=== PATIENT | female | born 1990 | race African-American/Black ===

== ENCOUNTER 2021-08-16 09:30 | Emergency (ER) | payer OTHER, SELFPAY ==
--- NOTE | ~2021-08-16 | XR_ITS ---
EXAMINATION: XR elbow RT min 3V DATE: 08/16/2021 10:02 INDICATION: Posterior right elbow pain post fall TECHNIQUE: Anteroposterior, two oblique and lateral views of the right elbow were obtained. COMPARISON: None. FINDINGS: Alignment is normal. No fracture or joint effusion. Joint spaces are normal. Small ulnar marginal ost eophyte near the sublime tubercle. Small heterotopic ossicle with smooth corticated margins along the posterior margin of the lateral humeral condyle. Soft tissues are unremarkable. IMPRESSION: 1. No right elbow joint effusion or acute osseous abnormality. Reviewed, dictated and finalized at location A.
--- NOTE | ~2021-08-16 | XR_ITS ---
EXAMINATION: XR toe 1st LT min 2V DATE: 08/16/2021 10:02 INDICATION: Left great toe pain. Fall. TECHNIQUE: 4 views of left great toe were obtained. COMPARISON: None. FINDINGS: Bone alignment is normal. No fracture. There is mild osteoarthritis of first metatarsophala ngeal joint and first interphalangeal joint. IMPRESSION: 1. Mild polyarticular osteoarthritis. Reviewed, dictated and finalized at location A.
[2021-08-16 09:36] VITALS: BP 134/84; PULSE 83; RESP 20; TEMP 36.2; O2SAT 99
[2021-08-16 10:02] VITALS: BP 134/84; PULSE 83; RESP 18; TEMP 36.2; O2SAT 99
--- NOTE | 2021-08-16 10:36 | ED.FALL ---
HPI - Fall General Chief Complaint: Fall Stated Complaint: fall Time Seen by Provider: 08/16/21 09:39 Source: patient, family and RN notes reviewed Mode of arrival: ambulatory Limitations: no limitations History of Present Illness HPI Narrative: Patient a 31-year-old female who presents with left foot pain and right elbow pain after slipping on a wet floor this morning patient notes aching pain to the forefoot at the base of the great toe as well as the right elbow posteriorly over the olecranon process denies other injuries or complaints slipped on the wet floor is noted presents nondistressed does not take anything for her symptoms Related Data Home Medications Medication Instructions Recorded Confirmed fluticasone propionate INTRANASAL 08/16/21 Allergies Allergy/AdvReac Type Severity Reaction Status Date / Time morphine Allergy Severe ITCHING, Verified 08/16/21 10:05 hives, throat swelling Review of Systems Review of Systems: All systems reviewed & are unremarkable except as noted in HPI and below PMFSH Past Medical History Medical History No significant past medical history Surgical History Surgical History History of section History of cholecystectomy Social History Social History Smoking status: Never smoker Gender identity (if verbalized by the patient): Female Exam Narrative: GENERAL: Well-appearing, well-nourished, and in no acute distress. HEAD: Normocephalic, atraumatic. EYES: PERRLA and EOMI. ENT: Nares clear, no rhinorrhea or epistaxis. Mucous membranes moist. NECK: Supple. No adenopathy or masses. CHEST: Clear to auscultation. No respiratory distress. No wheezes rales or rhonchi HEART: Regular rate and rhythm. No murmur heard. Normal peripheral pulses. EXTREMITIES: Normal range of motion. No edema. Tenderness at the base of the left great toe no deformities noted tenderness of the posterior right elbow no deformities noted no midline cervical thoracic or lumbar tenderness SKIN: Warm, dry, no rash. NEURO: No focal deficits. Alert and oriented x3. Neurovascularly intact PSYCH: Normal mood and affect. Course Course Emergency Course: Patient evaluated after a ground-level fall nondistressed will be discharged home with outpatient follow-up is afebrile nontoxic-appearing ABCs and vital signs intact and stable Vital Signs Vital signs: Vital Signs Temperature 97.2 F L 08/16/21 09:36 Pulse Rate 83 08/16/21 09:36 Respiratory Rate 20 08/16/21 09:36 Blood Pressure 134/84 08/16/21 09:36 Pulse Oximetry 99 08/16/21 09:36 Temperature 97.2 F L 08/16/21 10:02 Pulse Rate 83 08/16/21 10:02 Respiratory Rate 18 08/16/21 10:02 Blood Pressure 134/84 08/16/21 10:02 Pulse Oximetry 99 08/16/21 10:02 MDM - Fall MDM Narrative Medical decision making narrative: Patients injury or pain is consistent with musculoskeletal etiology. No signs of neurological or vascular compromise on exam. Compartments and tisues are soft without signs of compartment syndrome. Pain is felt appropriate for further evaluation on an outpatient basis. Imaging Data Radiologist's impression: ITS Impressions Elbow X-Ray 08/16/21 10:04 IMPRESSION: 1. No right elbow joint effusion or acute osseous abnormality. Toe X-Ray 08/16/21 10:05 IMPRESSION: 1. Mild polyarticular osteoarthritis. Discharge Plan Discharge Clinical Impression: Contusion of foot, left, Contusion of elbow, right Patient Disposition: Home, Self-Care Condition: Stable Instructions: Antibiotic Form, Contusion in Adults (ED) Additional Instructions: Follow-up with primary care in the next 7 days for reevaluation Return if symptoms worsen or concerns Rest ice and elevation for symptom relief Follow
== END 2021-08-16 10:44 | disposition home or self-care (01) ==
PROVIDERS: Emergency Provider Emergency Medicine; PCP Internal Medicine Infectious Disease
DX: S50.01XA Contusion of right elbow, initial encounter (principal); S90.32XA Contusion of left foot, initial encounter; M19.072 Primary osteoarthritis, left ankle and foot; W01.0XXA Fall on same level from slipping, tripping and stumbling without subsequent striking against object, initial encounter
CPT/HCPCS: 73080; 73660; 99284

== ENCOUNTER 2021-11-27 16:37 | Inpatient (IN) | payer OTHER, SELFPAY ==
[2021-11-27] VITALS (8 sets, daily range): BP systolic 110–136; BP diastolic 71–99; PULSE 84–90; RESP 16–18; TEMP 36.8; O2SAT 98–100; BMI 58.9
--- NOTE | ~2021-11-27 | XR_ITS ---
XR ankle LT min 3V DATE: 11/27/2021 17:23 INDICATION: Patient fell rollerblading. Pain at posterior ankle and thigh TECHNIQUE: 4 views COMPARISON: None FINDINGS: There is a mildly comminuted oblique fracture of the distal fibular shaft with one cortical width lateral and posterior displacement. There is approximately 6 mm lateral tibiotalar joint subluxation. There is tibiotalar osteoarthritis. Mild posterior calcaneal enthesopathy. IMPRESSION: Distal fibular shaft fracture and lateral tibiotalar joint subluxation Reviewed, dictated and finalized at location A. [employer] IMPRESSION: Distal fibular shaft fracture and lateral tibiotalar joint subluxat ion
--- NOTE | ~2021-11-27 | XR_ITS ---
EXAMINATION: XR surgery orthopedic DATE: 11/28/2021 15:06 INDICATION: ORIF left ankle fracture TECHNIQUE: 7 fluoroscopic images of the left ankle were obtained during procedure performed by Dr. Woody osborne. Radiologist was not present for the imaging or procedure. The amount of fluoroscopy time used during this procedure was 0.8 minutes. COMPARISON: 11/27/2021 FINDINGS: Line images demonstrate open reduction internal fixation of the previously noted comminuted distal left fibular diaphyseal fracture with interfragmentary screw and lateral plate and screws. Segura bsequent images demonstrate placement of an associated syndesmotic fixation with metallic buttons on the medial side of a lucent tunnel extending across the distal left tibial and fibular metaphyses. Al ignment post fixation appears essentially anatomic with a congruent ankle mortise. Tiny chronic appea ring loose body at the anterior recess of the tibiotalar joint space with small marginal osteophyte a long the anterior tibial plafond. Joint space appears relatively preserved. IMPRESSION: 1. Near-anatomic alignment post internal fixation of a comminuted distal fibular diaphyseal fracture which includes a distal tibiofibular syndesmotic fixation. See procedure note for further detail. Reviewed, dictated and finalized at location A. RINE MIXER IMPRESSION: 1. Near-anatomic alignment post internal fixation of a comminuted distal fibula r diaphyseal fracture which includes a distal tibiofibular syndesmotic fixation . See procedure note for further detail.
--- NOTE | ~2021-11-27 | CT_ITS ---
CT ankle LT wo con DATE: 11/27/2021 19:54 INDICATION: Left ankle pain following fall TECHNIQUE: CT axial images through the ankle; sagittal and coronal reconstructions. Automated exposure control and iterative reconstruction were performed utilizing. Exam dose: 528.69 mGy-cm total exam DLP. COMPARISON: 11/27/2021 left tibia-fibula and left ankle FINDINGS: CT examination confirms a mildly comminuted fracture of the distal fibular shaft with mild posterior displacement. There is mild medial subluxation at the tibiotalar joint. There are small cortical fracture fragments at the distal posterior distal tibia. There is osteoarthritic spurring at the anterior distal tibia. The talar dome is intact. Mild plantar and posterior calcaneal enthesopathy. IMPRESSION: Comminuted fracture of the distal fibular shaft with one cortical width posterior displac ement Mild medial subluxation at the tibiotalar joint Multiple small cortical bony densities at the distal posterior tibia suggests small cortical cyst fra cture fragments Reviewed, dictated and finalized at Location A. Reviewed, dictated and finalized at location A. OR NETWORK SECURITY ARCHITECT IMPRESSION: Comminuted fracture of the distal fibular shaft with one cortical w idth posterior displacement Mild medial subluxation at the tibiotalar joint Multiple small cortical bony densities at the distal posterior tibia suggests s mall cortical cyst fracture fragments
--- NOTE | ~2021-11-27 | XR_ITS ---
XR tibia fibula LT 2V DATE: 11/27/2021 19:28 INDICATION: Fall. Lower leg pain TECHNIQUE: Portable AP and lateral views COMPARISON: None FINDINGS: There is a mildly comminuted fracture of the distal fibular shaft with one cortical width p osterior displacement, no medial or lateral displacement, no significant angulation. There is improved with mild residual lateral tibiotalar joint subluxation. IMPRESSION: Improved but mild residual tibiotalar lateral subluxation Resolution of one cortical width lateral displacement but residual one cortical width posterior displ acement of linear oblique manner, and fracture of distal fibular shaft Reviewed, dictated and finalized at location A. S REP IMPRESSION: Improved but mild residual tibiotalar lateral subluxation Resolution of one cortical width lateral displacement but residual one cortical width posterior displacement of linear oblique manner, and fracture of distal fibular shaft
--- NOTE | ~2021-11-27 | XR_ITS ---
EXAMINATION: XR chest 1V portable DATE: 11/27/2021 22:59 INDICATION: COVID-19 positive. TECHNIQUE: A single frontal view of the chest was obtained. COMPARISON: Chest 2 views 10/09/2019 FINDINGS: There is airspace opacities in all right lung zones and in left mid and lower lung zones. N o pleural effusion or pneumothorax. The heart size is normal. IMPRESSION: 1. Diffuse lung disease, consistent with COVID-19 pneumonia. Obesity decreases sensitivity and specif icity. Reviewed, dictated and finalized at location A. NARY WORKER IMPRESSION: 1. Diffuse lung disease, consistent with COVID-19 pneumonia. Obesity decreases sensitivity and specificity.
[2021-11-27] MEDS: fentaNYL CITRATE INJ (*CRX) 100 MCG/2 ML VIAL 50 MCG IV PUSH ×2 (17:15→22:49)
[2021-11-27] MEDS: ceFAZolin 2 GM/D5W 50 ML 2 GM/50 ML BAG IVPB (17:57)
[2021-11-27] MEDS: TETANUS,DIPHTHERIA,AC PERTUSSIS ADULT (0.5 ML) BOOSTRIX IM (18:09)
[2021-11-27] MEDS: fentaNYL CITRATE INJ (*CRX) 100 MCG/2 ML VIAL (18:43)
--- NOTE | 2021-11-27 19:02 | PM.IMHP ---
H&P: HPI History of Present Illness Date/Time: 11/27/21 19:02 this is a 31-year-old female patient who was skating at her son's birthday green party when she fell and hurt her left ankle. The patient stated that she heard a pop when she twisted her left ankle. Patient denies hitting her head. Patient was brought in per EMS. Ankle x-ray was read as distal fibular shaft fracture and lateral tibiotalar joint subluxation. Tibia-fibula x-ray was read as improved but mild residual tibial tolerated lateral subluxation. Resolution of 1 cortical with lateral displacement but residual 1 cortical with posterior displacement of linear oblique manner and fracture of distal fibular shaft. Ankle CT was read as the followingComminuted fracture of the distal fibular shaft with one cortical width posterior displacement Mild medial subluxation at the tibiotalar joint Multiple small cortical bony densities at the distal posterior tibia suggests small cortical cyst fracture fragments. The patient had a small area to her lower ankle where she had been bleeding. The patient was given a tetanus shot, fentanyl, and Ancef in the emergency room. H&H is 10.4 and 34.2. The patient was found to be positive for COVID. The patient is being admitted to inpatient status on the date of service of 11/27/2021. Chief Complaint: Left ankle pain after injury Review of Systems Review of Systems: All systems reviewed & are unremarkable except as noted in HPI and below Constitutional: Constitutional: Reports as per HPI and Reports no additional constitutional complaints Eyes: Eyes: Reports as per HPI and Reports no additional eye complaints ENT: Reports system reviewed and no additional complaints, except as documented and Reports Normal hearing present Cardiovascular: Cardiovascular: Reports no additional cardiovascular complaints Respiratory: Respiratory: Reports no additional respiratory complaints and Reports no additional respiratory complaints Gastrointestinal: Gastrointestinal: Reports as per HPI and Reports no additional gastrointestinal complaints Musculoskeletal: Musculoskeletal: Reports no additional musculoskeletal complaints Integumentary/Breasts: Skin/Breast: Reports system reviewed and no additional complaints, except as docu and Reports as per HPI Neurologic: Reports system reviewed and no additional complaints, except as documented, Reports as per HPI and Reports Normal hearing present Psychiatric: Psychiatric: Reports no additional psychiatric complaints and Reports as per HPI Endocrine: Endocrine: Reports no additional endocrine complaints Hematologic/Lymphatic: Hematologic/Lymphatic: Reports no additional hematologic/lymphatic complaints Allergic/Immunologic: Allergic/Immunologic: Reports no additional allergic/immunologic complaints PMFSH Past Medical History Medical History (Updated 11/27/21 @ 22:15 by Nicole Edwards NP) No significant past medical history Obesity Surgical History Surgical History History of section 4 History of cholecystectomy Family History Family History (Updated 11/27/21 @ 22:15 by Nicole Edwards NP) Unknown No significant family history Social History Social History (Updated 11/27/21 @ 22:16 by Nicole Edwards NP) Social History: 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 She lives with her tracy who is her durable power privacy attorney for healthcare. The patient is a lifelong nonsmoker. She does not use any alcohol marijuana or illicit drugs. Code status full code Smoking status: Never smoker Gender identity (if verbalized by the patient): Female Meds Home Medications and Allergies Home Medications Medication Instructions Recorded Confirmed Type famotidine 40 mg PO DAILY #30 tablet 10/09/19 Rx fluticasone propionate INTRANASAL 08/16/21 History ibuprofen [IBU] 600 mg PO QID PRN #7 tablet 08/16/21 Rx
[2021-11-27] MEDS: ceFAZolin SODIUM 1 GM VIAL IV PUSH (19:11)
--- NOTE | 2021-11-27 19:16 | ED.LOWEXIN ---
HPI - Extremity Injury (Lower) General Chief Complaint: Extremity Injury, Lower Stated Complaint: L ANKLE PAIN Time Seen by Provider: 11/27/21 16:53 Source: patient Mode of arrival: EMS Limitations: clinical condition History of Present Illness HPI Narrative: 31-year-old female Patient was rollerskating at her son's 14th birthday green party and fell and injured her left ankle She states I heard the bone snap, and was brought in by EMS No other injuries Overweight but not unhealthy otherwise Related Data Home Medications Medication Instructions Recorded Confirmed fluticasone propionate INTRANASAL 08/16/21 Allergies Allergy/AdvReac Type Severity Reaction Status Date / Time morphine Allergy Severe ITCHING, Verified 08/16/21 10:05 hives, throat swelling Review of Systems Constitutional: Constitutional: Denies chills and Denies fever(s) Cardiovascular: Cardiovascular: Denies chest pain Respiratory: Respiratory: Denies cough and Denies dyspnea Musculoskeletal: Musculoskeletal: Reports arthralgias and Reports joint swelling Neurologic: Denies vertigo, Denies dizziness and Denies syncope PMFSH Past Medical History Medical History No significant past medical history Surgical History Surgical History History of section 4 History of cholecystectomy Social History Social History Social History: 6 c nereidab tatiana Smoking status: Never smoker Gender identity (if verbalized by the patient): Female Exam Const: General: cooperative and no acute distress Nutritional Appearance: obese Orientation/consciousness: patient oriented x3 (alert) HENMT: Head: normal to inspection, normocephalic, atraumatic, no contusions and no hematomas Ears: external ears normal General nose exam: no epistaxis Eyes: Conjunctivae: conjunctivae normal EOM: EOMs intact bilaterally Neck: Neck: normal visual inspection, supple and no JVD Resp: Effort & Inspection: normal respiratory effort and not labored Auscultation: other (BS =) Skin: General skin exam: normal color and no rashes or lesions noted Neuro: General: patient oriented x3 (alert) and moves all extremities Speech: normal speech Extrem: Other: Left leg, no obvious angular deformity but there is swelling around the ankle, very tender over the distal fibula, less tender medially over the tibia, there is a very tiny approximately 3 mm wound medially that I cleaned up with a Q-tip and got quite a bit of blood and also some whitish material and consider this to represent a communicating open fracture, normal distal sensation and pulses Psych: Affect: normal affect Course Course Emergency Course: Discussed with Ortho and with hospitalist, antibiotics begun, splinted by techs, admission with expectation of surgery tomorrow Vital Signs Vital signs: Vital Signs Temperature 36.8 C 11/27/21 16:53 Pulse Rate 90 11/27/21 16:53 Respiratory Rate 18 11/27/21 16:53 Blood Pressure 110/74 11/27/21 16:53 Pulse Oximetry 100 11/27/21 16:53 Temperature 36.8 C 11/27/21 16:53 Pulse Rate 90 11/27/21 16:53 Respiratory Rate 18 11/27/21 16:53 Blood Pressure 124/71 11/27/21 18:46 Pulse Oximetry 100 11/27/21 18:46 MDM - Extremity Injury (Lower) Lab Data Labs: Lab Results 11/27/21 Range/Units 18:53 SARS-CoV-2 RNA (RT-PCR) Pending ABG Data Attestation: I personally reviewed and interpreted this ABG as follows: Interpretation: O2 sat is 100% on room air, normal Imaging Data Radiologist's impression: ITS Impressions Ankle X-Ray 11/27/21 17:37 IMPRESSION: Distal fibular shaft fracture and lateral tibiotalar joint subluxation Discharge Plan Discharge Clinical Impression: Open fracture of left ankle Patient Disposition: S
[2021-11-27 19:35] LABS: SARS-CoV-2 RNA PCR Positive
--- NOTE | 2021-11-27 23:30 | ADMGEN ---
This patient, Melly Tinoco, was admitted to 3 [facility] Surg Room 302-01. Patient/family oriented to hospital policies and general routines including ID bracelet, bed and alarms, visiting hours, pain management, procedures, bathroom and other care routines, personal items, smoking policy, room service/diet, and visiting hours. Information on how to activate the Rapid Response Team has been discussed. Patient/Family are encouraged to report perceived risks to care and to ask questions if they do not understand what they are told or what they should do.
[2021-11-28] VITALS (10 sets, daily range): BP systolic 112–145; BP diastolic 74–87; PULSE 78–99; RESP 12–18; TEMP 36.2–36.7; O2SAT 94–100
[2021-11-28] MEDS: HYDROcodone/acetaminophen (*CRX) 7.5-325 MG TABLET 1 TAB PO ×2 (00:21→06:48)
[2021-11-28 06:45] LABS: Basophils Percent Auto 0.2 % (0.2-1.2); Eosinophils Percent Auto 0.4 % (0-4.4); Hematocrit 33.5 % (37.0-47.0); Hemoglobin 10.1 g/dL (12.0-15.0); Immature Granulocyte Absolute 0.02 K/mm3 (0.00-0.031); Immature Granulocyte Percent A 0.2 % (0-0.5); Lymphocytes Percent Auto 29.3 % (18.3-44.2); Mean Corpuscular HGB Conc 30.1 g/dl (32-36); Mean Corpuscular Hemoglobin 23.9 pg (26-34); Mean Corpuscular Volume 79.4 fl (80-100); Mean Platelet Volume 9.1 fl (7.4-10.4); Monocytes Absolute Auto 0.8 K/mm3 (0.1-0.6); Monocytes Percent Auto 8.6 % (2.6-8.5); Neutrophils Absolute Auto 5.6 K/mm3 (1.3-6.7); Neutrophils Percent Auto 61.3 % (45.5-73.1); Platelet Count Result 321 k/mm3 (150-375); Red Blood Count 4.22 M/mm3 (4.2-5.4); Red Cell Distribution Width 17.7 % (11.5-14.5); White Blood Count 9.2 K/mm3 (4.5-10.0)
[2021-11-28 07:01] LABS: Alanine Aminotransferase 15 U/L (4-35); Albumin Level 3.9 g/dL (3.5-5.1); Alkaline Phosphatase 50 U/L (38-126); Anion Gap 4 mmol/L (8-16); Aspartate Amino Transferase 20 U/L (14-36); Bilirubin,Total 0.7 mg/dL (0.2-1.3); Blood Urea Nitrogen 8 mg/dL (7-17); Calcium 8.8 mg/dL (8.4-10.2); Carbon Dioxide 29 mmol/L (22-30); Chloride 103 mmol/L (98-107); Estimated CRCL calculation 227 ml/min; Estimated Glomerular Filt Rate > 60; Glucose 134 mg/dL (65-110); Lactate Dehydrogenase 330 U/L (313-618); Magnesium 1.8 mg/dL (1.6-2.3); Potassium 3.9 mmol/L (3.4-5.0); Sodium 136 mmol/L (137-145)
[2021-11-28 07:16] LABS: Lactic Acid Reflex 0.9 mmol/L (0.7-2.1)
[2021-11-28 07:38] LABS: Thyroid Stimulating Hormone Reflex 0.165 uIU/mL (0.465-4.68)
[2021-11-28 08:16] LABS: Free T4 Free Thyroxine Reflex 1.17 ng/dL (0.78-2.19)
[2021-11-28 09:29] LABS: Total Triiodothyronine (T3) 1.33 NG/ML (0.97-1.69)
[2021-11-28] MEDS: fentaNYL CITRATE INJ (*CRX) 100 MCG/2 ML VIAL 50 MCG IV PUSH (10:17)
--- NOTE | 2021-11-28 11:46 | WPDHPUPDATE1 ---
History and Physical Update Update Date/Time: 11/28/21 11:46 History and Physical has been reviewed, including an updated exam of the patient. Patient was just examined. I have discussed the risks of surgery with her in detail as well as the risks of surgery with her today. That was done over the telephone. There are NO changes in the patient's condition. Risks, benefits, and alternatives have been discussed and questions answered. Patient agrees to proceed with procedure.
--- NOTE | 2021-11-28 11:48 | PM.PNORT ---
Progress Note: A&P Additional Plan Patient is a 31-year-old female who presented late yesterday afternoon with a Rodriguez C fracture subluxation of the left ankle with comminuted distal fibular shaft fracture with segmental comminution gross widening of the syndesmosis and significant lateral subluxation. She presented with a 5 mm skin tear over the medial malleolus which evidently occurred at time of injury at point of maximum displacement and the ER doctor noted that on probing this a lot of blood and fatty material came out which would suggest this is in continuity with the ankle and therefore grade 1 open injury but fortunately not directly over the fracture fragments but rather over the medial malleolus which is not fracture. A CT scan was obtained. She has a prominent osteophyte off the anterior tibial plafond that was pre-existing I discussed with the patient that this might have been associated with some decreased dorsiflexion of the ankle and she was aware of that. There is also evidence of posterior malleolus chip fractures. There was a typographical error on the CT report by the radiologist mentioning chips of bone from a cortical cyst but it should of said chips of bone from the cortical surface of the posterior distal tibia. The medial malleolus looks intact so this is technically a bimalleolar fracture. She did test positive for Coronavirus and chest x-ray shows some pneumonitis consistent with Coronavirus pneumonia although the patient appears asymptomatic at this time. Her past medical history is otherwise unremarkable except for super obesity. Her BMI is 59. She has nasal allergies for which she takes fluticasone propionate nasal spray and also takes Pepcid for reflux. She has a history of sections in the past and history of cholecystectomy and she had no problems with thrombotic complications with these procedures and no family history of thrombotic complications. She does not smoke or drink alcohol. She lives with her tracy and their 4 children. Her injury happened while she was roller skating at her 12-year-old birthday democrat yesterday. Impression: Patient has a severely unstable Rodriguez C distal fibular shaft fracture that the which has segmental comminution. There is subluxation prominent of the talus relative to the distal tibia indicating deltoid ligament rupture but without fracture. Small posterior malleolar surface chip fractures are noted on CT scan. Gross syndesmotic widening noted. I have recommended open reduction internal fixation with a 1/3 tubular locking plate and stabilization of the syndesmosis with a tight rope device to stabilize her injury. I have discussed with her and then subsequently I discussed with her over the telephone the risks of surgery in detail which include blood clots pulmonary embolism. She is aware that pulmonary embolism could cause and this made her very nervous. I recommended that we use Eliquis for 8 weeks postoperatively for DVT prophylaxis because with her extreme obesity she is at higher risk for a blood clot in the lower extremity and therefore pulmonary embolism. I discussed the risk of infection with her. There is a slightly higher risk of infection because it is an open injury and I would plan to use 10 days of antibiotics postoperatively for additional prophylaxis. She was given tetanus and 3 g Ancef in the ER and 2 g Q 8 will continue with that perioperatively and she was also started on weight based vancomycin this morning. Other risks would include development of progressive posttraumatic arthritis. She does have some arthritis the ankle now evidence by the prominent anterior osteophyte on the tibial plafond and and weight loss would be recommended in order to hopefully slow progression of arthritis in her weight-bearing joints over time. Risk of nerve injury to the superficial branch of peroneal nerve which could cause permanent numbness on the top of the foot discus
--- NOTE | 2021-11-28 12:32 | WPDANESEPPF ---
Anes - Initial Pre Proc Eval Procedure: Operation Date: 11/28/21 12:00 Proposed Procedures p Open Reduction Internal Fixation Left Ankle Fracture - Kit Snowden MD Date/Time: 11/28/21 12:32 Surgeon: Pauly Clark PA-C Pre Op Diagnosis: Open Ankle Fracture Patient Data Age: 31 Gender: F Height: 1.57 m Weight: 146.2 kg Last Vital Signs Temp 36.2 C L 11/28/21 08:45 Pulse 99 11/28/21 08:45 Resp 18 11/28/21 08:45 BP 112/74 11/28/21 08:45 Pulse Ox 100 11/28/21 08:45 Allergies Allergy/AdvReac Type Severity Reaction Status Date / Time morphine Allergy Severe ITCHING, Verified 08/16/21 10:05 hives, throat swelling Home Medications Medication Instructions Recorded Confirmed Type famotidine 40 mg PO DAILY #30 tablet 10/09/19 Rx fluticasone propionate INTRANASAL 08/16/21 History ibuprofen [IBU] 600 mg PO QID PRN #7 tablet 08/16/21 Rx Laboratory Tests 11/27/21 11/28/21 11/28/21 18:53 06:30 06:30 WBC 9.2 K/mm3 K/mm3 (4.5-10.0) RBC 4.22 M/mm3 M/mm3 (4.2-5.4) Hgb 10.1 g/dL L g/dL (12.0-15.0) Hct 33.5 % L % (37.0-47.0) MCV 79.4 fl L fl (80-100) MCH 23.9 pg L pg (26-34) MCHC 30.1 g/dl L g/dl (32-36) RDW 17.7 % H % (11.5-14.5) Plt Count 321 k/mm3 k/mm3 (150-375) MPV 9.1 fl fl (7.4-10.4) Immature Gran % (Auto) 0.2 % % (0-0.5) Neut % (Auto) 61.3 % % (45.5-73.1) Lymph % (Auto) 29.3 % % (18.3-44.2) [place] % (Auto) 8.6 % H % (2.6-8.5) Eos % (Auto) 0.4 % % (0-4.4) Baso % (Auto) 0.2 % % (0.2-1.2) Lymph # (Auto) 2.70 K/mm3 K/mm3 (0.9-3.2) [place] # (Auto) 0.8 K/mm3 H K/mm3 (0.1-0.6) Eos # (Auto) 0.0 K/mm3 K/mm3 (0-0.3) Baso # (Auto) 0.0 K/mm3 K/mm3 (0.0-0.1) Abs Immat Gran (auto) 0.02 K/mm3 K/mm3 (0.00-0.031) Absolute Neuts (auto) 5.6 K/mm3 K/mm3 (1.3-6.7) Absolute Nucleated RBC 0.0 K/mm3 K/mm3 (0.0-0.012) Nucleated RBC % 0.0 % % (0.0-0.2) Sodium 136 mmol/L L mmol/L (137-145) Potassium 3.9 mmol/L mmol/L (3.4-5.0) Chloride 103 mmol/L mmol/L (98-107) Carbon Dioxide 29 mmol/L mmol/L (22-30) Anion Gap 4 mmol/L L mmol/L (8-16) BUN 8 mg/dL mg/dL (7-17) Creatinine 0.40 mg/dL L mg/dL (0.7-1.0) Estim Creat Clear Calc 227 ml/min ml/min Estimated GFR > 60 (59 - ) Glucose 134 mg/dL H mg/dL (65-110) Lactic Acid Calcium 8.8 mg/dL mg/dL (8.4-10.2) Magnesium 1.8 mg/dL mg/dL (1.6-2.3) Ferritin Total Bilirubin 0.7 mg/dL mg/dL (0.2-1.3) AST 20 U/L U/L (14-36) ALT 15 U/L U/L (4-35) Alkaline Phosphatase 50 U/L U/L (38-126) Lactate Dehydrogenase 330 U/L U/L (313-618) Total Protein 7.0 g/dL g/dL (6.3-8.2) Albumin 3.9 g/dL g/dL (3.5-5.1) TSH (Reflex) Free T4 Total T3 SARS-CoV-2 RNA (RT-PCR) Positive A Blood Type Antibody Screen 11/28/21 11/28/21 11/28/21 06:30 06:30 06:30 WBC RBC Hgb Hct MCV MCH MCHC RDW Plt Count MPV Immature Gran % (Auto) Neut % (Auto) Lymph % (Auto) [place] % (Auto) Eos % (Auto) Baso % (Auto) Lymph # (Auto) [place] # (Auto) Eos # (Auto) Baso # (Auto) Abs Immat Gran (auto) Absolute Neuts (auto) Absolute Nucleated RBC Nucleated RBC % Sodium Potassium Chloride
[2021-11-28] MEDS: ceFAZolin SODIUM 1 GM VIAL 3 GM IV PUSH (12:53)
--- NOTE | 2021-11-28 12:55 | PC.NURSE ---
To OR per bed @ 1225. SBAR on chart, Ancef sent with patient due to Vanco infusing.
--- NOTE | 2021-11-28 14:51 | PM.IMPN ---
Progress Note: A&P Assessment and Plan (1) Open fracture of left ankle: Code(s): S82.892B - Other fracture of left lower leg, initial encounter for open fracture type I or II Status: Acute Assessment and Plan: Secondary to fall while roller skating. Ankle x-ray showed distal fibular shaft fracture and lateral tibiotalar joint subluxation Appreciate orthopedic surgery consultation Planning for ORIF this afternoon She will need PT/OT postoperatively Per Orthopedic surgery, will proceed with Eliquis 8 weeks postoperatively for DVT prophylaxis Supportive care. Analgesics and antiemetics available as needed (2) Anxiety: Code(s): F41.9 - Anxiety disorder, unspecified Status: Acute Assessment and Plan: Patient acutely anxious preoperatively regarding surgical risks Reassurance provided Will hold on anxiolytics at this time. Hopefully her anxiety will improve postoperatively (3) Obesity: Code(s): E66.9 - Obesity, unspecified Status: Chronic Assessment and Plan: Patient to remain strictly nonweightbearing of the left leg (4) COVID-19: Code(s): U07.1 - COVID-19 Status: Acute Assessment and Plan: Patient was saw for COVID preoperatively with positive test on 11/27/2021 despite being asymptomatic Supportive care She has no oxygen requirements She has not been vaccinated for COVID-19 Subjective Date/time seen: 11/28/21 14:51 Interval history: Date of service: 11/28/2021 Melly Tinoco is a 31-year-old female with a history of hypothyroidism and obesity who is seen in follow-up for left ankle fracture. She will be having surgery this afternoon and is acutely anxious due to this. She was tearful and her teeth were chattering. She asked myself and her nurse several times if we would stay with her. She does not want to be left alone. She wants her to able to come visit. She was very nervous regarding the risks that were outlined with her by her surgeon, especially the risk of blood clot. She is scared that she will not wake up following her surgery. She states that her left ankle pain is about a 5/10. She denies shortness of breath or cough. No nausea, vomiting, or abdominal pain. No additional history is obtainable. Review of Systems Review of Systems: All systems reviewed & are unremarkable except as noted in HPI and below Exam Narrative: Ms. Tinoco is an obese, well-appearing 31-year-old female who is sitting up in bed. She appears very anxious but is in no acute respiratory distress. Neuro: awake, alert and oriented x4, speech clear, no focal neuro deficits noted HEENMT: normocephalic, atraumatic, EOMI, sclerae anicteric Neck: supple, no lymphadenopathy Respiratory: clear to auscultation bilaterally, nonlabored breathing Cardio: regular rate, regular rhythm with S1-S2 Abdomen: nondistended, normoactive bowel sounds, soft, nontender to palpation Extremities: no edema or erythema. Able to wiggle toes bilaterally. Neurovascularly intact. Brisk capillary refill bilaterally. Left leg elevated and wrapped. Skin: no rashes or lesions, warm and dry Psych: Acutely anxious, tearful, judgment and insight intact Objective Data Vital Signs Vital Signs: Vital Signs - 24 hr 11/27/21 16:53 11/27/21 17:03 11/27/21 17:34 Temperature 98.2 F Pulse Rate 90 Respiratory Rate 18 Blood Pressure 110/74 Pulse Oximetry 100 98 100 11/27/21 17:47 11/27/21 18:41 11/27/21 18:45 Temperature Pulse Rate Respiratory Rate Blood Pressure Pulse Oximetry 100 100 100 11/27/21 18:46 11/27/21 23:00 11/28/21 04:27 Temperature 98.3 F Pulse Rate 84 Respiratory Rate 16 Blood Pressure 124/71 136/99 H Pulse Oximetry 100 99 100 11/28/21 06:00 11/28/21 08:45 Temperature 98.1 F 97.2 F L Pulse Rate 78 99 Respiratory Rate 18 18 Blood Pressure 132/87 112/74 Pulse Oximetry 98 100 Intake/
--- NOTE | 2021-11-28 14:56 | W.PM.PROC2 ---
Procedure Note - Detailed Date of Procedure 11/28/21 Pre-op Diagnosis Open Ankle Fracture comminuted left distal fibular shaft fracture, Rodriguez C, with emerson syndesmotic disruption and lateral tibiotalar subluxation and posterior malleolus avulsion fracture. 3 mm skin tear over anterior medial malleolus Post-op Diagnosis same Procedure Performed Patient was brought to the operating room. We removed the splint solid the skin laterally was only mildly swollen without blistering. I was 3 mm punctate skin tear over the anterior aspect the medial malleolus that was still bleeding and this was communicated presumably with the medial ankle. The foot and ankle leg were scrubbed with chlorhexidine cloth. Leg was prepped with DuraPrep and covered with Ioban. She received 3 g Ancef and 2 g of vancomycin preoperatively. Limb was exsanguinated tourniquet elevated to 300 mmHg. A 7 in longitudinal incision was made centered over the fracture. We carefully sought for the superficial branch of peroneal nerve throughout the dissection and I did not visualize. I think it was likely just anterior to our incision plane. The fascia was longitudinally incised over the peroneal muscle belly exposing the proximal shaft and the periosteum elevated off the lateral surfaces of the distal fragments. There is segmental comminution with posterior and anterior butterfly fragments the anterior butterfly fragment was sized and involve the lateral surface of the fibular shaft and I was able to get an anatomic reduction between that and the proximal shaft and stabilized this with a 2.0 mm mini frag screw from medial to lateral. We were then able to anatomically reduce the distal fragment to the intercalary fragment and this was stabilized with a 2.0 mini frag screw. This gave us anatomic reduction of the fibular shaft as well as the mortise under fluoro. A 1/3 tubular locking plate from the Arthrex set was contoured. This would give us 3 cortical bicortical screws proximal the fracture and 3 screws and 1 hole for the syndesmotic tight rope distal to the fracture. The distal part of the plate was stabilized tip the lateral malleolus with the BB pin and then we placed a cortical screw in the 2nd from most proximal hole and then another cortical screw in the 4th from distal hole and this sucked the plate down nicely. We then placed 2 locking screws in the lateral malleolus in the distal 2 holes and locking screws in the most proximal and 3rd from most proximal hole. We fluoroscopic evaluation of the hardware showed screws of appropriate length and anatomic alignment of the mortise. We then drilled the guide pin across the 3rd from most distal hole which was about 2 cm proximal to the tibial talar joint and this was a drilled the in and anterior medial direction 30? off the transverse plane the foot and and we overdrilled this with a special cannulated drill from the tight rope system and the tight rope was passed and the button deployed without difficulty and we cinched this down snugly. This gave anatomic reduction of the mortise and on stress there is no widening of the syndesmosis or medial clear space whatsoever. We had put the tourniquet down after we had the initial screws in the plate and hemostasis was excellent. We had irrigated the wound several times with antibiotic solution Ancef solution during the procedure also. The skin was closed with 2-0 subcutaneous Vicryl and glue EBL about 25 cc. There were no complications. Surgeon Kit Snowden MD Needle Polisher susie Anesthesia general Description of Procedure Open reduction internal fixation of comminuted left fibular distal shaft fracture and syndesmotic fixation left ankle Implants Arthrex 10/31 tubular plate and screws and tightrope device Estimated Blood Loss 25 Drains No Packing No Pathology none sent Complications No immediate complications Condition stable Disposition PACU
[2021-11-28] MEDS: LACTATED RINGERS 1,000 ML 30 ML IV CONT ×2 (15:11)
[2021-11-28] MEDS: fentaNYL CITRATE INJ (*CRX) 100 MCG/2 ML VIAL 25 MCG IV PUSH ×6 (15:35→16:13)
--- NOTE | 2021-11-28 15:47 | SUR.PHASEI ---
3L NC applied at 1545.
[2021-11-28] MEDS: diphenhydrAMINE HCl INJ 50 MG/ML VIAL 25 MG IV PUSH (16:04)
--- NOTE | 2021-11-28 16:26 | PC.NURSE ---
Returned from OR per bed. Report received from ELMIRA Rolon.
[2021-11-28] MEDS: SENNA/DOCUSATE SODIUM TABLET 2 TAB PO (17:17)
[2021-11-28] MEDS: oxyCODONE HCL (*CRX) 5 MG TAB IR PO ×2 (17:17→20:38)
[2021-11-28] MEDS: SODIUM CHLORIDE 0.9% IV 1,000 ML 125 ML IV CONT (17:24)
[2021-11-28] MEDS: ACETAMINOPHEN 500 MG TABLET 1000 MG PO (18:06)
[2021-11-28] MEDS: FAMOTIDINE 20 MG TABLET PO (20:38)
[2021-11-28] MEDS: APIXABAN 2.5 MG TABLET PO (20:38)
[2021-11-29] MEDS: ACETAMINOPHEN 500 MG TABLET 1000 MG PO ×4 (00:04→17:45)
[2021-11-29] MEDS: oxyCODONE HCL (*CRX) 5 MG TAB IR PO ×6 (00:04→20:43)
[2021-11-29 02:02] VITALS: BP 122/70; PULSE 81; RESP 16; TEMP 36.2; O2SAT 98
[2021-11-29] MEDS: SODIUM CHLORIDE 0.9% IV 1,000 ML 125 ML IV CONT (04:10)
[2021-11-29 05:58] VITALS: BP 130/73; PULSE 80; RESP 18; TEMP 36.6; O2SAT 97
[2021-11-29 06:59] LABS: Anion Gap 4 mmol/L (8-16); Blood Urea Nitrogen 4 mg/dL (7-17); Calcium 8.3 mg/dL (8.4-10.2); Carbon Dioxide 28 mmol/L (22-30); Chloride 104 mmol/L (98-107); Estimated CRCL calculation 187 ml/min; Estimated Glomerular Filt Rate > 60; Glucose 197 mg/dL (65-110); Potassium 3.7 mmol/L (3.4-5.0); Sodium 136 mmol/L (137-145)
[2021-11-29 07:03] LABS: Basophils Percent Auto 0.2 % (0.2-1.2); Eosinophils Percent Auto 0.1 % (0-4.4); Hematocrit 32.8 % (37.0-47.0); Hemoglobin 9.7 g/dL (12.0-15.0); Immature Granulocyte Absolute 0.05 K/mm3 (0.00-0.031); Immature Granulocyte Percent A 0.4 % (0-0.5); Lymphocytes Absolute Auto 2.33 K/mm3 (0.9-3.2); Lymphocytes Percent Auto 20.6 % (18.3-44.2); Mean Corpuscular HGB Conc 29.6 g/dl (32-36); Mean Corpuscular Hemoglobin 24.4 pg (26-34); Mean Corpuscular Volume 82.6 fl (80-100); Mean Platelet Volume 9.4 fl (7.4-10.4); Monocytes Absolute Auto 0.9 K/mm3 (0.1-0.6); Monocytes Percent Auto 8.1 % (2.6-8.5); Neutrophils Percent Auto 70.6 % (45.5-73.1); Platelet Count Result 327 k/mm3 (150-375); Red Blood Count 3.97 M/mm3 (4.2-5.4); White Blood Count 11.3 K/mm3 (4.5-10.0)
[2021-11-29 07:18] LABS: Hemoglobin A1C 7.2 % (<5.7)
[2021-11-29] MEDS: FAMOTIDINE 20 MG TABLET PO ×2 (08:29→20:43)
[2021-11-29] MEDS: APIXABAN 2.5 MG TABLET PO ×2 (08:29→20:43)
[2021-11-29] MEDS: SENNA/DOCUSATE SODIUM TABLET 2 TAB PO ×2 (08:29→16:08)
[2021-11-29] MEDS: polyethylene glycoL 3350 17 GM POWD.PACK PO (08:29)
[2021-11-29 10:33] LABS: Vitamin D 25 Hydroxy < 12.8 ng/mL
--- NOTE | 2021-11-29 14:08 | P.PNIM_ITS ---
Progress Note: A&P Assessment and Plan (1) Open fracture of left ankle: Code(s): S82.892B - Other fracture of left lower leg, initial encounter for open fracture type I or II <MAYELIN Link-C - Last Filed: 11/29/21 14:24> Status: Acute <Pauly Caseyrudy PA-C - Last Filed: 11/29/21 14:24> Assessment and Plan: Secondary to fall while roller skating. * Ankle x-ray showed distal fibular shaft fracture and lateral tibiotalar joint subluxation * Appreciate orthopedic surgery consultation * Underwent ORIF on 11/28/21. Tolerate the procedure well * Continue PT/OT. Planning for discharge home with home health once safely able to transfer. * Continue Eliquis for 6-8 weeks postoperatively per Orthopedic surgery. Care coordination following for prior authorization. * Supportive care. Analgesics and antiemetics available as needed <Pauly Clark PA-C - Last Filed: 11/29/21 14:24> (2) Anxiety: Code(s): F41.9 - Anxiety disorder, unspecified <Pauly DeepaaMrjorie Clark, PA-C - Last Filed: 11/29/21 14:24> Status: Acute <Pauly DeepaMarjorie Clark PA-C - Last Filed: 11/29/21 14:24> Assessment and Plan: Resolved. * Patient was acutely anxious preoperatively regarding surgical risks * Reassurance provided <Pauly Clark PA-C - Last Filed: 11/29/21 14:24> (3) Obesity: Code(s): E66.9 - Obesity, unspecified <Pauly JMarjorie Clark, PA-C - Last Filed: 11/29/21 14:24> Status: Chronic <Pauly Clark, PA-C - Last Filed: 11/29/21 14:24> Assessment and Plan: Patient to remain strictly nonweightbearing of the left leg <Pauly Clark PA-C - Last Filed: 11/29/21 14:24> (4) COVID-19: Code(s): U07.1 - COVID-19 <Pauly Clark, PA-C - Last Filed: 11/29/21 14:24> Status: Acute <Pauly Caseyrudy MAYELINUmmC - Last Filed: 11/29/21 14:24> Assessment and Plan: Patient was swabbed for COVID preoperatively with positive test on 11/27/2021 despite being asymptomatic * Supportive care * She has no oxygen requirements * She has not been vaccinated for COVID-19 <Pauly ArenasMarjorie Clark MAYELINUmmC - Last Filed: 11/29/21 14:24> (5) Type 2 diabetes mellitus: Code(s): E11.9 - Type 2 diabetes mellitus without complications <Pauly ArenasMarjorie Clark MAYELIN-C - Last Filed: 11/29/21 14:24> Status: Acute <Pauly Savage Amber CHACHA - Last Filed: 11/29/21 14:24> Assessment and Plan: Fasting blood sugars noted to be elevated. A1c evaluated and was 7.2, consistent with diabetes. * Will initiate accuchecks, sliding scale insulin, and hypoglycemic protocol * Plan to initiate metformin prior to discharge * Will ask last putter away to evaluate patient. <Pauly GRICELDA OrellanaMicaela - Last Filed: 11/29/21 14:24> Subjective Date/time seen: 11/29/21 14:08 <GRICELDA LinkMicaela - Last Filed: 11/29/21 14:24> Interval history: Date of service: 11/29/2021 Melly Tinoco is a 31-year-old female with a history of hypothyroidism and obesity who is seen in follow-up for left ankle fracture. She is s/p ORIF and tolerated the procedure well. She has been doing better today. She said her pain increased this morning up to 15/10 and at this time is about of 10/10. She was able to transfer from her bed to the bedside commode. Her appetite is good. She denies shortness breath, cough, or chest pain. No nausea or vomiting. Denies dizziness, lightheadedness, weakness. She wants to go home following her hospitalization where she lives with her who can assist her. She is
--- NOTE | 2021-11-29 14:08 | PM.IMPN ---
Progress Note: A&P Assessment and Plan (1) Open fracture of left ankle: Code(s): S82.892B - Other fracture of left lower leg, initial encounter for open fracture type I or II <Pauly Clark PA-C - Last Filed: 11/29/21 14:24> Status: Acute <Paulylori Clark PA-C - Last Filed: 11/29/21 14:24> Assessment and Plan: Secondary to fall while roller skating. Ankle x-ray showed distal fibular shaft fracture and lateral tibiotalar joint subluxation Appreciate orthopedic surgery consultation Underwent ORIF on 11/28/21. Tolerate the procedure well Continue PT/OT. Planning for discharge home with home health once safely able to transfer. Continue Eliquis for 6-8 weeks postoperatively per Orthopedic surgery. Care coordination following for prior authorization. Supportive care. Analgesics and antiemetics available as needed <Pauly Clark PA-C - Last Filed: 11/29/21 14:24> (2) Anxiety: Code(s): F41.9 - Anxiety disorder, unspecified <Pauly JMarjorie Clark, PA-C - Last Filed: 11/29/21 14:24> Status: Acute <Pauly Clark, PA-C - Last Filed: 11/29/21 14:24> Assessment and Plan: Resolved. Patient was acutely anxious preoperatively regarding surgical risks Reassurance provided <Pauly Clark PA-C - Last Filed: 11/29/21 14:24> (3) Obesity: Code(s): E66.9 - Obesity, unspecified <Pauly JMarjorie Clark, PA-C - Last Filed: 11/29/21 14:24> Status: Chronic <Pauly JMarjorie Clark, PA-C - Last Filed: 11/29/21 14:24> Assessment and Plan: Patient to remain strictly nonweightbearing of the left leg <Pauly Clark PA-C - Last Filed: 11/29/21 14:24> (4) COVID-19: Code(s): U07.1 - COVID-19 <Pauly JMarjorie Clark, PA-C - Last Filed: 11/29/21 14:24> Status: Acute <Pauly JMarjorie Stimac, PA-C - Last Filed: 11/29/21 14:24> Assessment and Plan: Patient was swabbed for COVID preoperatively with positive test on 11/27/2021 despite being asymptomatic Supportive care She has no oxygen requirements She has not been vaccinated for COVID-19 <Pauly Clark PA-C - Last Filed: 11/29/21 14:24> (5) Type 2 diabetes mellitus: Code(s): E11.9 - Type 2 diabetes mellitus without complications <Pauly Clark PA-C - Last Filed: 11/29/21 14:24> Status: Acute <CHACHA Link Last Filed: 11/29/21 14:24> Assessment and Plan: Fasting blood sugars noted to be elevated. A1c evaluated and was 7.2, consistent with diabetes. Will initiate accuchecks, sliding scale insulin, and hypoglycemic protocol Plan to initiate metformin prior to discharge Will ask security messenger to evaluate patient. <Pauly Clark PA-C - Last Filed: 11/29/21 14:24> Subjective Date/time seen: 11/29/21 14:08 <Pauly Clark PA-C - Last Filed: 11/29/21 14:24> Interval history: Date of service: 11/29/2021 Melly Tinoco is a 31-year-old female with a history of hypothyroidism and obesity who is seen in follow-up for left ankle fracture. She is s/p ORIF and tolerated the procedure well. She has been doing better today. She said her pain increased this morning up to 15/10 and at this time is about of 10/10. She was able to transfer from her bed to the bedside commode. Her appetite is good. She denies shortness breath, cough, or chest pain. No nausea or vomiting. Denies dizziness, lightheadedness, weakness. She wants to go home following her hospitalization where she lives with her who can assist her. She is agreeable to home health. <Pauly Clark PA-C - Last Filed: 11/29/21 14:24> Review of Systems Review of Systems: All systems reviewed & are unremarkable except as noted in HPI and below <CHACHA Link Last Filed: 11/29/21 14:24> Exam Narrative: Ms. Tionco is an obese, well-appearing 31-year-old female who is sitting up in bed.
[2021-11-29 16:21] LABS: Glucose Point of Care 141 mg/dl (65-105)
--- NOTE | 2021-11-29 20:02 | PM.PNORT ---
Progress Note: A&P Additional Plan Patient is doing well. She plans to home tomorrow after morning physical therapy but states she was able to hop on her right leg. She states that she got stuck in bed and put some weight on her heel in bed and I have explained her that she must avoid that as well as at is putting a lot of stress on the repaired fracture. She will keep the leg position with pillows under leg so that does not rule out too far and put pressure on the lateral aspect of the calf or her incision is. Her 25 hydroxyvitamin D level was exceedingly low at less than 12.8 and I have ordered supplementation for her. Will also order calcium plus vitamin-D. It It is okay from my standpoint for her to be discharged after morning physical therapy. I will want to see her back in the office in 1 week for wound check. Subjective Subjective Date/Time Seen: 11/29/21 20:02 Objective Data Vital Signs Vital Signs: Vital Signs - 24 hr 11/28/21 21:56 11/29/21 02:02 11/29/21 05:58 Temperature 36.3 C L 36.2 C L 36.6 C Pulse Rate 85 81 80 Respiratory Rate 18 16 18 Blood Pressure 127/74 122/70 130/73 Pulse Oximetry 100 98 97 Intake/Output Intake/Output: Intake & Output 11/26/21 11/27/21 11/28/21 11/29/21 23:59 23:59 23:59 23:59 Intake Total 50 1450 3165 Balance 50 1450 3165 Meds/Results Medications: Active Medications Generic Name Dose Route Start Last Admin Trade Name Freq PRN Reason Stop Dose Admin Acetaminophen 1,000 mg 11/28/21 18:00 11/29/21 17:45 Acetaminophen 500 Mg Tablet PO 1,000 mg Q6HR HERLINDA Administration Al Hydrox/Mg Hydrox/Simethicone 30 ml 11/28/21 16:17 Mag Hydrox/Al Hydrox/Simeth 30 Ml Udc PO Q6H PRN Indigestion Apixaban 2.5 mg 11/28/21 21:00 11/29/21 08:29 Apixaban 2.5 Mg Tablet PO 2.5 mg Q12HR HERLINDA Administration Dextrose 12.5 gm 11/29/21 14:20 Dextrose 50% 25 Gm/50 Ml Syringe IV PUSH PRN PRN Hypoglycemia Protocol Doxycycline Hyclate 100 mg 11/29/21 21:00 Doxycycline Hyclate 100 Mg Tablet PO Q12HR HERLINDA Ergocalciferol 50,000 unit 11/30/21 09:00 Ergocalciferol 50,000 Unit Capsule PO [id number] [facility] Famotidine 20 mg 11/28/21 21:00 11/29/21 08:29 Famotidine 20 Mg Tablet PO 20 mg Q12HR HERLINDA Administration Glucagon 1 mg 11/29/21 14:20 Glucagon For Inj 1 Mg Vial IM PRN PRN Hypoglycemia Protocol Glucose 15 gm 11/29/21 14:20 Glucose Oral Gel 15 Gm Of Glucse In 37.5 Gm Tube PO PRN PRN Hypoglycemia Protocol Hydroxyzine HCl 50 mg 11/28/21 16:17 Hydroxyzine Hcl 25 Mg Tablet PO Q4H PRN Itching Dextrose 1,000 mls @ 100 mls/hr 11/29/21 14:20 Dextrose 5% 1,000 Ml IVPB PRN PRN Hypoglycemia Protocol Insulin Aspart 3 - 6 units 11/29/21 17:00 11/29/21 17:43 Insulin Aspart (*Bkc) 100 Units/Ml SUB-Q Not Given TIDWM [facility] Protocol Magnesium Hydroxide 30 ml 11/28/21 16:17 Magnesium Hydroxide Susp 30 Ml Udc PO BID PRN Constipation Morphine Sulfate 2 mg 11/28/21 16:17 Morphine Sulfate (*Crx) 2 Mg/Ml Inj IV PUSH Q3H PRN Pain Rated 7-10 Naloxone HCl 0.1 mg 11/28/21 16:17 Naloxone Hcl 0.4 Mg/Ml Vial IV PUSH Q2M PRN Opiate Reversal Ondansetron HCl 4 mg 11/28/21 16:17 Ondansetron Inj 4 Mg/2 Ml Vial IV PUSH Q4H PRN Nausea And Vomiting Oxycodone HCl 5 mg 11/28/21 16:17 Oxycodone Hcl (*Crx) 5 Mg Tab Ir PO Q4H PRN Pain Rated 4-6 Oxycodone HCl 5 mg 11/28/21 16:17 11/29/21 16:07 Oxycodone Hcl (*Crx) 5 Mg Tab Ir PO 5 mg Q4H HERLINDA Administration Polyethylene Glycol 17 gm 11/29/21 09:00 11/29/21 08:29 Polyethylene Glycol 3350 17 Gm Powd.Pack PO 17 gm QAM HERLINDA Administration Senna/Docusate Sodium 2 tab 11/28/21 17:00 11/29/21 16:08 Senna/Docusate Sodium Tablet PO 2 tab BID HERLINDA Administration Radiology Results: ITS Impre
[2021-11-29 20:39] VITALS: BP 131/75; PULSE 93; RESP 18; TEMP 36.8; O2SAT 96
[2021-11-29] MEDS: DOXYCYCLINE HYCLATE 100 MG TABLET PO (20:43)
[2021-11-29 21:27] LABS: Glucose Point of Care 129 mg/dl (65-105)
[2021-11-30] MEDS: ACETAMINOPHEN 500 MG TABLET 1000 MG PO ×2 (00:20→06:11)
[2021-11-30] MEDS: oxyCODONE HCL (*CRX) 5 MG TAB IR PO ×3 (00:20→08:22)
[2021-11-30 05:01] VITALS: BP 104/55; PULSE 99; RESP 18; TEMP 36.7; O2SAT 97
[2021-11-30 06:32] LABS: Hematocrit 30.9 % (37.0-47.0); Hemoglobin 9.4 g/dL (12.0-15.0); Mean Corpuscular HGB Conc 30.4 g/dl (32-36); Mean Corpuscular Hemoglobin 24.4 pg (26-34); Mean Corpuscular Volume 80.1 fl (80-100); Mean Platelet Volume 9.7 fl (7.4-10.4); Platelet Count Result 301 k/mm3 (150-375); Red Blood Count 3.86 M/mm3 (4.2-5.4); Red Cell Distribution Width 18.3 % (11.5-14.5)
[2021-11-30 06:42] LABS: Anion Gap 4 mmol/L (8-16); Blood Urea Nitrogen 4 mg/dL (7-17); Calcium 8.5 mg/dL (8.4-10.2); Carbon Dioxide 29 mmol/L (22-30); Chloride 102 mmol/L (98-107); Estimated CRCL calculation 187 ml/min; Estimated Glomerular Filt Rate > 60; Glucose 143 mg/dL (65-110); Potassium 3.7 mmol/L (3.4-5.0); Sodium 135 mmol/L (137-145)
[2021-11-30 08:00] VITALS: BP 136/85; PULSE 102; RESP 16; TEMP 37.5; O2SAT 98
--- NOTE | 2021-11-30 08:18 | PM.DS ---
DS: Admitting Diagnosis Discharge Date 11/30/2021 Admitting Diagnosis Left ankle fracture DS: Discharge Diagnosis Discharge Diagnosis (1) Open fracture of left ankle: Code(s): S82.892B - Other fracture of left lower leg, initial encounter for open fracture type I or II Status: Acute Assessment and Plan: Secondary to fall while roller skating. Ankle x-ray showed distal fibular shaft fracture and lateral tibiotalar joint subluxation. CT showed comminuted fracture of the distal fibular shaft with posterior displacement She was seen in consultation by Orthopedic surgery Underwent ORIF on 11/28/[address] Snowden. Tolerated the procedure well Participated in PT/OT during hospital stay. Home health was arranged to continue therapy on discharge Eliquis for 6-8 weeks postoperatively per Orthopedic surgery. Discussed bleeding precautions. Supportive care. Analgesics and antiemetics available as needed Patient to remain nonweightbearing of the left lower extremity and follow-up with Orthopedic surgery in 1 week. (2) Anxiety: Code(s): F41.9 - Anxiety disorder, unspecified Status: Acute Assessment and Plan: Resolved. Patient was acutely anxious preoperatively regarding surgical risks Reassurance provided (3) COVID-19: Code(s): U07.1 - COVID-19 Status: Acute Assessment and Plan: Patient was swabbed for COVID preoperatively with positive test on 11/27/2021 despite being asymptomatic Supportive care She had no oxygen requirements (aside from immediate postoperative period) She has not been vaccinated for COVID-19 (4) Type 2 diabetes mellitus: Code(s): E11.9 - Type 2 diabetes mellitus without complications Status: Acute Assessment and Plan: Fasting blood sugars noted to be elevated. A1c evaluated and was 7.2, consistent with diabetes. Managed with accuchecks, sliding scale insulin, and hypoglycemic protocol Patient was hesitant about accepting this diagnosis. Education was provided Educated on glucose monitoring. She should monitor and record glucose readings ACHS and follow-up with PCP. She has an appointment scheduled for 1 week. Started on metformin at discharge. Patient was reluctant as her had been on it and she did not want to take it, but she did agree to try and see how she tolerates. DS: Summary Hospital Course Hospital Course: Date of admission: 11/27/2021 Date of discharge: 11/30/2021 Melly Tinoco is a 31-year-old female with a history of hypothyroidism and obesity who presented to the emergency department on 11/27/2021 after suffering a fall while roller skating at her son's birthday alliance party. She reported she felt her ankle snap. She was admitted to the hospitalist service and was seen in consultation by Orthopedic surgery. She underwent surgery for left ankle fracture. Please see above for further details. She tolerated the procedure well and her pain was well controlled. She will continue therapy with home health. Incidentally found to be positive for COVID though remained asymptomatic and had no oxygen requirements. Started on medication for new onset diabetes mellitus and she will follow-up with her PCP in 1 week. She was feeling improved and no longer require inpatient care. Discussed with the patient worrisome signs and symptoms for which to return and she was educated on her medications. She was discharged in hemodynamically stable condition on 11/30/2021. Status at Discharge Overall status at discharge: patient is progressing back to baseline Time Spent with Patient Time attestation: Total time spent providing and/or coordinating discharge services: 38 minute Time spent: Greater than 30 minutes Exam Narrative: Ms. Tinoco is an obese, well-appearing 31-year-old female who is sitting up in bed. She appears comfortable and is in no acute respiratory distress. Neuro: awake, alert and oriented
[2021-11-30] MEDS: DOXYCYCLINE HYCLATE 100 MG TABLET PO (08:22)
[2021-11-30] MEDS: SENNA/DOCUSATE SODIUM TABLET 2 TAB PO (08:22)
[2021-11-30 08:23] LABS: Glucose Point of Care 152 mg/dl (65-105)
[2021-11-30] MEDS: ERGOCALCIFEROL 50,000 UNIT CAPSULE 50000 UNITS PO (08:23)
[2021-11-30] MEDS: FAMOTIDINE 20 MG TABLET PO (08:23)
[2021-11-30] MEDS: polyethylene glycoL 3350 17 GM POWD.PACK PO (08:23)
[2021-11-30] MEDS: APIXABAN 2.5 MG TABLET PO (08:23)
[2021-11-30 10:43] LABS: Glucose Point of Care 142 mg/dl (65-105)
[2021-11-30] MEDS: ONDANSETRON HCL ODT 4 MG TABLET PO (11:08)
--- NOTE | 2021-11-30 11:32 | PC.NURSE ---
Pt on phone with during discharge. Significant other and pt educated on new dx of DM. Resources and education materials provided. informatics educator business card stapled to education as additional resource. Consult made to nutrition educator r/t pt possible for needing further education. Pt appears to be in denial regarding new dx of DM. Pt educated r/t dx, tx of dx, s/sx of hypo and hyperglycemia. All of patient and husbands questions answered. No further questions upon discharge at this time. Pt reminded to call with any questions and concerns, medication compliance, monitoring of blood sugars, nutrition, handling sick days, education materials, resources. Patient and voiced understanding. informatics educator made aware of consult and voiced will follow up with pt the following day for any further questions or concerns.
--- NOTE | 2021-12-01 10:14 | PCCDE ---
Pauly DICK called yesterday as pt was being discharged and asked me to f/up with this pt due to new dx of T2D. Attempted to call pt this am but voice mail box was full and unable to leave a message. Will continue to try to reach her.
--- NOTE | 2021-12-01 11:58 | PCCDE ---
Pt called back; she reports she had GDM 12 years ago. Pt has not started Metformin yet. Pt asks don't they recommend diet and exercise? Explained ADA recommendations to start diet, exercise AND medication at diagnosis. Encouraged pt to take Metformin; reviewed dosage, when to take and possible side effects. Discussed A1c results. Pt confirms she did get Diabetes Management book while in hospital. Offered to request OP diabetes education referral from PCP and pt agreed. Pt asking if I can get her a bedside commode; referred her to her PCP. Encouraged to call with DM questions prn.
== END 2021-11-30 11:25 | disposition home health service (06) | DRG 313 ==
LOC: ANHED 19:21 → ANH3MEDSUR 11-28 06:36
PROVIDERS: Nurse Practitioner; Orthopaedic Surgery; Physician Assistant; Physician Assistant Surgical; Admitting Provider Hospitalist; Emergency Provider Emergency Medicine; PCP Internal Medicine Infectious Disease; Visit Provider Family Medicine
PROC: 0QSK04Z Reposition Left Fibula with Internal Fixation Device, Open Approach (ICD-10-PCS; principal; 2021-11-28 12:00)
DX: S82.452B Displaced comminuted fracture of shaft of left fibula, initial encounter for open fracture type I or II (principal); S82.892A Other fracture of left lower leg, initial encounter for closed fracture; S93.02XA Subluxation of left ankle joint, initial encounter; S93.492A Sprain of other ligament of left ankle, initial encounter; S91.012A Laceration without foreign body, left ankle, initial encounter; W01.0XXA Fall on same level from slipping, tripping and stumbling without subsequent striking against object, initial encounter; U07.1 COVID-19; Z68.43 Body mass index [BMI] 50.0-59.9, adult; E66.01 Morbid (severe) obesity due to excess calories; E03.9 Hypothyroidism, unspecified; F41.9 Anxiety disorder, unspecified; E11.9 Type 2 diabetes mellitus without complications; Z90.49 Acquired absence of other specified parts of digestive tract
CPT/HCPCS: 29515; 36415; 71045; 73590; 73610; 73700; 80048; 80053; 82306; 82728; 82948; 83036; 83605; 83615; 83735; 84439; 84443; 84480; 85025; 85027; 86850; 86900; 86901; 90471; 90715; 96365; 96375; 96376; 97110; 97116; 97161; 97165; 97530; 99285; A9270; C1713; C9803; J0330; J0690; J1100; J1200; J2250; J2405; J2704; J3010; J3370; J7030; J7120; U0003; U0005

== ENCOUNTER 2021-12-10 05:26 | Emergency (ER) | payer OTHER, SELFPAY ==
[2021-12-10 05:26] VITALS: BP 121/87; PULSE 78; RESP 18; TEMP 36.9; O2SAT 98
--- NOTE | 2021-12-10 05:44 | PC.NURSE ---
c/o pain left ankle hx fx left ankle with surg had posterior splint placed in office yesterday states it is to heavy and it is pulling states unable to lift her leg, toes warm to touch cap refill <2sec
--- NOTE | 2021-12-10 05:53 | ED.LOWEXIN ---
HPI - Extremity Injury (Lower) General Chief Complaint: Extremity Injury, Lower Stated Complaint: ANKLE PAIN, RECENT FX Time Seen by Provider: 12/10/21 05:27 History of Present Illness HPI Narrative: Patient is a 31-year-old female who presents ER with concerns regarding her left ankle splint. Patient recently underwent surgery for a left ankle fracture that also had some talar subluxation. She is discharged from the hospital on 11/30/2021. She has been at home in a splint. Apparently the splint she had on she reports was flimsy and shifting around. She went to Dr. Snowden's office on 12/09/2021 where they removed the splint and applied a plaster short leg posterior splint. She reports since having that applied she feels like it is just very heavy and pulls on her ankle. She denies walking or bearing weight. No new numbness or tingling. Patient called on-call orthopedic surgeon Dr. Lewis who recommended she come get the cast split. He was under the impression this was a circumferential cast. Related Data Allergies Allergy/AdvReac Type Severity Reaction Status Date / Time morphine Allergy Severe ITCHING, Verified 08/16/21 10:05 hives, throat swelling Review of Systems Constitutional: Constitutional: Denies chills and Denies fever(s) Musculoskeletal: Musculoskeletal: Reports arthralgias, Denies joint swelling and Denies muscle cramps Neurologic: Denies focal weakness, Denies numbness and Denies weakness PMFSH Past Medical History Medical History (Updated 12/10/21 @ 06:42 by John Rose MD) Hypothyroid No significant past medical history Obesity Surgical History Surgical History (Updated 12/10/21 @ 06:42 by John Rose MD) History of ankle surgery History of section 4 History of cholecystectomy Family History Family History Unknown No significant family history Social History Social History Social History: 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 She lives with her tracy who is her durable power associate attorney for healthcare. The patient is a lifelong nonsmoker. She does not use any alcohol marijuana or illicit drugs. Code status full code Smoking status: Never smoker Alcohol intake: never Substance use: never Substance use type: does not use Gender identity (if verbalized by the patient): Female Spiritual care concerns: No Exam Narrative: GENERAL: Well-appearing, well-nourished, and in no acute distress. HEAD: Normocephalic, atraumatic. EYES: PERRL and EOMI. ENT: Mucous membranes moist. CHEST: Clear to auscultation. No respiratory distress. HEART: Regular rate and rhythm. Normal peripheral pulses. EXTREMITIES: Focused exam left lower extremity reveals a short leg posterior plaster splint with cotton padding in place. Patient is able to wiggle her toes and has sensation. Dorsalis pedis pulses intact. The splint does not seem to be loose in relation to the ankle is supporting. SKIN: Warm, dry, no rash. NEURO: Alert and oriented x3. Lower extremity sensation intact. PSYCH: Anxious mood, normal thought content. Course Course Emergency Course: Discussed with patient that I am not going to remove her leg posterior splint that was applied by orthopedic surgery and has not been recommended to be removed by orthopedic surgery. There is no evidence of compartment syndrome. She has had no trauma. Patient is reporting that she is very heavy and hard to lift her leg and that she feels like it is causing a pulling sensation. Discussed that splints applied tend to be heavy and can cause similar sensation. Discussed that the weight that she is not supposed to be wearing her ankle has to do with her actually standing and not with the weight of the splint. Recommend continue rest at home with nonweightbearing at the recommendation.
[2021-12-10 07:40] VITALS: BP 121/87; PULSE 92; RESP 16; O2SAT 100
== END 2021-12-10 07:41 | disposition home or self-care (01) ==
PROVIDERS: Emergency Provider Emergency Medicine; PCP Internal Medicine Infectious Disease
DX: S82.892D Other fracture of left lower leg, subsequent encounter for closed fracture with routine healing (principal); E03.9 Hypothyroidism, unspecified; E66.9 Obesity, unspecified; Z68.43 Body mass index [BMI] 50.0-59.9, adult; Z46.89 Encounter for fitting and adjustment of other specified devices; X58.XXXD Exposure to other specified factors, subsequent encounter
CPT/HCPCS: 99281

== ENCOUNTER 2022-01-12 16:10 | Outpatient (CLI) | payer OTHER, SELFPAY ==
--- NOTE | ~2022-01-12 | US_ITS ---
US venous doppler [facility] DATE: 01/12/2022 16:59 INDICATION: Left ankle and foot swelling TECHNIQUE: Real-time and color flow imaging and Doppler analysis of the veins of the left lower extre mity COMPARISON: None FINDINGS: The left greater saphenous vein is patent. There is spontaneous and phasic flow and normal augmentation and color signal and normal compression of the deep veins of the left lower extremity. IMPRESSION: No evidence of deep venous thrombosis of left leg Reviewed, dictated and finalized at [facility]. Reviewed, dictated and finalized at location [facility].
== END 2022-01-12 16:11 | disposition home or self-care (01) ==
LOC: ANHIMG 16:27
PROVIDERS: PCP Internal Medicine Infectious Disease; Visit Provider Orthopaedic Surgery
DX: M79.89 Other specified soft tissue disorders (principal)
CPT/HCPCS: 93971

== ENCOUNTER 2022-06-07 12:30 | Outpatient (CLI) | payer OTHER, SELFPAY ==
--- NOTE | ~2022-06-07 | US_ITS ---
EXAMINATION: US breast LT limited HISTORY: Palpable lump of the lower-outer left breast TECHNIQUE: Limited left breast ultrasound is performed. FINDINGS: There is no evidence of focal abnormal cystic or solid mass in the vicinity of the reported palpable abnormality of concern. IMPRESSION: No specific sonographic correlate is identified for the reported palpable abnormality of concern. Fur ther evaluation at this time should be based on clinical assessment. Continued follow-up physical exa mination is recommended. BI-RADS Category 1: Negative Reviewed, dictated and finalized at location [facility]. IMPRESSION: No specific sonographic correlate is identified for the reported palpable abnor mality of concern. Further evaluation at this time should be based on clinical assessment. Continued follow-up physical examination is recommended. BI-RADS Category 1: Negative
== END 2022-06-07 12:31 | disposition home or self-care (01) ==
PROVIDERS: PCP Internal Medicine Infectious Disease; Visit Provider Nurse Practitioner
DX: N63.20 Unspecified lump in the left breast, unspecified quadrant (principal)
CPT/HCPCS: 76642

== ENCOUNTER 2023-04-28 16:21 | Emergency (ER) | payer OTHER, SELFPAY ==
--- NOTE | ~2023-04-28 | XR_ITS ---
EXAMINATION: XR chest 2V DATE: 04/28/2023 17:29 INDICATION: Syncopal episode TECHNIQUE: PA and lateral views of the chest were obtained. COMPARISON: Chest radiograph dated 11/27/2021 FINDINGS: The lungs remain clear with no focal airspace opacities, pulmonary edema, pleural effusion or pneumot horax. The cardiomediastinal silhouette is normal. Mild upper thoracic levocurvature. IMPRESSION: 1. No acute cardiopulmonary disease. Reviewed, dictated and finalized at location A.
[2023-04-28 16:24] VITALS: BP 121/84; PULSE 92; RESP 16; TEMP 36.8; O2SAT 100
--- NOTE | 2023-04-28 16:29 | ECG_ITS ---
Measurements Intervals [place]anna Rate: 77 P: 49 NE: 162 QRS: 1 QRSD: 83 T: 35 QT: 365 QTc: 415 Interpretive Statements SINUS RHYTHM LOW QRS VOLTAGE IN PRECORDIAL LEADS BASELINE ARTIFACT- I, II, III, AVR, AVL BORDERLINE ECG COMPARED TO ECG 10/09/2019 06:28:09 NO SIGNIFICANT CHANGES Electronically Signed On 04-28-2023 18:52:20 CDT by Ronni Wilcox D.O.
[2023-04-28 18:14] VITALS: BP 116/65; PULSE 79; RESP 18; O2SAT 100
[2023-04-28 18:23] LABS: Basophils Percent Auto 0.3 % (0.2-1.2); Eosinophils Absolute Auto 0.1 K/mm3 (0-0.3); Eosinophils Percent Auto 1.4 % (0-4.4); Hemoglobin 11.5 g/dL (12.0-15.0); Immature Granulocyte Absolute 0.02 K/mm3 (0.00-0.031); Immature Granulocyte Percent A 0.2 % (0-0.5); Lymphocytes Absolute Auto 3.84 K/mm3 (0.9-3.2); Lymphocytes Percent Auto 42.2 % (18.3-44.2); Mean Corpuscular HGB Conc 30.3 g/dl (32-36); Mean Corpuscular Hemoglobin 23.7 pg (26-34); Mean Corpuscular Volume 78.2 fl (80-100); Mean Platelet Volume 9.1 fl (7.4-10.4); Monocytes Absolute Auto 0.6 K/mm3 (0.1-0.6); Monocytes Percent Auto 6.4 % (2.6-8.5); Neutrophils Absolute Auto 4.5 K/mm3 (1.3-6.7); Neutrophils Percent Auto 49.5 % (45.5-73.1); Platelet Count Result 368 k/mm3 (150-375); Red Blood Count 4.86 M/mm3 (4.2-5.4); Red Cell Distribution Width 17.6 % (11.5-14.5); White Blood Count 9.1 K/mm3 (4.5-10.0)
--- NOTE | 2023-04-28 18:32 | ED.DIZZY ---
HPI - Dizziness General Chief Complaint: Syncope <Erma Erwin PA-C - Last Filed: 04/28/23 21:09> Stated Complaint: syncopal episode - no injury - dizziness <CHACHA Tirado Last Filed: 04/28/23 21:09> Time Seen by Provider: 04/28/23 18:23 <CHACHA Tirado Last Filed: 04/28/23 21:09> Source: patient and family <CHACHA Tirado Last Filed: 04/28/23 21:09> Mode of arrival: EMS <CHACHA Tirado Last Filed: 04/28/23 21:09> Limitations: no limitations <CHACHA Tirado Last Filed: 04/28/23 21:09> History of Present Illness HPI Narrative: This is a 32-year-old female that presents to the emergency department for a presyncopal episode. Reports she was at [employer]. She started to feel very lightheaded and hot. Reports her vision went black. Her was able to lower her to the floor. Since she has felt some lasting lightheadedness. Denies any other localizing symptoms. She did not hit her head. Does report she was outside for several hours today and does not feel like she hydrated adequately. Denies chest pain, shortness of breath, visual changes, vomiting, numbness, or weakness. <CHACHA Tirado Last Filed: 04/28/23 21:09> Related Data Home Medications: Home Medications Medication Instructions Recorded Confirmed albuterol sulfate 90 mcg/actuation g inhalation 05/23/22 05/23/22 aerosol inhaler <CHACHA Tirado Last Filed: 04/28/23 21:09> Allergies/Adverse Reactions: Allergies Allergy/AdvReac Type Severity Reaction Status Date / Time morphine Allergy Severe ITCHING, Verified 04/28/23 16:22 hives, throat swelling <CHACHA Tirado Last Filed: 04/28/23 21:09> Review of Systems Review of Systems: CONSTITUTIONAL: Denies fever EYES: Denies visual changes CARDIOVASCULAR: Denies chest pain, palpitations RESPIRATORY: Denies dyspnea. GASTROINTESTINAL: Denies nausea, vomiting NEUROLOGIC: Denies numbness, or weakness. <Erma Erwin PA-C - Last Filed: 04/28/23 21:09> All systems reviewed & are unremarkable except as noted in HPI and below <Erma Erwin PA-C - Last Filed: 04/28/23 21:09> PMFSH Past Medical History Medical History: Medical History (Updated 04/29/23 @ 00:00 by Jacky Datank) Hypothyroid Obesity <Erma Erwin PA-C - Last Filed: 04/28/23 21:09> Surgical History Surgical History: Surgical History History of ankle surgery History of section 4 History of cholecystectomy <Erma Erwin PA-C - Last Filed: 04/28/23 21:09> Family History Family History: Family History Unknown No significant family history <Erma Erwin PA-C - Last Filed: 04/28/23 21:09> Social History Social History: Social History Social History: 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 She lives with her tracy who is her durable power city attorney for healthcare. The patient is a lifelong nonsmoker. She does not use any alcohol marijuana or illicit drugs. Code status full code Smoking status: Never smoker Alcohol intake: never Substance use: never Substance use type: does not use Gender identity (if verbalized by the patient): Female Spiritual care concerns: No <Erma Erwin PA-C - Last Filed: 04/28/23 21:09> Exam Narrative: GENERAL: Well-appearing, well-nourished, and in no acute distress. HEAD: Normocephalic, atraumatic. EYES: PERRLA and EOMI. ENT: Nares clear, no rhinorrhea or epistaxis. Mucous membranes moist. Oropharynx without tonsillar hypertrophy exudate or other lesions. Bilateral TMs pearly piper non-bulging NECK: Supple. No adenopathy or masses. CHEST: Clear to auscultation. No respiratory distress. No wh
[2023-04-28 18:39] LABS: Alanine Aminotransferase 17 U/L (6-35); Albumin Level 4.2 g/dL (3.5-5.1); Alkaline Phosphatase 79 U/L (38-126); Anion Gap 6 mmol/L (8-16); Aspartate Amino Transferase 22 U/L (14-36); Bilirubin,Total 0.5 mg/dL (0.2-1.3); Blood Urea Nitrogen 12 mg/dL (7-17); Calcium 9.3 mg/dL (8.4-10.2); Carbon Dioxide 32 mmol/L (22-30); Chloride 102 mmol/L (98-107); Estimated CRCL calculation 173 ml/min; Estimated Glomerular Filt Rate > 60; Glucose 119 mg/dL (65-110); Lipase 67 U/L (23-300); Potassium 4.2 mmol/L (3.4-5.0); Sodium 140 mmol/L (137-145)
[2023-04-28 18:49] LABS: Troponin I < 0.012 ng/mL (0.000-0.034)
[2023-04-28] MEDS: SODIUM CHLORIDE 0.9% IV 1,000 ML 999 ML IV CONT (19:04)
[2023-04-28 19:07] LABS: Creatine Kinase 44 U/L (30-135)
[2023-04-28 20:07] LABS: Thyroid Stimulating Hormone Reflex 0.082 uIU/mL (0.465-4.68)
[2023-04-28 20:36] LABS: Free T4 Free Thyroxine Reflex 1.43 ng/dL (0.78-2.19)
[2023-04-28 21:08] VITALS: BP 129/79; PULSE 75; RESP 18; O2SAT 99
[2023-04-28 21:17] LABS: Total Triiodothyronine (T3) 1.52 NG/ML (0.97-1.69)
== END 2023-04-28 21:13 | disposition home or self-care (01) ==
PROVIDERS: Emergency Medicine; Emergency Provider Physician Assistant; PCP Internal Medicine Infectious Disease
DX: R55 Syncope and collapse (principal); E03.9 Hypothyroidism, unspecified; E66.9 Obesity, unspecified; Z68.44 Body mass index [BMI] 60.0-69.9, adult; Z90.49 Acquired absence of other specified parts of digestive tract; R94.31 Abnormal electrocardiogram [ECG] [EKG]
CPT/HCPCS: 36415; 71046; 80053; 82550; 83690; 84439; 84443; 84480; 84484; 85025; 85610; 85730; 93005; 96360; 99284; J7030

== ENCOUNTER 2024-08-14 20:10 | Emergency (ER) | payer OTHER, SELFPAY ==
[2024-08-14 20:24] VITALS: BP 136/85; PULSE 84; RESP 19; TEMP 36.7; O2SAT 100
[2024-08-14 21:28] VITALS: BP 118/72; PULSE 82; RESP 22; O2SAT 100
[2024-08-14 21:36] LABS: Basophils Percent Auto 0.4 % (0.2-1.2); Eosinophils Absolute Auto 0.1 K/mm3 (0-0.3); Eosinophils Percent Auto 1.2 % (0-4.4); Hematocrit 33.8 % (37.0-47.0); Hemoglobin 10.3 g/dL (12.0-15.0); Immature Granulocyte Absolute 0.02 K/mm3 (0.00-0.031); Immature Granulocyte Percent A 0.2 % (0-0.5); Lymphocytes Absolute Auto 3.87 K/mm3 (0.9-3.2); Lymphocytes Percent Auto 39.4 % (18.3-44.2); Mean Corpuscular HGB Conc 30.5 g/dl (32-36); Mean Corpuscular Hemoglobin 24.4 pg (26-34); Mean Corpuscular Volume 80.1 fl (80-100); Mean Platelet Volume 9.3 fl (7.4-10.4); Monocytes Absolute Auto 0.7 K/mm3 (0.1-0.6); Monocytes Percent Auto 6.8 % (2.6-8.5); Neutrophils Absolute Auto 5.1 K/mm3 (1.3-6.7); Platelet Count Result 341 k/mm3 (150-375); Red Blood Count 4.22 M/mm3 (4.2-5.4); Red Cell Distribution Width 16.8 % (11.5-14.5); White Blood Count 9.8 K/mm3 (4.5-10.0)
[2024-08-14 21:47] LABS: Alanine Aminotransferase 11 U/L (6-35); Albumin Level 3.8 g/dL (3.5-5.1); Alkaline Phosphatase 74 U/L (38-126); Anion Gap 5 mmol/L (4-12); Aspartate Amino Transferase 14 U/L (14-36); Bilirubin,Total 0.2 mg/dL (0.2-1.3); Blood Urea Nitrogen 13 mg/dL (7-17); Calcium 9.4 mg/dL (8.4-10.2); Carbon Dioxide 30 mmol/L (22-30); Chloride 100 mmol/L (98-107); Estimated CRCL calculation 149 ml/min; Estimated Glomerular Filt Rate > 60; Glucose 136 mg/dL (65-110); Potassium 3.9 mmol/L (3.4-5.0); Sodium 135 mmol/L (137-145)
[2024-08-14 21:50] LABS: Prothrombin Time 13.8 Seconds (11.1-14.7)
[2024-08-14 21:51] LABS: Partial Thromboplastin Time 24.6 Seconds (22.3-36.8)
--- NOTE | 2024-08-14 23:05 | ED.GENADULT ---
HPI - General Adult General Chief complaint: Unspecified Stated complaint: high blood sugar Time Seen by Provider: 08/14/24 21:22 History of Present Illness HPI narrative: Patient is a 34-year-old female who presents ER with Several complaints. First complaint is blood sugar of 186 at home. She began drinking water. She is prediabetic. she also reports that she has had some discomfort in her left arm for last 2 days since waking up. She had slept on her arm awkwardly and has some discomfort to the anterior left shoulder and to the 1st webspace of the hand. No weakness. Patient also reports intermittent tingling in the tongue. May last 30 minutes max over last 24 hours. No facial tingling weakness. Related Data Home Medications Medication Instructions Recorded Confirmed albuterol sulfate 90 mcg/actuation g inhalation 05/23/22 06/04/24 aerosol inhaler Allergies Allergy/AdvReac Type Severity Reaction Status Date / Time morphine Allergy Severe ITCHING, Verified 08/14/24 20:27 hives, throat swelling Review of Systems Review of Systems: All systems reviewed & are unremarkable except as noted in HPI and below Constitutional: Constitutional: Reports no additional constitutional complaints ENT: Reports system reviewed and no additional complaints, except as documented Cardiovascular: Cardiovascular: Reports no additional cardiovascular complaints Respiratory: Respiratory: Reports no additional respiratory complaints Musculoskeletal: Musculoskeletal: Reports no additional musculoskeletal complaints [facility] Past Medical History Medical History Hypothyroid Obesity Surgical History Surgical History History of ankle surgery History of section 4 History of cholecystectomy Family History Family History Unknown No significant family history Social History Social History Social History: 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 She lives with her tracy who is her durable power flagsetter for healthcare. The patient is a lifelong nonsmoker. She does not use any alcohol marijuana or illicit drugs. Code status full code Smoking status: Never smoker Alcohol intake: never Substance use: never Substance use type: does not use Gender identity (if verbalized by the patient): Female Spiritual care concerns: No Exam Narrative: GENERAL: Well-appearing, morbidly obese, and in no acute distress. HEAD: Normocephalic, atraumatic. EYES: PERRL and EOMI. ENT: Mucous membranes moist. NECK: Supple. CHEST: Clear to auscultation. No respiratory distress. HEART: Regular rate and rhythm. Normal peripheral pulses. ABDOMEN: Soft, nontender, nondistended. EXTREMITIES: Normal range of motion. No edema. normal strength in the upper extremities SKIN: Warm, dry, no rash. NEURO: No focal deficits. No facial droop. No upper extremity drift. Alert and oriented x3. PSYCH: Normal mood and affect. Course Course Emergency Course: patient resting comfortably. Informed of lab results including blood sugar of 136. Recommend follow-up with PCP and anti-inflammatories for shoulder pain and radiculopathy. Vital Signs Vital signs: Vital Signs Temperature 98.0 F 08/14/24 20:24 Pulse Rate 84 08/14/24 20:24 Respiratory Rate 19 08/14/24 20:24 Blood Pressure 136/85 08/14/24 20:24 Pulse Oximetry 100 08/14/24 20:24 Oxygen Delivery Room Air 08/14/24 20:24 Temperature 98.0 F 08/14/24 20:24 Pulse Rate 82 08/14/24 21:28 Respiratory Rate 22 H 08/14/24 21:28 Blood Pressure 118/72 08/14/24 21:28 Pulse Oximetry 100 08/14/24 21:28 Oxygen Delivery Room Air 08/14/24 20:24 Medical Decision Making Vit
[2024-08-14 23:47] VITALS: BP 106/66; PULSE 78; RESP 16; O2SAT 100
== END 2024-08-14 23:48 | disposition home or self-care (01) ==
PROVIDERS: Emergency Provider Emergency Medicine; PCP Internal Medicine Infectious Disease
DX: M25.512 Pain in left shoulder (principal); E03.9 Hypothyroidism, unspecified; E66.01 Morbid (severe) obesity due to excess calories; Z68.44 Body mass index [BMI] 60.0-69.9, adult; R73.03 Prediabetes; Z90.49 Acquired absence of other specified parts of digestive tract
CPT/HCPCS: 36415; 80053; 85025; 85610; 85730; 99283

== ENCOUNTER 2024-10-04 15:43 | Emergency (ER) | payer SELFPAY ==
[2024-10-04 16:09] VITALS: BP 116/80; PULSE 81; RESP 16; TEMP 36.6; O2SAT 100
[2024-10-04 16:15] LABS: EDSTREPNEGPOS1 Negative (Negative)
--- NOTE | 2024-10-04 16:22 | ED_ITS ---
HPI - URI/Sore Throat General Chief Complaint: Upper Respiratory Infection Stated Complaint: Sore Throat/Congestion/Cough Time Seen by Provider: 10/04/24 16:13 Source: patient and RN notes reviewed Mode of arrival: ambulatory Limitations: no limitations History of Present Illness HPI Narrative: Patient presents today with a 2 day history of rhinorrhea, sore throat, nasal congestion, and cough. No fever or shortness of breath. She currently rates her pain 9/10 and has tried no [id number] treatment prior to arrival. Denies any known sick contacts. No history of asthma or COPD. She is a nonsmoker. Related Data Home Medications Medication Instructions Recorded Confirmed dulaglutide 0.75 mg/0.5 mL mg subcut 10/04/24 subcutaneous pen injector (Trulicity) empagliflozin 10 mg tablet 10 mg PO DAILY 10/04/24 10/04/24 (Jardiance) rosuvastatin 5 mg tablet mg 10/04/24 tirzepatide 2.5 mg/0.5 mL 2.5 mg subcut WEEKLY 10/04/24 10/04/24 subcutaneous pen injector (Mounjaro) Allergies Allergy/AdvReac Type Severity Reaction Status Date / Time morphine Allergy Severe ITCHING, Verified 10/04/24 15:53 hives, throat swelling Review of Systems Review of Systems: CONSTITUTIONAL: Denies body aches, fever, chills, or sweats. EYES: Denies visual changes, redness, or discharge. ENT: Denies otalgia.+ congestion, rhinorrhea, sore throat CARDIOVASCULAR: Denies chest pain, palpitations, or edema. RESPIRATORY: Denies dyspnea.+ cough GASTROINTESTINAL: Denies abdominal pain, nausea, vomiting, or diarrhea. GENITOURINARY: Denies dysuria or hematuria. SKIN: Denies rash, itching, or wounds. MUSCULOSKELETAL: Denies back pain, joint pain, or myalgia. NEUROLOGIC: Denies headache, numbness, tingling, or weakness. PSYCH: Denies depression or anxiety. 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 She lives with her tracy who is her durable power environmental studies program director for healthcare. The patient is a lifelong nonsmoker. She does not use any alcohol marijuana or illicit drugs. Code status full code Smoking status: Never smoker Alcohol intake: never Substance use: never Substance use type: does not use Gender identity (if verbalized by the patient): Female Spiritual care concerns: No Comments At time of signature, I have reviewed and agree with nursing past medical, surgical, social and family history unless otherwise noted. Please see nursing chart for further information. There is no relevant family history pertinent to the presenting complaint Exam Narrative: GENERAL: Well-appearing, well-nourished, and in no acute distress. HEAD: Normocephalic, atraumatic. EYES: EOMI. No redness or drainage. Conjunctivae normal. ENT: Mucous membranes pink and moist. Nares congested with mild rhinorrhea. TMs normal bilaterally. 3+ tonsils bilaterally with no significant erythema or exudate. Uvula midline. NECK: Normal AROM. Supple. No lymphadenopathy. CHEST: No respiratory distress. Clear to auscultation. HEART: Regular rate and rhythm. No murmur appreciated. EXTREMITIES: Normal range of motion. No edema. SKIN: Warm, dry, no rash. Capillary refill normal. Normal skin turgor. NEURO: No focal deficits. Alert and oriented x3. Gait steady. PSYCH: Normal affect. No signs of depression or anxiety. Course Course Level of Care: Express Care Visit Vital Signs Vital signs: Vital Signs Temperature 98 F 10/04/24 16:09 Pulse Rate 81 10/04/24 16:09 Respiratory Rate 16 10/04/24 16:09 Blood Pressure 116/80 10/04/24 16:09 Pulse Oximetry 100 10/04/24 16:09 Temperature 98 F 10/04/24 16:09 Pulse Rate 81 10/04/24 16:09 Respiratory Rate 16 10/04/24 16:09 Blood Pressure 116/80 10/04/24 16:09 Pulse Oximetry 100 10/04/24 16:09 Reviewed MDM - URI/Sore Throat MDM Narrative Medical decision making narrative: Rapid strep negative. Culture pending. Symptoms likely viral in etiology. Discussed [id number] medication use and duration of illness. No prescription medications indicated at this time. Anticipatory guidance given. Differential Diagnosis Differential diagnosis: Likely upper respiratory infection, viral infection, pharyngitis and other (Strep throat) Lab Data Attestation: I reviewed the patient's lab results. Labs: Lab Results 10/04/24 Range/Units 16:13 POC Grp A Strep Screen Negative (Negative) Critical Care Time Critical Care Time Critical Care Time: No Discharge Plan Discharge Clinical Impression: Upper respiratory infection Qualifiers: URI type: unspecified URI Qualified Code(s): J06.9 - Acute upper respiratory infection, unspecified Patient Disposition: Home, Self-Care Condition: Stable Instructions: Upper Respiratory Infection (DC) Additional Instructions: Your rapid strep swab was negative today at [facility]. You will be notified in a few days if the culture comes back positive for strep, and appropriate antibiotics will be called in for you at that time. Your symptoms are likely due to a viral illness, which is not treated with antibiotics. Viral symptoms can be present for up to 7-10 days. Take Tylenol or ibuprofen for fever or pain. Rest and stay hydrated. Follow up with your PCP in 7 days if symptoms are not improving. Go to the ER immediately if you any difficulty breathing or swallowing. Prescriptions: No Action rosuvastatin 5 mg tablet Jardiance 10 mg tablet 10 mg PO DAILY Trulicity 0.75 mg/0.5 mL pen injector SUBCUT Mounjaro 2.5 mg/0.5 mL pen injector 2.5 mg SUBCUT WEEKLY polyethylene glycol 3350 [Miralax] 17 gram Powder In Packet 17 g PO QAM Qty: 30 0RF sennosides-docusate sodium [Senokot-S] 8.6-50 mg Tablet 2 tab PO BID Qty: 30 0RF ergocalciferol (vitamin D2) [Vitamin D2] 1,250 mcg (50,000 unit) Capsule 50,000 unit PO SuWe@0900 Qty: 8 0RF Eliquis 2.5 mg Tablet 2.5 mg PO Q12HR Qty: 84 0RF metformin 500 mg tablet 500 mg PO BID Qty: 60 0RF (DME) blood-glucose meter [OneTouch Verio Flex meter] [facility] Qty: 1 0RF Rx Instructions: May substitute to in-stock meter and/or covered by insurance. Use As Directed (DME) OneTouch Verio test strips Strip Qty: 1 0RF Rx Instructions: May substitute to in-stock and/or covered by insurance strips. Use As Directed (DME) lancets [OneTouch Delica Plus Lancet] 30 gauge [facility] Qty: 1 0RF Rx Instructions: May substitute to in-stock and/or covered by insurance lancets. Use As Directed Follow-up/Referrals: PHYSICIAN,[facility] [Primary Care Provider] - Stand Alone Forms: Work/School Release IP Time of Disposition: 16:25
== END 2024-10-04 16:26 | disposition home or self-care (01) ==
PROVIDERS: Emergency Provider Nurse Practitioner
DX: J06.9 Acute upper respiratory infection, unspecified (principal); E03.9 Hypothyroidism, unspecified; E66.9 Obesity, unspecified; Z68.44 Body mass index [BMI] 60.0-69.9, adult
CPT/HCPCS: 87081; 87880; 99213; G0463

== ENCOUNTER 2025-01-29 13:04 | Emergency (ER) | payer OTHER, SELFPAY ==
[2025-01-29 13:07] VITALS: BP 134/84; PULSE 78; RESP 18; TEMP 36.4; O2SAT 100
--- OUTSIDE RECORDS SUMMARY | 2025-01-29 13:20 | XMS_ITS | Data Portability ---
Author Organization [facility] [place] Address [address] [place] [address] [place] [address] Care Team Providers Care [employer] Teacher Name Role Phone CHRISTEL WOODS Primary Care Provider Assessment Encounter Date Assessment Date Assessment LastModified by Organization Details LastModified Time 02/11/2024 02/11/2024 Annual gynecological exam performed. Patient will come back in a year unless there are new symptoms. [email or web address] Not available 02/04/2024 09:34:15 Plan of Treatment Reminders Order Date Submit Date Provider Last Modified By Organization Details Last Modified Time Details Appointments None recorded. Lab urinalysis, dipstick 2024 025 [email or web address] [place], [address], [place], [address], 11:42:17 hbcab (hepatitis B core Ab) igm, serum 2024 025 [facility] (Lab), [address], [place], [address], 5 12:35:56 HBsAg (hepatitis B surface Ag), serum 2024 025 [facility] (Lab), [address], [place], [address], 5 12:35:55 hepatitis C virus Ab, serum 2024 025 [facility] (Lab), [address] [place], [address], 5 12:35:55 HIV 1+2 AB + HIV 1 p24 Ag, qualitative immunoassay , serum 2024 025 [facility] (Lab), [address], [place], [address], 5 12:35:55 RPR (rapid plasma reagin), serum 2024 025 [facility] (Lab), [address] [facility], [place], [address], 5 12:35:56 urinalysis, dipstick 2024 025 ness [place], [address], [place], [address], 5 13:07:46 HBsAg (hepatitis B surface Ag), serum 2023 024 [facility] (Lab), [address] [facility], [place], [address], 4 10:53:58 hbcab (hepatitis B core Ab) igm, serum 2023 024 [facility] (Lab), [address] [facility], [place], [address], 4 21:20:56 HBsAg (hepatitis B surface Ag), serum 2023 024 [facility] (Lab), [address] [facility], [place], [address], 4 21:20:54 hepatitis C virus Ab, serum 2023 024 [facility] (Lab), [address] [facility], [place], [address], 4 21:20:55 unlisted lab - HIV 1/2 antigen/ant ibody, reflex confirmatio n 2023 024 [facility] (Lab), [address], [place], [address], 4 21:20:54 RPR (rapid plasma reagin), serum 2023 024 [facility] (Lab), [address], [place], [address], 4 21:20:55 urinalysis, dipstick 2023 024 [facility], [address], [place], [address], 4 14:46:49 Referral pelvic floor therapy referral [address] (Outpatient Physical Therapy), [address], [place], [address], 5 11:20:52 Procedures None recorded. Surgeries None recorded. Imaging MAMMO, diagnostic, digital, bilateral 2023 024 [facility], [address], [place], [address], 5 04:03:29 US, breast, unilateral - left breast lump 2023 024 [facility], [address], [place], [address], 4 04:13:53 Medication Orders clotrimazol e-betametha sone 1 %-0.05 % topical cream 2024 025 [id number], [address], [place], [place], [id number], 5 11:26:52 Diflucan 150 mg tablet 2024 025 [facility][id number], [address], [place], [place], [id number], 5 11:26:53 Macrobid 100 mg capsule 2024 025 [facility] #29248, [address], [place], [place], [id number], 5 11:02:23 fluconazole 150 mg tablet [address] [facility][id number], [address], [place], [place], [id number], 5 11:01:18 doxycycline hyclate 100 mg capsule 2023 025 [facility] #75325, [address], [place], [place], [id number], 5 11:01:31 Patient TargetsNo targets recorded. Patient InstructionsNo instructions recorded. Reason for Referral Pelvic Floor Therapy Referra l for Female stress incontinence Referring Physician: Monie Segura, [employer] SALES REPRESENTATIVE, Encounter Date: 11/27/2024 Results Created Date Observation Date Name Description Value Unit Range Abnormal Flag Note LastModifiedBy Organization Detail LastModifiedTime 02/11/2002/11/2024 HIV 1/2 ANTIG EN/AN TIBOD Y, REFLE X CONFI RMATI ON HIV antigen/anti body Nonrea ctive nonrea ctive HIV-1 antig en and HIV-1 /HIV- 2 antib odies were not detec trung. No labor atory evide nce of HIV infec tion. Not Available [facility] (Lab) [address], [place], [address], 02/13/2024 21:20:54 02/11/20 24 02/11/2024 HEPAT ITIS B SURFA CE ANTIG EN hepatitis B surface antigen Non-re active non-re active This assay was perfo rmed using [employer] ratio n reage nts and test kits. Value s obtai kae with other assay metho ds or kits canno t be used inter bay eably . Not Available [facility] (Lab) [address] [facility], [place], [address], 02/13/2024 21:20:54 02/11/20 24 02/11/2024 HEPAT ITIS C ANTIB LEFTY SCREE N, REFLE X TO CONFI RMATI ON hepatitis C antibody Non-re active non-re active Antib odies to HCV Not Detec trung, does not exclu de the possi bilit y of expos ure to HCV. Not Available [facility] (Lab) [address] [facility], [place], [address], 02/13/2024 21:20:55 02/11/20 24 02/11/2024 RPR SCREE N, REFLE X TITER /CONF IRMAT ION RPR screen Nonrea ctive nonrea ctive Not Available [facility] (Lab) [address] [place], [address], 02/13/2024 21:20:55 02/11/20 24 02/11/2024 HEPAT ITIS B CORE, IGM hepatitis B core IgM antibody Negati ve negati ve Not Available [facility] (Lab) [address] [place], [address], 02/13/2024 21:20:56 02/11/20 24 02/11/2024 IMAGE GUIDE D PAP AND HPV REGAR DLESS image guided Pap, HPV regardless of Pap result SEE RESULT S BELOW CASE REPOR T: Cytol ogy Gynec ologi scott Repor t Case: [id number] Autho james g Provi norbert: Monie Segura, ESTRELLA Colle cted: 02/10 1204 Order ing Locat ion: [place] Patho logy Recei loretta: 02/11 1013 First Scree n: Hermilogne r, Alyx ica Speci men: Scree israel Pap - Image d, Cervi x STATE MENT OF ADEQU ACY: Satis facto ry for evalu ation Trans forma tion zone compo nent prese nt FINAL DIAGN OSIS: Negat neil for Intra epith elial Lesbarry iniguez or Brandy salinas (NIL) . Elect cadenprakash giron hebert d by Alyx Sargent ica on 2023 at 10:12 AM ----- ----- ----- ----- ----- ----- ----- ----- ----- ----- ----- ----- ----- ----- ----- ----- ----- ---- HPV RESUL TS: HPV mRNA E6/E7 : No HPV mRNA Detec trung NOTE: This high risk HPV mRNA assay detec ts fourt een high- risk HPV types (16, 18, 31, 33, 35, 39, 45, 51, 52, 56, 58, 59, 66, 68) witho ut diffe renti ation . COMME NT: This speci men was revie wed by a Cytot echno logis t and/o r Patho logis t (as indic ated in this repor t) after evalu ation using the Thinp rep Imagi ng Syste m. CLINI SCOTT INFOR MATIO N: Menst rual Statu s: LMP (if appli cable ): 2023 Clini scott Histo ry/Pr eviou s Pap: Type of Neopl olga (if appli cable ): Signi fican t Clini scott Findi ngs: Other Histo ry: Hormo winifred (if appli cable ): PAP EDUCA MARLON L NOTE: The Pap Test is a scree israel test with an inher ent false negat neil rate. Liqui d-bas ed sampl ing may decre ase, but will not elimi ioana, false negat neil resul ts. A negat neil resul t does not precl ude the prese nce and/o r devel opmen t of disea se, since the prese nce of abnor mal cells in the sampl e depen ds on the locat ion of the lesbarry n and sampl ing techn ique. Odilia nued regul ar scree israel is the best metho d of cance r preve ntion . If repor trung cytol ogic findi ng do not corre late with physi scott and/o r histo rical findi ngs, furth er inves tigat ion is recom hardik d, as clini michelle mooney nted. Not Available [facility] (Lab) [address] [facility], [place], [address], 02/14/2024 11:16:18 02/11/20 24 02/11/2024 TRICH OMONA S VAGIN ERIC (RRNA ) trichomonas vaginalis ribosomal RNA (rrna) Negati ve negati ve Not Available [facility] (Lab) [address] [facility], [place], [address], 02/14/2024 11:16:19 02/11/20 24 02/11/2024 CT/GC (KELLEY) , THINP REP VIAL chlamydia trachomatis, PCR Negati ve negati ve Not Available [facility] (Lab) [address] [facility], [place], [address], 02/14/2024 11:16:19 02/11/20 24 02/11/2024 CT/GC (KELLEY) , THINP REP VIAL neisseria gonorrhoeae, PCR Negati ve negati ve Not Available [facility] (Lab) [address] [place], [address], 02/14/2024 11:16:19 02/11/20 24 02/11/2024 CULTU RE: URINE result report SEE RESULT S BELOW abnormal Test: Cultu re: Urine Speci men Sourc e: Urine - Clean Catch Speci men Type: Urine Speci men Date: 2023 12:04 PM Resul t Date: 2023 1:49 PM Resul t Statu s: Final resul t Abnor mal: Yes Resul maricarmen Lab: [facility] [address] [facility] [address] Tel: CULTU RE ----- ----- ----- --- 10,00 0-25, 000 CFU/m l Strep tococ cus agala ctiae (Grou p B) (Abno rmal) Strep tococ cus agala ctiae (Beta strep Group B Strep ) remai ns unive rsall y susce ptibl e to penic illin , cefaz sue and vanco mycin . If clind lucrecia n is being consi dered for intra partu m proph ylaxi s, pleas e conta ct the lab withi n 5 days. Not Available [facility] (Lab) [address] [facility], [place], [address], 02/14/2024 11:16:20 06/24/20 24 06/24/2024 HBSAG /HCV/ HIV/R WI hepatitis C antibody Non-re active non-re active Antib odies to HCV Not Detec trung, does not exclu de the possi bilit y of expos ure to HCV. Not Available [facility] (Lab) [address] [facility], [place], [address], 06/25/2024 10:53:58 06/24/20 24 06/24/2024 HBSAG /HCV/ HIV/R WI HIV antigen/anti body Nonrea ctive nonrea ctive HIV-1 antig en and HIV-1 /HIV- 2 antib odies were not detec trung. No labor atory evide nce of HIV infec tion. Not Available [facility] (Lab) [address] [facility], [place], [address], 06/25/2024 10:53:58 06/24/20 24 06/24/2024 HBSAG /HCV/ HIV/R WI hepatitis B surface antigen Non-re active non-re active This assay was perfo rmed using [employer] ratio n reage nts and test kits. Value s obtai kae with other assay metho ds or kits canno t be used inter bay eably . Not Available [facility] (Lab) [address] [facility], [place], [address], 06/25/2024 10:53:58 06/24/20 24 06/24/2024 HBSAG /HCV/ HIV/R WI RPR screen Nonrea ctive nonrea ctive Not Available [facility] (Lab) [address] [facility], [place], [address], 06/25/2024 10:53:58 06/24/20 24 06/24/2024 VAGIN ITIS/ VAGIN OSIS, DNA PROBE eulalio sp. detection, direct probe Negati ve negati ve Not Available [facility] (Lab) [address] [facility], [place], [address], 06/25/2024 13:04:14 06/24/20 24 06/24/2024 VAGIN ITIS/ VAGIN OSIS, DNA PROBE gardnerella vag. detection, direct probe Negati ve negati ve Not Available [facility] (Lab) [address] [facility], [place], [address], 06/25/2024 13:04:14 06/24/20 24 06/24/2024 VAGIN ITIS/ VAGIN OSIS, DNA PROBE trichomonas vag. detection, direct probe Negati ve negati ve Not Available [facility] (Lab) [address] [facility], [place], [address], 06/25/2024 13:04:14 06/24/20 24 06/24/2024 CT/GC AND TRICH OMONA S VAGIN ERIC (RRNA ), SWAB chlamydia trachomatis, PCR Negati ve negati ve Not Available [facility] (Lab) [address] [facility], [place], [address], 06/25/2024 13:04:14 06/24/20 24 06/24/2024 CT/GC AND TRICH OMONA S VAGIN ERIC (RRNA ), SWAB neisseria gonorrhoeae, PCR Negati ve negati ve Not Available [facility] (Lab) [address] [facility], [place], [address], 06/25/2024 13:04:14 06/24/20 24 06/24/2024 CT/GC AND TRICH OMONA S VAGIN ERIC (RRNA ), SWAB trichomonas vaginalis ribosomal RNA (rrna) Negati ve negati ve Not Available [facility] (Lab) [address], [place], [address], 06/25/2024 13:04:14 11/27/19 25 11/27/2024 urina lysis , dipst ick Leukocytes TRACE Not Available [facility] a[facility] [address], [place], [address], 11/27/2024 13:02:21 11/27/19 25 11/27/2024 urina lysis , dipst ick Nitrite NEG Not Available [place] [address], [place], [address], 11/27/2024 13:02:21 11/27/19 25 11/27/2024 urina lysis , dipst ick Urobilinogen NEG Not Available [facility] [place] [address], [place], [address], 11/27/2024 13:02:21 11/27/19 25 11/27/2024 urina lysis , dipst ick Protein POS Not Available [place] [address], [place], [address], 11/27/2024 13:02:21 11/27/19 25 11/27/2024 urina lysis , dipst ick pH 5 Not Available [place] [address], [place], [address], 11/27/2024 13:02:21 11/27/19 25 11/27/2024 urina lysis , dipst ick Specific [place] 1.015 Not Available [facility] [address], [place], [address], 11/27/2024 13:02:21 11/27/19 25 11/27/2024 urina lysis , dipst ick Ketone NEG Not Available [place] [address], [place], [address], 11/27/2024 13:02:21 11/27/19 25 11/27/2024 urina lysis , dipst ick Bilirubin 1 Not Available [facility] [address], [place], [address], 11/27/2024 13:02:21 11/27/19 25 11/27/2024 urina lysis , dipst ick Glucose NEG Not Available [place] [address], [place], [address], 11/27/2024 13:02:21 11/27/19 25 11/27/2024 urina lysis , dipst ick Appearance DARK Not Available [facility] [address], [place], [address], 11/27/2024 13:02:21 11/27/19 25 11/27/2024 urina lysis , dipst ick Color YELLOW Not Available [place] [address], [place], [address], 11/27/2024 13:02:21 01/20/20 25 01/19/2025 WOMEN 'S HEALT H SWAB PLUS, AILEEN bacterial vaginosis (bv), tma Negati ve negati ve Not Available [facility] (Lab) [address] [place], [address], 01/20/2025 15:30:58 01/20/20 25 01/19/2025 WOMEN 'S HEALT H SWAB PLUS, AILEEN eulalio species, tma Negati ve negati ve Not Available [facility] (Lab) [address] [place], [address], 01/20/2025 15:30:58 01/20/20 25 01/19/2025 WOMEN 'S HEALT H SWAB PLUS, AILEEN eulalio glabrata, tma Negati ve negati ve Not Available [facility] (Lab) [address] [place], [address], 01/20/2025 15:30:58 01/20/20 25 01/19/2025 WOMEN 'S HEALT H SWAB PLUS, AILEEN trichomonas vaginalis, tma Negati ve negati ve Not Available [facility] (Lab) [address] [facility], [place], [address], 01/20/2025 15:30:58 01/20/20 25 01/19/2025 WOMEN 'S HEALT H SWAB PLUS, AILEEN chlamydia trachomatis, PCR Negati ve negati ve Not Available [facility] (Lab) [address] [facility], [place], [address], 01/20/2025 15:30:58 01/20/20 25 01/19/2025 WOMEN 'S HEALT H SWAB PLUS, AILEEN neisseria gonorrhoeae, PCR Negati ve negati ve Bacte rial vagin osis detec ts the follo wing bacte talib assoc iated with bacte rial vagin osis (BV): Lacto bacil catrina (L. gasse ri, L. crisp atus and L. jense javi), Gardn erell a vagin eric, and Atopo bium vagin ae. A singl e quali tativ e resul t is repor trung base on instr ument softw are to deter mine BV posit neil or negat neil statu s. The [facility]el[facility] speci es group tests for C. albic ans, C. tropi calis , C. parap raymon is, C. dubli niens is. Testi ng is perfo rmed using the Trans cript ion Media trung Ampli ficat ion metho d. Tests for Nelida da glabr jefry, Trich omona s vagin eric, Chlam ydia trach omati s, and Neiss eria gonor rhoea e are also inclu ded in this panel . Not Available [facility] (Lab) [address] [facility], [place], [address], 01/20/2025 15:30:58 01/20/20 25 01/19/2025 urina lysis , dipst ick Leukocytes TRACE Not Available [facility] [address], [place], [address], 01/19/2025 11:40:36 01/20/20 25 01/19/2025 urina lysis , dipst ick Nitrite POS Not Available [place] [address], [place], [address], 01/19/2025 11:40:36 01/20/20 25 01/19/2025 urina lysis , dipst ick Urobilinogen 4 Not Available [facility] ethan [address], [place], [address], 01/19/2025 11:40:36 01/20/20 25 01/19/2025 urina lysis , dipst ick Protein POS Not Available [place] [address], [place], [address], 01/19/2025 11:40:36 01/20/20 25 01/19/2025 urina lysis , dipst ick pH 6 Not Available [place] [address], [place], [address], 01/19/2025 11:40:36 01/20/20 25 01/19/2025 urina lysis , dipst ick Blood + Not Available [place] [address], [place], [address], 01/19/2025 11:40:36 01/20/20 25 01/19/2025 urina lysis , dipst ick Specific [place] 1.015 Not Available [facility] [address], [place], [address], 01/19/2025 11:40:36 01/20/20 25 01/19/2025 urina lysis , dipst ick Ketone LARGE Not Available [place] [address], [place], [address], 01/19/2025 11:40:36 01/20/20 25 01/19/2025 urina lysis , dipst ick Bilirubin 4 Not Available [facility] [address], [place], [address], 01/19/2025 11:40:36 01/20/20 25 01/19/2025 urina lysis , dipst ick Glucose 250 Not Available [place] [address], [place], [address], 01/19/2025 11:40:36 01/20/20 25 01/19/2025 urina lysis , dipst ick Appearance DARK Not Available [facility] [address], [place], [address], 01/19/2025 11:40:36 01/20/20 25 01/19/2025 urina lysis , dipst ick Color YELLOW Not Available [place] [address], [place], [address], 01/19/2025 11:40:36 Result Notes None recorded. Problems Name Problem SNOMED Code Status Onset Date Resolution Date Notes Provider Name and Address Organization Details Recorded Time Vaginiti s and vulvovag initis Completed 201401/03/2021 Vaginiti s;Record ed Elsewher e: No Locat ion: [facility] S ource: EHR Supervisor Respiratory xiang: N Practi ce ID: [id number] Antonio lable Time: 10:00:00 AM DANIEL Urrutia - [facility] 15:34:01 Morbid obesity [id number] Completed 201401/03/2021 Obesity, Morbid;R ecorded Elsewher e: No Locat ion: [facility] S ource: EHR Supervisor Respiratory xiang: N Practi ce ID: [id number] Antonio lable Time: 11:00:00 AM Vy ramos [facility] 15:33:28 Screenin g for malignan t neoplasm of cervix Completed 201101/03/2021 Screenin g for malignan t neoplasm s of the cervix;R ecorded Elsewher e: No Locat ion: [facility] S ource: EHR Supervisor Respiratory xiang: N Devikati ce ID: [id number] Antonio lable Time: 11:00:00 AM Vy ramos [facility] 15:33:42 Eruption [id number] Completed 201101/03/2021 Rash and other nonspeci fic skin eruption ;Recorde d Elsewher e: No Locat ion: [facility] N Devikati ce ID: [id number] Antonio lable Time: 11:15:00 AM Vy Coleman [facility] 15:33:08 Acute vaginiti s [id number] Completed 201401/03/2021 Acute vaginiti s;Record ed Elsewher e: No Locat ion: [facility] N Devikati ce ID: [id number] Antonio lable Time: 10:15:00 AM Vy Coleman [facility] 15:32:[address] Concept Completed 201601/03/2021 Encntr for general adult medical exam w/o abnormal findings ;Recorde d Elsewher e: No Locat ion: [facility] S ource: EHR Supervisor Respiratory xiang: N Devikati ce ID: [id number] Antonio lable Time: 02:30:00 PM Vy ramos [facility] 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 15:33:47 Urinary tract infectio us disease [id number] Completed 201201/03/2021 Urinary Tract Infectio n;Record ed Elsewher e: No Locat ion: [facility] S ource: EHR Supervisor Respiratory xiang: N Practi ce ID: [id number] Antonio lable Time: 09:45:00 AM Vy ramos, [facility] 15:33:58 Pregnanc y test negative [id number] Completed 201001/03/2021 Pregnanc y examinat ion or test, negative result;R ecorded Elsewher e: No Locat ion: [facility] S ource: EHR Supervisor Respiratory xiang: N Practi ce ID: [id number] Antonio lable Time: 02:30:00 PM Vy ramos, [facility] 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 1 15:33:54 Evaluati on finding Completed 201601/03/2021 Hematuri a, unspecif ied;Deejay rded Elsewher e: No Locat ion: [facility] S ource: EHR Supervisor Respiratory xiang: N Practi ce ID: [id number] Antonio lable Time: 02:30:00 PM Vy ramos, [facility] 1 15:33:10 Syphilis test finding [id number] Completed 201801/03/2021 Encntr screen for infectio ns w sexl mode of transmis s;Record ed Elsewher e: No Locat ion: [facility] S ource: EHR Supervisor Respiratory xiang: N Practi ce ID: [id number] Antonio lable Time: 03:45:00 PM Vy ramos, [facility] 15:33:53 Vaginola bial hernia Completed 201701/03/2021 Other specifie d noninfla mmatory disorder s of vagina;R ecorded Elsewher e: No Locat ion: [facility] S ource: EHR Supervisor Respiratory xiang: N Devikati ce ID: [id number] Antonio lable Time: 08:30:00 AM Vy Jared richard, [facility] 15:34:03 Speciali zed medical examinat ion Completed 201401/03/2021 Other specifie d chlamydi al diseases ;Recorde d Elsewher e: No Locat ion: [facility] S ource: EHR Supervisor Respiratory xiang: N Practi ce ID: [id number] Antonio lable Time: 01:00:00 PM Vy ramos, [facility] 15:33:49 Finding of sensatio n of breast Completed 201501/03/2021 Mastodyn ia;Recor ded Elsewher e: No Locat ion: [facility] S ource: EHR Supervisor Respiratory xiang: N Practi ce ID: [id number] Antonio lable Time: 11:45:00 AM Vy Jaredadonay ramos, [facility] 15:33:12 Pain of breast [id number] Completed 201101/03/2021 Mastodyn ia;Recor ded Elsewher e: No Locat ion: [facility] S ource: EHR Supervisor Respiratory xiang: Y Practi ce ID: [id number] Antonio lable Time: 11:15:00 AM Vy ramos [facility] 15:33:29 Lump of axillary tail of left breast [id number] Completed 201901/03/2021 Mass in axillary tail of the left breast;R ecorded Elsewher e: No Locat ion: Xuan lara [facility] S ource: EHR Supervisor Respiratory xiang: N Practi ce ID: [id number] Antonio lable Time: 02:45:00 PM Vy ramos [facility] 15:33:21 Deliveri es by [id number] Completed 201301/03/2021 delivery , without mention of indicati on, unspecif ied as to episode of care;Rec orded Elsewher e: No Locat ion: [facility] S ource: EHR Supervisor Respiratory xiang: N Practi ce ID: 0001 Antonio lable Time: 09:30:00 AM Vy Coleman [facility] 15:33:01 Postpart um care Completed 201301/03/2021 Post Followup ;Recorde d Elsewher e: No Locat ion: [facility] S ource: EHR Supervisor Respiratory xiang: N Practi ce ID: 0001 Antonio lable Time: 11:00:00 AM Vy ramos [facility] 15:33:32 Routine antenata l care Completed 201301/03/2021 Supervis ion of other normal pregnanc y;Record ed Elsewher e: No Locat ion: [facility] S ource: EHR Supervisor Respiratory xiang: N Practi ce ID: 0001 Antonio lable Time: 06:00:00 PM Vy ramos [facility] 15:33:41 Speciali zed medical examinat ion Completed 201101/03/2021 Gynecolo gical Examinat ion;Deejay rded Elsewher e: No Locat ion: [facility] S ource: EHR Supervisor Respiratory xiang: N Practi ce ID: 0001 Antonio lable Time: 11:00:00 AM Vy ramos [facility] 15:33:48 Dermatop hytosis [id number] Completed 201401/03/2021 Ringworm ;Recorde d Elsewher e: No Locat ion: [facility] S ource: EHR Supervisor Respiratory xiang: N Practi ce ID: 0001 Antonio lable Time: 01:00:00 PM Vy ramos [facility] 15:33:03 Leukocyt osis [id number] Completed 201401/03/2021 LEUKOCYT OSIS NOS;Deejay rded Elsewher e: No Locat ion: [facility] S ource: EHR Supervisor Respiratory xiang: N Practi ce ID: 0001 Antonio lable Time: 04:15:00 PM Vy ramos [facility] 15:33:18 Lump of axillary tail of right breast [id number] Completed 201901/03/2021 Mass in axillary tail of the right breast;R ecorded Elsewher e: No Locat ion: [facility] Practi ce ID: 0001 Antonio lable Time: 02:45:00 PM Vy ramos [facility] 15:33:22 Infectio n screenin g Completed 201601/03/2021 Encounte r for screenin g for oth infec/pa rastc diseases ;Recorde d Elsewher e: No Locat ion: [facility] N Practi ce ID: 0001 Antonio lable Time: 01:30:00 PM Vy ramos [facility] 15:33:17 Amenorrh ea [id number] Completed 201201/03/2021 Absence of menstrua tion;Rec orded Elsewher e: No [facility] N Devikati ce ID: 0001 Antonio lable Time: 10:30:00 AM Vy Jared ramos [facility] 15:32:51 Malaise and fatigue [id number] Completed 201101/03/2021 Fatigue / Malaise; Recorded Elsewher e: No Locat ion: [facility] N Devikati ce ID: 0001 Antonio lable Time: 09:45:00 AM Vy ramos [facility] 15:33:24 Epidermo id cyst of skin [id number] Completed 201801/03/2021 Sebaceou s cyst;Rec orded Elsewher e: No Locat ion: [facility] N Devikati ce ID: 0001 Antonio lable Time: 03:45:00 PM Vy Jared ramos [facility] 15:33:07 Swelling / lump finding Completed 201801/03/2021 Localize d swelling , mass and lump, unspecif ied;Deejay rded Elsewher e: No Locat ion: [facility] S ource: EHR Supervisor Respiratory xiang: N Devikati ce ID: 0001 Antonio lable Time: 11:00:00 AM Vy Jared ramos [facility] 15:33:52 Postoper ative follow-u p visit Completed 201301/03/2021 Follow-u p examinat ion, followin g unspecif ied surgery; Recorded Elsewher e: No Locat ion: [facility] S ource: EHR Supervisor Respiratory xiang: N Devikati ce ID: 0001 Antonio lable Time: 10:00:00 AM Vy ramos [facility] 15:33:31 Ultrason ography Completed 201301/03/2021 Antenata l screenin g for malforma tion using ultrason ics;Deejay rded Elsewher e: No Locat ion: [facility] S ource: EHR Supervisor Respiratory xiang: N Devikati ce ID: 0001 Antonio lable Time: 11:30:00 AM Vy ramos [facility] 15:33:57 Antenata l screenin g Completed 201301/03/2021 Antenata l screenin g for malforma tion using ultrason ics;Deejay rded Elsewher e: No Locat ion: [facility] N Devikati ce ID: 0001 Antonio lable Time: 11:30:00 AM Vy ramos, [facility] 15:32:52 Congenit al malforma tion [id number] Completed 201301/03/2021 Antenata l screenin g for malforma tion using ultrason ics;Deejay rded Elsewher e: No Locat ion: [facility] S ource: EHR Supervisor Respiratory xiang: N Devikati ce ID: 0001 Antonio lable Time: 11:30:00 AM Vy ramos [facility] 15:33:00 Atypical squamous cells of undeterm ined signific ance on cervical Papanico laou smear [id number] Completed 201101/03/2021 Papanico laou smear of cervix with atypical squamous cells of undeterm ined signific ance (ASC-US) ;Recorde d Elsewher e: No Locat ion: [facility] S ource: EHR Supervisor Respiratory xiang: N Devikati ce ID: 0001 Antonio lable Time: 09:45:00 AM Vy ramos [facility] 15:32:55 Pregnanc y test positive [id number] Completed 201201/03/2021 Pregnanc y examinat ion or test, positive result;R ecorded Elsewher e: No Locat ion: [facility] jane [facility] S ource: EHR Supervisor Respiratory xiang: N Concepción ce ID: 0001 Antonio lable Time: 01:00:00 PM Vy ramos [facility] 15:33:34 Blood leukocyt e number above referenc e range [id number] Completed 201501/03/2021 Elevated white blood cell count, unspecif ied;Deejay rded Elsewher e: No Locat ion: [facility] S ource: EHR Supervisor Respiratory xiang: N Devikati ce ID: 0001 Antonio lable Time: 02:15:00 [facility]:14 Leukorrh ea [id number] Completed 201401/03/2021 Leukorrh ea, not specifie d as infectiv e;Record ed Elsewher e: No Locat ion: [facility] S ource: EHR Supervisor Respiratory xiang: N Devikati ce ID: 0001 Antonio lable Time: 01:00:00 PM Vy ramos [facility] 15:33:19 Female genital organ symptoms [id number] Completed 201401/03/2021 Pelvic pain;Rec orded Elsewher e: No Locat ion: [facility] S ource: EHR Supervisor Respiratory xiang: N Devikati ce ID: 0001 Antonio lable Time: 11:00:00 AM yV ramos [facility] 15:33:11 Venereal disease screenin g Completed 201401/03/2021 Screenin g examinat ion for venereal disease; Recorded Elsewher e: No Locat ion: [facility] S ource: EHR Supervisor Respiratory xiang: N Devikati ce ID: 0001 Antonio lable Time: 01:00:00 PM Vy Jaredadonay ramos [facility] 15:34:05 Increase d frequenc y of urinatio n [id number] Completed 201801/03/2021 Frequenc y of micturit ion;Deejay rded Elsewher e: No Locat ion: [facility] S ource: EHR Supervisor Respiratory xiang: N Concepción ce ID: 0001 Antonio lable Time: 03:45:00 PM Vy ramos [facility] 15:33:15 Candidia sis of skin and nails Completed 201101/03/2021 Candidia sis of skin and nails;Re corded Elsewher e: No Locat ion: [facility] S ource: EHR Supervisor Respiratory xiang: N Concepción ce ID: 0001 Antonio lable Time: 09:15:00 AM Vy Coleman richard [facility] 15:32:57 Dysuria [id number] Completed 201001/03/2021 Dysuria; Practice ID: 0001 Vy Coleman richard [facility] 15:33:04 At increase d risk of sexually transmit trung infectio n [id number] Completed 201001/03/2021 Contact with or exposure to venereal diseases ;Practic e ID: 0001 Vy Coleman richard [facility] 15:32:53 Acute gonococc al cervicit is [id number] Completed 201001/03/2021 Gonococc al cervicit is (acute); Practice ID: 0001 Vy ramos [facility] 15:32:49 Mild hypereme sis-not delivere d [id number] Completed 201201/03/2021 Hypereme sis gravidar um, antepart um Mild;Pra ctice ID: 0001 Vy ramos [facility] 15:33:26 Complica tion related to pregnanc y Completed 201301/03/2021 Weight Insuffic ient Antepart um;Pract ice ID: 0001 Vy ramos, [facility] 15:32:59 Uterine scar from previous surgery in pregnanc y, childbir th and the puerperi um - delivere d [id number] Completed 201301/03/2021 Previous delivery , antepart um conditio n or complica tion;Pra ctice ID: 0001 Vy ramos, [facility] 15:34:00 Procedur e on genitour inary system Completed 201301/03/2021 Steriliz ation;Pr actice ID: 0001 Vy ramos, [facility] 15:33:37 Single live [id number] Completed 201301/03/2021 Mother with single liveborn ;Practic e ID: 0001 Vy ramos, [facility] 15:33:43 Educatio n Completed 201301/03/2021 Counseli ng contrace ptive manageme nt;Pract ice ID: 0001 Vy ramos, [facility] 15:33:05 Microsco pic hematuri a [id number] Completed 201401/03/2021 HEMATURI A [facility]CROS[facility] PIC;Prac adrienne ID: 0001 Vy ramos, [facility] 15:33:25 Transien t hyperten burt of pregnanc y - not delivere d [id number] Completed 201301/03/2021 Antepart um transien t hyperten burt;Pra ctice ID: 0001 Vy Jared [facility] 1 15:33:55 Diabetes mellitus [id number] Active 2023 Joelle Russo [facility] 4 14:55:50 Problem Notes None recorded. Procedures Surgical History Date Name Laterality Status Provider Name and Address Organization Details Recorded Time 02/11/20 24 Date of Last Pap Smear completed Joellemadeline Russo [facility] 10/06/2024 14:56:20 10/29/19 24 extraction of wisdom tooth [facility]/06/[facility]24 14:58:04 11/27/19 22 procedure on lower leg completed [facility] 10/06/2024 14:57:55 06/05/20 14 section [facility] 10/04/2020 11:13:52 10/29/19 14 Tubal Ligation completed Sana Suárez [facility] 07/03/2020 12:16:24 04/13/20 10 section [facility] 10/04/2020 11:13:47 11/27/19 08 section completed [facility] 10/04/2020 11:13:43 10/29/19 06 [facility]olecystectomy [facility] 10/04/2020 11:12:39 07/12/20 05 section completed [facility] 10/04/2020 11:13:37 10/29/19 05 cholelithotomy completed [facility] 10/04/2020 11:13:16 Imaging Results None recorded. Procedure Notes None recorded. Medical Equipment None Reported. Allergies Allergen ID Allergen Name Allergen Category Reaction Reaction Severity Criticality Documentation Date Start Date Code Code System Note Provider Name and Address Organization Details Recorded Time 1957 morphine medicatio n Not available Not available Not available 07/03/2020 7052 RxNorm Sana Suárez [place], [place] - [facility] 0 12:11:24 Medications Name Sig Start Date Stop Date Status Note LastModified by Organization Details LastModified Time Prescript ion - Prior Authoriza tion Request APPLY TOPICALL Y TO THE AFFECTED AREA TWICE DAILY FOR 5 TO 7 DAYS 05/28 completed Not Available Not Available Not Available amoxicill in 500 mg capsule TAKE 1 CAPSULE BY MOUTH EVERY 8 TO 12 HOURS FOR 10 DAYS 02/03 completed Not Available Not Available Not Available metformin 500 mg tablet TAKE 1 TABLET BY MOUTH TWICE DAILY 02/16 completed Not Available Not Available Not Available betametha sone valerate 0.1 % topical ointment apply by topical route every day a thin layer to the affected area(s) 05/22 completed Prescrib ed Elsewher e: No Locat ion: [facility] odify By: [email or web address] trick En counter DateTime : 11/17/19 16 11:32:14 AM Not Available Not Available Not Available doxycycli ne hyclate 100 mg capsule Take 1 capsule twice a day by oral route for 7 days. 01/19 completed Not Available Not Available Not Available Ceftin 500 mg tablet take 1 tablet by oral route every 12 hours 07/23 completed Prescrib ed Elsewher e: No Locat ion: [facility] odify By: gael dang DateTime : 03/03/20 14 10:45:00 AM Not Available Not Available Not Available polyethyl clari glycol 3350 17 gram oral powder packet USE 1 PACKET MIXED WITH LIQUID AND TAKE EVERY MORNING 02/16 completed Not Available Not Available Not Available cetirizin e 10 mg tablet TAKE 1 TABLET BY MOUTH EVERY DAY 10/06 completed Not Available Not Available Not Available azithromy teri 250 mg tablet take 2 tablet (500MG) by oral route every day for 1 day then 1 tablet (250 mg) by oral route once daily for 4 days 01/19 completed Not Available Not Available Not Available ibuprofen 800 mg tablet TAKE 1 TABLET BY MOUTH EVERY 8 HOURS 05/24 completed Not Available Not Available Not Available Lidocaine Viscous 2 % mucosal solution 10/06 completed Not Available Not Available Not Available nystatin 100,000 unit/gram topical ointment APPLY TOPICALL Y TO THE AFFECTED AREA TWICE DAILY FOR 5 TO 7 DAYS 05/28 completed Not Available Not Available Not Available benzonata te 200 mg capsule TAKE 1 CAPSULE BY MOUTH THREE TIMES DAILY 01/19 completed Not Available Not Available Not Available diclofena c ER 100 mg tablet,ex tended release 24 hr take 1 tablet by oral route every day 07/20 completed Prescrib ed Elsewher e: No Locat ion: [facility] odify By: gwen castro DateTime : 10/05/20 16 11:00:00 AM Not Available Not Available Not Available fluconazo le 200 mg tablet TAKE 1 TABLET BY MOUTH EVERY OTHER DAY FOR 3 DOSES 05/24 completed Not Available Not Available Not Available phenazopy ridine 200 mg tablet TAKE 1 TABLET BY MOUTH THREE TIMES DAILY 10/06 completed Not Available Not Available Not Available metronida zole 0.75 % (37.5 mg/5 gram) vaginal gel insert 1 applicat orful by vaginal route every day at bedtime 07/03 completed Not Available Not Available Not Available Pyridium 100 mg tablet take 2 tablet (200MG) by oral route 3 times every day after meals 08/06 completed Prescrib ed Elsewher e: No Locat ion: [facility] odify By: maria luisa dang DateTime : 08/06/20 13 09:45:00 AM Not Available Not Available Not Available terconazo le 0.8 % vaginal cream INSERT ONE APPLICAT ORFUL VAGINALL Y AT BEDTIME FOR 3 DAYS 01/31 completed Not Available Not Available Not Available Diflucan 150 mg tablet Take 1 tablet every 72 hours by oral route. 2024 active Not Available Not Available Not Avai lable Miconazol e-3 200 mg vaginal supposito ry insert 1 supposit ory (200MG) by vaginal route every day for 3 days at bedtime 12/07 completed Prescrib ed Elsewher e: No Locat ion: [facility] odify By: cmedical Encount er DateTime : 12/05/19 14 10:39:37 AM Not Available Not Available Not Available metronida zole 500 mg tablet TAKE 1 TABLET BY MOUTH EVERY 12 HOURS FOR 7 DAYS 08/02 completed Not Available Not Available Not Available fluocinon aldo 0.05 % topical ointment APPLY TO AREAS OF PSORIASI S ON BUTTOCKS AND LEGS TWICE DAILY ONLY DURING FLARE-UP S 02/26 completed Not Available Not Available Not Available acetamino phen 300 mg-codein e 30 mg tablet TAKE 1 TABLET BY MOUTH EVERY 4 HOURS NEEDED FOR PAIN 02/03 completed Not Available Not Available Not Available valacyclo vir 500 mg tablet TK 1 T PO Q 12 H FOR 3 DAYS 10/15 completed Not Available Not Available Not Available sulfameth oxazole 800 mg-trimet hoprim 160 mg tablet take 1 tablet by oral route every 12 hours 02/26 completed Not Available Not Available Not Available acetamino phen 500 mg tablet TAKE 2 CAPSULES BY MOUTH EVERY 6 HOURS 05/28 completed Not Available Not Available Not Available triamcino lone acetonide 0.1 % topical cream APPLY TO THE AFFECTED AREATWIC E DAILY FOR 5 TO 7 DAYS 01/03 completed Not Available Not Available Not Available amoxicill in 500 mg tablet take 1 tablet by oral route 3 times every day 01/07 completed Prescrib ed Elsewher e: Yes Loca tion: [facility] lar[facility] odify By: marybeth dang DateTime : 02/28/20 19 11:00:00 AM Not Available Not Available Not Available nystatin- triamcino lone 100,000 unit/gram -0.1 % topical ointment APPLY TO THE AFFECTED AREA(S) BY TOPICAL ROUTE 2 TIMES PER DAY x 5-7 days 05/28 completed Not Available Not Available Not Available Estrostep Fe-28 1-20 (5)/1-30( 7)/1mg-35 mcg(9) tablet take 1 tablet by oral route every day for 28 days 09/10 completed Prescrib ed Elsewher e: No [facility] By: marybeth Lara ncoterier DateTime : 08/14/20 11 02:30:00 PM Not Available Not Available Not Available Loprox 0.77 % topical gel apply by topical route 2 times every day to the affected and surround ing areas of skin in the morning and evening 07/23 completed Prescrib ed Elsewher e: No Locat ion: [facility] odify By: amcari dang DateTime : 01/28/20 13 11:30:00 AM Not Available Not Available Not Available meloxicam 7.5 mg tablet 07/03 completed Not Available Not Available Not Available ofloxacin 0.3 % ear drops INSTILL 2 DROPS TO LEFT EAR TWICE DAILY 10/06 completed Not Available Not Available Not Available amoxicill in 875 mg tablet TAKE 1 TABLET BY MOUTH TWICE DAILY UNTIL ALL TAKEN 05/24 completed Not Available Not Available Not Available famotidin e 20 mg tablet 07/03 completed Not Available Not Available Not Available ondansetr on HCl 4 mg/5 mL oral solution TAKE 5 ML BY MOUTH EVERY 6 HOURS NEEDED FOR NAUSEA 10/06 completed Not Available Not Available Not Available benzonata te 100 mg capsule TAKE 1 CAPSULE BY MOUTH EVERY 8 HOURS NEEDED FOR COUGH AND CONGESTI ON 01/31 completed Not Available Not Available Not Available hydrocodo ne 7.5 mg-acetam inophen 325 mg tablet TAKE 1 TABLET BY MOUTH EVERY 4 HOURS 02/16 completed Not Available Not Available Not Available Daypro 600 mg tablet take 2 Tablet (1200MG) by oral route every day 07/23 completed Prescrib ed Elsewher e: No Locat ion: [facility] odify By: amkchan Lara ncoterier DateTime : 06/27/20 12 09:15:00 AM Not Available Not Available Not Available Cipro 500 mg tablet take 1 tablet by oral route every 12 hours 2024 active Not Available Not Available Not Avai lable triamcino lone acetonide 0.1 % topical ointment APPLY TOPICALL Y TO THE AFFECTED AREA TWICE DAILY FOR 5 TO 7 DAYS 05/28 completed Not Available Not Available Not Available nystatin 100,000 unit/gram topical cream APPLY EXTERNAL LY TO THE AFFECTED AREA TWICE DAILY FOR 5 TO 7 DAYS 01/03 completed Not Available Not Available Not Available clotrimaz ole-betam ethasone 1 %-0.05 % topical cream Apply by topical route for 7 days. 2024 active Not Available Not Available Not Avai lable polymyxin B sulfate 10,000 unit-trim ethoprim 1 mg/mL eye drops 10/06 completed Not Available Not Available Not Available losartan 25 mg tablet TAKE 1 TABLET BY MOUTH EVERY DAY active Not Available Not Available No t Available betametha sone dipropion ate 0.05 % topical cream APPLY TO THE AFFECTED AREA(S) TWICE DAILY active Not Available Not Available No t Available monteluka st 10 mg tablet 07/03 completed Not Available Not Available Not Available mupirocin 2 % topical ointment APPLY SMALL AMOUNT TOPICALL Y TO THE AFFECTED AREA THREE TIMES DAILY FOR 7 DAYS 08/29 completed Not Available Not Available Not Available ergocalci ferol (vitamin D2) 1,250 mcg (50,000 unit) capsule TAKE 1 CAPSULE BY MOUTH EVERY SUNDAY AND Y AT 9 AM 01/31 completed Not Available Not Available Not Available nystatin 100,000 unit/gram topical powder apply by topical route 2 times every day to the affected area(s) 08/06 completed Prescrib aviva Wolfe e: No Locat ion: [facility] odify By: maria luisa Lara ncounter DateTime : 06/27/20 12 09:15:00 AM Not Available Not Available Not Available ibuprofen 600 mg tablet TAKE 1 TABLET BY MOUTH EVERY 6 HOURS WITH FOOD NEEDED 02/03 completed Not Available Not Available Not Available methylpre dnisolone 4 mg tablets in a dose pack 01/31 completed Not Available Not Available Not Available albuterol sulfate HFA 90 mcg/actua tion aerosol inhaler INHALE 2 PUFFS BY MOUTH EVERY 4 HOURS NEEDED active Not Available Not Available No t Available hydrocort isone 2.5 % topical ointment APPLY TO ITCHY AREA ON VULVA TWICE DAILY NEEDED FOR 3 DAYS 02/26 completed Not Available Not Available Not Available ketoconaz ole 2 % topical cream Apply topicall y twice daily for 2 weeks to the affected area and surround ing areas of skin in morning and evening. 11/13 completed Prescrib ed Elsewher e: No Locat ion: [facility] odify By: cmedical Encount er DateTime : 11/12/19 15 11:12:49 AM Not Available Not Available Not Available Terazol 7 0.4 % vaginal cream insert 1 applicat orful by vaginal route every day for 7 days at bedtime 11/24 completed Prescrib ed Elsewher e: No Locat ion: [facility] odify By: bcchristo Sutton ter DateTime : 11/18/19 16 08:22:02 AM Not Available Not Available Not Available fluticaso ne propionat e 50 mcg/actua tion nasal spray,reno pension SHAKE LIQUID AND USE 1 SPRAY IN EACH NOSTRIL TWICE DAILY 02/26 completed Not Available Not Available Not Available metformin ER 500 mg tablet,ex tended release 24 hr TAKE 1 TABLET BY MOUTH EVERY DAY DIRECTED FOR DIABETES 01/19 completed Not Available Not Available Not Available clotrimaz ole 1 % topical cream apply by topical route 2 times every day to the affected and surround ing areas of skin in the morning and evening 05/22 completed Prescrib ed Elsewher e: No Locat ion: [facility] odify By: [email or web address] trick En counter DateTime : 11/17/19 16 11:32:14 AM Not Available Not Available Not Available doxycycli ne hyclate 100 mg tablet TAKE 1 TABLET BY MOUTH TWICE DAILY 01/19 completed Not Available Not Available Not Available amoxicill in 875 mg-potass ium clavulana te 125 mg tablet TAKE 1 TABLET BY MOUTH TWICE DAILY FOR 7 DAYS 02/03 completed Not Available Not Available Not Available amoxicill in 500 mg-potass ium clavulana te 125 mg tablet TAKE 1 TABLET BY MOUTH EVERY 12 HOURS FOR 5 DAYS 06/24 completed Not Available Not Available Not Available oxycodone 5 mg tablet 02/16 completed Not Available Not Available Not Available azithromy teri 500 mg tablet take 2 tablets PO x 1gm dose. 07/03 completed Not Available Not Available Not Available Lotrimin Ultra 1 % topical cream apply topicall y twice daily for 2 weeks to the affected area and surround ing areas of skin in morning and evening. 01/08 completed Prescrib aviva lara: Rowan Locat ion: Kristinaelsa j[facility] Dario hensley By: jose alejandro dang DateTime : 11/13/19 15 02:40:11 PM Not Available Not Available Not Available rosuvasta tin 5 mg tablet TAKE 1 TABLET BY MOUTH EVERY DAY AT BEDTIME FOR CHOLESTE ROL 01/19 completed Not Available Not Available Not Available rosuvasta tin 40 mg tablet TAKE 1 TABLET BY MOUTH EVERY DAY active Not Available Not Available No t Available Urinary Pain Relief 95 mg tablet TAKE 1 TABLET BY MOUTH THREE TIMES DAILY 01/31 completed Not Available Not Available Not Available Alcohol Prep Pads APPLY 1 PAD TOPICALL Y EVERY DAY DIRECTED NEEDED 01/19 completed Not Available Not Available Not Available nitrofura ntoin monohydra te/macroc rystals 100 mg capsule TAKE 1 CAPSULE BY MOUTH TWICE DAILY 01/19 completed Not Available Not Available Not Available OneTouch Verio test strips USE TO TEST BLOOD SUGAR DAILY DIRECTED 01/19 completed Not Available Not Available Not Available Eliquis 2.5 mg tablet TAKE 1 TABLET BY MOUTH EVERY 12 HOURS 02/16 completed Not Available Not Available Not Available Stimulant Laxative Plus 8.6 mg-50 mg tablet TAKE 2 TABLETS BY MOUTH TWICE DAILY 01/31 completed Not Available Not Available Not Available Trulicity 0.75 mg/0.5 mL subcutane ous pen injector INJECT 0.75 MG INTO SKIN ONCE A WEEK active Not Available Not Available No t Available OneTouch Verio Flex Meter USE DIRECTED DAILY 01/19 completed Not Available Not Available Not Available Mucus-Char st Congestio n 100 mg/5 mL oral liquid 07/03 completed Not Available Not Available Not Available OneTouch Delica Plus Lancet 33 gauge USE TO TEST ONCE DAILY 01/19 completed Not Available Not Available Not Available OneTouch Delica Plus Lancet 30 gauge TEST DAILY 01/19 completed Not Available Not Available Not Available Rybelsus 3 mg tablet 01/19 completed Not Available Not Available Not Available Vitals Date Recorded Body height Body mass index (BMI) Body weight Systolic blood pressure Diastolic blood pressure Provider Name and Address Organization Details Last Updated DateTime 02/11/2024 154.94 cm 58.4 kg/m2 409859.0 4 g 125 mm[Hg] 83 mm[Hg] Ольга Dozier [facility] 4 11:26:45 Date Recorded Body height Body mass index (BMI) Body weight Systolic blood pressure Diastolic blood pressure Provider Name and Address Organization Details Last Updated DateTime 06/24/2024 154.94 cm 60 kg/m2 511257.9 4 g 123 mm[Hg] 86 mm[Hg] Diana Santiago [facility] 4 17:11:07 Date Recorded Body height Body mass index (BMI) Body weight Systolic blood pressure Diastolic blood pressure Provider Name and Address Organization Details Last Updated DateTime 10/06/2024 154.94 cm 60.3 kg/m2 279645.9 7 g 122 mm[Hg] 79 mm[Hg] Joelle Russo [facility] 4 14:54:45 Date Recorded Body height Body mass index (BMI) Body weight Systolic blood pressure Diastolic blood pressure Provider Name and Address Organization Details Last Updated DateTime 11/27/2024 154.94 cm 60.3 kg/m2 016701.9 7 g 131 mm[Hg] 84 mm[Hg] GILBERT Donahue [facility] 5 12:44:29 Date Recorded Body height Body mass index (BMI) Body weight Systolic blood pressure Diastolic blood pressure Provider Name and Address Organization Details Last Updated DateTime 01/19/2025 154.94 cm 59.5 kg/m2 559186.6 g 143 mm[Hg] 92 mm[Hg] Zuleyka Karimi [facility] 5 11:00:55 Social History Question Answer Notes LastModified by Organizat ion Details LastModified Time Tobacco Smoking Status Never Smoker Ekaterina ramos [facility] 08/02/2023 12:04:48 Do You Have An Advance Directive? No Information not available 06/20/2021 What Is Your Level Of Alcohol Consumption? None Information not available 01/31/2023 Are You Blind Or Do You Have Difficulty Seeing? No Information not available 06/20/2021 What Is Your Level Of Caffeine Consumption? Occasional Information not available 01/31/2023 In The 14 Days Before Symptom Onset, Have You Had Close Contact With A Laboratory-confir med COVID-19 While That Case Was Ill? No Information not available 06/20/2021 In The 14 Days Before Symptom Onset, Have You Had Close Contact With A Person Who Is Under Investigation For COVID-19 While That Person Was Ill? No Information not available 06/20/2021 Have You Been To An Area Known To Be High Risk For COVID-19? No Information not available 06/20/2021 Are You Deaf Or Do You Have Serious Difficulty Hearing? No Information not available 06/20/2021 What Type Of Diet Are You Following? REGULAR Information not available 02/16/2022 Do You Or Have You Ever Used E-cigarettes Or Vape? Never Used Electronic Cigarettes [email or web address] Information not available 08/02/2023 What Is The Highest Grade Or Level Of School You Have Completed Or The Highest Degree You Have Received? [id number] Information not available 01/31/2023 What Is Your Occupation? [employer] [email or web address] Information not available 08/02/2023 Are There Any Guns Present In Your Home? No Information not available 06/20/2021 What Was The Date Of Your Most Recent Tobacco Screening? 10/06/2024 [email or web address] Information not available 10/06/2024 Do You Use Protection During Sex? No Information not available 01/31/2023 Do You Use Your Seat Belt Or Car Seat Routinely? Yes Information not available 11/01/2021 Do You Have Smoke And Carbon Monoxide Detectors In Your Home? Yes Information not available 06/20/2021 Do You Or Have You Ever Used Smokeless Tobacco? Never Used Smokeless Tobacco [email or web address] Information not available 08/02/2023 How Much Tobacco Do You Smoke? No [email or web address] Information not available 10/04/2020 Do You Feel Stressed (tense, Restless, Nervous, Or Anxious, Or Unable To Sleep At Night)? [id number] Information not available 01/31/2023 Do You Use Any Illicit Or Recreational Drugs? No Information not available 03/29/2021 Do You Use Sunscreen Routinely? No Information not available 06/20/2021 Have You Used IV Drugs? No Information not available 06/20/2021 Sex: Unknown Functional Status Question Answer Note LastModified by Organizat ion Details LastModified Time Do you have difficulty walking or climbing stairs? No [email or web address] Information not available 08/02/2023 Are you able to walk? [email or web address] Information not available 02/16/2022 Are you able to care for yourself? Yes Information not available 08/02/2023 Do you have difficulty dressing or bathing? No [email or web address] Information not available 08/02/2023 What is your exercise level? Occasional [email or web address] Information not available 10/04/2020 Mental Status None recorded. Family History Relationship Description Onset Age of this Age Resolved Age Notes LastModified by Organization Details LastModified Time Mother Diabetes mellitus Not available 2019 12:14:36 Mother Hypertensive disorder Not available 2019 12:14:45 Medical History Condition Response Allergies (Food, seasonal, environmental ) Y Other Y Breast Cancer N Drug/Latex Allergies/Reactions Y Blood Transfusion N Dermatologic Disorders N Lung Disease N Defects or Inherited Disease N Breast Problem N Gestational Diabetes Y Hematologic disorders N Anesthesia Complications N History of STI N Deep Vein Thrombosis N Polycystic ovary syndrome N Anxiety Disorder N Autoimmune disease N Arthritis N Infertility N Polyps N Acid Reflux (GERD) N History of abnormal pap N Cancer N Stroke N Varicosities N Neurologic/Epilepsy N Endometriosis N High Cholesterol Y Headaches N Fibromyalgia N Kidney Disease N Heart Problems N Kidney or Bladder Problems Y Thyroid Problems N GI Problems N Eating Disorder N Anemia N Art (IVF or FET) N Psychiatric Illness N Ovarian Cancer N Diabetes Y Pulmonary (TB, Asthma) N Hepatitis/Liver Disease N No Past Medical History N Eczema N Urinary Tract Infection N Abuse/Domestic Violence N Asthma Y Trauma/Violence N Depression/ depression N Heart Disease N Pre-Eclampsia N Hypertension N Osteoporosis N Thrombophilias N Gynecological History Statement/Question Response Flow Moderate Date of LMP 12/27/2024 On BCP's at Conception? N N Was last menstrual period normal Y STIs/STDs N HPV Vaccine N Duration of Flow (days) 3 Current Control Method Tubal Ligat ion Age at First Child 14 Are cycles usually normal Y Date of Last Colonoscopy Sexually Active? Y Menses Monthly Y Age of first menstrual cycle 9 Date of Last Pap Smear 02/11/2024 Sexual Problems? N LMP Approximate N Obstetrics History GPAL:G 4 P 4 0 0 4 Type Value Full Term 4 Living 4 Total 4 Past Encounters Encounter ID Performer Location Encounter Start Date Encounter Closed Date Diagnosis/Indication Diagnosis SNOMED-CT Code Diagnosis ICD10 Code Diagnosis Note [id number] Scott Espinoza MD [facility] [address],[place] [address] 07/03/2020 11:55:21 07/03/2020 12:55:16 Vaginitis 10536337 N76.0 [id number] [address],[place] [address] 09/22/2020 12:34:41 09/22/2020 15:53:23 Venereal disease screening 533304759 Z11.3 Genital he rpes simplex 71469985 Z11.3 [id number] [facility] [address],[place] [address] 10/15/2020 11:43:16 10/15/2020 12:14:03 Vaginitis 72494372 N76.0 Vag exam suspect for yeast. Treated today. Vag ccx's sent. Will contact if any further treatment needed. RTO x prn Time spent in visit is a total of 15 mins with at least 50% of visit consisting of counseling and review of plan of care. [id number] Jeanna Navid [facility] [address],[place] [address] 01/03/2021 15:19:21 01/03/2021 17:39:51 Vaginitis 05505422 N76.0 Discussed use of mild soap like dove or ivory, cotton underwear w/out dye, hypoallerg enic detergent, wipe from front to back, avoid tub baths, keep perineum clean and dry, d/c use of baby wipes. Encouraged daily intake of yogurt or womens health probiotic. Internal and external affirm collected. Urine normal. Will be sent for culture and std screen. [id number] Scott Espinoza MD [place] [address],[place] [address] 02/26/2021 11:29:32 02/26/2021 12:37:58 Vaginitis 97249695 N76.0 To treat for vaginitis this patient is a 30-year-ol d female who has concerns about exposure to sexually transmitte d disease. Her has a complex social history and may have sexual addiction issues and prostituti on exposure. The vulva and distal vagina appear normal. Swab was taken for testing. She will have her blood drawn next week. We will follow-up on those results. Sexually t ransmitted infectious disease 8795330 A64 [id number] [facility] [address],[place] [address] 03/29/2021 14:44:48 03/30/2021 14:57:04 Vaginitis 85912424 N76.0 Right very small labial boil. Topical abx ointment sent Able to manually squeeze with gauze and extract bloody fluid and white drainage (VERY small amt). Hot sitz soaks to further resolve. Will call with vag cx's sent to ensure no other issues as spouse has went out on her several times with high risk sexual behaviors; given a list of counselors as she feels she needs someone to talk to so she can decide what she needs to do for herself and her kids in this situation. Neg Depression /anxiety/s uicidal ideations. NOTE: given a list of local counselors Time spent in visit is a total of 15 mins with at least 50% of visit consisting of counseling and review of plan of care. Additional precaution duong measures were taken to minimize potential exposure to the Covid-19 virus during this patient s visit, including available hand motor coach supervisor upon arrive, uche e check and being asked a series of screening questions. All staff wore face coverings during this encounter, as well as provided additional cleaning and sanitizing of all surfaces, including countertop s, pens, chairs, door handles, light switches, etc, prior to and following the patient s visit. Patient is to contact office or go to nearest ED/Urgent care if fever >/= 100.1, pain, excessive bleeding, unusual drainage or swelling in area of concern; or experienci ng worsening sx's or new onset of concerning sx's. Understand ing verbalized . All questions answered to patient satisfacti on. Sexually t ransmitted infectious disease 0506170 A64 [id number] Scott Espinoza MD [place] [address],[place] [address] 06/20/2021 12:28:23 06/20/2021 14:39:47 Burning sensation 46809829 R20.8 Bacterial vaginosis 4197 77505 N76.0 This patient is a 30-year-ol d female who presents for foul-smell ing vaginal discharge. She states that it is yellow in color. She also has some burning the area of the vulva with sex. She also has had some discomfort since that sexual episode. She is concerned about exposure to 6 transmitte d disease through . Sexually t ransmitted infectious disease 9589628 A64 [id number] Suzanna Lopez MD [place] [address],[place] [address] 08/29/2021 17:34:14 08/29/2021 18:18:43 Body mass index 40+ - severely obese 072958312 Z68.44 Gynecologi c examination 84531088 Z01.419 Z11.51 Family ronnie nning surveillance 988499764 Z30.09 Vaccination not done 744 4345422 9108 Z28.9 Cyst of vulva 33720789 N 90.7 Female sterilization 608 90731 Z30.2 Venereal d isease screening 566932867 Z11.3 [id number] [facility] [address],[place] [address] 11/01/2021 13:07:40 11/01/2021 14:01:35 Vaginitis 35308051 N76.0 Z11.3 Z11.8 Treated for BV/Yeast for findings of +odor/Disc harge on exam.Decli kae need std screen Time spent in visit is a total of 15 mins with at least 50% of visit consisting of counseling and review of plan of care. Additional precaution duong measures were taken to minimize potential exposure to the Covid-19 virus during this patient s visit, including available hand motor coach supervisor upon arrive, temperatur e check and being asked a series of screening questions. All staff wore face coverings during this encounter, as well as provided additional cleaning and sanitizing of all surfaces, including countertop s, pens, chairs, door handles, light switches, etc, prior to and following the patient s visit. Patient is to contact office or go to nearest ED/Urgent care if fever >/= 100.1, pain, excessive bleeding, unusual drainage or swelling in area of concern; or experienci ng worsening sx's or new onset of concerning sx's. Understand ing verbalized . All questions answered to patient satisfacti on. Hyperhidrosis 004453913 R61 Feels she is having excessive sweating even night sweats; will sometimes wake up drenched in sweat.Has regular monthly cyclesThis has been occurring over the last 6mos.If labs are wnl consider updated visit with PCP. [id number] Vy Coleman [facility] [address],[place] [address] 12/30/2021 14:55:29 01/03/2022 03:50:10 [id number] [facility] [address],[place] [address] 12/30/2021 15:11:43 12/30/2021 16:21:40 Vaginitis 48095322 N76.0 Z11.3 Z11.8 Treated for Yeast for suspect on exam (abx use recently for UTI treatment) Std screen sent Time spent in visit is a total of 15 mins with at least 50% of visit consisting of counseling and review of plan of care. Additional precaution duong measures were taken to minimize potential exposure to the Covid-19 virus during this patient s visit, including available hand motor coach supervisor upon arrive, temperatur e check and being asked a series of screening questions. All staff wore face coverings during this encounter, as well as provided additional cleaning and sanitizing of all surfaces, including countertop s, pens, chairs, door handles, light switches, etc, prior to and following the patient s visit. Patient is to contact office or go to nearest ED/Urgent care if fever >/= 100.1, pain, excessive bleeding, unusual drainage or swelling in area of concern; or experienci ng worsening sx's or new onset of concerning sx's. Understand ing verbalized . All questions [place]. [id number] CONCHIS Velazquez [place] [address],[place] [address] 02/16/2022 14:02:18 02/16/2022 15:05:01 Venereal disease screening 479487611 Z11.3 Sexually t ransmitted infectious disease 6628500 A64 Vaginitis 60351530 N76.0 Vaginal discharge present suspicious for BV. Vulvar irritation suspicious for yeast.We discussed vulvar care guidelines , discontinu e use of vaginal wash.Will treat for BV and yeastSTI testing and vaginitis panel sentBlood STI testing ordered.RT C if symptoms persist past treatment. Time spent with the patient was 20 minutes. [id number] CONCHIS Velazquez [facility] [address],[place] [address] 05/24/2022 16:40:13 05/24/2022 17:36:32 Mass of left breast 6284122910 2179596 N63.20 Lump in left breast palpated, at about 5 o'clock, lump is 1cm in size and movable. Lump is slightly tender to touch. No skin changes or redness. No warmth.We discussed avoiding caffeine, no bras with underwireB ilateral diagnostic imaging ordered with breast u/sNormal vaginal examSmall area of likely old ingrown hair that has healed on right labia majora, HSV swab obtained. No signs of infection, bleeding, or pain.STI endocervic al testing doneBlood STI testing doneVagini tis panel sent Will await imaging, may need breast specialist referral pending results. Venereal d isease screening 650579089 Z11.3 Sexually t ransmitted infectious disease 5170427 A64 Vaginal discharge 743437 006 N89.8 [id number] CONCHIS Velazquez [place] [address] [address] 08/21/2022 15:16:41 08/21/2022 16:14:03 Mass of left breast 7633930933 0743660 N63.20 Lump still present on exam todayLump in left breast palpated, at about 5 o'clock, lump is 1cm in size and movable. Lump is slightly tender to touch. No skin changes or redness. No warmth.We agreed to breast specialist referral for consult / second opinion - patient agrees to this planReferr al [facility] Time spent in visit is a total of 15 mins with at least 50% of visit consisting of counseling and review of plan of care. [id number] CONCHIS Velazquez [facility] [address] [address] 01/31/2023 16:27:17 01/31/2023 18:18:50 Venereal disease screening 211634742 Z11.3 Sexually t ransmitted infectious disease 9627899 A64 Gynecologi c examination 19794837 Z01.419 Take Calcium with Vitamin D 1200mg daily if not receiving in daily diet. It is strongly advised to have an annual flu shot and up can obtain at most pharmacies . If you have not had a TDap shot in the last 10 years you should obtain one as well. Discussed with patient & provided with informatio n regarding Gardisil vaccine to prevent the 4 strains for HPV that cause cervical cancer if under age 26. Encourage safe sexual practices, to use condoms and limit partners if not already in a monogamous relationsh ip. Do monthly self breast exams. Have mammogram yearly or every other year depending on family history. BRCA testing is now available for patients with strong genetic history of female cancer. If interested contact the office. Engage in daily exercise of low impact aerobic exercise 45-60 minutes 4-5 times weekly. Avoid tobacco and illicit drugs as well as using moderation with alcohol intake less than 1-2 8 oz beverages daily. This lifestyle behavior pattern will lead to less health conditions and longer life span. If BMI greater than 25 weight watchers or dietary consult advised. Patient received above instructio ns, and questions have been answered. If you have any questions please call or respond to this email. Patient was made aware of the patient portal and may obtain a paper copy of today's plan if desired. WWEBC - BTLpap doneSTI testing added to papBlood STI testing orderedenc ouraged condom usevulvar irritation /itching x 1 week. Started using a new vaginal wash. Vulvar care guidelines discussed. Rx sent Vulval irritation 158773 003 N90.89 [id number] Scott Espinoza MD [facility] [address],[place] [address] 05/28/2023 10:45:31 05/28/2023 18:22:36 Sexually transmitted infectious disease 3320501 A64 this patient is a 32-year-ol d female who presents for vaginal discharge. Patient has vaginal discharge. It does not have odor. It does not have a thick white quality to it. It does not cause pruritus of the vulva. Patient is concerned about her significan t other. She believes that her significan t other is with other people in sexual fashion. She would like gonorrhea chlamydia testing. Her vulva and distal vagina appear normal. Swabs were obtained. Gonorrhea chlamydia testing will be performed. Will also evaluate the discharge for abnormal bacteria and yeast. She had sex with her just the of the night. I recommende d she wait about 3 weeks to perform blood testing. Orders replaced and she will return for those tests. [id number] CONCHIS Velazquez [facility] [address] [address] 08/02/2023 12:04:37 08/02/2023 12:39:37 Urinary symptoms 256720414 R39.9 urine cx sentencour aged to complete entire macrobid course. Increase water intake, decrease caffeinegc /ct/trich testing sentblood STI panel orderedsaf e sexual practices discussed and encouraged RTC if symptoms persist past macrobid course, precaution s reviewed Time spent in visit is a total of 25 mins with at least 50% of visit consisting of counseling and review of plan of care. Venereal d isease screening 095167720 Z11.3 Sexually t ransmitted infectious disease 4113314 A64 [id number] CONCHIS Velazquez [place] [address] [place] [address] 02/11/2024 11:23:10 02/11/2024 13:14:57 Gynecologic examination 16218567 Z01.419 Z11.51 [facility] - BTLpap updatedgc/ ct/trich testing added to papHIV/Hep B&C/syphil is testing ordered per requestrou nawaf labs/PCP Take Calcium with Vitamin D daily if not receiving in daily diet.It is strongly advised to have an annual flu shot and up can obtain at most pharmacies . If you have not had a TDap shot in the last 10 years you should obtain one as well. Discussed with patient & provided with informatio n regarding Gardisil vaccine to prevent the 4 strains for HPV that cause cervical cancer if under age 26.Encoura ge safe sexual practices, to use condoms and limit partners if not already in a monogamous relationsh ip.Do monthly self breast exams. BRCA testing is now available for patients with strong genetic history of female cancer. If interested contact the office. Engage in regular exercise. Avoid tobacco and illicit drugs. This lifestyle behavior pattern will lead to less health conditions and longer life span. If BMI greater than 25 dietary consult advised. Patient received above instructio ns, and questions have been answered. If you have any questions please call or respond to this email. Patient was made aware of the patient portal and may obtain a paper copy of today's plan if desired. Venereal d isease screening 169839836 Z11.3 Sexually t ransmitted infectious disease 0493232 A64 Cloudy urine 3356276 R82 .90 UA normal, cx sentencour aged adequate hydrationp recautions reviewed [id number] NELL MUNGUIA MD [place] [address] [place] [address] 06/24/2024 16:54:51 06/24/2024 18:21:45 Venereal disease screening 348504143 Z11.3 - GC/CT/tric h sent- will also check blood work [id number] CONCHIS Velazquez [facility] [address] [address] 10/06/2024 14:34:41 10/06/2024 15:12:14 Breast lump 06180187 N63.0 rx sent for doxycyclin emammogram with left breast u/s ordered, encouraged to schedulepr ecautions discussed, questions answered Patient is to contact office or go to nearest ED/Urgent care if fever >/= 100.1, pain, excessive bleeding, unusual drainage or swelling in area of concern; or experienci ng worsening sx's or new onset of concerning sx's. Understand ing verbalized . All questions answered to patient satisfacti on. Time spent in visit is a total of 18 mins with at least 50% of visit consisting of counseling and review of plan of care. [id number] CONCHIS Velazquez [facility] [address],[place] [address] 11/27/2024 12:37:41 11/27/2024 14:41:27 Vaginitis 77162724 N76.0 Urinary symptoms 3048939 08 R39.9 vaginitis/ STI panel sentsafe sexual practices discussedv ulvar care guidelines discussedr x sent for UTI and yeast - r/b/a reviewed Female str ess incontinence 87301171 N39.3 recommende d pelvic floor physical therapyref erral placed Time spent in visit is a total of 25 mins with at least 50% of visit consisting of counseling and review of plan of care. Venereal d isease screening 260381879 Z11.3 Sexually t ransmitted infectious disease 1747324 A64 [id number] Scott Espinoza MD [facility] [address] [address] 01/19/2025 10:52:16 01/20/2025 11:58:18 Vulvovaginitis 15355209 N76.0 Patient is a 34-year-ol d female presents for vulvar irritation and discharge. she has vulvar pruritus and irritation that is been present for about 10 days. We examined her. There is erythema to the introitus. We agreed to treat. She will be treated with antifungal / steroid cream and oral antifungal . She was given a prescripti ons for the medication . She is given precaution s and instructio ns. We talked about risks, benefits, and alternativ es. Urinary symptoms [id number] R39.9 Health Concerns Section Related Observation LastModified by Organization Detai ls LastModified Time None Recorded Concern Status LastModified by Organization Details LastModified Time None Recorded Advance Directives Directive N: Payers Encounter Date Sequence Insurance Name Policy Number Policy Brand Covered Member ID Brand Member ID Guarantor Name 02/11/2024 1 [facility] ON OR AFTER 04/28/21 (MEDICAID REPLACEMENT - HMO) Heavenly M McCline [id number] Heavenly M McCline 06/24/2024 1 [facility] ON OR AFTER 04/28/21 (MEDICAID REPLACEMENT - HMO) Heavenly M McCline [id number] Heavenly M McCline 10/06/2024 1 [facility] ON OR AFTER 04/28/21 (MEDICAID REPLACEMENT - HMO) Heavenly M McCline [id number] Heavenly M McCline 11/27/2024 1 [facility] ON OR AFTER 04/28/21 (MEDICAID REPLACEMENT - HMO) Heavenly M McCline [id number] Heavenly M McCline 01/19/2025 1 [facility] ON OR AFTER 04/28/21 (MEDICAID REPLACEMENT - HMO) Heavenly M McCline [id number] Heavenly M McCline Notes Date Note Type Note Provider Name and Address Organization Details Recorded Time 02/11/2024 text/html Annual GYNReport ed bypatient.Menstrual cycle:Normal menses Urinary symptoms:No hematuria; No incontinence;Burnin g sensation during urination; cloudy urine Vulva:No genital lesion Vagina:Normal vaginal discharge Breast:No breast pain; No breast lump; No nipple discharge Current Contraception:Satis fied with current contraception; Tubal ligation Sexual complaints:No sexual complaints; No pain during intercourse; Normal libido Menopausal Symptoms:No menopausal symptoms; Normal vaginal lubrication Psychological symptoms:No depression; No anxiety; No PMDD Preventive measures:Encourage self breast examination; Encourage regular exercise; Encourage no tobacco use; Encourage regular mammograms starting age 38Notes:[facility] - BTLh/o abnormal pap at 17, normals since per ptlast pap 01/31/2023 : nilm, HPV (-)would like STI testing todayUTD with PCP cloudy urine x 1 day. Did not drink much water yesterday but had caffeine CONCHIS Velazquez [address], [place], [address], [facility] 02/11/2024 12:41:49 06/24/2024 text/html Patient desires STD testing due to finding out about partner's infidelity. Denies symptoms aside from slight odor. No known exposure. NELL MUNGUIA MD [address], [place], [address], [facility] 06/24/2024 17:55:41 10/06/2024 text/html 34yopresents for evaluation of left breast lumpnoticed about 2 weeks agohard lump under skin, mild redness, did drain purulent discharge a few days agono pain neg n/v/fneg flu-like symptoms CONCHIS Velazquez [address], [place], [address], [facility] 10/06/2024 15:07:50 11/27/2024 text/html 34yoHere for vaginal irritation/burningd ysuriasymptoms present 1-2 daysleaking urine with coughing/exercisewo uld like STI testing today neg pelvic painneg n/v/fneg flu-like symptoms CONCHIS Velazquez [address], [place], [address], [facility] 11/27/2024 14:40:35 01/19/2025 text/html Patient is a 34-year-old female presents for vulvar irritation and discharge. she has vulvar pruritus and irritation that is been present for about 10 days. We examined her. There is erythema to the introitus. We agreed to treat. She will be treated with antifungal / steroid cream and oral antifungal. She was given a prescriptions for the medication. She is given precautions and instructions. We talked about risks, benefits, and alternatives. Scott Espinoza MD [address], [place], [address], [place] [facility] 01/19/2025 18:27:27 OBGyn Episode Ob Episode Information Episode Created Date Number of Fetuses Patient Bloodtype Patient rh Status Prepregnancy Weight lbs Domestic Partner Domestic Partner Phone Father Name Scenic Designer Status 07/03/20 1 CLOSED Fetus Data First Name Last Name Admitted to NICU Weight (g) Sex Living Outcome Pediatric Complications Fetus ID Race Codes Race Delivery Type 4167.14 9704 M Full Term 4323 Repeat Daniel Calculation Initial Daniel Date Initial Exam Date Initial Exam Provider Initial Ultrasound Date Last Menstrual Period Date Ultra Sound Weeks Gestation 0 Eighteen To Twenty Week Daniel Update Ultra Sound Date Fundal Height At Umbil Quickening Date Ultra Sound Latest Weeks Gestation Final Daniel Confirmed By Final Daniel Confirmed Date Final Daniel Date Ultra Sound Latest Days Gestation 0 0 Menstrual History Last Menstrual Date Menses Monthly On Bcp Conception Prior Menses Frequency Hcg Plus Date Menarche Onset Age Delivery Information Delivery Date Delivery Type Labor Anesthesia Weeks Gestation Incision Type Labor Labor Length Hrs Delivered By Post Complications Tubal Sterilization Discharge Date Comments 0 Discharge Information Feeding Method Contraceptive Method Maternal HG B and HCT Levels Ob Episode Information Episode Created Date Number of Fetuses Patient Bloodtype Patient rh Status Prepregnancy Weight lbs Domestic Partner Domestic Partner Phone Father Name Scenic Designer Status 07/03/20 1 CLOSED Fetus Data First Name Last Name Admitted to NICU Weight (g) Sex Living Outcome Pediatric Complications Fetus ID Race Codes Race Delivery Type 3401.94 M Full Term 4324 Repeat Daniel Calculation Initial Daniel Date Initial Exam Date Initial Exam Provider Initial Ultrasound Date Last Menstrual Period Date Ultra Sound Weeks Gestation 0 Eighteen To Twenty Week Daniel Update Ultra Sound Date Fundal Height At Umbil Quickening Date Ultra Sound Latest Weeks Gestation Final Daniel Confirmed By Final Daniel Confirmed Date Final Daniel Date Ultra Sound Latest Days Gestation 0 0 Menstrual History Last Menstrual Date Menses Monthly On Bcp Conception Prior Menses Frequency Hcg Plus Date Menarche Onset Age Delivery Information Delivery Date Delivery Type Labor Anesthesia Weeks Gestation Incision Type Labor Labor Length Hrs Delivered By Post Complications Tubal Sterilization Discharge Date Comments 8 Discharge Information Feeding Method Contraceptive Method Maternal HG B and HCT Levels Ob Episode Information Episode Created Date Number of Fetuses Patient Bloodtype Patient rh Status Prepregnancy Weight lbs Domestic Partner Domestic Partner Phone Father Name Scenic Designer Status 07/03/20 1 CLOSED Fetus Data First Name Last Name Admitted to NICU Weight (g) Sex Living Outcome Pediatric Complications Fetus ID Race Codes Race Delivery Type 3486.76 1704 F Full Term 4325 Primary Daniel Calculation Initial Daniel Date Initial Exam Date Initial Exam Provider Initial Ultrasound Date Last Menstrual Period Date Ultra Sound Weeks Gestation 0 Eighteen To Twenty Week Daniel Update Ultra Sound Date Fundal Height At Umbil Quickening Date Ultra Sound Latest Weeks Gestation Final Daniel Confirmed By Final Daniel Confirmed Date Final Daniel Date Ultra Sound Latest Days Gestation 0 0 Menstrual History Last Menstrual Date Menses Monthly On Bcp Conception Prior Menses Frequency Hcg Plus Date Menarche Onset Age Delivery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
[2025-01-29 13:21] LABS: Glucose Point of Care 341 mg/dl (65-105)
--- OUTSIDE RECORDS SUMMARY | 2025-01-29 13:21 | XMS_ITS | Clinical Summary ---
Author Organization [facility] Address [address] [place] [address] Care Team Providers Care Sand Slinger Name Role Phone Vivienne Almanza MD Primary Care Provider Allergies Active Allergy Reactions Criticality Noted Date Comments Morphine Anaphylaxis,Hives,Itching High 01/18/2016 itching Medications albuterol HFA (PROVENTIL HFA,VENTOLIN HFA,PROAIR HFA) 90 mcg/actuation inhaler albuterol sulfate HFA 90 mcg/actuation aerosol inhaler INL 2 PFS PO Q 4 H PRN Active fluconazole (DIFLUCAN) 150 mg tablet fluconazole 150 mg tablet TK 1 T PO QD FOR 1 DAY UTD Active ibuprofen (ADVIL,MOTRIN) 800 mg tablet ibuprofen 800 mg tablet TK 1 T PO Q 6 TO 8 H WF PRN P OR INFLAMMATION FOR THE NEXT 1 TO 3 DAYS Active Active Problems No known active problems Surgical History Surgery Date Site/Laterality Comments CHOLECYSTECTOMY SECTION Social History Tobacco Use Types Packs/Day Years Used Date Smoking Tobacco: Never Smokeless Tobacco: Never AUDIT-C Answer Date Recorded Q1: How often do you have a drink containing alc ohol? Never 12/23/2020 Average Number of Drinks Not on file 021 Q3: How often do you have si x or more drinks on one occasion? Never 12/23/2020 Personal Safety Answer Date Recorded Getting School Help Needed Not on file 10/28 Comments Unknown Sex and Gender Information Value Date Recorded Sex Assigned at Not on file Legal Sex Female 8:34 PM MELT HELPER Gender Identity Not on file Sexual Orientation Not on file Obstetrics History Last Filed Vital Signs Vital Sign Reading Time Taken Comments Blood Pressure 115/81 12/23/2020 10:58 AM MELT HELPER Pulse 82 12/23/2020 10:58 AM MELT HELPER Temperature 36.3 C (97.3 F) 12/23/2020 10:58 AM MELT HELPER Respiratory Rate 18 12/23/2020 10:5 8 AM MELT HELPER Oxygen Saturation 100% 06/03/2017 11: 53 AM CDT Inhaled Oxygen Concentration - - Weight 148.5 kg (327 lb 6.4 oz) 021 10:58 AM MELT HELPER Height 152.4 cm (5') 10/31/2023 3:02 PM MELT HELPER Body Mass Index 59.88 12/23/2020 10:58 AM MELT HELPER Plan of Treatment Health Maintenance Due Date Last Done Comments Cervical Cancer Screening 1988 Depression Screening 1988 Hepatitis C Screening 1988 Varicella Vaccines (1 of 2 - 13+ 2-dose series) 2001 Regular Well Visit/Exam 18-64 2006 Influenza Vaccine (#1) 2024 DTaP/Tdap/Td Vaccine (2 - Td or Tdap) 11/27/2031 11/27/2021, 06/10/2003 Hepatitis B Screening Completed 12/17/1997 , 09/14/1997, 02/26/1997 HPV Vaccines Aged Out No longer eligi ble based on patient's age to complete this topic Pneumococcal vaccine <65 Aged Out No longer eligible based on patient's age to complete this topic Insurance [facility] Care Teams Sand Slinger Relationship Specialty Start Date End Date Vivienne Almanza MD [address] [place] [id number] PCP - General Internal Medicine 11/05/20
--- OUTSIDE RECORDS SUMMARY | 2025-01-29 13:21 | XMS_ITS | Referral Summary ---
Author Organization [facility] Address [address] [place] [address] Care Team Providers Care Solar Sales Representative Name Role Phone Vivienne Almanza MD Primary [...] Active Active Problems No known active problems Social History Tobacco Use Types Packs/Day Years [...] on file Legal Sex Female 8:34 PM MAINFRAME DEVELOPER Gender Identity Not on file Sexual Orientation Not on file Last Filed Vital Signs Vital Sign Reading Time Taken Comments Blood Pressure 115/81 12/23/2020 10:58 AM MAINFRAME DEVELOPER Pulse 82 12/23/2020 10:58 AM MAINFRAME DEVELOPER Temperature 36.3 C (97.3 F) 12/23/2020 10:58 AM MAINFRAME DEVELOPER Respiratory Rate 18 12/23/2020 10:5 8 AM MAINFRAME DEVELOPER Oxygen Saturation 100% 06/03/2017 11: 53 AM CDT Inhaled Oxygen Concentration - - Weight 148.5 kg (327 lb 6.4 oz) 021 10:58 AM MAINFRAME DEVELOPER Height 152.4 cm (5') 10/31/2023 3:02 PM MAINFRAME DEVELOPER Body Mass Index 59.88 12/23/2020 10:58 AM MAINFRAME DEVELOPER Plan of Treatment Not on file Insurance Care Teams Solar Sales Representative Relationship Specialty Start Date End Date Vivienne Almanza MD [address] [place] [address] PCP - General Internal Medicine 11/05/20
--- OUTSIDE RECORDS SUMMARY | 2025-01-29 13:21 | XMS_ITS | Data Portability ---
Author Organization [facility] [place] ALDRIDGE Kenna Address [address] [facility] [place] [address] Care Team Providers Care Digital Controls Technical Officer Name Role Phone JACLYN BOSCH Neurologist Assessment Encounter Date Assessment Date Assessment LastModified by Organization Details LastModified Time 07/01/2024 07/01/2024 It is unclear what prompted her transient neurological event, she has multiple risk factors and the work up is incomplete. oajao Not available 07/01/2024 14:09:24 01/28/2025 01/28/2025 She has a history of Arnold Chiari malformation, persistent neurological symptoms and with her multiple risk factors, she needs a MRI of the brain to rule out an ischemic event. oajao Not available 01/28/2025 19:34:20 Plan of Treatment Reminders Order Date Submit Date Provider Last Modified By Organization Details Last Modified Time Details Appointments ANY 15 2024 01:45P Dario Almanza MD Not available Not available Not available Lab HbA1c (hemoglo bin A1c), blood 2023 024 o[facility], [address] [facility], [address], [place], [address], 12/09/2024 09:06:53 lipid panel, serum 2023 024 oajao [facility], [address] [facility], [address], [place], [address], 12/09/2024 09:07:02 TSH, ultra-se nsitive, serum 2023 024 [facility], [address] [place] [address], [address], [place], [address], 05/14/2024 13:13:28 basic metaboli c 1998 panel, serum or plasma 2023 024 [facility], [address] [place] [address], [address], [place], [address], 05/14/2024 13:13:27 iron + total iron-bin ding capacity (TIBC), serum 2023 024 [facility], [address] [place] [address], [address], [place], [address], 05/14/2024 13:13:29 ferritin , serum or plasma 2023 024 [facility], [address] [place] [address], [address], [place], [address], 05/14/2024 13:13:31 vitamin B12, serum 2023 024 [facility], [address] [place] [address], [address], [place], [address], 05/14/2024 13:13:30 hemoglob in S (hbs), presence , blood 2023 024 [facility], [address] [place] [address], [address], [place], [address], 05/14/2024 13:13:32 hemoglob in + hematocr it, blood 2023 024 [facility], [address] [place] [address] Juan, [address], [place], [address], 05/14/2024 13:13:33 albumin/ creatini ne, mass ratio, urine 2023 024 [facility], [address] [facility], [address], [place], [address], 05/14/2024 13:13:26 HbA1c (hemoglo bin A1c), blood 2022 024 [facility], [address] [facility], [address], [place], [address], 02/19/2024 12:53:25 lipid panel, serum 2022 024 [facility], [address] [facility], [address], [place], [address], 07/01/2024 13:26:17 Referral neurolog ist referral 2023 024 [facility], [address], [address], [place], [address], 12/29/2024 04:20:14 cardiolo gist referral 2023 024 [facility], [address] [facility], [address], [place], [address], 11/13/2024 14:03:22 diabetic ophthalm ology referral - HBA1C 7.6% 2023 024 [facility], [address], [place], [address], 12/22/2024 04:23:21 endocrin ology, diabetes & metaboli sm speciali st referral 2023 024 an[facility] - Endocrinology , [address], [place], [address], 01/27/2025 12:01:15 Procedures None recorded . Surgeries None recorded . Imaging MRI, brain, w/o contrast - Facial numbness 2024 025 [facility] ([facility] Call Scheduling), [address] [place], [address], 01/28/2025 16:14:12 XR, ankle - Pain/swe lling left lateral malleolu s 2023 024 [facility] (One Call Scheduling), [address] [place], [address], 07/11/2024 17:15:50 US, duplex, venous, lower extremit y - LLE swelling 2023 024 [facility] (Imaging), [address] [facility] [address], [place], [address], 01/15/2025 14:19:58 Medication Orders glimepir aldo 1 mg tablet 2024 025 [id number], [address], [place], [place], [id number], 01/28/2025 16:05:33 rosuvast atin 40 mg tablet 2024 025 [facility]20201, [address], [place], [place], [id number], 01/28/2025 16:07:07 Trulicit y 0.75 mg/0.5 mL subcutan eous pen injector 2024 025 [facility] #49288, [address], [place], [place], [id number], 01/28/2025 16:08:09 rosuvast atin 5 mg tablet 2023 024 [facility] #45313, [address], [place], [place], [id number], 07/01/2024 13:14:33 metformi n ER 500 mg tablet,e xtended release 24 hr 2023 024 [facility] #55170, [address], [place], [place], [id number], 07/01/2024 13:13:54 Rybelsus 3 mg tablet 2023 024 [facility]75543, [address], [place], [place], [id number], 07/01/2024 13:14:16 fluconaz ole 150 mg tablet 2022 023 [facility] #70604, [address], [place], [place], [id number], 05/03/2023 11:18:58 Patient TargetsNo targets recorded. Patient Instructions Encounter Date Encounter Id Patient Instructions Last Modified By Organization Details Last Modified Time 05/03/2023 [id number] Telephone Service Adviser seen on (01/31/2023) Ophthalmology as referred Continue the current regimen Labs in July, Fluconazole PRN Follow up in 4 months and PRN hdoverma Not available 05/03/2023 11:25:50 01/17/2024 [id number] anemia: care instructions oajao Not available 01/17/2024 11:21:08 body mass index: care instructions oajao Not available 01/17/2024 10:58:42 learning about healthy weight oajao Not available 01/17/2024 10:58:42 snoring: care instructions oajao Not available 01/17/2024 11:27:40 Labs in 3 weeks Letter to her employer Continue Metformin Start Rybelsus Restart Rosuvastatin Sleep medicine Follow up in 4 weeks Sleep medicine Ophthalmology as previously referred oajao Not available 01/17/2024 11:31:53 Compliance was reinforced to prevent the complications of DM. Detailed visit oafrankie Not available 01/17/2024 13:30:55 05/13/2024 [id number] Xray US Take you r medications as prescribed Labs as previously ordered Follow up in 4 weeks oajao Not available 05/13/2024 12:44:15 07/01/2024 [id number] type 2 diabetes: care instructions oao Not available 07/01/2024 13:03:06 US as previously ordered Neurologist [employer] Drafting Technician Food Production Manager Labs Follow up in 6 weeks oajao Not available 07/01/2024 14:09:44 Complications of poorly managed DM were discussed oajao Not available 07/01/2024 14:10:38 01/28/2025 [id number] body mass index: care instructions oajao Not available 01/28/2025 15:39:00 learning about healthy weight oajao Not available 01/28/2025 15:39:00 MRI brain ER wit h worsening of the neurological symptoms Start Trulicity Start Glimepiride Start Rosuvastatin Most recent consultation note from Dr Askew to determine why he started her on Losartan (Microalbuminuria?) Follow up in 4 weeks oao Not available 01/28/2025 19:36:18 Detailed discuss ion on the need to achieve better Diabetic control, unfortunately with her young son in the room I could not go into detail. Her was supportive but disagreed about normal fasting blood sugars. I explained to him that ideally her FBS should be about 100 and showed him the normal range on the lab results. Very detailed visit [facility] Not available 01/28/2025 19:36:52 Reason for Referral Diabetic Ophthalmology Refer ral for Uncontrolled type 2 diabetes mellitus HBA1C 10.6% HBA1C 7.6% Referring Physician: Vivienne Almanza, Internal Medicine, Encounter Date: 07/01/2024 Neurologist Referral for Tra nsient neurological symptoms Transient slurred speech Referring Physician: Vivienne lAmanza, Internal Medicine, Encounter Date: 07/01/2024 Drafting Technician Referral for Tr ansient neurological symptoms Transient slurred speech, empty sella Referring Physician: Vivienne Almanza, Internal Medicine, Encounter Date: 07/01/2024 Endocrinology, Diabetes & Me tabolism Specialist Referral for Uncontrolled type 2 diabetes mellitus Uncontrolled DM with poor compliance Referring Physician: Vivienne Almanza Internal Medicine, Encounter Date: 07/01/2024 Results Created Date Observation Date Name Description Value Unit Range Abnormal Flag Note LastModifiedBy Organization Detail LastModifiedTime 08/02/20 23 08/02/2023 Hepat itis B virus core IgM Ab [Pres ence] in Serum hepatitis B core IgM antibody NEGATI VE hepat itis B core IgM antib orquidea Not Available Not Available 12/08/2024 16:47:29 08/02/20 23 08/02/2023 Reagi n Ab [Pres ence] in Serum by RPR RPR screen NONREA CTIVE RPR scree n Not Available Not Available 12/08/2024 16:47:29 08/02/20 23 08/02/2023 Hepat itis C virus Ab [Unit s/vol ume] in Serum hepatitis C antibody NON-RE ACTIVE hepat itis C antib orquidea Not Available Not Available 12/08/2024 16:47:29 08/02/20 23 08/02/2023 Hepat itis B virus surfa ce Ag [Pres ence] in Serum hepatitis B surface antigen NON-RE ACTIVE hepat itis B surfa ce antig en Not Available Not Available 12/08/2024 16:47:29 02/11/20 24 02/11/2024 Bacte talib ident ified in Urine by Cultu re result report SEE RESULT S BELOW abnormal resul t repor t Not Available Not Available 12/08/2024 16:47:30 02/11/20 24 02/11/2024 Chlam ydia trach omati s and Neiss eria gonor rhoea e rRNA panel - Speci men by AILEEN with probe detec tion chlamydia trachomatis, PCR NEGATI VE chlam ydia trach omati s, PCR Not Available Not Available 12/08/2024 16:47:30 02/11/20 24 02/11/2024 Chlam ydia trach omati s and Neiss eria gonor rhoea e rRNA panel - Speci men by IALEEN with probe detec tion neisseria gonorrhoeae, PCR NEGATI VE neiss eria gonor rhoea e, PCR Not Available Not Available 12/08/2024 16:47:30 02/11/20 24 02/11/2024 Trich omona s vagin eric rRNA [Pres ence] in Speci men by AILEEN with probe detec tion trichomonas vaginalis ribosomal RNA (rrna) Negati ve trich omona s vagin eric ribos omal RNA (rrna ) Not Available Not Available 12/08/2024 16:47:30 02/11/20 24 02/11/2024 Hepat itis B virus core IgM Ab [Pres ence] in Serum hepatitis B core IgM antibody NEGATI VE hepat itis B core IgM antib orquidea Not Available Not Available 12/08/2024 16:47:30 02/11/20 24 02/11/2024 Reagi n Ab [Pres ence] in Serum by RPR RPR screen NONREA CTIVE RPR scree n Not Available Not Available 12/08/2024 16:47:29 02/11/20 24 02/11/2024 Hepat itis C virus Ab [Unit s/vol ume] in Serum hepatitis C antibody NON-RE ACTIVE hepat itis C antib orquidea Not Available Not Available 12/08/2024 16:47:29 02/11/20 24 02/11/2024 Hepat itis B virus surfa ce Ag [Pres ence] in Serum hepatitis B surface antigen NON-RE ACTIVE hepat itis B surfa ce antig en Not Available Not Available 12/08/2024 16:47:29 05/13/20 24 05/14/2024 ALBUM IN/CR EATIN INE RATIO ,URIN E creatinine, urine 127.5 mg/dL notest ab. Not Available [facility] ([facility]) [address] [place], [address], 05/14/2024 13:13:26 05/13/20 24 05/14/2024 ALBUM IN/CR EATIN INE RATIO ,URIN E albumin, urine 40.0 ug/mL notest ab. Not Available [facility] ([facility]) [address] [place], [address], 05/14/2024 13:13:26 05/13/20 24 05/14/2024 ALBUM IN/CR EATIN INE RATIO ,URIN E alb/creat ratio 31 mg/g_ creat 0-29 above high normal Jeanette l: 0 - 29 Moder ately incre ased: 30 - 300 Sever young incre ased: >300 Not Available [facility] ([facility]) [address] [facility] [place], [address], 05/14/2024 13:13:26 05/13/20 24 05/14/2024 BASIC METAB OLIC PANEL (7) glucose 144 mg/dL 70-99 above high normal Not Available [facility] ([facility]) [address] [facility] [place], [address], 05/14/2024 13:13:27 05/13/20 24 05/14/2024 BASIC METAB OLIC PANEL (7) BUN 9 mg/dL 6-20 Not Available [facility] ([facility]) [address] [facility] [place], [address], 05/14/2024 13:13:27 05/13/20 24 05/14/2024 BASIC METAB OLIC PANEL (7) creatinine 0.50 mg/dL 0.57-1 .00 below low normal Not Available [facility] ([facility]) [address] [facility] [place], [address], 05/14/2024 13:13:27 05/13/20 24 05/14/2024 BASIC METAB OLIC PANEL (7) eGFR 125 mL/mi n/1.7 3 >59 Not Available [facility] ([facility]) [address] [facility] [place], [address], 05/14/2024 13:13:27 05/13/20 24 05/14/2024 BASIC METAB OLIC PANEL (7) BUN/creatini ne ratio 18 9-23 Not Available [facility] ([facility]) [address] [facility] [place], [address], 05/14/2024 13:13:27 05/13/20 24 05/14/2024 BASIC METAB OLIC PANEL (7) sodium 139 mmol/ L 134-14 4 Not Available [facility] ([facility]) [address] [facility] [place], [address], 05/14/2024 13:13:27 05/13/20 24 05/14/2024 BASIC METAB OLIC PANEL (7) potassium 4.9 mmol/ L 3.5-5. 2 Not Available [facility] ([facility]) [address] [place], [address], 05/14/2024 13:13:27 05/13/20 24 05/14/2024 BASIC METAB OLIC PANEL (7) chloride 100 mmol/ L 96-106 Not Available [facility] ([facility]) [address] [place], [address], 05/14/2024 13:13:27 05/13/20 24 05/14/2024 BASIC METAB OLIC PANEL (7) carbon dioxide, total 27 mmol/ L 20-29 Not Available [facility] ([facility]) [address] [place], [address], 05/14/2024 13:13:27 05/13/20 24 05/14/2024 TSH RFX ON ABNOR MAL TO FREE T4 TSH 0.260 uIU/m L 0.450- 4.500 below low normal Not Available [facility] ([facility]) [address] [place], [address], 05/14/2024 13:13:28 05/13/20 24 05/14/2024 IRON AND TIBC iron bind.cap.(TI BC) 347 ug/dL 250-45 0 Not Available [facility] ([facility]) [address] [place], [address], 05/14/2024 13:13:29 05/13/20 24 05/14/2024 IRON AND TIBC UIBC 292 ug/dL 131-42 5 Not Available [facility] ([facility]) [address] [place], [address], 05/14/2024 13:13:29 05/13/20 24 05/14/2024 IRON AND TIBC iron 55 ug/dL 27-159 Not Available [facility] ([facility]) [address] [place], [address], 05/14/2024 13:13:29 05/13/20 24 05/14/2024 IRON AND TIBC iron saturation 16 % 15-55 Not Available [facility] ([facility]) [address] [place], [address], 05/14/2024 13:13:29 05/13/20 24 05/14/2024 VITAM IN B12 vitamin B12 570 pg/mL 232-12 45 Not Available [facility] ([facility]) [address] [place], [address], 05/14/2024 13:13:30 05/13/20 24 05/14/2024 T4F T4,free (direct) 1.65 NG/dL 0.82-1 .77 Not Available [facility] ([facility]) [address] [place], [address], 05/14/2024 13:13:31 05/13/20 24 05/14/2024 YOCASTA TIN ferritin 18 NG/mL 15-150 Not Available [facility] ([facility]) [address] [place], [address], 05/14/2024 13:13:31 05/13/20 24 05/14/2024 HB SOLU + RFLX FRAC hemoglobin (HGB) solubility NEGATI VE negati ve Not Available [facility] ([facility]) [address] [place], [address], 05/14/2024 13:13:32 05/13/20 24 05/14/2024 HGB+H CT hemoglobin 10.6 g/dL 11.1-1 5.9 below low normal Not Available [facility] ([facility]) [address] [place], [address], 05/14/2024 13:13:33 05/13/20 24 05/14/2024 HGB+H CT hematocrit 34.0 % 34.0-4 6.6 Not Available [facility] ([facility]) [address] [facility], [place], [address], 05/14/2024 13:13:33 06/24/20 24 06/24/2024 Bacte rial vagin osis and vagin itis DNA panel - Vagin al fluid by Probe with signa l ampli ficat ion eulalio sp. detection, direct probe NEGATI VE mary beth da sp. detec tion, direc t probe Not Available Not Available 12/08/2024 16:47:30 06/24/20 24 06/24/2024 Bacte rial vagin osis and vagin itis DNA panel - Vagin al fluid by Probe with signa l ampli ficat ion gardnerella vag. detection, direct probe NEGATI VE gardn erell a vag. detec tion, direc t probe Not Available Not Available 12/08/2024 16:47:30 06/24/20 24 06/24/2024 Bacte rial vagin osis and vagin itis DNA panel - Vagin al fluid by Probe with signa l ampli ficat ion trichomonas vag. detection, direct probe NEGATI VE trich omona s vag. detec tion, direc t probe Not Available Not Available 12/08/2024 16:47:30 06/24/20 24 06/24/2024 Hepat itis B virus surfa ce Ag [Pres ence] in Serum hepatitis C antibody NON-RE ACTIVE hepat itis C antib orquidea Not Available Not Available 12/08/2024 16:47:30 06/24/20 24 06/24/2024 Hepat itis B virus surfa ce Ag [Pres ence] in Serum HIV antigen/anti body NONREA CTIVE HIV antig en/an tibod y Not Available Not Available 12/08/2024 16:47:30 06/24/20 24 06/24/2024 Hepat itis B virus surfa ce Ag [Pres ence] in Serum hepatitis B surface antigen NON-RE ACTIVE hepat itis B surfa ce antig en Not Available Not Available 12/08/2024 16:47:30 06/24/20 24 06/24/2024 Hepat itis B virus surfa ce Ag [Pres ence] in Serum RPR screen NONREA CTIVE RPR scree n Not Available Not Available 12/08/2024 16:47:30 04/28/20 23 04/28/2023 XR, chest No observ ation record ed. [facility] [address], [place], [address], 05/03/2023 11:10:45 05/26/20 24 05/23/2024 CT, head, w/o contr ast No observ ation record ed. [facility] [address] [place], [address], 07/01/2024 13:05:33 05/26/20 24 05/23/2024 XR, chest No observ ation record ed. [facility] (Radiology) [address] [place], [address], 07/01/2024 13:03:50 05/26/20 24 05/23/2024 XR, shoul norbert No observ ation record ed. [facility] [address] [place], [address], 07/01/2024 13:05:28 11/13/19 25 11/13/2024 trans -thor acic echoc ardio gram (TTE) (PROC ) No observ ation record ed. [facility] [address] [address], [place], [address], 01/28/2025 19:40:15 Result Notes None recorded. Problems Name Problem SNOMED Code Status Onset Date Resolution Date Notes Provider Name and Address Organization Details Recorded Time History of asthma 213984254 Active 2019 Not Available [facility] 3 13:59:51 Chiari malformati on type I 562252280 Active 2019 Not Available [facility] 3 13:59:51 Malaise and fatigue 514873814 Active 2019 Not Available [facility] 3 13:59:51 Body mass index 40+ - severely obese 788058002 Active 2020 Not Available [facility] 3 13:59:51 SARS-CoV-2 mRNA vaccine declined 3018511571 Active 2021 Not Available [facility] 3 13:59:51 History of SARS-CoV-2 6554740380936 49325 Active 2021 Not Available [facility] 3 13:59:51 Influenza vaccinatio n declined 294187821 Active 2021 Not Available [facility] 3 13:59:51 Uncontroll ed type 2 diabetes mellitus 391564894 Active 2021 Not Available [facility] 3 13:59:51 Acute upper respirator y infection 57054187 Active Not Available [facility] 3 13:59:51 Upper respirator y tract infection caused by Influenza virus 8280710564333 9102 Active Vivienne Almanza MD Attn: Accounting ,[address] [place], [address] , [place] [facility] 4 10:54:51 Streptococ lit sore throat 56906742 Active Vivienne Almanza MD Attn: Accounting ,[address] [place], [address] , [place] [facility] 4 10:54:51 History of influenza 856919828 Active 2023 Vivienne Almanza MD Attn: Accounting ,[address] [place], [address] , [place] [facility] 4 11:32:59 History of fracture 077424502 Active 2023 Vivienne Almanza MD Attn: Accounting ,[address] [place], [address] , [place] [facility] 4 13:25:44 Pain of left ankle joint 8245330364948 9103 Active 2023 Vivienne Almanza MD Attn: Accounting ,[address] [facility], [place], [address] , [place] [facility] 4 13:25:46 Subclinica l hyperthyro idism 428133224 Active 2023 Vivienne Almanza MD Attn: Accounting ,[address] [facility], [place], [address] , [place] [facility] 4 13:11:45 Empty sella syndrome 349590453 Active 2023 Vivienne Almanza MD Attn: Accounting ,[address] [facility], [place], [address] , [place] [facility] 14:07:12 Chronic anemia 943783312 Active 2023 Vivienne Almanza MD Attn: Accounting ,[address] [facility], [place], [address] , [place] [facility] 16:05:46 Disorder of lipid metabolism 666952695 Active 2024 Vivienne Almanza MD Attn: Accounting ,[address] [facility], [place], [address] , [place] [facility] 19:28:52 Problem Notes None recorded. Procedures Surgical History Date Name Laterality Status Provider Name and Address Organization Details Recorded Time 01/29/20 25 Diabetic Foot Exam completed Vivienne Almanza MD Attn: Accounting, [address] [facility], [place], [address], [place] [facility] 01/28/2025 19:23:35 05/13/20 24 Diabetic Foot Exam completed Vivienne Almanza MD Attn: Accounting, [address] [facility], [place], [address], [place] [facility] 05/13/2024 12:40:04 01/17/20 24 Diabetic Foot Exam completed Vivienne Almanza MD Attn: Accounting, [address] [place], [address], [place] [facility] 01/17/2024 13:23:13 06/05/20 14 Caesarean Section completed Laura Harris [place] [facility] 09/13/2016 14:44:27 04/13/20 10 Caesarean Section completed Laura Harris MA [facility] 09/13/2016 14:44:15 11/27/19 08 Caesarean Section completed Laura Harris MA [facility] 09/13/2016 14:44:06 07/12/20 05 Caesarean Section completed Laura Harris [facility] 09/13/2016 14:43:00 Cholecystectomy completed Shira Vides MA [facility] 02/22/2021 14:46:04 procedure on ankle completed Kareem Vides [facility] 12/23/2021 16:28:46 Imaging Results Imaging Date Name Status LastModified by Organization Details LastModified Time 04/28/2023 XR, chest completed [facility] [address], [place], [address], 05/03/2023 11:10:45 05/23/2024 CT, head, w/o contrast completed [facility] [address] [place], [address], 07/01/2024 13:05:33 05/23/2024 XR, chest completed [facility] (Radiology) [address] [place], [address], 07/01/2024 13:03:50 05/23/2024 XR, shoulder completed [facility] [address] [place], [address], 07/01/2024 13:05:28 11/13/2024 trans-thoracic echocardiogram (TTE) (PROC) completed [facility] [address] [address], [place], [address], 01/28/2025 19:40:15 Procedure Notes None recorded. Medical Equipment None Reported. Allergies Allergen ID Allergen Name Allergen Category Reaction Reaction Severity Criticality Documentation Date Start Date Code Code System Note Provider Name and Address Organization Details Recorded Time 84878 morphine medicatio n Not available Not available Not available 09/13/2016 7052 RxNorm Other react ions and sever ities : 'Adve rse react ion to subst ance' . Not Available Not Available Not Available Medications Name Sig Start Date Stop Date Status Note LastModified by Organization Details LastModified Time amoxicillin 500 mg capsule TAKE 1 CAPSULE BY MOUTH EVERY 8 TO 12 HOURS FOR 10 DAYS 01/16 completed Not Available Not Available Not Available metformin 500 mg tablet TAKE 1 TABLET BY MOUTH TWICE DAILY 12/23 completed Not Available Not Available Not Available terconazole 0.4 % vaginal cream 09/13 completed Not Available Not Available Not Available doxycycline hyclate 100 mg capsule TAKE 1 CAPSULE BY MOUTH TWICE DAILY FOR 7 DAYS 01/28 completed Not Available Not Available Not Available polyethylen e glycol 3350 17 gram oral powder packet USE 1 PACKET MIXED WITH LIQUID AND TAKE EVERY MORNING 12/23 completed Not Available Not Available Not Available cetirizine 10 mg tablet TAKE 1 TABLET BY MOUTH EVERY DAY active Not Available Not Available No t Available azithromyci n 250 mg tablet TAKE 2 TABLETS (500 MG) BY ORAL ROUTE ONCE DAILY FOR 1 DAY THEN 1 TABLET (250 MG) BY ORAL ROUTE ONCE DAILY FOR 4 DAYS 01/28 completed Not Available Not Available Not Available ibuprofen 800 mg tablet TAKE 1 TABLET BY MOUTH EVERY 8 HOURS 01/16 completed Not Available Not Available Not Available Lidocaine Viscous 2 % mucosal solution TAKE 2ML BY MOUTH THREE TIMES DAILY FOR 5 DAYS 01/16 completed Not Available Not Available Not Available nystatin 100,000 unit/gram topical ointment APPLY TOPICALLY TO THE AFFECTED AREA TWICE DAILY FOR 5 TO 7 DAYS 01/16 completed Not Available Not Available Not Available fluconazole 150 mg tablet TAKE 1 TABLET BY MOUTH EVERY 72 HOURS active Not Available Not Available No t Available benzonatate 200 mg capsule TAKE 1 CAPSULE BY MOUTH THREE TIMES DAILY 01/28 completed Not Available Not Available Not Available fluconazole 200 mg tablet TAKE 1 TABLET BY MOUTH EVERY OTHER DAY FOR 3 DOSES 01/16 completed Not Available Not Available Not Available meloxicam 15 mg tablet 09/13 completed Not Available Not Available Not Available phenazopyri dine 200 mg tablet TAKE 1 TABLET BY MOUTH THREE TIMES DAILY 01/16 completed Not Available Not Available Not Available metronidazo le 0.75 % (37.5 mg/5 gram) vaginal gel 04/06 completed Not Available Not Available Not Available prednisone 20 mg tablet 04/06 completed Not Available Not Available Not Available terconazole 0.8 % vaginal cream INSERT ONE APPLICATO RFUL VAGINALLY AT BEDTIME FOR 3 DAYS 03/01 completed Not Available Not Available Not Available metronidazo le 500 mg tablet TAKE 1 TABLET BY MOUTH EVERY 12 HOURS FOR 7 DAYS 01/16 completed Not Available Not Available Not Available fluocinonid e 0.05 % topical ointment APPLY TO AREAS OF PSORIASIS ON BUTTOCKS AND LEGS TWICE DAILY ONLY DURING FLARE-UPS 07/28 completed Not Available Not Available Not Available acetaminoph en 300 mg-codeine 30 mg tablet TAKE 1 TABLET BY MOUTH EVERY 4 HOURS NEEDED FOR PAIN 01/16 completed Not Available Not Available Not Available valacyclovi r 500 mg tablet TK 1 T PO Q 12 H FOR 3 DAYS 10/13 completed Not Available Not Available Not Available ciprofloxac in 500 mg tablet TAKE 1 TABLET BY MOUTH EVERY 12 HOURS 01/28 completed Not Available Not Available Not Available sulfamethox azole 800 mg-trimetho prim 160 mg tablet TAKE 1 TABLET BY MOUTH EVERY 12 HOURS FOR 3 DAYS DIRECTED 07/28 completed Not Available Not Available Not Available acetaminoph en 500 mg tablet TAKE 2 CAPSULES BY MOUTH EVERY 6 HOURS 03/01 completed Not Available Not Available Not Available triamcinolo ne acetonide 0.1 % topical cream APPLY TO THE AFFECTED AREATWICE DAILY FOR 5 TO 7 DAYS 07/28 completed Not Available Not Available Not Available glimepiride 1 mg tablet Take 1 tablet every day by oral route with meal(s) for 90 days, for Diabetes. 2024 active Not Available Not Available Not Avai lable meloxicam 7.5 mg tablet 04/06 completed Not Available Not Available Not Available ofloxacin 0.3 % ear drops INSTILL 2 DROPS TO LEFT EAR TWICE DAILY 07/01 completed Not Available Not Available Not Available amoxicillin 875 mg tablet TAKE 1 TABLET BY MOUTH TWICE DAILY UNTIL ALL TAKEN 03/01 completed Not Available Not Available Not Available famotidine 20 mg tablet 04/06 completed Not Available Not Available Not Available ondansetron HCl 4 mg/5 mL oral solution TAKE 5 ML BY MOUTH EVERY 6 HOURS NEEDED FOR NAUSEA 05/13 completed Not Available Not Available Not Available meclizine 25 mg tablet 04/06 completed Not Available Not Available Not Available benzonatate 100 mg capsule TAKE 1 CAPSULE BY MOUTH EVERY 8 HOURS NEEDED FOR COUGH AND CONGESTIO N 03/01 completed Not Available Not Available Not Available hydrocodone 7.5 mg-acetamin ophen 325 mg tablet 12/23 completed Not Available Not Available Not Available triamcinolo ne acetonide 0.1 % topical ointment APPLY TOPICALLY TO THE AFFECTED AREA TWICE DAILY FOR 5 TO 7 DAYS 01/16 completed Not Available Not Available Not Available nystatin 100,000 unit/gram topical cream APPLY EXTERNALL Y TO THE AFFECTED AREA TWICE DAILY FOR 5 TO 7 DAYS 07/28 completed Not Available Not Available Not Available ranitidine 150 mg tablet 04/06 completed Not Available Not Available Not Available clotrimazol e-betametha sone 1 %-0.05 % topical cream APPLY TOPICALLY TO THE AFFECTED AND SURROUNDI NG AREAS TWICE DAILY IN THE MORNING AND IN THE EVENING FOR 2 WEEKS active Not Available Not Available No t Available polymyxin B sulfate 10,000 unit-trimet hoprim 1 mg/mL eye drops INSTILL 1 DROP IN BOTH EYES EVERY 3 HOURS FOR 7 DAYS 01/16 completed Not Available Not Available Not Available losartan 25 mg tablet TAKE 1 TABLET BY MOUTH EVERY DAY 01/28 completed Not Available Not Available Not Available montelukast 10 mg tablet 04/06 completed Not Available Not Available Not Available hydroxyzine HCl 25 mg tablet 09/13 completed Not Available Not Available Not Available ergocalcife rol (vitamin D2) 1,250 mcg (50,000 unit) capsule TAKE 1 CAPSULE BY MOUTH EVERY SUNDAY AND SUNDAY AT 9 AM 03/01 completed Not Available Not Available Not Available clobetasol 0.05 % topical ointment 09/13 completed Not Available Not Available Not Available ibuprofen 600 mg tablet TAKE 1 TABLET BY MOUTH EVERY 6 HOURS WITH FOOD NEEDED active Not Available Not Available No t Available methylpredn isolone 4 mg tablets in a dose pack FPD 03/01 completed Not Available Not Available Not Available albuterol sulfate HFA 90 mcg/actuati on aerosol inhaler INHALE 2 PUFFS BY MOUTH EVERY 4 HOURS NEEDED active Not Available Not Available No t Available hydrocortis one 2.5 % topical ointment APPLY TO ITCHY AREA ON VULVA TWICE DAILY NEEDED FOR 3 DAYS 03/01 completed Not Available Not Available Not Available betamethaso ne dipropionat e 0.05 % topical ointment 01/03 completed Not Available Not Available Not Available fluticasone propionate 50 mcg/actuati on nasal spray,suspe nsion SHAKE LIQUID AND USE 1 SPRAY IN EACH NOSTRIL TWICE DAILY 12/23 completed Not Available Not Available Not Available metformin ER 500 mg tablet,exte nded release 24 hr TAKE 1 TABLET BY MOUTH EVERY DAY DIRECTED FOR DIABETES 07/01 completed Not Available Not Available Not Available doxycycline hyclate 100 mg tablet TAKE 1 TABLET BY MOUTH TWICE DAILY 01/28 completed Not Available Not Available Not Available loratadine 10 mg tablet 10/13 completed Not Available Not Available Not Available amoxicillin 875 mg-potassiu m clavulanate 125 mg tablet TAKE 1 TABLET BY MOUTH TWICE DAILY FOR 7 DAYS 01/16 completed Not Available Not Available Not Available amoxicillin 500 mg-potassiu m clavulanate 125 mg tablet TAKE 1 TABLET BY MOUTH EVERY 12 HOURS FOR 5 DAYS 05/13 completed Not Available Not Available Not Available oxycodone 5 mg tablet 12/23 completed Not Available Not Available Not Available fluocinolon e 0.025 % topical cream APPLY TO THE AFFECTED AREA(S) BY TOPICAL ROUTE 2 TIMES PER DAY 04/19 completed Not Available Not Available Not Available azithromyci n 500 mg tablet 04/06 completed Not Available Not Available Not Available rosuvastati n 5 mg tablet TAKE 1 TABLET BY MOUTH EVERY DAY AT BEDTIME FOR CHOLESTER OL 07/01 completed Not Available Not Available Not Available rosuvastati n 40 mg tablet Take 1 tablet every day by oral route at bedtime for 90 days, for Cholester ol. 2024 active Not Available Not Available Not Avai lable Urinary Pain Relief 95 mg tablet TAKE 1 TABLET BY MOUTH THREE TIMES DAILY 03/01 completed Not Available Not Available Not Available Alcohol Prep Pads APPLY 1 PAD TOPICALLY ONCE DAILY active Not Available Not Available No t Available nitrofurant oin monohydrate /macrocryst als 100 mg capsule TAKE 1 CAPSULE BY MOUTH TWICE DAILY 01/28 completed Not Available Not Available Not Available OneTouch Verio test strips Take 1 strip every day by miscell. route as needed for 90 days, for DM. 2024 active Not Available Not Available Not Avai lable Eliquis 2.5 mg tablet TAKE 1 TABLET BY MOUTH EVERY 12 HOURS 03/01 completed Not Available Not Available Not Available Stimulant Laxative Plus 8.6 mg-50 mg tablet TAKE 2 TABLETS BY MOUTH TWICE DAILY 12/23 completed Not Available Not Available Not Available Trulicity 0.75 mg/0.5 mL subcutaneou s pen injector Inject 0.75 mg every week by subcutane ous route as directed for 28 days, for DM. 2024 active Not Available Not Available Not Avai lable OneTouch Verio Flex Meter USE DIRECTED DAILY active Not Available Not Available No t Available Mucus-Chest Congestion 100 mg/5 mL oral liquid 10/13 completed Not Available Not Available Not Available OneTouch Delica Plus Lancet 33 gauge USE TO TEST ONCE DAILY active Not Available Not Available No t Available OneTouch Delica Plus Lancet 30 gauge TEST DAILY 12/09 completed Not Available Not Available Not Available Rybelsus 3 mg tablet active Not Available Not Available No t Available Vitals Date Recorded Body height Body mass index (BMI) Body weight Heart rate Oxygen saturation Oxygen saturation in Arterial blood by Pulse oximetry Respiratory rate Systolic blood pressure Diastolic blood pressure Provider Name and Address Organization Details Last Updated DateTime 3 152.4 cm 60.9 kg/m2 008778. 82 g 74 /min 99 % 99 % 18 /min 110 mm[Hg] 76 mm[Hg] Shira Vides [place] [facility] 3 10:40:15 Date Recorded Body height Body mass index (BMI) Body weight Oxygen saturation Oxygen saturation in Arterial blood by Pulse oximetry Heart rate Respiratory rate Body temperature Systolic blood pressure Diastolic blood pressure Provider Name and Address Organization Details Last Updated DateTime 4 152.4 cm 60.7 kg/m2 599710. 23 g 97 % 97 % 88 /min 20 /min 97.8 [degF] 110 mm[Hg] 70 mm[Hg] Shira Vides MA [facility] 4 10:49:33 Date Recorded Body height Body mass index (BMI) Body weight Heart rate Oxygen saturation Oxygen saturation in Arterial blood by Pulse oximetry Respiratory rate Systolic blood pressure Diastolic blood pressure Provider Name and Address Organization Details Last Updated DateTime 4 152.4 cm 60.9 kg/m2 733201. 46 g 66 /min 97 % 97 % 18 /min 114 mm[Hg] 80 mm[Hg] Shira Vides MA [facility] 4 12:29:10 Date Recorded Body height Body mass index (BMI) Body weight Heart rate Respiratory rate Systolic blood pressure Diastolic blood pressure Provider Name and Address Organization Details Last Updated DateTime 4 152.4 cm 61.5 kg/m2 231674. 6 g 72 /min 16 /min 116 mm[Hg] 76 mm[Hg] Shira Vides MA [facility] 4 12:20:22 Date Recorded Body height Body mass index (BMI) Body weight Body temperature Heart rate Oxygen saturation Oxygen saturation in Arterial blood by Pulse oximetry Systolic blood pressure Diastolic blood pressure Provider Name and Address Organization Details Last Updated DateTime 5 152.4 cm 62.9 kg/m2 704701. 74 g 97.2 [degF] 67 /min 96 % 96 % 126 mm[Hg] 82 mm[Hg] Mary Pate [facility] 5 15:31:49 Social History Question Answer Notes LastModified by Organizat ion Details LastModified Time Tobacco Smoking Status Never Smoker MARU Al [facility] 09/13/2016 14:42:40 What Is Your Level Of Alcohol Consumption? None Information not available 02/17/2020 What Is Your Level Of Caffeine Consumption? Occasional Information not available 02/22/2021 How Much Tobacco Do You Chew? None Information not available 02/17/2020 In The 14 Days Before Symptom Onset, Have You Had Close Contact With A Laboratory-confir med COVID-19 While That Case Was Ill? No Information not available 02/17/2020 In The 14 Days Before Symptom Onset, Have You Had Close Contact With A Person Who Is Under Investigation For COVID-19 While That Person Was Ill? No Information not available 02/17/2020 Have You Been To An Area Known To Be High Risk For COVID-19? No Information not available 02/17/2020 What Type Of Diet Are You Following? REGULAR Information not available 02/17/2020 Do You Or Have You Ever Used E-cigarettes Or Vape? Never Used Electronic Cigarettes Information not available 02/17/2020 What Is Your Occupation? Unemployed Information not available 02/17/2020 Are There Any Guns Present In Your Home? No Information not available 02/17/2020 Hard Of Hearing Or Deaf In One Or Both Ears? No Information not available 02/17/2020 Legally Blind In One Or Both Eyes? No Information no t available 02/17/2020 What Was The Date Of Your Most Recent Tobacco Screening? 01/28/2025 [email or web address] Information not available 01/28/2025 Performs Monthly Self-breast Exam? Yes Information no t available 02/17/2020 Seat Belts Used Routinely Yes Information not available 02/17/2020 Smoke Alarm In Home Yes Information not available 02/17/2020 Do You Have Smoke And Carbon Monoxide Detectors In Your Home? Yes Information not available 02/22/2021 Do You Or Have You Ever Used Smokeless Tobacco? Never Used Smokeless Tobacco Information not available 02/17/2020 How Much Tobacco Do You Smoke? No Information not available 04/19/2017 Do You Use Any Illicit Or Recreational Drugs? No Information not available 02/22/2021 Has Tobacco Cessation Counseling Been Provided? No Information not available 02/22/2021 On What Date Was Tobacco Cessation Counseling Provided? 01/28/2025 [email or web address] Information not available 01/28/2025 How Many Years Have You Smoked Tobacco? 0 Information not available 04/19/2017 Sex: Female Functional Status None recorded. Mental Status None recorded. Family History Relationship Description Onset Age of this Age Resolved Age Notes LastModified by Organization Details LastModified Time Father Malignant neoplasm of liver [email or web address] Not available 2015 14:42:19 Mother Diabetes mellitus [email or web address] Not available 2015 14:42:32 Medical History Condition Response Coronary Artery Disease N Other N High Blood Pressure N Atrial Fibrillation N Thyroid Problems N Kidney or Bladder Problems N GI Problems N Depression N COPD N Blood Clots N Skin Problems N Anemia N Heart Attack (OK) N Diabetes Y Anxiety Disorder N Muscle, Joint, or Bone Problems N Seizures/Epilepsy N Acid Reflux (GERD) N Cancer N Stroke N Asthma Y Allergies N High Cholesterol N Hepatitis N Liver Disease N Headaches N Osteoporosis N Heart Failure N Gynecological History Statement/Question Response Duration of Flow (days) 3 Flow Light Date of LMP 02/16/2021 LMP Definite Obstetrics History GPAL:G 4 P 4 0 0 4 Type Value Full Term 4 Living 4 Total 4 Immunizations Vaccine Type Date Status Note Provider Nam e and Address Organization Details Recorded Time Tdap 2 completed Not Available Replaced by [facility] 10/23/2023 01:00:52 Td (adult), 2 Lf tetanus toxoid, preservative free, adsorbed 3 completed Not Available Replaced by [facility] 10/23/2023 01:00:52 Hep B, adolescent or pediatric 8 completed Not Available Replaced by [facility] 10/23/2023 01:00:52 Hep B, adolescent or pediatric 7 completed Not Available Replaced by [facility] 10/23/2023 01:00:52 Hep B, adolescent or pediatric 7 completed Not Available Replaced by [facility] 10/23/2023 01:00:52 Past Encounters Encounter ID Performer Location Encounter Start Date Encounter Closed Date Diagnosis/Indication Diagnosis SNOMED-CT Code Diagnosis ICD10 Code Diagnosis Note [id number] Vivienne Almanza MD [facility] (Adult Med) [address] [place] [address] 09/13/2016 14:27:56 09/13/2016 15:21:16 General examination of patient 328335179 Z00.01 Fatigue 03550833 R53.83 High risk for GARRISON as she snores and she is overweight although there are no reported apneic episodes. Dizziness 436427101 R42 Pain in toe 743352409 M7 9.675 Immunization refused 275 947728 Z28.20 Obesity 044917250 E66.9 [id number] MD [facility] (Adult Med) [address] [place] [phone] 0 10/18/2016 16:18:17 10/18/2016 17:21:02 Impaired fasting glycemia 509957842 R73.01 Obesity 180157319 E66.9 Acute bact erial paronychia 511608525 L03.90 Middle finger R. hand Thyroid fu nction tests abnormal 656459958 R94.6 Immunization refused 275 620154 Z28.20 Disorder o f lipid metabolism 781869016 E78.9 [id number] MD [facility] (Adult Med) [address] [place] [phone] 0 01/03/2017 09:29:59 01/03/2017 10:15:20 Overweight 362323651 E66.3 Eruption 204551361 R21 [id number] MD [facility] (Adult Med) [address] [place] [address] [phone] 0 04/19/2017 15:02:36 04/20/2017 09:43:41 Intermittent palpitations 423730455 R00.2 Neuropathy 140151014 G62 .9 Meralgia parestheti ca? Thyroid fu nction tests abnormal 402725131 R94.6 Malaise and fatigue 2717 72041 R53.81 R53.83 She reports that she is fatigued, she snores and she is overweight and has palpitatio ns Intentiona l weight loss 170205743 R63.8 She continues to have success with Weight watchers [id number] MD [facility] (Adult Med) [address] [place] [phone] 0 02/17/2020 11:13:07 02/19/2020 10:58:18 Cough 47542437 R05 Adult heal th examination 620176731 Z00.00 Candidiasis of vagina 72 700530 B37.3 History of asthma 047433 007 Z87.09 Imaging re sult abnormal 532509582 R93.89 Discussed, the MRI of her ankle was apparently ordered by her orthopedic surgeon Chiari mal formation type I 767402356 G93.5 Incidental finding on the CT scan [id number] MD [facility] (Adult Med) [address] [place] [address] [phone] 0 04/06/2020 09:41:38 04/08/2020 15:42:34 Disorder of lipid metabolism 233121909 E78.9 Discussed [id number] MD [facility] (Adult Med) [address] [place] [address] [phone] 0 10/13/2020 08:08:47 10/14/2020 11:14:23 Sleep disorder 20020533 G47.9 Previously referred on 04/19/2017 Influenza vaccination declined 989253152 Z28.21 Malaise and fatigue 2717 31430 R53.81 R53.83 She reports that she is fatigued, she snores, has apneic episodes, and she is overweight . Apnea 0627691 R06.81 Stress 12494995 Z73.3 [id number] MD [facility] (Adult Med) [address] [place] [address] [phone] 0 02/22/2021 14:36:56 02/23/2021 10:32:11 Anemia 950264258 D64.9 Unintentio nal weight gain 8659669011 25072 R63.5 She is getting back on Weight Watchers Not keen on bariatric surgery but she will meet with the team Thyroid fu nction tests abnormal 151899949 R94.6 Vaccine de clined by patient 5332277520 02 Z28.21 Body mass index 40+ - severely obese 671062778 Z68.44 Joint swelling 080428751 M25.40 Disorder o f lipid metabolism 111551285 E78.9 Discussed Dysuria 87107031 R30.9 [id number] MD [facility] (Adult Med) [address] [place] [address] [phone] 0 07/28/2021 08:06:08 07/29/2021 05:14:25 Cloudy urine 2125908 R82.90 Cough 30454628 R05 Night sweats 82110908 R6 1 Snoring 00267348 R06.83 Influenza vaccination declined 183353536 Z28.21 [id number] MD [facility] (Adult Med) [address] [place] [address] [phone] 0 12/23/2021 16:14:33 12/26/2021 09:27:51 Uncontrolled type 2 diabetes mellitus 257080276 E11.65 Discussed the benefits of Metformin and her diagnosis of DM with a HBA1C of 7.2DietWei ght lossMonito r blood sugars History of SARS-CoV-2 29 03321332 60930571 Z86.16 SARS-CoV-2 mRNA vaccine declined 8910380442 Z28.21 History of asthma 822121 007 Z87.09 Influenza vaccination declined 579796531 Z28.21 History of pneumonia 161 595952 Z87.01 COVID 19 PNA 11/27/2021 AddendumFo garnet healthw up CXR [id number] Vivienne Almanza MD [facility] (Adult Med) [address] [place] [address] [phone] 0 03/01/2023 11:18:22 03/05/2023 09:14:22 Uncontrolled type 2 diabetes mellitus 388022001 E11.65 HBA1C 7.4%Start Metformin ER, side effects were discussed. She had previously refused on her last visit.Pt education on DMNutritio nistLabsOp hthalmolog ist OV 12/23/2021 iscussed the benefits of Metformin and her diagnosis of DM with a HBA1C of 7.2DietWei ght lossMonito r blood sugars Disorder o f lipid metabolism 102929977 E78.9 Discussed, start Rosuvastat in, side effects were discussed [id number] Vivienne Almanza MD [facility] (Adult Med) [address] [place] [address] [phone] 0 05/03/2023 10:20:35 05/07/2023 15:20:02 Uncontrolled type 2 diabetes mellitus 928700169 E11.65 HBA1C 7.4%Start Metformin ER, side effects were discussed. She had previously refused this on her last visit.Pt education on DMNutritio nistLabsOp hthalmolog ist OV 12/23/2021 iscussed the benefits of Metformin and her diagnosis of DM with a HBA1C of 7.2DietWei ght lossMonito r blood sugars Follow-up visit 67131082 9 Z09 Recurrent candidiasis of vagina 629317901 B37.32 History of syncope 70835 86931 04116 Z86.79 [id number] MD [facility] (Adult Med) [address] [place] [address] [id number] 0 01/17/2024 10:34:59 01/17/2024 11:43:30 Uncontrolled type 2 diabetes mellitus 269106242 E11.65 Labs 10/22/2023 , HBA1C 7.6%She has no history of Thyroid cancerUnco ntrolled DMContinue MetforminA GLP-1 agonist will be added, her options were discussed and she prefers an oral agent.Kojo Ramsey, side effects, including but not limited to nausea, constipati on and diarrhea were discussed. OV 05/03/2023HB A1C 7.4%Start Metformin ER, side effects were discussed. She had previously refused this on her last visit.Pt education on DMNutritio nistLabsOp hthalmolog ist OV 12/23/2021 iscussed the benefits of Metformin and her diagnosis of DM with a HBA1C of 7.2DietWei ght lossMonito r blood sugars Body mass index 40+ - severely obese 530455072 Z68.44 Anemia 324932189 D64.9 History of fracture 3910 78766 Z87.81 Pain of le ft ankle joint 7776471195 5147322 M25.572 Pain in left foot 744592 6508 18330 M79.672 Disorder o f lipid metabolism 561164672 E78.9 Discussed, restart Rosuvastat in. Snoring 43185135 R06.83 Serum thyr oid stimulating hormone level outside reference range 136471011 R89.1 Medication monitoring 39 8385445 Z51.81 History of influenza 789 487660 Z87.09 [id number] MD [facility] (Adult Med) [address] [place] [address] [phone] 0 05/13/2024 12:19:54 05/16/2024 15:14:19 Pain of left ankle joint 9495630977 5110850 M25.572 Swelling of lower leg 44 3418774 R22.40 [id number] MD [facility] (Adult Med) [address] [place] [address] [phone] 0 07/01/2024 10:53:32 07/02/2024 11:44:07 Uncontrolled type 2 diabetes mellitus 565351795 E11.65 HBA1C 7.6% on 10/22/2023 Not compliant with any of her medication sEndocrino logistLabs OV 01/17/2024L abs 10/22/2023 , HBA1C 7.6%She has no history of Thyroid cancerUnco ntrolled DMContinue MetforminA GLP-1 agonist will be added, her options were discussed and she prefers an oral agent.Kojo Ramsey, side effects, including but not limited to nausea, constipati on and diarrhea were discussed. OV 05/03/2023HB A1C 7.4%Start Metformin ER, side effects were discussed. She had previously refused this on her last visit.Pt education on DMNutritio nistLabsOp hthalmolog ist OV 12/23/2021 iscussed the benefits of Metformin and her diagnosis of DM with a HBA1C of 7.2DietWei ght lossMonito r blood sugars Transient neurological symptoms 370754779 R29.90 Empty sella syndrome 237 777751 E23.6 Chronic anemia 593878755 D64.9 Subclinica l hyperthyroidism 264823326 E05.90 Non-compli ant behavior 781797651 R46.89 [id number] Vivienne Almanza MD [facility] (Adult Med) [address] [place] [address] [phone] 0 01/28/2025 15:09:44 01/29/2025 11:30:49 Body mass index 40+ - severely obese 791399119 Z68.44 Uncontroll ed type 2 diabetes mellitus 025876927 E11.65 Uncontroll ed DM with a HBA1c 9.0% on 11/13/2024S tart Trulicelizabeth, GI side effects were discussedS tart Glimepirid e with mealsEndoc rinologist to see OV 07/01/2024HB A1C 7.6% on 10/22/2023 Not compliant with any of her medication sEndocrino logistLabs OV 01/17/2024L abs 10/22/2023 , HBA1C 7.6%She has no history of Thyroid cancerUnco ntrolled DMContinue MetforminA GLP-1 agonist will be added, her options were discussed and she prefers an oral agent.Kojo Ramsey, side effects, including but not limited to nausea, constipati on and diarrhea were discussed. OV 05/03/2023HB A1C 7.4%Start Metformin ER, side effects were discussed. She had previously refused this on her last visit.Pt education on DMNutritio nistLabsOp hthalmolog ist OV 12/23/2021 iscussed the benefits of Metformin and her diagnosis of DM with a HBA1C of 7.2DietWei ght lossMonito r blood sugars Transient neurological symptoms 108889661 R29.90 Neurologis t as referred Numbness of face [id number] 09 R20.0 Disorder o f lipid metabolism [id number] E78.9 Discussed, restart Rosuvastat in. Health Concerns Section Related Observation LastModified by Organization Detai ls LastModified Time None Recorded Concern Status LastModified by Organization Details LastModified Time None Recorded Advance Directives Directive None Recorded Payers Encounter Date Sequence Insurance Name Policy Number Policy Brand Covered Member ID Brand Member ID Guarantor Name 05/03/2023 1 [facility] ON OR AFTER 04/28/21 (MEDICAID REPLACEMENT - HMO) Melly Tinoco [id number] Luizy Raul 01/17/2024 1 [facility] ON OR AFTER 04/28/21 (MEDICAID REPLACEMENT - HMO) Melly Philipline [id number] Heavenly Raul 05/13/2024 1 [facility] ON OR AFTER 04/28/21 (MEDICAID REPLACEMENT - HMO) Melly Tinoco [id number] Heaveamauriy Raul 07/01/2024 1 [facility] ON OR AFTER 04/28/21 (MEDICAID REPLACEMENT - HMO) Melly McCfrancois [id number] Heavenly Raul 01/28/2025 1 [facility] ON OR AFTER 04/28/21 (MEDICAID REPLACEMENT - HMO) Melly Tinoco [id number] Luizy Raul Notes Date Note Type Note Provider Name and Address Organization Details Recorded Time 05/03/2023 text/html Diabetes F/URepo rted bypatient.Review finger sticks:post lunch: 83 Labs:last A1C result: 7.4 Context:taking aspirin daily; not missing doses of medications; no side effects from medications Associated Symptoms:no weight gain; no weight loss; no dizziness; no sweats; no headaches; no confusion; no increased thirst; no increased appetite; no increased urination; no blurred vision; no numbness of feet; no calluses on feet I fainted Sunday In the interim, she was seen in the ER on 04/28/2023 with a syncopal/pre-syncopal event in the setting of possible heat exposure. She apparently fainted after attending an event, she recalls feeling light headed and then everything going dark shortly after she returned from the bathroom at the store. She feels okay now and denies any chest pain or previous events. She has not had any symptoms of a URI or gastroenteritis. She has been compliant with all her medications but felt shaky yesterday with a blood sugar of ~83. She also continues to have recurrent episodes of vaginal candidiasis that responds to a single dose of Fluconazole. Vivienne Almanza MD Attn: [address] [place], [address], [facility] 05/03/2023 12:06:40 01/17/2024 text/html Diabetes F/URepo rted bypatient.Labs:last A1C result: 7.6 Context:normal range of home blood sugars (in the low 100s); seeing eye doctor regularly; checking feet regularly Associated Symptoms:no weight gain; no dizziness; no sweats; no headaches; no confusion; no increased thirst; no increased appetite; no increased urination; no blurred vision; no numbness of feet; no calluses on feet;weight loss (1 lbs) Is that why I am chewing ice? I need a doctor's note to wear Tennis shoes, you know I got metal plates Ms Tinoco returns, she has a history of a fracture of the left ankle and she is s/p ORIF. She has pain in the lateral part of the left ankle and foot and cannot wear dress shoes for extended period and needs a letter for her employers.She wonders if the anemia on her labs would explain her Pica.She admits to less than full compliance with her medications and her referrals as she has been very busy. In the interim, she was in the ER with Strep and Influenza. She snores and had previously seen the neurologist for possible GARRISON, she however has not followed up. Vivienne Almanza MD Attn: Accounting[address] [facility], [place], [address], [facility] 01/17/2024 13:30:59 05/13/2024 text/html AnkleReported bypatient.Location:[facility] Quality:aching; throbbing; worsening Severity:severe Duration:months Timing:chronic Context:sports injury Alleviating Factors:sitting Aggravating Factors:standing Associated Symptoms:swelling Previous Surgery:surgical procedure: Prior Imaging:x ray; MRI Previous Injections:none Previous PT:none Work Related:yes Working:regular dutyDiabetes F/UReported bypatient.Review finger sticks:fastin; pre lunch: 181; post lunch: Labs:last A1C result: 7.6% Context:taking aspirin daily; not missing doses of medications; no side effects from medications Associated Symptoms:no weight gain; no weight loss; no dizziness; no sweats; no headaches; no confusion; no increased thirst; no increased appetite; no increased urination; no blurred vision; no numbness of feet; no calluses on feet I have been having swelling in my ankle when I stand at work, from that metal that is inside of me If I stand for more than 15 minutes, it starts to swell Ms Gonzalez presents on a follow up visit, she has not been fully compliant with her medications because she is busy at work. She complains of pain and swelling of her LLE and ankle. Vivienne Almanza MD Attn: Accounting[address] [facility], [place], [address], [facility] 05/13/2024 13:52:15 07/01/2024 text/html Diabetes F/URepo rted bypatient.Labs:last A1C result: 7.6% Context:taking aspirin daily; not missing doses of medications; no side effects from medications Associated Symptoms:no weight loss; no dizziness; no sweats; no headaches; no confusion; no increased thirst; no increased appetite; no increased urination; no blurred vision; no numbness of feet; no calluses on feet;weight gain (4 lbs) Here with her They did some blood work I felt confused, I had pain going down my arm [facility] 05/23/2024 with, Transient slurred speech?, confusion?. The CT revealed an empty Sella but the patient left AMA. She cannot recall the details of the event but she denies leaving AMA. She has not been compliant with her Rybelsus, Metformin or Rosuvastatin and cannot give me an explanation. She plans to go back to [facility] . 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 Vivienne Almanza MD Attn: Accounting[address] [place], [address], [facility] 07/01/2024 14:10:44 01/28/2025 text/html Diabetes F/URepo rted bypatient.Labs:last A1C result: 9% Context:taking aspirin daily; not missing doses of medications; no side effects from medications;home blood sugar range high Associated Symptoms:no weight loss; no dizziness; no sweats; no headaches; no confusion; no increased thirst; no increased appetite; no increased urination; no blurred vision; no numbness of feet; no calluses on feet;weight gain (7 lbs) Here with her and young son A follow up, on my lab work I was feeling numb on the side of my face and under my feet Ms Gonzalez has been having right sided facial numbness as well as tingling and numbness in her feet. She did not complain of a headache, dizziness or limb weakness. She was in the ER on 08/14/2024 with elevated blood sugars, she was also seen by the acid splicer Dr Askew. On her last visit on 07/01/2024, she was referred to the cdl team truck driver and neurologist, she has scheduled appointments. Even though her diagnosis of Diabetes mellitus has been confirmed and discussed since her 12/23/2021 visit, she states that she was always told that she was a pre diabetic. Her medication list confirms that Dr Askew prescribed both Rosuvastatin and Losartan, she is not taking either of them. With regards to the Trulicity, she is concerned about kidney problems as aside effect and the fact that it may suppress her appetite. Vivienne Almanza MD Attn: Accounting[address] [facility], [place], [address], [facility] 01/28/2025 19:37:50 OBGyn Episode No OBEpisode recorded.
--- OUTSIDE RECORDS SUMMARY | 2025-01-29 13:21 | XMS_ITS | Clinical Summary ---
Author Organization [facility] Address [address] [place] [address] Care Team Providers Care Dinkey Dispatcher Name Role Phone Vivienne Almanza MD Primary Care Provider Monei Segura APRN-ENERGY PROJECTS LEAD Unavailable Source Comments [facility],non-owned Affiliates and Associated Physician Practices is amultiple site organization consisting of ambulatory clinics and hospital sitesin [place], [place], [place]. This disclosure is being madepursuant to the Care Everywhere program and may not contain all information available regarding this patient. Last updated 18.[facility] Allergies Active Allergy Reactions Criticality Noted Date Comments Morphine Anaphylaxis,Itching High 01/18/2016 Medications * Be aware that medications may not be up to date on this document. Alwaysverify current medications with the patient. Medication Sig Dispensed Refills Start Date End Date Status clobetasol - coal tar (CLOBETAPLUS OINTMENT) 0.05 & 2.3 % ointment 1 applicator by Apply externally route DAILY. 10/26/2017 Active betamethasone dipropionate (DIPROSONE) 0.05 % ointment Apply to areas of psoriasis on buttocks and legs twice daily as needed 50 g 2 04/24/2018 Active Additional Information Patient not taking.Reported on 01/04/2021 cetirizine (ZYRTEC) 10 MG tablet Take 1 tablet by mouth once daily 11 04/24/2018 Active Additional Information Patient not taking.Reported on 01/04/2021 fluocinonide (LIDEX) 0.05 % ointmentIndications:O ther psoriasis Apply to areas of psoriasis on buttocks and legs twice daily only when flared 30 days supply. 60 g 01/04/2021 Active hydrocortisone (HYTONE) 2.5 % ointmentIndications:V ulvar itching Apply to itchy area on vulva twice daily as needed for 3 days . 30 days supply. 30 g 01/04/2021 Active albuterol HFA (PROVENTIL;VENTOLIN;P ROAIR) 108 (90 Base) MCG/ACT inhaler Inhale 2 puffs by mouth every 4 hours as needed 12/28/2020 Active fluconazole (DIFLUCAN) 150 MG tablet TAKE 1 TABLET BY MOUTH EVERY 2 WEEKS 12/28/2020 Active fluticasone propionate (FLONASE) 50 MCG/ACT nasal spray SHAKE LQ AND U 1 SPR IEN BID 07/25/2020 Active ibuprofen (MOTRIN) 800 MG tablet TAKE 1 TABLET BY MOUTH EVERY 6 HOURS WITH FOOD NEEDED FOR PAIN 12/28/2020 Active Active Problems Problem Noted Date Diagnosed Date Malaise and fatigue 10/13/2020 Chiari malformation type I 02/17/2020 History of asthma 02/17/2020 Palpitations 05/08/2017 Family History Medical History Relation Name Comments None Known Brother None Known Father None Known Maternal Aunt None Known Maternal Grandfather None Known Maternal Grandmother None Known Maternal Uncle None Known Mother None Known Other Lupus Paternal Aunt None Known Paternal Grandfather None Known Paternal Grandmother None Known Paternal Uncle None Known Sister Asthma Neg Hx CVA Neg Hx Cancer - Breast Neg Hx Cancer - Other Neg Hx Cancer - Skin, Melanoma Neg Hx Cancer - Skin, Non Melanoma Neg Hx Eczema Neg Hx Hemophilia Neg Hx Psoriasis Neg Hx Relation Name Status Comments Brother Father Maternal Aunt Maternal Grandfather Maternal Grandmother Maternal Uncle Mother Other Paternal Aunt Paternal Grandfather Paternal Grandmother Paternal Uncle Sister Social History Tobacco Use Types Packs/Day Years Used Date Smoking Tobacco: Never Smokeless Tobacco: Never Tobacco Cessation:Counseling Given: Not Answered Alcohol Use Standard Drinks/Week Comments No 0 (1 standard drink = 0.6 oz pur e alcohol) Sex and Gender Information Value Date Recorded Sex Assigned at Not on file Gender Identity Not on file Sexual Orientation Not on file Last Filed Vital Signs Vital Sign Reading Time Taken Comments Blood Pressure 124/80 09/19/2022 8:30 AM RAILROAD COOK Pulse 88 09/19/2022 8:30 AM RAILROAD COOK Temperature 36.6 C (97.8 F) 09/19/2022 8:30 AM RAILROAD COOK Respiratory Rate - - Oxygen Saturation 100% 09/19/2022 8:30 AM RAILROAD COOK Inhaled Oxygen Concentration - - Weight 144.3 kg (318 lb 3.2 oz) 09/19/2022 8:30 AM RAILROAD COOK Height 152.4 cm (5') 09/19/2022 8:30 AM RAILROAD COOK Body Mass Index 62.14 09/19/2022 8:30 AM RAILROAD COOK Plan of Treatment Health Maintenance Due Date Last Done Comments PAP SMEAR 1988 HIV SCREENING 2003 HEPATITIS C SCREENING 06/26/2006 DTAP/TDAP/TD VACCINES (1 - Tdap) 2007 HEPATITIS B VACCINE (1 of 3 - 19+ 3-dose series) 2007 COVID-19 VACCINE (1 - 2023-2 5 season) 2024 INFLUENZA VACCINE (#1) 2024 DEPRESSION SCREENING 10/29/2024 ZOSTER VACCINE (1 of 2) 2038 HIB VACCINE Aged Out No longer eligi ble based on patient's age to complete this topic HPV VACCINE Aged Out No longer eligi ble based on patient's age to complete this topic MENINGOCOCCAL (Group B) VACC INE SHARED DECISION-MAKING Aged Out No longer eligibl e based on patient's age to complete this topic MENINGOCOCCAL GROUPS A/C/Y/W VACCINE Aged Out No longer eligible b ased on patient's age to complete this topic PNEUMOCOCCAL VACCINE Aged Out No long er eligible based on patient's age to complete this topic Care Teams Dinkey Dispatcher Relationship Specialty Start Date End Date Vivienne Almanza MD [address] [place], [place] [id number] PCP - General 03/20/18 Monie Segura, HAND CLOTH EXAMINER-ENERGY PROJECTS LEAD [address] [place] [id number] Nurse Practitioner [facility] 09/19/22
--- OUTSIDE RECORDS SUMMARY | 2025-01-29 13:21 | XMS_ITS | CONTINUITY OF CARE DOCUMENT ---
Author Name monet healy Address Unknown Organization [facility] Address [address] [place] [address] Phone [phone] Care Team Providers Care Log Chain Feeder Name Role Phone Narciso Askew MD Unavailable [phone] CHRISTEL WOODS MD Unavailable CHRISTEL WOODS MD Unavailable [phone] PROBLEMS Condition Status Date Provider Notes Hyperlipidemia;with high crp and lpa active Narciso Askew MD Chest pain active Nanette Ventimiglia DIETIST Obesity active Nanette Ventimiglia DIETIST Fatigue active Nanette Ventimiglia DIETIST IRON DEFICIENCY active Narciso Askew MD neg b12 Palpitations active Nanette Ventimiglia DIETIST Diabetes mellitus, type 2 active Narciso stinson MD neg egfr Cardiology examination completed - Narciso Askew MD ENCOUNTERS Date Type Provider Location Encounter Diag nosis - In-person encounter Office Visit Narciso Askew MD [facility] Cardiology examination - In-person encounter Office Visit Narciso Askew MD [facility] Chest pain - In-person encounter Office Visit Narciso Askew MD [facility] Diabetes mellitus, type 2PalpitationsIRON DEFICIENCYFatigueObesity VITAL SIGNS Date Observation Value Provider Body Mass Index (Ratio) 63.27 kg/m2 Rishi Askew MD oxygen saturation, oximetry 89 % [facility] 87 /min [facility] blood pressure, diastolic 85 mm[Hg] Rita villanue[facility] blood pressure, systolic 120 mm[Hg] Edith luqueGrant-[facility] respiratory rate E&M 12 /[facility] 324 [lb_av] [facility] height [facility]&M 60 [in_i] [facility] blood pressure, cuff size large Rita [facility] Body Mass Index (Ratio) 61.55 kg/m2 Rishi Askew MD blood pressure, diastolic 81 mm[Hg] Lan angelina Cole blood pressure, systolic 138 mm[Hg] Diandra caden Cole pulse rate 82 /min [facility]&M 315.2 [lb_av] [facility] blood pressure, cuff size regular Lan angelina Cole height E&M 60 [in_i] [facility] Body Mass Index (Ratio) 62.68 kg/m2 Petrona ntha Cranmer blood pressure, diastolic 82 mm[Hg] Li nkLogic blood pressure, systolic 132 mm[Hg] Angi kLogic pulse rate 69 /min Kasandra Lopez blood pressure, cuff size large Ta mark Lopez blood pressure, diastolic 82 mm[Hg] Ta bitha Lopez blood pressure, systolic 132 mm[Hg] Tab itha Lopez oxygen saturation, oximetry 93 % Kasandra Lopez weight E&M 321 [lb_av] Kasandra Lopez height E&M 60 [in_i] Kasandra Lopez respiratory rate E&M 12 /min Kasandra Lopez ALLERGIES Allergy Name Onset Date Reaction Criticality Status METFORMIN HCL Low Criticality active MORPHINE anaphylaxis anaphylaxis High Critica lity active HISTORY OF MEDICATION USE Medication Status Instructions Dates Provider Indications Com ments Jardiance 25 mg tablet active Take 1 tablet by mouth once daily Narciso Askew MD Feosol 325 mg (65 mg iron) tablet active TAKE 1 TABLET BY MOUTH EVERY DAY Narciso Askew MD rosuvastatin 40 mg tablet active TAKE 1 TABLET BY MOUTH EVERY DAY Narciso Askew MD losartan 25 mg tablet active TAKE 1 TABLET BY MOUTH EVERY DAY Narciso Askew MD Trulicity 0.75 mg/0.5 mL pen injector active 1 pen injector subcutaneously once a week Narciso Askew MD Jardiance 10 mg tablet completed Take 1 tablet by mouth once daily - Narciso Askew MD Mounjaro 2.5 mg/0.5 mL pen injector completed 1 pen injector subcutaneously once a week - Narciso Askew MD rosuvastatin 5 mg tablet completed Take 1 tablet by mouth every night - Narciso Askew MD rosuvastatin 5 mg tablet completed - Nanette Ventimiglia DIETIST metformin (Glucophage XR) 500 mg tablet extended release 24 hr completed - Nanettekeesha Felipemiglia DIETIST ibuprofen 600 mg tablet active Kasandra Lopez albuterol sulfate 90 mcg/actuation HFA aerosol inhaler active Kasandra Lopez SOCIAL HISTORY Date Observation Value Provider personal history of marijuana use no Nanette Ventimiglia DIETIST drug use no Nanette Ventimig neno DIETIST alcohol use no Nanette Ventimig neno DIETIST smoking status Never smoker Nanette Felipem iglia DIETIST personal history of marijuana use no Nanette Ventimiglia DIETIST drug use no Nanette Ventimig neno DIETIST alcohol use no Nanette lazcano [facility] smoking status Never smoker Nanette moreira [facility] personal history of marijuana use no Nanette Perla [facility] drug use no Nanette lazcano [facility] alcohol use no Nanette lazcano [facility] smoking status Never smoker Nanettekeesha moreira [facility] INSURANCE PROVIDERS Payer name Policy type / Coverage type Alfredo red democrat ID [employer] MEDICAID (2) Medicaid [id number] ADVANCE DIRECTIVES Name Date DISCUSSED - NO DECISION MADE TREATMENT PLAN Date Name Performer :9 Narciso Askew MD Cardiology:weight loss encourage d Nanettekeesha Perla [facility] Cardiology:she compl eted tele with no significant arrhythmia Nanettekeesha Perla [facility] Cardiology:she is no t taking meds r einforced compliance H er updated medication list for this problem includes: Trulicity 0.75 Mg/0.5 Ml Pen Injector (Dulaglutide) ..... 1 pen injector subcutaneously once a week Jardiance 10 Mg Tablet (Empagliflozin) ..... Take 1 tablet by mouth once daily Weare Minda [facility] Cardiology:atypical in nature, but persistent s he had echo that showed normal EF w ill do CXR and routine stress test g et labs Weare Minda [facility] Cardiology:will check iron studi es Nanettekeesha Perla [facility] Cardiology:last hgb A1C was 7.6 %. she is morbidly obese. Has tried metformin but did not tolerate d/t cramping diarrhea W ill add GLP in setting of DM and obesity for glycemic and weight management W ill add Jardiance as well T he following medications were removed from the medication list: Metformin (glucophage Xr) 500 Mg Tablet Extended Release 24 Hr (Metformin (glucophage xr)) Her updated medication list for this problem includes: Jardiance 10 Mg Tablet (Empagliflozin) ..... Take 1 tablet by mouth once daily [place] 2.5 Mg/0.5 Ml Pen Injector (Tirzepatide) ..... 1 pen injector subcutaneously once a week Nanette Perla [facility] Cardiology:will comp lete tele monitor W ill do labs to r/o underlying source Nanette Perla [facility] Cardiology:Patient h as reports of fatigue and memory fog. Seen in ER where testing completed including head CT S he had IHS that per her report was negative can obtain records W ill update labs to r/o underlying cause W ill do echo to look for any LV dysfunction W ill also do tele to r/o arrhythmia given palpitations and memory fog Nanette Perla [facility] Date Name CXR- PA/Lat X-Ray, Chest 2 View VITAMIN B12 IRON AND TOTAL IRON BINDING CAPACITY FERRITIN CBC (INCLUDES DIFF/P LT) HEMOGLOBIN A1c CRP, high sensitivit y Lipoprotein (a) LIPID PANEL BASIC METABOLIC PANE L W/EGFR FOLATE, SERUM VITAMIN B12 Vitamin D, 25-Hydrox y CRP, high sensitivit y Lipoprotein (a) LIPID PANEL IRON AND TOTAL IRON BINDING CAPACITY FERRITIN CBC (INCLUDES DIFF/P LT) Microalb/Creatinine Urine, Random Complete Echo FOLATE, SERUM VITAMIN B12 Vitamin D, 25-Hydrox y CRP, high sensitivit y Lipoprotein (a) LIPID PANEL IRON AND TOTAL IRON BINDING CAPACITY FERRITIN CBC (INCLUDES DIFF/P LT) Microalb/Creatinine Urine, Random Monitor - Telemetry (Mobile Cardiac) Complete Echo HISTORY OF PROCEDURES Procedure Date Procedure Name Provider Procedure Notes S tatus EKG Narciso Askew MD complete d
--- OUTSIDE RECORDS SUMMARY | 2025-01-29 13:41 | XMS_ITS | Clinical Summary ---
Author Organization [facility] Address [address] [place] [address] Care Team Providers Care Table Attendant Name Role Phone Vivienne Almanza MD Primary Care Provider Monie Segura APRN-MUSIC ORCHESTRATOR Unavailable Source Comments [facility],non-owned Affiliates and Associated Physician Practices is amultiple site organization consisting of ambulatory clinics and hospital sitesin [place], [place], [place] and [place]. This disclosure is being madepursuant to the Care Everywhere program and may not contain all information available regarding this patient. Last updated 18.[facility] Allergies Active Allergy Reactions Criticality [...] Comments Blood Pressure 124/80 09/19/2022 8:30 AM DIRECTOR OF GROUP SALES Pulse 88 09/19/2022 8:30 AM DIRECTOR OF GROUP SALES Temperature 36.6 C (97.8 F) 09/19/2022 8:30 AM DIRECTOR OF GROUP SALES Respiratory Rate - - Oxygen Saturation 100% 09/19/2022 8:30 AM DIRECTOR OF GROUP SALES Inhaled Oxygen Concentration - - Weight 144.3 kg (318 lb 3.2 oz) 09/19/2022 8:30 AM DIRECTOR OF GROUP SALES Height 152.4 cm (5') 09/19/2022 8:30 AM DIRECTOR OF GROUP SALES Body Mass Index 62.14 09/19/2022 8:30 AM DIRECTOR OF GROUP SALES Plan of Treatment Health Maintenance Due Date [...] age to complete this topic Care Teams Table Attendant Relationship Specialty Start Date End Date Vivienne Almanza MD [address] [place], [place] [id number] PCP - General 03/20/18 Monie Segura, HANDICAPPED TEACHER-MUSIC ORCHESTRATOR [address] [place] [id number] Nurse Practitioner [facility] 09/19/22
--- OUTSIDE RECORDS SUMMARY | 2025-01-29 13:41 | XMS_ITS | Referral Summary ---
Author Organization [facility] B Address [address] [place] [address] Care Team Providers Care Rotor Balancer Name Role Phone Vivienne Almanza MD Primary [...] on file Legal Sex Female 8:34 PM CRATE LINER Gender Identity Not on file Sexual Orientation Not on file Last Filed Vital Signs Vital Sign Reading Time Taken Comments Blood Pressure 115/81 12/23/2020 10:58 AM CRATE LINER Pulse 82 12/23/2020 10:58 AM CRATE LINER Temperature 36.3 C (97.3 F) 12/23/2020 10:58 AM CRATE LINER Respiratory Rate 18 12/23/2020 10:5 8 AM CRATE LINER Oxygen Saturation 100% 06/03/2017 11: 53 AM CDT Inhaled Oxygen Concentration - - Weight 148.5 kg (327 lb 6.4 oz) 021 10:58 AM CRATE LINER Height 152.4 cm (5') 10/31/2023 3:02 PM CRATE LINER Body Mass Index 59.88 12/23/2020 10:58 AM CRATE LINER Plan of Treatment Not on file Insurance Care Teams Rotor Balancer Relationship Specialty Start Date End Date Vivienne Almanza MD [address] [place] [address] PCP - General Internal Medicine 11/05/20
--- OUTSIDE RECORDS SUMMARY | 2025-01-29 13:41 | XMS_ITS | Continuity of Care Document ---
Author Organization [facility] (Adult Med) Address [address] [place] [address] Care Team Providers Care Cloth Finishing Range Operator Chief Name Role Phone JACLYN BOSCH Neurologist Assessment Encounter Date Assessment Date Assessment LastModified by Organization Details LastModified Time 01/28/2025 01/28/2025 She has a history of [...] Not available Not available Not available Lab None recorded. Referral None recorded. Procedures None recorded. Surgeries None recorded. Imaging MRI, brain, w/o contrast - Facial numbness 2024 025 [facility] ([facility]), [address] [place], [address], 01/28/2025 16:14:12 Medication Orders glimepiri de 1 mg tablet 2024 025 [facility] #[id number], [address], [place], [id number], 01/28/2025 16:05:33 rosuvasta tin 40 mg tablet 2024 025 [facility] #[id number], [address], [place], [place], [id number], 01/28/2025 16:07:07 Trulicity 0.75 mg/0.5 mL subcutane ous pen injector 2024 025 [facility] #[id number], [address], [place], [place], [id number], 01/28/2025 16:08:09 Patient TargetsNo targets recorded. Patient Instructions Encounter Date Encounter Id Patient Instructions Last Modified By Organization Details Last Modified Time 01/28/2025 [id number] body mass index: care instructions [facility] Not available 01/28/2025 15:39:00 learning about healthy weight [facility] Not available 01/28/2025 15:39:00 MRI brain ER wit h worsening of the neurological symptoms Start Trulicity Start Glimepiride Start Rosuvastatin Most recent consultation note from Dr Askew to determine why he started her on Losartan (Microalbuminuria? ) Follow up in 4 weeks [facility] Not available 01/28/2025 19:36:18 Detailed discussion on the need to achieve better Diabetic control, unfortunately with her young son in the room I could not go into detail. Her was supportive but disagreed about normal fasting blood sugars. I explained to him that ideally her FBS should be about 100 and showed him the normal range on the lab results. Very detailed visit [facility] Not available 01/28/2025 19:36:52 Reason for Referral None Reported. Problems Name Problem SNOMED Code Status Onset Date Resolution Date Notes Provider Name and Address Organization Details Recorded Time History of asthma 800291517 Active 2019 Not Available [facility] 3 13:59:51 Chiari malformati on type I 170112912 Active 2019 Not Available [facility] 3 13:59:51 Malaise and fatigue 688495159 Active 2019 Not Available [facility] 3 13:59:51 Body mass index 40+ - severely obese 894264804 Active 2020 Not Available [facility] 3 13:59:51 SARS-CoV-2 mRNA vaccine declined 5250808397 Active 2021 Not Available [facility] 3 13:59:51 History of SARS-CoV-2 1365594276762 35328 Active 2021 Not Available [facility] 3 13:59:51 Influenza vaccinatio n declined 700029503 Active 2021 Not Available [facility] 3 13:59:51 Uncontroll ed type 2 diabetes mellitus 860982827 Active 2021 Not Available [facility] 3 13:59:51 Acute upper respirator y infection 73515061 Active Not Available [facility] 3 13:59:51 Upper respirator y tract infection caused by Influenza virus 2824899775303 9102 Active Vivienne Almanza MD Attn: Accounting ,[address], [place], [address] [place] [address] , [place] - [facility] 4 10:54:51 Streptococ lit sore throat 19420709 Active Vivienne Almanza MD Attn: Accounting ,[address] [place], [address] , [place] - [facility] 4 10:54:51 History of influenza 340696038 Active 2023 Vivienne Almanza MD Attn: Accounting ,[address] [place], [address] , [place] [facility] 4 11:32:59 History of fracture 666900796 Active 2023 Vivienne Almanza MD Attn: Accounting ,[address] [place], [address] , [place] [facility] 4 13:25:44 Pain of left ankle joint 4866115345596 9103 Active 2023 Vivienne Almanza MD Attn: Accounting ,[address] [place], [address] , [place] [facility] 4 13:25:46 Subclinica l hyperthyro idism 222726042 Active 2023 Vivienne Almanza MD Attn: Accounting ,[address] [facility], [place], [address] , [place] - [facility] 13:11:45 Empty sella syndrome 747630355 Active 2023 Vivienne Almanza MD Attn: Accounting ,[address] [facility], [place], [address] , [place] [facility] 14:07:12 Chronic anemia 676567482 Active 2023 Vivienne Almanza MD Attn: Accounting ,[address] [facility], [place], [address] , [place] - [facility] 16:05:46 Disorder of lipid metabolism 474497674 Active 2024 Vivienne Almanza MD Attn: Accounting ,[address] [facility], [place], [address] , [facility] - [facility] 19:28:52 Problem Notes None recorded. Procedures Surgical History Date Name Laterality Status Provider Name and Address Organization Details Recorded Time 01/29/20 25 Diabetic Foot Exam completed Vivienne Almanza MD Attn: Accounting, [address] [facility], [place], [address], [facility] - [facility] 01/28/2025 19:23:35 05/13/20 24 Diabetic Foot Exam completed Vivienne Almanza MD Attn: Accounting, [address] [facility], [place], [address], [facility] - [facility] 05/13/2024 12:40:04 01/17/20 24 Diabetic Foot Exam completed Vivienne Almanza MD Attn: Accounting, [address] [facility], [place], [address], [place] - [facility] 01/17/2024 13:23:13 06/05/20 14 Caesarean Section completed Laura Harris MA [place] - [facility] 09/13/2016 14:44:27 04/13/20 10 Caesarean Section completed MARU Al - [facility] 09/13/2016 14:44:15 11/27/19 08 Caesarean Section completed Laura Harris MA [place] - [facility] 09/13/2016 14:44:06 07/12/20 05 Caesarean Section completed Laura HarrisMARU [facility] 09/13/2016 14:43:00 Cholecystectomy completed Shira EscobarMARU edwards [facility] 02/22/2021 14:46:04 procedure on ankle completed Janhayley castro DoverMARU [facility] 12/23/2021 16:28:46 Imaging Results None recorded. Procedure Notes None recorded. Medical Equipment None Reported. Allergies Allergen ID Allergen Name Allergen Category Reaction Reaction Severity Criticality Documentation Date Start Date Code Code System Note Provider Name and Address Organization Details Recorded Time 36602 morphine medicatio n Not available Not available Not available 09/13/2016 7069 RxNorm Other react ions and sever ities [...] Updated DateTime 5 152.4 cm 62.9 kg/m2 630223. 74 g 97.2 [degF] 67 /min 96 % 96 % 126 mm[Hg] 82 mm[Hg] Mary Philiplure [facility] 5 15:31:49 Social History Question Answer Notes LastModified by Organizat ion Details LastModified Time Tobacco Smoking Status Never Smoker MARU Al, [facility] 09/13/2016 14:42:40 What Is Your Level Of [...] Of Your Most Recent Tobacco Screening? 01/28/2025 [email or web address] Information not available 01/28/2025 Performs Monthly Self-breast [...] Date Was Tobacco Cessation Counseling Provided? 01/28/2025 [email or web address] Information not available 01/28/2025 How Many Years [...] Response Coronary Artery Disease N Other N Atrial Fibrillation N High Blood Pressure N Kidney or Bladder Problems N Thyroid Problems N GI Problems N Depression N COPD N Blood Clots N Skin Problems N Anemia N Heart Attack (AR) N Anxiety Disorder N Diabetes Y Muscle, Joint, or Bone Problems N Seizures/Epilepsy N Acid Reflux (GERD) N Cancer N Stroke N Asthma Y Allergies N High Cholesterol N Hepatitis N Liver Disease N Headaches N Heart Failure N Osteoporosis N Gynecological History Statement/Question Response Duration of Flow (days) 3 Flow Light Date of LMP 02/16/2021 LMP Definite Obstetrics History GPAL:G 4 P 4 0 0 4 Type Value Full Term 4 Living 4 Total 4 Immunizations Vaccine Type Date Status Note Provider Nam e and Address Organization Details Recorded Time Tdap 2 completed Not Available [facility] 10/23/2023 01:00:52 Td (adult), 2 Lf tetanus toxoid, preservative free, adsorbed 3 completed Not Available [facility] 10/23/2023 01:00:52 Hep B, adolescent or pediatric 8 completed Not Available [facility] 10/23/2023 01:00:52 Hep B, adolescent or pediatric 7 completed Not Available [facility] 10/23/2023 01:00:52 Hep B, adolescent or pediatric 7 completed Not Available [facility] 10/23/2023 01:00:52 Past Encounters Encounter ID Performer Location Encounter Start Date Encounter Closed Date Diagnosis/Indication Diagnosis SNOMED-CT Code Diagnosis ICD10 Code Diagnosis Note [id number] Vivienne Almanza MD [facility] [place] [address] 01/28/2025 15:09:44 01/29/2025 11:30:49 Body mass index 40+ - severely obese 798559551 Z68.44 Uncontroll ed type 2 diabetes mellitus 236513499 E11.65 Uncontroll ed DM with a HBA1c [...] were discussed and she prefers an oral agent.Star ritchie Ramsey, side effects, including but not limited [...] lossMonito r blood sugars Transient neurological symptoms 697044915 R29.90 Neurologis t as referred Numbness of face 1009223 09 R20.0 Disorder o f lipid metabolism 839765232 E78.9 Discussed, restart Rosuvastat in. Health Concerns Section Related Observation LastModified by Organization Detai ls LastModified Time None Recorded Concern Status LastModified by Organization Details LastModified Time None Recorded Payers Encounter Date Sequence Insurance Name Policy Number Policy Brand Covered Member ID Brand Member ID Guarantor Name 01/28/2025 1 [facility] ON OR AFTER 04/28/21 (MEDICAID REPLACEMENT - HMO) Melly Tinoco [id number] Melly Carter Notes Date Note Type Note Provider Name and Address Organization Details Recorded Time 01/28/2025 text/html Diabetes F/URepo rted bypatient.Labs:last A1C [...] sugars, she was also seen by the metallurgist helper Dr Askew. On her last visit on 07/01/2024, she was referred to the pin machine tender and neurologist, she has scheduled appointments. Even [...] appetite. Vivienne Almanza MD Attn: Accounting,[address] [facility], [place], [address], [facility] 01/28/2025 19:37:50 OBGyn Episode No OBEpisode recorded.
--- OUTSIDE RECORDS SUMMARY | 2025-01-29 13:41 | XMS_ITS | CONTINUITY OF CARE DOCUMENT ---
Author Name monet healy Address Unknown Organization [facility] Address [address] [place] [address] Phone [phone] Care Team Providers Care Preschool Associate Teacher Name Role Phone Narciso Askew MD Unavailable CHRISTEL WOODS MD Unavailable CHRISTEL WOODS MD Unavailable [phone] PROBLEMS Condition Status Date Provider Notes Hyperlipidemia;with high crp and lpa active Narciso Askew MD Cardiology examination completed 9 - Narciso Askew MD Diabetes mellitus, type 2 active Narciso stinson MD neg egfr Palpitations active Nanette Ventimiglia JACKER FEEDER IRON DEFICIENCY active Narciso Askew MD neg b12 Fatigue active Nanette Ventimiglia JACKER FEEDER Obesity active Nanette Ventimiglia JACKER FEEDER Chest pain active Nanette Ventimiglia JACKER FEEDER ENCOUNTERS Date Type Provider Location Encounter Diag nosis - In-person encounter Office Visit Narciso Askew MD [facility] Cardiology examination - In-person encounter Office Visit Narciso Askew MD [facility] Chest pain - In-person encounter Office Visit Narciso Askew MD [facility] Diabetes mellitus, type 2PalpitationsIRON DEFICIENCYFatigueObesity VITAL SIGNS Date Observation Value Provider Body Mass Index (Ratio) 63.27 kg/m2 Rishi Askew MD oxygen saturation, oximetry 89 % [facility] 87 /min [facility] blood pressure, diastolic 85 mm[Hg] [facility] blood pressure, systolic 120 mm[Hg] [facility] respiratory rate E&M 12 /min [facility] E&M 324 [lb_av] [facility] height E&M 60 [in_i] [facility] blood pressure, cuff size large [facility] Body Mass Index (Ratio) 61.55 kg/m2 Rishi Askew MD blood pressure, diastolic 81 mm[Hg] Lan angelina Cole blood pressure, systolic 138 mm[Hg] Diandra caden [facility] pulse rate 82 /min [facility] weight E&M 315.2 [lb_av] [facility] blood pressure, cuff size regular Lan angelina Cole height E&M 60 [in_i] [facility] Body Mass Index (Ratio) 62.68 [...] 5 mg tablet completed - Nanette Ventimiglia JACKER FEEDER metformin (Glucophage XR) 500 mg tablet extended release 24 hr completed - Nanettekeesha Felipemiglia JACKER FEEDER ibuprofen 600 mg tablet active Kasandra Lopez albuterol sulfate 90 mcg/actuation HFA aerosol inhaler active Kasandra Lopez SOCIAL HISTORY Date Observation Value Provider personal history of marijuana use no Nanette Ventimiglia JACKER FEEDER drug use no Nanette Ventimig neno JACKER FEEDER alcohol use no Nanette Ventimig neno JACKER FEEDER smoking status Never smoker Nanette Felipem iglia JACKER FEEDER personal history of marijuana use no Nanette Ventimiglia JACKER FEEDER drug use no Nanette Ventimig neno JACKER FEEDER alcohol use no Nanette lazcano [facility] smoking status Never smoker Nanette moreira [facility] personal history of marijuana use no Nanette Perla [facility] drug use no Nanette lazcano [facility] alcohol use no Nanette lazcano [facility] smoking status Never smoker Nanettekeesha moreira [facility] INSURANCE PROVIDERS Payer name Policy type / Coverage type Alfredo red republican ID [employer] MEDICAID (2) Medicaid [id number] ADVANCE DIRECTIVES Name Date DISCUSSED - NO DECISION MADE TREATMENT PLAN Date Name Performer :9 Narciso Askew MD Cardiology:weight loss encourage d Nanettekeesha Perla [facility] Cardiology:she compl eted tele with no significant arrhythmia Nanettekeesha Perla [facility] Cardiology:she is no t taking meds r einforced compliance H er updated medication list for this problem includes: Trulicity 0.75 Mg/0.5 Ml Pen Injector (Dulaglutide) ..... 1 pen injector subcutaneously once a week Jardiance 10 Mg Tablet (Empagliflozin) ..... Take 1 tablet by mouth once daily Cheyenne Minda [facility] Cardiology:atypical in nature, but persistent s he had echo that showed normal EF w ill do CXR and routine stress test g et labs Cheyenne Minda [facility] Cardiology:will check iron studi es Nanettekeesha Perla [facility] Cardiology:last hgb A1C was 7.6 %. she [...] injector subcutaneously once a week Nanette Perla [facility] Cardiology:will comp lete tele monitor W ill do labs to r/o underlying source Nanette Perla [facility] Cardiology:Patient h as reports of fatigue and [...] given palpitations and memory fog Nanette Perla [facility] Date Name CXR- PA/Lat X-Ray, Chest 2 [...]
--- OUTSIDE RECORDS SUMMARY | 2025-01-29 13:41 | XMS_ITS | Clinical Summary ---
Author Organization [facility] Medical Office Building [address] Address [address] [place] [address] Care Team Providers Care Food And Beverage Attendant Name Role Phone Vivienne Almanza MD [...] on file Legal Sex Female 8:34 PM FLARE WORKER Gender Identity Not on file Sexual Orientation Not on file Obstetrics History Last Filed Vital Signs Vital Sign Reading Time Taken Comments Blood Pressure 115/81 12/23/2020 10:58 AM FLARE WORKER Pulse 82 12/23/2020 10:58 AM FLARE WORKER Temperature 36.3 C (97.3 F) 12/23/2020 10:58 AM FLARE WORKER Respiratory Rate 18 12/23/2020 10:5 8 AM FLARE WORKER Oxygen Saturation 100% 06/03/2017 11: 53 AM CDT Inhaled Oxygen Concentration - - Weight 148.5 kg (327 lb 6.4 oz) 021 10:58 AM FLARE WORKER Height 152.4 cm (5') 10/31/2023 3:02 PM FLARE WORKER Body Mass Index 59.88 12/23/2020 10:58 AM FLARE WORKER Plan of Treatment Health Maintenance Due Date [...] patient's age to complete this topic Insurance [facility] Care Teams Food And Beverage Attendant Relationship Specialty Start Date End Date Vivienne Almanza MD [address] [place] [id number] PCP - General Internal Medicine 11/05/20
[2025-01-29 14:38] LABS: Add Urine Microscopic? YES; Appearance Urine Clear (Clear); Bacteria Urine None Seen /hpf; Bilirubin Urine Negative (Negative); Blood Urine Negative (Negative); Color Urine Yellow (Yellow); Glucose Urine UA 3+ mg/dL (Negative); Ketones Urine Trace mg/dL (Negative); Leukocyte Esterase Ur Negative LEU/UL (Negative); Nitrate Urine Negative (Negative); Protein Urine 1+ mg/dL (Negative); RBC Urine 0-2 /hpf (0-2); Specific Grav Ur 1.029 (1.001-1.035); Squamous Epithelial Cell Urine Occasional /hpf (Few); WBC Urine 0-5 /hpf (0-3); pH Urine 5.5 (5.0-9.0)
[2025-01-29 15:03] LABS: BEDSIDEPREGUCG Negative (Negative)
[2025-01-29] MEDS: SODIUM CHLORIDE 0.9% IV 1,000 ML 999 ML IV CONT (15:24)
[2025-01-29 15:30] LABS: Basophils Percent Auto 0.4 % (0.2-1.2); Eosinophils Absolute Auto 0.1 K/mm3 (0-0.3); Hematocrit 39.5 % (37.0-47.0); Hemoglobin 11.9 g/dL (12.0-15.0); Immature Granulocyte Absolute 0.01 K/mm3 (0.00-0.031); Immature Granulocyte Percent A 0.1 % (0-0.5); Lymphocytes Absolute Auto 3.55 K/mm3 (0.9-3.2); Lymphocytes Percent Auto 44.5 % (18.3-44.2); Mean Corpuscular HGB Conc 30.1 g/dl (32-36); Mean Corpuscular Hemoglobin 25.3 pg (26-34); Mean Platelet Volume 9.4 fl (7.4-10.4); Monocytes Absolute Auto 0.4 K/mm3 (0.1-0.6); Monocytes Percent Auto 5.3 % (2.6-8.5); Neutrophils Absolute Auto 3.9 K/mm3 (1.3-6.7); Neutrophils Percent Auto 48.7 % (45.5-73.1); Platelet Count Result 270 k/mm3 (150-375); Red Cell Distribution Width 17.2 % (11.5-14.5)
[2025-01-29 15:41] LABS: Alanine Aminotransferase 16 U/L (6-35); Alkaline Phosphatase 91 U/L (38-126); Anion Gap 7 mmol/L (4-12); Aspartate Amino Transferase 19 U/L (14-36); Bilirubin,Total 0.8 mg/dL (0.2-1.3); Blood Urea Nitrogen 7 mg/dL (7-17); Calcium 8.8 mg/dL (8.4-10.2); Carbon Dioxide 27 mmol/L (22-30); Chloride 100 mmol/L (98-107); Estimated CRCL calculation 220 ml/min; Estimated Glomerular Filt Rate > 60; Glucose 287 mg/dL (65-110); Magnesium 1.8 mg/dL (1.6-2.3); Sodium 134 mmol/L (137-145)
--- NOTE | 2025-01-29 16:11 | ED.GENADULT ---
HPI - General Adult General Chief complaint: Recheck/Abnormal Lab/Rx Stated complaint: High blood sugars for several days Time Seen by Provider: 01/29/25 13:12 History of Present Illness HPI narrative: Patient is a 34-year-old female who presents ER with elevated blood sugars. She was seen by her PCP yesterday. Her blood glucose has been in 340s and 350s last 2 days. She reports she is borderline diabetic. Hemoglobin A1c in 2021 was above 7. No polydipsia or polyuria. No dysuria. No fevers or chills or sweats. Was recommend come the ER yesterday but could not make it until today. Her PCP did write prescriptions for diabetic medication yet but she has not picked them up. Related Data Home Medications ?Medication ?Instructions ?Recorded ?Confirmed ?Last Taken ?Type dulaglutide 0.75 mg/0.5 mL mg subcut 10/04/24 Unknown History subcutaneous pen injector (Trulicity) empagliflozin 10 mg tablet 10 mg PO DAILY 10/04/24 10/04/24 Unknown History (Jardiance) rosuvastatin 5 mg tablet mg 10/04/24 Unknown History tirzepatide 2.5 mg/0.5 mL 2.5 mg subcut WEEKLY 10/04/24 10/04/24 Unknown History subcutaneous pen injector (Mounjaro) Allergies Allergy/AdvReac Type Severity Reaction Status Date / Time morphine Allergy Severe ITCHING, Verified 01/29/25 13:05 hives, throat swelling Review of Systems Review of Systems: All systems reviewed & are unremarkable except as noted in HPI and below Constitutional: Constitutional: Reports no additional constitutional complaints Cardiovascular: Cardiovascular: Reports no additional cardiovascular complaints Respiratory: Respiratory: Reports no additional respiratory complaints Gastrointestinal: Gastrointestinal: Reports no additional gastrointestinal complaints Musculoskeletal: Musculoskeletal: Reports no additional musculoskeletal complaints Endocrine: Endocrine: Reports no additional endocrine complaints [facility] Past Medical History Medical History Hypothyroid Obesity Surgical History Surgical History History of ankle surgery History of section 4 History of cholecystectomy Family History Family History Unknown No significant family history Social History Social History Social History: 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 She lives with her tracy who is her durable power customer care voice consultant for healthcare. The patient is a lifelong nonsmoker. She does not use any alcohol marijuana or illicit drugs. Code status full code Smoking status: Never smoker Alcohol intake: never Substance use: never Substance use type: does not use Gender identity (if verbalized by the patient): Female Spiritual care concerns: No Exam Narrative: GENERAL: Well-appearing, well-nourished, and in no acute distress. HEAD: Normocephalic, atraumatic. ENT: Mucous membranes moist. CHEST: Clear to auscultation. No respiratory distress. HEART: Regular rate and rhythm. Normal peripheral pulses. ABDOMEN: Soft, nontender, nondistended. EXTREMITIES: Normal range of motion. No edema. SKIN: Warm, dry, no rash. NEURO: Alert and oriented x3. PSYCH: Normal mood and affect. Course Course Emergency Course: Patient resting comfortably. Lab work only remarkable for elevated blood sugar. No gap. Urine with trace ketones. Patient given IV fluid. Discharge home. 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 Vital Signs Vital signs: Vital Signs Temperature 97.6 F 01/29/25 13:07 Pulse Rate 78 01/29/25 13:07 Respiratory Rate 18 01/29/25 13:07 Blood Pressure 134/84 01/29/25 13:07 Pulse Oximetry 100 01/29/25 13:07 Oxygen Delivery Room Air 01/29/25 13:07 Temperature 97.6 F 01/29/25 13:07 Pulse Rate 78 01/29/25 13:07 Respiratory Rate 18 01/29/25 13:07 Blood Pressure 134/84 01/29/25 13:07 Pulse Oximetry 100 01/29/25 13:07 Oxygen Delivery Room Air 01/29/25 13:07 Medical Decision Making Vital Signs Vital Signs: Vital Signs Temperature 97.6 F 01/29/25 13:07 Pulse Rate 78 01/29/25 13:07 Respiratory Rate 18 01/29/25 13:07 Blood Pressure 134/84 01/29/25 13:07 Pulse Oximetry 100 01/29/25 13:07 Oxygen Delivery Room Air 01/29/25 13:07 Temperature 97.6 F 01/29/25 13:07 Pulse Rate 78 01/29/25 13:07 Respiratory Rate 18 01/29/25 13:07 Blood Pressure 134/84 01/29/25 13:07 Pulse Oximetry 100 01/29/25 13:07 Oxygen Delivery Room Air 01/29/25 13:07 Lab Data 01/29/25 15:22 01/29/25 15:22 Labs: Lab Results 01/29/25 01/29/25 01/29/25 Range/Units 13:17 14:17 15:00 WBC (4.5-10.0) K/mm3 RBC (4.2-5.4) M/mm3 Hgb (12.0-15.0) g/dL Hct (37.0-47.0) % MCV (80-100) fl MCH (26-34) pg MCHC (32-36) g/dl RDW (11.5-14.5) % Plt Count (150-375) k/mm3 MPV (7.4-10.4) fl Immature Gran % (Auto) (0-0.5) % Neut % (Auto) (45.5-73.1) % Lymph % (Auto) (18.3-44.2) % Curry % (Auto) (2.6-8.5) % Eos % (Auto) (0-4.4) % Baso % (Auto) (0.2-1.2) % Lymph # (Auto) (0.9-3.2) K/mm3 Curry # (Auto) (0.1-0.6) K/mm3 Eos # (Auto) (0-0.3) K/mm3 Baso # (Auto) (0.0-0.1) K/mm3 Abs Immat Gran (auto) (0.00-0.031) K/mm3 Absolute Neuts (auto) (1.3-6.7) K/mm3 Absolute Nucleated RBC (0.0-0.012) K/mm3 Nucleated RBC % (0.0-0.2) % Sodium (137-145) mmol/L Potassium (3.4-5.0) mmol/L Chloride (98-107) mmol/L Carbon Dioxide (22-30) mmol/L Anion Gap (4-12) mmol/L BUN (7-17) mg/dL Creatinine (0.7-1.0) mg/dL Estim Creat Clear Calc ml/min Estimated GFR (59 - ) Glucose (65-110) mg/dL POC Capillary Glucose 341 H (65-105) mg/dl Hemoglobin A1c Calcium (8.4-10.2) mg/dL Phosphorus (2.5-4.5) mg/dL Magnesium (1.6-2.3) mg/dL Total Bilirubin (0.2-1.3) mg/dL AST (14-36) U/L ALT (6-35) U/L Alkaline Phosphatase (38-126) U/L Total Protein (6.3-8.2) g/dL Albumin (3.5-5.1) g/dL Urine Color Yellow (Yellow) Urine Appearance Clear (Clear) Urine pH 5.5 (5.0-9.0) Ur Specific [place] 1.029 (1.001-1.035) Urine Protein 1+ H (Negative) mg/dL Urine Glucose (UA) 3+ H (Negative) mg/dL Urine Ketones Trace H (Negative) mg/dL Ur Blood (Man) Negative (Negative) Urine Nitrate Negative (Negative) Urine Bilirubin Negative (Negative) Urine Urobilinogen 1.0 (<2.0) mg/dL Leukocyte Esterase Rfl Negative (Negative) SHANNAN/UL Urine RBC 0-2 (0-2) /hpf Urine WBC 0-5 (0-3) /hpf Ur Squamous Epith Cells Occasional (Few) /hpf Urine Bacteria None seen /hpf Urine Casts 3-5 POC Urine HCG, Qual Negative (Negative) 01/29/25 Range/Units 15:22 WBC 8.0 (4.5-10.0) K/mm3 RBC 4.70 (4.2-5.4) M/mm3 Hgb 11.9 L (12.0-15.0) g/dL Hct 39.5 (37.0-47.0) % MCV 84.0 (80-100) fl MCH 25.3 L (26-34) pg MCHC 30.1 L (32-36) g/dl RDW 17.2 H (11.5-14.5) % Plt Count 270 (150-375) k/mm3 MPV 9.4 (7.4-10.4) fl Immature Gran % (Auto) 0.1 (0-0.5) % Neut % (Auto) 48.7 (45.5-73.1) % Lymph % (Auto) 44.5 H (18.3-44.2) % Curry % (Auto) 5.3 (2.6-8.5) % Eos % (Auto) 1.0 (0-4.4) % Baso % (Auto) 0.4 (0.2-1.2) % Lymph # (Auto) 3.55 H (0.9-3.2) K/mm3 Curry # (Auto) 0.4 (0.1-0.6) K/mm3 Eos # (Auto) 0.1 (0-0.3) K/mm3 Baso # (Auto) 0.0 (0.0-0.1) K/mm3 Abs Immat Gran (auto) 0.01 (0.00-0.031) K/mm3 Absolute Neuts (auto) 3.9 (1.3-6.7) K/mm3 Absolute Nucleated RBC 0.000 (0.0-0.012) K/mm3 Nucleated RBC % 0.0 (0.0-0.2) % Sodium 134 L (137-145) mmol/L Potassium 4.0 (3.4-5.0) mmol/L Chloride 100 (98-107) mmol/L Carbon Dioxide 27 (22-30) mmol/L Anion Gap 7 (4-12) mmol/L BUN 7 D (7-17) mg/dL Creatinine 0.38 L (0.7-1.0) mg/dL Estim Creat Clear Calc 220 ml/min Estimated GFR > 60 (59 - ) Glucose 287 H (65-110) mg/dL POC Capillary Glucose (65-105) mg/dl Hemoglobin A1c Pending Calcium 8.8 (8.4-10.2) mg/dL Phosphorus 3.0 (2.5-4.5) mg/dL Magnesium 1.8 (1.6-2.3) mg/dL Total Bilirubin 0.8 (0.2-1.3) mg/dL AST 19 (14-36) U/L ALT 16 (6-35) U/L Alkaline Phosphatase 91 (38-126) U/L Total Protein 8.0 (6.3-8.2) g/dL Albumin 4.0 (3.5-5.1) g/dL Urine Color (Yellow) Urine Appearance (Clear) Urine pH (5.0-9.0) Ur Specific [place] (1.001-1.035) Urine Protein (Negative) mg/dL Urine Glucose (UA) (Negative) mg/dL Urine Ketones (Negative) mg/dL Ur Blood (Man) (Negative) Urine Nitrate (Negative) Urine Bilirubin (Negative) Urine Urobilinogen (<2.0) mg/dL Leukocyte Esterase Rfl (Negative) SHANNAN/UL Urine RBC (0-2) /hpf Urine WBC (0-3) /hpf Ur Squamous Epith Cells (Few) /hpf Urine Bacteria /hpf Urine Casts POC Urine HCG, Qual (Negative) Discharge Plan Discharge Clinical Impression: Diabetes mellitus with hyperglycemia Patient Disposition: Home, Self-Care Condition: Stable Instructions: Diabetic Hyperglycemia (ED) Additional Instructions: Return ER if she cannot keep down food/water/medication, you lose consciousness, your blood sugars are below 60, or you have additional concerns. Patient Language: Japanese Prescriptions: No Action rosuvastatin 5 mg tablet Jardiance 10 mg tablet 10 mg PO DAILY Trulicity 0.75 mg/0.5 mL pen injector SUBCUT Mounjaro 2.5 mg/0.5 mL pen injector 2.5 mg SUBCUT WEEKLY polyethylene glycol 3350 [Miralax] 17 gram Powder In Packet 17 g PO QAM Qty: 30 0RF sennosides-docusate sodium [Senokot-S] 8.6-50 mg Tablet 2 tab PO BID Qty: 30 0RF ergocalciferol (vitamin D2) [Vitamin D2] 1,250 mcg (50,000 unit) Capsule 50,000 unit PO SuWe@0900 Qty: 8 0RF Eliquis 2.5 mg Tablet 2.5 mg PO Q12HR Qty: 84 0RF metformin 500 mg tablet 500 mg PO BID Qty: 60 0RF (DME) blood-glucose meter [OneTouch Verio Flex meter] Misc Qty: 1 0RF Rx Instructions: May substitute to in-stock meter and/or covered by insurance. Use As Directed (DME) OneTouch Verio test strips Strip Qty: 1 0RF Rx Instructions: May substitute to in-stock and/or covered by insurance strips. Use As Directed (DME) lancets [OneTouch Delica Plus Lancet] 30 gauge Misc Qty: 1 0RF Rx Instructions: May substitute to in-stock and/or covered by insurance lancets. Use As Directed Follow-up/Referrals: UNKNOWN,DOCTOR [Primary Care Provider] - 1 Week
[2025-01-29 16:14] LABS: Hemoglobin A1C 12.8 % (<5.7)
[2025-01-29 16:41] LABS: Glucose Point of Care 235 mg/dl (65-105)
== END 2025-01-29 16:42 | disposition home or self-care (01) ==
PROVIDERS: Emergency Provider Emergency Medicine
DX: E11.65 Type 2 diabetes mellitus with hyperglycemia (principal)
CPT/HCPCS: 36415; 80053; 81001; 81025; 82948; 83036; 83735; 84100; 85025; 96360; 99283; J7030

== ENCOUNTER 2025-02-02 22:41 | Emergency (ER) | payer OTHER, SELFPAY ==
--- OUTSIDE RECORDS SUMMARY | 2025-02-02 22:44 | XMS_ITS | Clinical Summary ---
Author Organization [facility] Address [address] [place] [address] Care Team Providers Care Detonator Assembler Name Role Phone Vivienne Almanza MD Primary Care Provider Monie Segura APRN-OFFICE SERVICES SPECIALIST Unavailable Source Comments [facility],non-owned Affiliates and Associated Physician Practices is amultiple site organization consisting of ambulatory clinics and hospital sitesin [place], [place], [place] and [place]. This disclosure is being madepursuant to the Care Everywhere program and may not contain all information available regarding this patient. Last updated 18.[facility] Allergies Active Allergy Reactions Criticality Noted [...] Comments Blood Pressure 124/80 09/19/2022 8:30 AM GENERAL LABOR FORKLIFT OPERATOR Pulse 88 09/19/2022 8:30 AM GENERAL LABOR FORKLIFT OPERATOR Temperature 36.6 C (97.8 F) 09/19/2022 8:30 AM GENERAL LABOR FORKLIFT OPERATOR Respiratory Rate - - Oxygen Saturation 100% 09/19/2022 8:30 AM GENERAL LABOR FORKLIFT OPERATOR Inhaled Oxygen Concentration - - Weight 144.3 kg (318 lb 3.2 oz) 09/19/2022 8:30 AM GENERAL LABOR FORKLIFT OPERATOR Height 152.4 cm (5') 09/19/2022 8:30 AM GENERAL LABOR FORKLIFT OPERATOR Body Mass Index 62.14 09/19/2022 8:30 AM GENERAL LABOR FORKLIFT OPERATOR Plan of Treatment Health Maintenance Due Date Last Done Comments PAP SMEAR 1988 HIV SCREENING 2003 HEPATITIS C SCREENING 06/26/2006 DTAP/TDAP/TD VACCINES (1 - Tdap) 2007 HEPATITIS B VACCINE (1 of 3 - 19+ 3-dose series) 2007 COVID-19 VACCINE (1 - 2023-2 5 season) 2024 DEPRESSION SCREENING 10/29/2024 INFLUENZA VACCINE (Season Ended) 2025 ZOSTER VACCINE (1 of 2) 2038 HIB [...] age to complete this topic Care Teams Detonator Assembler Relationship Specialty Start Date End Date Vivienne Almanza MD [address] [place], [place] [id number] PCP - General 03/20/18 Monie Segura, NUMERICAL CONTROL MACHINE MACHINIST-OFFICE SERVICES SPECIALIST [address] [place] [id number] Nurse Practitioner [facility] 09/19/22
--- OUTSIDE RECORDS SUMMARY | 2025-02-02 22:44 | XMS_ITS | CONTINUITY OF CARE DOCUMENT ---
Author Name monet healy Address Unknown Organization [facility] Address [address] [place] [address] Phone [phone] Care Team Providers Care Lan/Wan Engineer Name Role Phone Narciso Askew MD Unavailable CHRISTEL WOODS MD Unavailable CHRISTEL WOODS MD Unavailable PROBLEMS Condition Status Date Provider Notes Hyperlipidemia;with high crp and lpa active Narciso Askew MD Cardiology examination completed 9 - Narciso Askew MD Diabetes mellitus, type 2 active Narciso stinson MD neg egfr Palpitations active Nanette Ventimiglia WATER AEROBICS INSTRUCTOR IRON DEFICIENCY active Narciso Askew MD neg b12 Fatigue active Nanette Ventimiglia WATER AEROBICS INSTRUCTOR Obesity active Nanette Ventimiglia WATER AEROBICS INSTRUCTOR Chest pain active Nanette Ventimiglia WATER AEROBICS INSTRUCTOR ENCOUNTERS Date Type Provider Location Encounter Diag nosis - In-person encounter Office Visit Narciso Askew MD [facility] Cardiology examination - In-person encounter Office Visit Narciso Askew MD [facility] Chest pain - In-person encounter Office Visit Narciso Askew MD [facility] Diabetes mellitus, type 2PalpitationsIRON DEFICIENCYFatigueObesity VITAL SIGNS Date Observation Value Provider Body Mass Index (Ratio) 63.27 kg/m2 Rishi Askew MD oxygen saturation, oximetry 89 % [facility] 87 /min [facility] blood pressure, diastolic 85 mm[Hg] [facility] pressure, systolic 120 mm[Hg] [facility] respiratory rate E&M 12 /min [facility] 324 [lb_av] [facility] height E&M 60 [in_i] [facility] blood pressure, cuff size large [facility] Body Mass Index (Ratio) 61.55 kg/m2 Rishi Askew MD blood pressure, diastolic 81 mm[Hg] Lan angelina Cole blood pressure, systolic 138 mm[Hg] Diandra caden [facility] pulse rate 82 /min [facility] weight E&M 315.2 [lb_av] [facility] blood pressure, cuff size regular Lan angelina Cole height E&M 60 [in_i] [facility] Body Mass Index (Ratio) 62.68 [...] 5 mg tablet completed - Nanette Ventimiglia WATER AEROBICS INSTRUCTOR metformin (Glucophage XR) 500 mg tablet extended release 24 hr completed - Nanettekeesha Felipemiglia WATER AEROBICS INSTRUCTOR ibuprofen 600 mg tablet active Kasandra Lopez albuterol sulfate 90 mcg/actuation HFA aerosol inhaler active Kasandra Lopez SOCIAL HISTORY Date Observation Value Provider personal history of marijuana use no Nanette Ventimiglia WATER AEROBICS INSTRUCTOR drug use no Nanette Ventimig neno WATER AEROBICS INSTRUCTOR alcohol use no Nanette Ventimig neno WATER AEROBICS INSTRUCTOR smoking status Never smoker Nanette Felipem iglia WATER AEROBICS INSTRUCTOR personal history of marijuana use no Nanette Ventimiglia WATER AEROBICS INSTRUCTOR drug use no Nanette Ventimig neno WATER AEROBICS INSTRUCTOR alcohol use no Nanette lazcano [facility] smoking status Never smoker Nanette moreira [facility] personal history of marijuana use no Nanette Perla [facility] drug use no Nanette lazcano [facility] alcohol use no Nanette lazcano [facility] smoking status Never smoker Nanettekeesha moreira [facility] INSURANCE PROVIDERS Payer name Policy type / Coverage type Alfredo red libertarian ID [employer] MEDICAID (2) Medicaid [id number] ADVANCE DIRECTIVES Name Date DISCUSSED - NO DECISION MADE TREATMENT PLAN Date Name Performer :9 Narciso Askew MD Cardiology:weight loss encourage d Nanettekeesha Perla [facility] Cardiology:she compl eted tele with no significant arrhythmia Nanettekeesha Perla [facility] Cardiology:she is no t taking meds r einforced compliance H er updated medication list for this problem includes: Trulicity 0.75 Mg/0.5 Ml Pen Injector (Dulaglutide) ..... 1 pen injector subcutaneously once a week Jardiance 10 Mg Tablet (Empagliflozin) ..... Take 1 tablet by mouth once daily Amelia Minda [facility] Cardiology:atypical in nature, but persistent s he had echo that showed normal EF w ill do CXR and routine stress test g et labs Amelia Minda [facility] Cardiology:will check iron studi es Nanettekeesha Perla [facility] Cardiology:last hgb A1C was 7.6 [...] injector subcutaneously once a week Nanette Perla [facility] Cardiology:will comp lete tele monitor W ill do labs to r/o underlying source Nanette Perla [facility] Cardiology:Patient h as reports of [...] given palpitations and memory fog Nanette Perla [facility] Date Name CXR- PA/Lat X-Ray, [...]
--- OUTSIDE RECORDS SUMMARY | 2025-02-02 22:44 | XMS_ITS | Referral Summary ---
Author Organization [facility] Address [address] [place] [address] Care Team Providers Care Nurse Plastics Name Role Phone Vivienne Almanza MD Primary [...] on file Legal Sex Female 8:34 PM CHANGE ROOM ATTENDANT Gender Identity Not on file Sexual Orientation Not on file Last Filed Vital Signs Vital Sign Reading Time Taken Comments Blood Pressure 115/81 12/23/2020 10:58 AM CHANGE ROOM ATTENDANT Pulse 82 12/23/2020 10:58 AM CHANGE ROOM ATTENDANT Temperature 36.3 C (97.3 F) 12/23/2020 10:58 AM CHANGE ROOM ATTENDANT Respiratory Rate 18 12/23/2020 10:5 8 AM CHANGE ROOM ATTENDANT Oxygen Saturation 100% 06/03/2017 11: 53 AM CDT Inhaled Oxygen Concentration - - Weight 148.5 kg (327 lb 6.4 oz) 021 10:58 AM CHANGE ROOM ATTENDANT Height 152.4 cm (5') 10/31/2023 3:02 PM CHANGE ROOM ATTENDANT Body Mass Index 59.88 12/23/2020 10:58 AM CHANGE ROOM ATTENDANT Plan of Treatment Not on file Insurance Care Teams Nurse Plastics Relationship Specialty Start Date End Date Vivienne Almanza MD [address] [place] [address] PCP - General Internal Medicine 11/05/20
--- OUTSIDE RECORDS SUMMARY | 2025-02-02 22:44 | XMS_ITS | Clinical Summary ---
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 ANALYST Gender Identity Not on file Sexual Orientation Not on file Obstetrics History Last Filed Vital Signs Vital Sign Reading Time Taken Comments Blood Pressure 115/81 12/23/2020 10:58 AM SENIOR MAINFRAME PROGRAMMER ANALYST Pulse 82 12/23/2020 10:58 AM SENIOR MAINFRAME PROGRAMMER ANALYST Temperature 36.3 C (97.3 F) 12/23/2020 10:58 AM SENIOR MAINFRAME PROGRAMMER ANALYST Respiratory Rate 18 12/23/2020 10:5 8 AM SENIOR MAINFRAME PROGRAMMER ANALYST Oxygen Saturation 100% 06/03/2017 11: 53 AM CDT Inhaled Oxygen Concentration - - Weight 148.5 kg (327 lb 6.4 oz) 021 10:58 AM SENIOR MAINFRAME PROGRAMMER ANALYST Height 152.4 cm (5') 10/31/2023 3:02 PM SENIOR MAINFRAME PROGRAMMER ANALYST Body Mass Index 59.88 12/23/2020 10:58 AM SENIOR MAINFRAME PROGRAMMER ANALYST Plan of Treatment Health Maintenance Due Date [...] patient's age to complete this topic Insurance [facility] Care Teams Powder Monkey Relationship Specialty Start Date End Date Vivienne Almanza MD [address] [place] [id number] PCP - General Internal Medicine 11/05/20
--- OUTSIDE RECORDS SUMMARY | 2025-02-02 22:44 | XMS_ITS | Data Portability ---
Author Organization DANIEL Michela ALDRIDGE Kenna Address [address] [place] [address] Care Team Providers Care Ammonia Technician Name Role Phone JACLYN BOSCH Neurologist Assessment [...] A1c), blood 2023 024 oajao [facility], [address] [facility], [address], [place], [address], 12/09/2024 09:06:53 lipid panel, serum 2023 024 oajao [facility], [address] [facility], [address], [place], [address], 12/09/2024 09:07:02 TSH, ultra-se nsitive, serum 2023 024 [facility], [address] [place] [address], [address], [place], [address], 05/14/2024 13:13:28 basic metaboli c 1998 panel, serum or plasma 2023 024 [facility], [address] [place] [address], [address], [place], [address], 05/14/2024 13:13:27 iron + total iron-bin ding capacity (TIBC), serum 2023 024 [facility], [address] [place] [address], [address], [place], [address], 05/14/2024 13:13:29 ferritin , serum or plasma 2023 024 [facility], [address] [place] [address], [address], [place], [address], 05/14/2024 13:13:31 vitamin B12, serum 2023 024 [facility], [address] [place] [address], [address], [place], [address], 05/14/2024 13:13:30 hemoglob in S (hbs), presence , blood 2023 024 [facility], [address] [place] [address], [address], [place], [address], 05/14/2024 13:13:32 hemoglob in + hematocr it, blood 2023 024 [facility], [address] [place] [address] Juan, [address], [place], [address], 05/14/2024 13:13:33 albumin/ creatini ne, mass ratio, urine 2023 024 CALLERY [facility], [address] [facility], [address], [place], [address], 05/14/2024 13:13:26 HbA1c (hemoglo bin A1c), blood 2022 024 [facility], [address] [facility], [address], [place], [address], 02/19/2024 12:53:25 lipid panel, serum 2022 024 [facility], [address] [facility], [address], [place], [address], 07/01/2024 13:26:17 Referral neurolog ist referral 2023 024 CALLERY [facility], [address], [address], [place], [address], 12/29/2024 04:20:14 cardiolo gist referral 2023 024 [facility], [address], [address], [place], [address], 11/13/2024 14:03:22 diabetic ophthalm ology referral - HBA1C 7.6% 2023 024 CALLERY [facility], [address], [place], [address], 12/22/2024 04:23:21 endocrin ology, diabetes & metaboli sm speciali st referral 2023 024 antonio [facility] - End[facility]ology , [address], [address], [place], [address], 01/27/2025 12:01:15 Procedures None recorded . Surgeries None recorded . Imaging MRI, brain, w/o contrast - Facial numbness 2024 025 [facility] ([facility]), [address] [place], [address], 01/28/2025 16:14:12 XR, ankle - Pain/swe lling left lateral malleolu s 2023 024 [facility] ([facility]), [address] [place], [address], 07/11/2024 17:15:50 US, duplex, venous, lower extremit y - LLE swelling 2023 024 [facility] (Imaging), [address] [facility] [address], [place], [address], 01/15/2025 14:19:58 Medication Orders glimepir aldo 1 mg tablet 2024 025 [facility][id number], [address], [place], [place], [id number], 01/28/2025 16:05:33 rosuvast atin 40 mg tablet 2024 025 [facility] #05246, [address], [place], [place], [id number], 01/28/2025 16:07:07 Trulicit y 0.75 mg/0.5 mL subcutan eous pen injector 2024 025 [facility] #28907, [address], [place], [place], [id number], 01/28/2025 16:08:09 rosuvast atin 5 mg tablet 2023 024 [facility] #44898, [address], [place], [place], [id number], 07/01/2024 13:14:33 metformi n ER 500 mg tablet,e xtended release 24 hr 2023 024 [facility] #04826, [address], [place], [place], [id number], 07/01/2024 13:13:54 Rybelsus 3 mg tablet 2023 024 [facility] #17169, [address], [place], [place], [id number], 07/01/2024 13:14:16 fluconaz ole 150 mg tablet 2022 023 [facility] #10305, [address], [place], [place], [id number], 05/03/2023 11:18:58 Patient TargetsNo targets recorded. Patient Instructions Encounter Date Encounter Id Patient Instructions Last Modified By Organization Details Last Modified Time 05/03/2023 [id number] Cheese Cooker seen on (01/31/2023) Ophthalmology as referred Continue the current regimen Labs in July, Fluconazole PRN Follow up in 4 months and PRN hdoverma Not available 05/03/2023 11:25:50 01/17/2024 [id number] anemia: care instructions oajao Not available 01/17/2024 [...] visit oafrankie Not available 01/17/2024 13:30:55 05/13/2024 [id number] Xray US Take you r medications as prescribed Labs as previously ordered Follow up in 4 weeks oajao Not available 05/13/2024 12:44:15 07/01/2024 [id number] type 2 diabetes: care instructions oao Not available 07/01/2024 13:03:06 US as previously ordered Neurologist Value Analysis Coordinator Apparel Pattern Maker Title I Paraprofessional Labs Follow up in 6 weeks oajao Not available 07/01/2024 14:09:44 Complications of poorly managed DM were discussed oajao Not available 07/01/2024 14:10:38 01/28/2025 [id number] body mass index: care instructions oajao Not [...] on the lab results. Very detailed visit [facility] Not available 01/28/2025 19:36:52 Reason for Referral Diabetic Ophthalmology Refer ral for Uncontrolled type 2 diabetes mellitus HBA1C 10.6% HBA1C 7.6% Referring Physician: Vivienne Almanza, Internal Medicine, Encounter Date: 07/01/2024 Neurologist Referral for Tra nsient neurological symptoms Transient slurred speech Referring Physician: Vivienne Almanza, Internal Medicine, Encounter Date: 07/01/2024 Apparel Pattern Maker Referral for Tr ansient neurological symptoms Transient [...] men by AILEEN with probe detec tion neisseria gonorrhoeae, PCR [...] notest ab. Not Available [facility] ([facility]) [address] [place], [address], 05/14/2024 13:13:26 05/13/20 24 05/14/2024 ALBUM IN/CR EATIN INE RATIO ,URIN E albumin, urine 40.0 ug/mL notest ab. Not Available [facility] ([facility]) [address] [place], [address], 05/14/2024 13:13:26 05/13/20 24 05/14/2024 ALBUM IN/CR EATIN INE RATIO ,URIN E alb/creat ratio 31 mg/g_ creat 0-29 above high normal Jeanette l: 0 - 29 Moder ately incre ased: 30 - 300 Sever young incre ased: >300 Not Available [facility] ([facility]) [address] [place], [address], 05/14/2024 13:13:26 05/13/20 24 05/14/2024 BASIC METAB OLIC PANEL (7) glucose 144 mg/dL 70-99 above high normal Not Available [facility] ([facility]) [address] [place], [address], 05/14/2024 13:13:27 05/13/20 24 05/14/2024 BASIC METAB OLIC PANEL (7) BUN 9 mg/dL 6-20 Not Available [facility] ([facility]) [address] [place], [address], 05/14/2024 13:13:27 05/13/20 24 05/14/2024 BASIC METAB OLIC PANEL (7) creatinine 0.50 mg/dL 0.57-1 .00 below low normal Not Available [facility] ([facility]) [address] [place], [address], 05/14/2024 13:13:27 05/13/20 24 05/14/2024 BASIC METAB OLIC PANEL (7) eGFR 125 mL/mi n/1.7 3 >59 Not Available [facility] ([facility]) [address] [place], [address], 05/14/2024 13:13:27 05/13/20 24 05/14/2024 BASIC METAB OLIC PANEL (7) BUN/creatini ne ratio 18 9-23 Not Available [facility] ([facility]) [address] [place], [address], 05/14/2024 13:13:27 05/13/20 24 05/14/2024 BASIC METAB OLIC PANEL (7) sodium 139 mmol/ L 134-14 4 Not Available [facility] ([facility]) [address] [place], [address], 05/14/2024 13:13:27 05/13/20 24 05/14/2024 BASIC METAB OLIC PANEL (7) potassium 4.9 mmol/ L 3.5-5. 2 Not Available [facility] ([facility]) [address] [place], [address], 05/14/2024 13:13:27 05/13/20 24 05/14/2024 BASIC METAB OLIC PANEL (7) chloride 100 mmol/ L 96-106 Not Available [facility] ([facility]) [address] [place], [address], 05/14/2024 13:13:27 05/13/20 24 05/14/2024 BASIC METAB OLIC PANEL (7) carbon dioxide, total 27 mmol/ L 20-29 Not Available [facility] ([facility]) [address] [place], [address], 05/14/2024 13:13:27 05/13/20 24 05/14/2024 TSH RFX ON ABNOR MAL TO FREE T4 TSH 0.260 uIU/m L 0.450- 4.500 below low normal Not Available [facility] ([facility]) [address] [place], [address], 05/14/2024 13:13:28 05/13/20 24 05/14/2024 IRON AND TIBC iron bind.cap.(TI BC) 347 ug/dL 250-45 0 Not Available [facility] ([facility]) [address] [place], [address], 05/14/2024 13:13:29 05/13/20 24 05/14/2024 IRON AND TIBC UIBC 292 ug/dL 131-42 5 Not Available [facility] ([facility]) [address] [place], [address], 05/14/2024 13:13:29 05/13/20 24 05/14/2024 IRON AND TIBC iron 55 ug/dL 27-159 Not Available [facility] ([facility]) [address] [place], [address], 05/14/2024 13:13:29 05/13/20 24 05/14/2024 IRON AND TIBC iron saturation 16 % 15-55 Not Available [facility] ([facility]) [address] [place], [address], 05/14/2024 13:13:29 05/13/20 24 05/14/2024 VITAM IN B12 vitamin B12 570 pg/mL 232-12 45 Not Available [facility] ([facility]) [address] [place], [address], 05/14/2024 13:13:30 05/13/20 24 05/14/2024 T4F T4,free (direct) 1.65 NG/dL 0.82-1 .77 Not Available [facility] ([facility]) [address] [place], [address], 05/14/2024 13:13:31 05/13/20 24 05/14/2024 YOCASTA TIN ferritin 18 NG/mL 15-150 Not Available [facility] ([facility]) [address] [place], [address], 05/14/2024 13:13:31 05/13/20 24 05/14/2024 HB SOLU + RFLX FRAC hemoglobin (HGB) solubility NEGATI VE negati ve Not Available [facility] ([facility]) [address] [place], [address], 05/14/2024 13:13:32 05/13/20 24 05/14/2024 HGB+H CT hemoglobin 10.6 g/dL 11.1-1 5.9 below low normal Not Available [facility] ([facility]) [address] [place], [address], 05/14/2024 13:13:33 05/13/20 24 05/14/2024 HGB+H CT hematocrit 34.0 % 34.0-4 6.6 Not Available [facility] ([facility]) [address] [facility], [place], [address], 05/14/2024 13:13:33 06/24/20 24 06/24/2024 Bacte rial [...] XR, chest No observ ation record ed. [facility] [address], [place], [address], 05/03/2023 11:10:45 05/26/20 24 05/23/2024 CT, head, w/o contr ast No observ ation record ed. [facility] [address] [place], [address], 07/01/2024 13:05:33 05/26/20 24 05/23/2024 XR, chest No observ ation record ed. [facility] (Radiology) [address] [place], [address], 07/01/2024 13:03:50 05/26/20 24 05/23/2024 XR, shoul norbert No observ ation record ed. [facility] [address] [place], [address], 07/01/2024 13:05:28 11/13/19 25 11/13/2024 trans -thor acic echoc ardio gram (TTE) (PROC ) No observ ation record ed. [facility] [address] [address], [place], [address], 01/28/2025 19:40:15 Result Notes None recorded. Problems Name Problem SNOMED Code Status Onset Date Resolution Date Notes Provider Name and Address Organization Details Recorded Time History of asthma 623731498 Active 2019 Not Available [facility] 3 13:59:51 Chiari malformati on type I 953904478 Active 2019 Not Available [facility] 3 13:59:51 Malaise and fatigue 773758629 Active 2019 Not Available [facility] 3 13:59:51 Body mass index 40+ - severely obese 284399095 Active 2020 Not Available [facility] 3 13:59:51 SARS-CoV-2 mRNA vaccine declined 1696048147 Active 2021 Not Available [facility] 3 13:59:51 History of SARS-CoV-2 7068478676986 71205 Active 2021 Not Available [facility] 3 13:59:51 Influenza vaccinatio n declined 246521395 Active 2021 Not Available [facility] 3 13:59:51 Uncontroll ed type 2 diabetes mellitus 778798116 Active 2021 Not Available [facility] 3 13:59:51 Acute upper respirator y infection 47920428 Active Not Available [facility] 3 13:59:51 Upper respirator y tract infection caused by Influenza virus 3619968755951 9102 Active Vivienne Almanza MD Attn: Accounting ,[address] [place], [address] , [place] [facility] 4 10:54:51 Streptococ lit sore throat 01315925 Active Vivienne Almanza MD Attn: Accounting ,[address] [place], [address] , [place] [facility] 4 10:54:51 History of influenza 218572023 Active 2023 Vivienne Almanza MD Attn: Accounting ,[address] [place], [address] , [place] [facility] 4 11:32:59 History of fracture 610678313 Active 2023 Vivienne Almanza MD Attn: Accounting ,[address] [place], [address] , [place] [facility] 4 13:25:44 Pain of left ankle joint 9642842728689 9103 Active 2023 Vivienne Almanza MD Attn: Accounting ,[address] [facility], [place], [address] , [place] [facility] 4 13:25:46 Subclinica l hyperthyro idism 936318193 Active 2023 Vivienne Almanza MD Attn: Accounting ,[address] [facility], [place], [address] , [place] [facility] 4 13:11:45 Empty sella syndrome 929735200 Active 2023 Vivienne Almanza MD Attn: Accounting ,[address] [facility], [place], [address] , [place] [facility] 14:07:12 Chronic anemia 634089007 Active 2023 Vivienne Almanza MD Attn: Accounting ,[address] [facility], [place], [address] , [place] [facility] 16:05:46 Disorder of lipid metabolism 342668559 Active 2024 Vivienne Almanza MD Attn: Accounting ,[address] [facility], [place], [address] , [place] [facility] 19:28:52 Problem Notes None recorded. Procedures Surgical History Date Name Laterality Status Provider Name and Address Organization Details Recorded Time 01/29/20 25 Diabetic Foot Exam completed Vivienne Almanza MD Attn: Accounting, [address] [facility], [place], [address], [place] [facility] 01/28/2025 19:23:35 05/13/20 24 Diabetic Foot Exam completed Vivienne Almanza MD Attn: Accounting, [address] [facility], [place], [address], [place] [facility] 05/13/2024 12:40:04 01/17/20 24 Diabetic Foot Exam completed Vivienne Almanza MD Attn: Accounting, [address] [place], [address], [place] [facility] 01/17/2024 13:23:13 06/05/20 14 Caesarean Section completed Laura Harris [place] [facility] 09/13/2016 14:44:27 04/13/20 10 Caesarean Section completed Laura Harris [facility] 09/13/2016 14:44:15 11/27/19 08 Caesarean Section completed Laura Harris [facility] 09/13/2016 14:44:06 07/12/20 05 Caesarean Section completed Laura Harris [facility] 09/13/2016 14:43:00 Cholecystectomy completed Shira Vides [facility] 02/22/2021 14:46:04 procedure on ankle completed Kareem Vides [facility] 12/23/2021 16:28:46 Imaging Results Imaging Date Name Status LastModified by Organization Details LastModified Time 04/28/2023 XR, chest completed [facility] [address], [place], [address], 05/03/2023 11:10:45 05/23/2024 CT, head, w/o contrast completed [facility] [address] [place], [address], 07/01/2024 13:05:33 05/23/2024 XR, chest completed [facility] (Radiology) [address] [place], [address], 07/01/2024 13:03:50 05/23/2024 XR, shoulder completed [facility] [address] [place], [address], 07/01/2024 13:05:28 11/13/2024 trans-thoracic echocardiogram (TTE) (PROC) completed [facility] [address] [address], [place], [address], 01/28/2025 19:40:15 Procedure Notes None recorded. Medical Equipment None Reported. Allergies Allergen ID Allergen Name Allergen Category Reaction Reaction Severity Criticality Documentation Date Start Date Code Code System Note Provider Name and Address Organization Details Recorded Time 70812 morphine medicatio n Not available Not available [...] Updated DateTime 3 152.4 cm 60.9 kg/m2 518917. 82 g 74 /min 99 % 99 [...] Updated DateTime 4 152.4 cm 60.7 kg/m2 176271. 23 g 97 % 97 % 88 /min 20 /min 97.8 [degF] 110 mm[Hg] 70 mm[Hg] Shira Vides MA [facility] 4 10:49:33 Date Recorded Body height Body mass index (BMI) Body weight Heart rate Oxygen saturation Oxygen saturation in Arterial blood by Pulse oximetry Respiratory rate Systolic blood pressure Diastolic blood pressure Provider Name and Address Organization Details Last Updated DateTime 4 152.4 cm 60.9 kg/m2 984950. 46 g 66 /min 97 % 97 % 18 /min 114 mm[Hg] 80 mm[Hg] Shira Vides MA [facility] 4 12:29:10 Date Recorded Body height Body mass index (BMI) Body weight Heart rate Respiratory rate Systolic blood pressure Diastolic blood pressure Provider Name and Address Organization Details Last Updated DateTime 4 152.4 cm 61.5 kg/m2 801386. 6 g 72 /min 16 /min 116 mm[Hg] 76 mm[Hg] Shira Vides MA [facility] 4 12:20:22 Date Recorded Body height Body mass index (BMI) Body weight Body temperature Heart rate Oxygen saturation Oxygen saturation in Arterial blood by Pulse oximetry Systolic blood pressure Diastolic blood pressure Provider Name and Address Organization Details Last Updated DateTime 5 152.4 cm 62.9 kg/m2 438883. 74 g 97.2 [degF] 67 /min 96 % 96 % 126 mm[Hg] 82 mm[Hg] Mary Pate [facility] 5 15:31:49 Social History Question Answer Notes LastModified by Organizat ion Details LastModified Time Tobacco Smoking Status Never Smoker MARU Al [facility] 09/13/2016 14:42:40 What Is Your Level [...] Of Your Most Recent Tobacco Screening? 01/28/2025 [email or web address] Information not available 01/28/2025 Performs Monthly Self-breast [...] Date Was Tobacco Cessation Counseling Provided? 01/28/2025 [email or web address] Information not available 01/28/2025 How Many Years [...] Atrial Fibrillation N High Blood Pressure N Thyroid Problems N Kidney or Bladder Problems N Depression N COPD N Blood Clots N GI Problems N Skin Problems N Anemia N Heart Attack (MA) N Diabetes Y Anxiety Disorder N Muscle, Joint, or Bone Problems N Seizures/Epilepsy N Acid Reflux (GERD) N Cancer N Stroke N Allergies N Asthma Y High Cholesterol N Hepatitis N Liver Disease [...] Recorded Time Tdap 2 completed Not Available [facility] 10/23/2023 01:00:52 Td (adult), 2 Lf tetanus toxoid, preservative free, adsorbed 3 completed Not Available [facility] 10/23/2023 01:00:52 Hep B, adolescent or pediatric 8 completed Not Available [facility] 10/23/2023 01:00:52 Hep B, adolescent or pediatric 7 completed Not Available [facility] 10/23/2023 01:00:52 Hep B, adolescent or pediatric 7 completed Not Available [facility] 10/23/2023 01:00:52 Past Encounters Encounter ID Performer Location Encounter Start Date Encounter Closed Date Diagnosis/Indication Diagnosis SNOMED-CT Code Diagnosis ICD10 Code Diagnosis Note [id number] Vivienne Almanza MD [facility] (Adult Med) [address] [place] [address] 09/13/2016 14:27:56 09/13/2016 15:21:16 General examination of patient 549472022 Z00.01 Fatigue 58204966 R53.83 High risk for GARRISON as she snores and she is overweight although there are no reported apneic episodes. Dizziness 633423117 R42 Pain in toe 919151106 M7 9.675 Immunization refused 275 397672 Z28.20 Obesity 285360651 E66.9 [id number] MD [facility] (Adult Med) [address] [place] [id number] 10/18/2016 16:18:17 10/18/2016 17:21:02 Impaired fasting glycemia 989008924 R73.01 Obesity 180361659 E66.9 Acute bact erial paronychia 072526697 L03.90 Middle finger R. hand Thyroid fu nction tests abnormal 994205159 R94.6 Immunization refused 275 245112 Z28.20 Disorder o f lipid metabolism 924986694 E78.9 [id number] MD [facility] (Adult Med) [address] [place] [address] 01/03/2017 09:29:59 01/03/2017 10:15:20 Overweight 238199799 E66.3 Eruption 319002763 R21 [id number] MD [facility] (Adult Med) [address] [place] [phone] 04/19/2017 15:02:36 04/20/2017 09:43:41 Intermittent palpitations 438816120 R00.2 Neuropathy 989630380 G62 .9 Meralgia parestheti ca? Thyroid fu nction tests abnormal 783829419 R94.6 Malaise and fatigue 2717 30228 R53.81 R53.83 She reports that she is fatigued, she snores and she is overweight and has palpitatio ns Intentiona l weight loss 279744689 R63.8 She continues to have success with Weight watchers [id number] MD [facility] (Adult Med) [address] [place] [id number] 02/17/2020 11:13:07 02/19/2020 10:58:18 Cough 28807735 R05 Adult heal th examination 048734704 Z00.00 Candidiasis of vagina 72 451002 B37.3 History of asthma 537976 007 Z87.09 Imaging re sult abnormal 908395566 R93.89 Discussed, the MRI of her ankle was apparently ordered by her orthopedic surgeon Chiari mal formation type I 646952537 G93.5 Incidental finding on the CT scan [id number] MD [facility] (Adult Med) [address] [place] [phone] 04/06/2020 09:41:38 04/08/2020 15:42:34 Disorder of lipid metabolism 848455234 E78.9 Discussed [id number] MD [facility] (Adult Med) [address] [place] [phone] 10/13/2020 08:08:47 10/14/2020 11:14:23 Sleep disorder 36363746 G47.9 Previously referred on 04/19/2017 Influenza vaccination declined 893128953 Z28.21 Malaise and fatigue 2717 00385 R53.81 R53.83 She reports that she is fatigued, she snores, has apneic episodes, and she is overweight . Apnea 8785138 R06.81 Stress 60422459 Z73.3 [id number] MD [facility] (Adult Med) [address] [place] [phone] 02/22/2021 14:36:56 02/23/2021 10:32:11 Anemia 819327725 D64.9 Unintentio nal weight gain 7311211988 04421 R63.5 She is getting back on Weight Watchers Not keen on bariatric surgery but she will meet with the team Thyroid fu nction tests abnormal 131437087 R94.6 Vaccine de clined by patient 3159902055 02 Z28.21 Body mass index 40+ - severely obese 970422398 Z68.44 Joint swelling 757683208 M25.40 Disorder o f lipid metabolism 925482360 E78.9 Discussed Dysuria 29013453 R30.9 [id number] MD [facility] (Adult Med) [address] [place] [address] 07/28/2021 08:06:08 07/29/2021 05:14:25 Cloudy urine 5184987 R82.90 Cough 66240558 R05 Night sweats 54656593 R6 1 Snoring 07469786 R06.83 Influenza vaccination declined 147503197 Z28.21 [id number] MD [facility] (Adult Med) [address] [place] [address] 12/23/2021 16:14:33 12/26/2021 09:27:51 Uncontrolled type 2 diabetes mellitus 638164065 E11.65 Discussed the benefits of Metformin and her diagnosis of DM with a HBA1C of 7.2DietWei ght lossMonito r blood sugars History of SARS-CoV-2 29 51872546 12470117 Z86.16 SARS-CoV-2 mRNA vaccine declined 2711087741 Z28.21 History of asthma 101742 007 Z87.09 Influenza vaccination declined 155809234 Z28.21 History of pneumonia 161 781056 Z87.01 COVID 19 PNA 11/27/2021 [id number] Vivienne Almanza MD [facility] (Adult Med) [address] [place] [id number] 03/01/2023 11:18:22 03/05/2023 09:14:22 Uncontrolled type 2 diabetes mellitus 489432426 E11.65 HBA1C 7.4%Start Metformin ER, side effects were discussed. She had previously refused on her last visit.Pt education on DMNutritio nistLabsOp hthalmolog ist OV 12/23/2021 iscussed the benefits of Metformin and her diagnosis of DM with a HBA1C of 7.2DietWei ght lossMonito r blood sugars Disorder o f lipid metabolism 772987470 E78.9 Discussed, start Rosuvastat in, side effects were discussed [id number] Vivienne Almanza MD [facility] (Adult Med) [address] [place] [phone] 05/03/2023 10:20:35 05/07/2023 15:20:02 Uncontrolled type 2 diabetes mellitus [id number] E11.65 HBA1C 7.4%Start Metformin ER, side effects were discussed. She had previously refused this on her last visit.Pt education on DMNutritio nistLabsOp hthalmolog ist OV 12/23/2021 iscussed the benefits of Metformin and her diagnosis of DM with a HBA1C of 7.2DietWei ght lossMonito r blood sugars Follow-up visit [id number] Z09 Recurrent candidiasis of vagina 820836292 B37.32 History of syncope 88367 31673 08992 Z86.79 [id number] MD Travis Prescott (Adult Med) [address] [place] [address] [phone] 01/17/2024 10:34:59 01/17/2024 11:43:30 Uncontrolled type 2 diabetes mellitus [id number] E11.65 Labs 10/22/2023 , HBA1C 7.6%She has [...] Body mass index 40+ - severely obese 930021406 Z68.44 Anemia 822605691 D64.9 History of fracture 3910 21965 Z87.81 Pain of le ft ankle joint 0686022599 6192539 M25.572 Pain in left foot 895075 1090 04581 M79.672 Disorder o f lipid metabolism 788560311 E78.9 Discussed, restart Rosuvastat in. Snoring 68320460 R06.83 Serum thyr oid stimulating hormone level outside reference range 385194545 R89.1 Medication monitoring 39 3107980 Z51.81 History of influenza 789 801354 Z87.09 [id number] MD Travis Prescott (Adult Med) [address] [place] [address] [phone] 05/13/2024 12:19:54 05/16/2024 15:14:19 Pain of left ankle joint 1185995996 8685320 M25.572 Swelling of lower leg 44 3549123 R22.40 [id number] MD Travis Prescott (Adult Med) [address] [place] [address] [phone] 07/01/2024 10:53:32 07/02/2024 11:44:07 Uncontrolled type 2 diabetes mellitus 570345721 E11.65 HBA1C 7.6% on 10/22/2023 Not compliant [...] lossMonito r blood sugars Transient neurological symptoms 431583583 R29.90 Empty sella syndrome 237 847610 E23.6 Chronic anemia 119717205 D64.9 Subclinica l hyperthyroidism 675320393 E05.90 Non-compli ant behavior 923070485 R46.89 [id number] Vivienne Almanza MD [facility] (Adult Med) [address] [place] [address] [phone] 01/28/2025 15:09:44 01/29/2025 11:30:49 Body mass index 40+ - severely obese 312867966 Z68.44 Uncontroll ed type 2 diabetes mellitus 098601767 E11.65 Uncontroll ed DM with a HBA1c [...] lossMonito r blood sugars Transient neurological symptoms 768599026 R29.90 Neurologis t as referred Numbness of face 3943426 09 R20.0 Disorder o f lipid metabolism 586940177 E78.9 Discussed, restart Rosuvastat in. Health Concerns Section Related Observation LastModified by Organization Detai ls LastModified Time None Recorded Concern Status LastModified by Organization Details LastModified Time None Recorded Advance Directives Directive None Recorded Payers Encounter Date Sequence Insurance Name Policy Number Policy Brand Covered Member ID Brand Member ID Guarantor Name 05/03/[address] [facility] ON OR AFTER 04/28/21 (MEDICAID REPLACEMENT - HMO) Melly Tinoco [id number] Luizy Raul 01/17/[address] [facility] ON OR AFTER 04/28/21 (MEDICAID REPLACEMENT - HMO) Melly Philipline [id number] Heavenly Raul 05/13/[address] [facility] ON OR AFTER 04/28/21 (MEDICAID REPLACEMENT - HMO) Melly Tinoco [id number] Heaveamauriy Raul 07/01/2024 1 [facility] ON OR AFTER 04/28/21 (MEDICAID REPLACEMENT - HMO) Melly McCfrancois [id number] Heavenly Raul 01/28/[address] [facility] ON OR AFTER 04/28/21 (MEDICAID REPLACEMENT - HMO) Melly Tinoco [id number] Luizy Raul Notes Date Note Type Note [...] Fluconazole. Vivienne Almanza MD Attn: [address] [place], [address], [facility] 05/03/2023 12:06:40 01/17/2024 text/html [...] up. Vivienne Almanza MD Attn: [address]ing[address] [facility], [place], [address], [facility] 01/17/2024 13:30:59 05/13/2024 text/html AnkleReported bypatient.Location:[facility] Quality:aching; throbbing; worsening Severity:severe Duration:months Timing:chronic Context:sports [...] ankle. Vivienne Almanza MD Attn: Accounting[address] [facility], [place], [address], [facility] 05/13/2024 13:52:15 07/01/2024 text/html [...] . Vivienne Almanza MD Attn: Accounting[address] [place], [address], [facility] 07/01/2024 14:10:44 01/28/2025 text/html [...] sugars, she was also seen by the authorization nurse Dr Askew. On her last visit on 07/01/2024, she was referred to the cut off worker and neurologist, she has scheduled appointments. Even [...] appetite. Vivienne Almanza MD Attn: Accounting[address] [facility], [place], [address], [facility] 01/28/2025 19:37:50 OBGyn Episode No OBEpisode recorded.
--- OUTSIDE RECORDS SUMMARY | 2025-02-02 22:44 | XMS_ITS | Data Portability ---
Author Organization [facility] [place] Address [address] [place] [address] [place] [address] Care Team Providers Care Structural Analyst Name Role Phone CHRISTEL WOODS Primary Care Provider [phone] Assessment Encounter Date Assessment Date Assessment LastModified by Organization Details LastModified Time 02/11/2024 02/11/2024 Annual gynecological exam performed. Patient will come back in a year unless there are new symptoms. [email or web address] Not available 02/04/2024 09:34:15 Plan of Treatment Reminders Order Date Submit Date Provider Last Modified By Organization Details Last Modified Time Details Appointments None recorded. Lab urinalysis, dipstick 2024 025 [email or web address] [address], [address], [place], [address], 11:42:17 hbcab (hepatitis B core Ab) igm, serum 2024 025 [facility] (Lab), [address], [place], [address], 5 12:35:56 HBsAg (hepatitis B surface Ag), serum 2024 025 [facility] (Lab), [address], [place], [address], 5 12:35:55 hepatitis C virus Ab, serum 2024 025 [facility] (Lab), [address] [place], [address], 5 12:35:55 HIV 1+2 AB + HIV 1 p24 Ag, qualitative immunoassay , serum 2024 025 [facility] (Lab), [address], [place], [address], 5 12:35:55 RPR (rapid plasma reagin), serum 2024 025 [facility] (Lab), [address], [place], [address], 5 12:35:56 urinalysis, dipstick 2024 025 ness [place], [address], [place], [address], 5 13:07:46 HBsAg (hepatitis B surface Ag), serum 2023 024 [facility] (Lab), [address], [place], [address], 4 10:53:58 hbcab (hepatitis B core Ab) igm, serum 2023 024 [facility] (Lab), [address], [place], [address], 4 21:20:56 HBsAg (hepatitis B surface Ag), serum 2023 024 [facility] (Lab), [address], [place], [address], 4 21:20:54 hepatitis C virus Ab, serum 2023 024 [facility] (Lab), [address], [place], [address], 4 21:20:55 unlisted lab - HIV 1/2 antigen/ant ibody, reflex confirmatio n 2023 024 [facility] (Lab), [address], [place], [address], 4 21:20:54 RPR (rapid plasma reagin), serum 2023 024 [facility] (Lab), [address], [place], [address], 4 21:20:55 urinalysis, dipstick 2023 024 [facility], [address], [address], [place], [address], 4 14:46:49 Referral pelvic floor therapy referral [address] (Outpatient Physical Therapy), [address], [place], [address], 5 11:20:52 Procedures None recorded. Surgeries None recorded. Imaging MAMMO, diagnostic, digital, bilateral 2023 024 [facility], [address], [place], [address], 5 04:03:29 US, breast, unilateral - left breast lump 2023 024 [facility], [address], [place], [address], 4 04:13:53 Medication Orders clotrimazol e-betametha sone 1 %-0.05 % topical cream 2024 025 [id number], [address], [place], [place], [id number], 5 11:26:52 Diflucan 150 mg tablet 2024 025 [facility][id number], [address], [place], [place], [id number], 5 11:26:53 Macrobid 100 mg capsule 2024 025 [facility] #[id number], [address], [place], [place], [id number], 5 11:02:23 fluconazole 150 mg tablet [address] [facility][id number], [address], [place], [place], [id number], 5 11:01:18 doxycycline hyclate 100 mg capsule 2023 025 [facility] #[id number], [address], [place], [place], [id number], 5 11:01:31 Patient TargetsNo targets recorded. Patient InstructionsNo instructions recorded. Reason for Referral Pelvic Floor Therapy Referra l for Female stress incontinence Referring Physician: Monie Segura, ASSOCIATE PROPERTY MANAGER, Encounter Date: 11/27/2024 Results Created Date Observation Date Name Description Value Unit Range Abnormal Flag Note LastModifiedBy Organization Detail LastModifiedTime 02/11/2002/11/2024 HIV 1/2 ANTIG EN/AN TIBOD Y, REFLE X CONFI RMATI ON HIV antigen/anti body Nonrea ctive nonrea ctive HIV-1 antig en and HIV-1 /HIV- 2 antib odies were not detec trung. No labor atory evide nce of HIV infec tion. Not Available [facility] (Lab) [address], [place], [address], 02/13/2024 21:20:54 02/11/20 24 02/11/2024 HEPAT ITIS B SURFA CE ANTIG EN hepatitis B surface antigen Non-re active non-re active This assay was perfo rmed using [employer] n reage nts and test kits. Value s obtai kae with other assay metho ds or kits canno t be used inter bay eably . Not Available [facility] (Lab) [address], [place], [address], 02/13/2024 21:20:54 02/11/20 24 02/11/2024 HEPAT ITIS C ANTIB LEFTY SCREE N, REFLE X TO CONFI RMATI ON hepatitis C antibody Non-re active non-re active Antib odies to HCV Not Detec trung, does not exclu de the possi bilit y of expos ure to HCV. Not Available [facility] (Lab) [address], [place], [address], 02/13/2024 21:20:55 02/11/20 24 02/11/2024 RPR SCREE N, REFLE X TITER /CONF IRMAT ION RPR screen Nonrea ctive nonrea ctive Not Available [facility] (Lab) [address] [place], [address], 02/13/2024 21:20:55 02/11/20 24 02/11/2024 HEPAT ITIS B CORE, IGM hepatitis B core IgM antibody Negati ve negati ve Not Available [facility] (Lab) [address] [place], [address], 02/13/2024 21:20:56 02/11/20 24 02/11/2024 IMAGE GUIDE [...] for Intra epith elial Lesbarry iniguez or Barndy salinas (NIL) . Elect cadenprakash giron hebert [...] as clini michelle mooney nted. Not Available [facility] (Lab) [address], [place], [address], 02/14/2024 11:16:18 02/11/20 24 02/11/2024 TRICH OMONA S VAGIN ERIC (RRNA ) trichomonas vaginalis ribosomal RNA (rrna) Negati ve negati ve Not Available [facility] (Lab) [address], [place], [address], 02/14/2024 11:16:19 02/11/20 24 02/11/2024 CT/GC (KELLEY) , THINP REP VIAL chlamydia trachomatis, PCR Negati ve negati ve Not Available [facility] (Lab) [address], [place], [address], 02/14/2024 11:16:19 02/11/20 24 02/11/2024 CT/GC (KELLEY) , THINP REP VIAL neisseria gonorrhoeae, PCR Negati ve negati ve Not Available [facility] (Lab) [address] [place], [address], 02/14/2024 11:16:19 02/11/20 24 02/11/2024 CULTU RE: URINE result report SEE RESULT S BELOW abnormal Test: Cultu re: Urine Speci men Sourc e: Urine - Clean Catch Speci men Type: Urine Speci men Date: 2023 12:04 PM Resul t Date: 2023 1:49 PM Resul t Statu s: Final resul t Abnor mal: Yes Resul maricarmen Lab: [facility] [address] [facility] [address] Tel: CULTU RE ----- ----- ----- --- [...] lab withi n 5 days. Not Available [facility] (Lab) [address], [place], [address], 02/14/2024 11:16:20 06/24/20 24 06/24/2024 HBSAG /HCV/ HIV/R MO hepatitis C antibody Non-re active non-re active Antib odies to HCV Not Detec trung, does not exclu de the possi bilit y of expos ure to HCV. Not Available [facility] (Lab) [address], [place], [address], 06/25/2024 10:53:58 06/24/20 24 06/24/2024 HBSAG /HCV/ HIV/R MO HIV antigen/anti body Nonrea ctive nonrea ctive HIV-1 antig en and HIV-1 /HIV- 2 antib odies were not detec trung. No labor atory evide nce of HIV infec tion. Not Available [facility] (Lab) [address], [place], [address], 06/25/2024 10:53:58 06/24/20 24 06/24/2024 HBSAG /HCV/ HIV/R MO hepatitis B surface antigen Non-re active non-re active This assay was perfo rmed using [employer] reage nts and test kits. Value s obtai kae with other assay metho ds or kits canno t be used inter bay eably . Not Available [facility] (Lab) [address], [place], [address], 06/25/2024 10:53:58 06/24/20 24 06/24/2024 HBSAG /HCV/ HIV/R MO RPR screen Nonrea ctive nonrea ctive Not Available [facility] (Lab) [address], [place], [address], 06/25/2024 10:53:58 06/24/20 24 06/24/2024 VAGIN ITIS/ VAGIN OSIS, DNA PROBE eulalio sp. detection, direct probe Negati ve negati ve Not Available [facility] (Lab) [address], [place], [address], 06/25/2024 13:04:14 06/24/20 24 06/24/2024 VAGIN ITIS/ VAGIN OSIS, DNA PROBE gardnerella vag. detection, direct probe Negati ve negati ve Not Available [facility] (Lab) [address], [place], [address], 06/25/2024 13:04:14 06/24/20 24 06/24/2024 VAGIN ITIS/ VAGIN OSIS, DNA PROBE trichomonas vag. detection, direct probe Negati ve negati ve Not Available [facility] (Lab) [address], [place], [address], 06/25/2024 13:04:14 06/24/20 24 06/24/2024 CT/GC AND TRICH OMONA S VAGIN ERIC (RRNA ), SWAB chlamydia trachomatis, PCR Negati ve negati ve Not Available [facility] (Lab) [address], [place], [address], 06/25/2024 13:04:14 06/24/20 24 06/24/2024 CT/GC AND TRICH OMONA S VAGIN ERIC (RRNA ), SWAB neisseria gonorrhoeae, PCR Negati ve negati ve Not Available [facility] (Lab) [address], [place], [address], 06/25/2024 13:04:14 06/24/20 24 06/24/2024 CT/GC AND TRICH OMONA S VAGIN ERIC (RRNA ), SWAB trichomonas vaginalis ribosomal RNA (rrna) Negati ve negati ve Not Available [facility] (Lab) [address], [place], [address], 06/25/2024 13:04:14 11/27/19 25 11/27/2024 urina lysis , dipst ick Leukocytes TRACE Not Available [facility] alexander [address], [place], [address], 11/27/2024 13:02:21 11/27/19 25 11/27/2024 urina lysis , dipst ick Nitrite NEG Not Available [facility] [address], [place], [address], 11/27/2024 13:02:21 11/27/19 25 11/27/2024 urina lysis , dipst ick Urobilinogen NEG Not Available [facility] [address], [place], [address], 11/27/2024 13:02:21 11/27/19 25 11/27/2024 urina lysis , dipst ick Protein POS Not Available [facility] [address], [place], [address], 11/27/2024 13:02:21 11/27/19 25 11/27/2024 urina lysis , dipst ick pH 5 Not Available [facility] [address], [place], [address], 11/27/2024 13:02:21 11/27/19 25 11/27/2024 urina lysis , dipst ick Specific Gridley 1.015 Not Available [facility] [address], [place], [address], 11/27/2024 13:02:21 11/27/19 25 11/27/2024 urina lysis , dipst ick Ketone NEG Not Available [place] [address], [place], [address], 11/27/2024 13:02:21 11/27/19 25 11/27/2024 urina lysis , dipst ick Bilirubin 1 Not Available Xuan lara [address], [place], [address], 11/27/2024 13:02:21 11/27/19 25 11/27/2024 urina lysis , dipst ick Glucose NEG Not Available [facility] [address], [place], [address], 11/27/2024 13:02:21 11/27/19 25 11/27/2024 urina lysis , dipst ick Appearance DARK Not Available [facility] [address], [place], [address], 11/27/2024 13:02:21 11/27/19 25 11/27/2024 urina lysis , dipst ick Color YELLOW Not Available [facility], [place], [address], 11/27/2024 13:02:21 01/20/20 25 01/19/2025 WOMEN 'S HEALT H SWAB PLUS, AILEEN bacterial vaginosis (bv), tma Negati ve negati ve Not Available [facility] (Lab) [address] [place], [address], 01/20/2025 15:30:58 01/20/20 25 01/19/2025 WOMEN 'S HEALT H SWAB PLUS, AILEEN eulalio species, tma Negati ve negati ve Not Available [facility] (Lab) [address] [place], [address], 01/20/2025 15:30:58 01/20/20 25 01/19/2025 WOMEN 'S HEALT H SWAB PLUS, AILEEN eulalio glabrata, tma Negati ve negati ve Not Available [facility] (Lab) [address] [place], [address], 01/20/2025 15:30:58 01/20/20 25 01/19/2025 WOMEN 'S HEALT H SWAB PLUS, AILEEN trichomonas vaginalis, tma Negati ve negati ve Not Available [facility] (Lab) [address], [place], [address], 01/20/2025 15:30:58 01/20/20 25 01/19/2025 WOMEN 'S HEALT H SWAB PLUS, AILEEN chlamydia trachomatis, PCR Negati ve negati ve Not Available [facility] (Lab) [address], [place], [address], 01/20/2025 15:30:58 01/20/20 25 01/19/2025 WOMEN 'S [...] ded in this panel . Not Available [facility] (Lab) [address], [place], [address], 01/20/2025 15:30:58 01/20/20 25 01/19/2025 urina lysis , dipst ick Leukocytes TRACE Not Available [facility] [address], [place], [address], 01/19/2025 11:40:36 01/20/20 25 01/19/2025 urina lysis , dipst ick Nitrite POS Not Available [address], [place], [address], 01/19/2025 11:40:36 01/20/20 25 01/19/2025 urina lysis , dipst ick Urobilinogen 4 Not Available [facility] [address], [place], [address], 01/19/2025 11:40:36 01/20/20 25 01/19/2025 urina lysis , dipst ick Protein POS Not Available [facility] [address], [place], [address], 01/19/2025 11:40:36 01/20/20 25 01/19/2025 urina lysis , dipst ick pH 6 Not Available [facility] [address], [place], [address], 01/19/2025 11:40:36 01/20/20 25 01/19/2025 urina lysis , dipst ick Blood + Not Available [facility] [address], [place], [address], 01/19/2025 11:40:36 01/20/20 25 01/19/2025 urina lysis , dipst ick Specific Gridley 1.015 Not Available [facility] bienvenido [address], [place], [address], 01/19/2025 11:40:36 01/20/20 25 01/19/2025 urina lysis , dipst ick Ketone LARGE Not Available [facility] [address], [place], [address], 01/19/2025 11:40:36 01/20/20 25 01/19/2025 urina lysis , dipst ick Bilirubin 4 Not Available [facility]uan lar[facility] [address], [place], [address], 01/19/2025 11:40:36 01/20/20 25 01/19/2025 urina lysis , dipst ick Glucose 250 Not Available [facility] [address], [place], [address], 01/19/2025 11:40:36 01/20/20 25 01/19/2025 urina lysis , dipst ick Appearance DARK Not Available [facility] [address], [place], [address], 01/19/2025 11:40:36 01/20/20 25 01/19/2025 urina lysis , dipst ick Color YELLOW Not Available [facility] [address], [place], [address], 01/19/2025 11:40:36 Result Notes None recorded. Problems Name Problem SNOMED Code Status Onset Date Resolution Date Notes Provider Name and Address Organization Details Recorded Time Vaginiti s and vulvovag initis Completed 201401/03/2021 Vaginiti s;Record ed Elsewher e: No Locat ion: [facility] S ource: EHR Bar Turner xiang: N Practi ce ID: 0001 Antonio lable Time: 10:00:00 AM DANIEL Urrutia - [facility] 15:34:01 Morbid obesity [id number] Completed 201401/03/2021 Obesity, Morbid;R ecorded Elsewher e: No Locat ion: [facility] ource: EHR [address] [place] xiang: N Practi ce ID: 0001 Antonio lable Time: 11:00:00 AM Vy ramos [facility] 15:33:28 Screenin g for malignan t neoplasm of cervix Completed 201101/03/2021 Screenin g for malignan t neoplasm s of the cervix;R ecorded Elsewher e: No [facility] S ource: EHR [address] [place] xiang: N Devikati ce ID: 0001 Antonio lable Time: 11:00:00 AM Vy ramos [facility] 15:33:42 Eruption [id number] Completed 201101/03/2021 Rash and other nonspeci fic skin eruption ;Recorde d Elsewher e: No Locat ion: [facility] Devikati ce ID: 0001 Antonio lable Time: 11:15:00 AM Vy Coleman [facility] 15:33:08 Acute vaginiti s [id number] Completed 201401/03/2021 Acute vaginiti s;Record ed Elsewher e: No Locat ion: [facility] N Devikati ce ID: 0001 Antonio lable Time: 10:15:00 AM Vy [facility] 15:32:[address] Concept Completed 201601/03/2021 Encntr for general adult medical exam w/o abnormal findings ;Recorde d Elsewher e: No Locat ion: [facility] ource: EHR [address] [place] xiang: N Devikati ce ID: 0001 Antonio lable Time: 02:30:00 PM Vy ramos [facility] 15:33:[address] Concept Completed 201601/03/2021 Encntr for paperhanger exam (general ) (routine ) w/o abn findings ;Recorde d Elsewher e: No Locat ion: [facility] ource: EHR [place] Turner xiang: N Practi ce ID: 0001 Antonio lable Time: 02:30:00 PM Vy ramos, [facility] 15:33:47 Urinary tract infectio us disease [id number] Completed 201201/03/2021 Urinary Tract Infectio n;Record ed Elsewher e: No Locat ion: [facility] ource: EHR [facility] [place] xiang: N Practi ce ID: 0001 Antonio lable Time: 09:45:00 AM Vy ramos, [facility] 15:33:58 Pregnanc y test negative [id number] Completed 201001/03/2021 Pregnanc y examinat ion or test, negative result;R ecorded Elsewher e: No Locat ion: [facility] ource: EHR [address] [place] xiang: N Practi ce ID: 0001 Antonio lable Time: 02:30:00 PM Vy ramos, [facility] 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 1 15:33:54 Evaluati on finding Completed 201601/03/2021 Hematuri a, unspecif ied;Deejay rded Elsewher e: No Locat ion: [facility] ource: EHR [address] xiang: N Practi ce ID: 0001 Antonio lable Time: 02:30:00 PM Vy ramos, [facility] 1 15:33:10 Syphilis test finding [id number] Completed 201801/03/2021 Encntr screen for infectio ns w sexl mode of transmis s;Record ed Elsewher e: No Locat ion: [facility] ource: EHR [facility] [place] xiang: N Practi ce ID: 0001 Antonio lable Time: 03:45:00 PM Vy ramos, [facility] 15:33:53 Vaginola bial hernia Completed 201701/03/2021 Other specifie d noninfla mmatory disorder s of vagina;R ecorded Elsewher e: No Locat ion: [facility] ource: EHR [facility] [place] xiang: N Devikati ce ID: 0001 Antonio lable Time: 08:30:00 AM Vy Jared richard, [facility] 15:34:03 Speciali zed medical examinat ion Completed 201401/03/2021 Other specifie d chlamydi al diseases ;Recorde d Elsewher e: No Locat ion: [facility] ource: EHR [facility] [place] xiang: N Practi ce ID: 0001 Antonio lable Time: 01:00:00 PM Vy ramos, [facility] 15:33:49 Finding of sensatio n of breast Completed 201501/03/2021 Mastodyn ia;Recor ded Elsewher e: No Locat ion: [facility] ource: EHR [facility] [place] xiang: N Practi ce ID: 0001 Antonio lable Time: 11:45:00 AM Vy Jaredadonay ramos, [facility] 15:33:12 Pain of breast [id number] Completed 201101/03/2021 Mastodyn ia;Recor ded Elsewher e: No Locat ion: [facility] ource: EHR [facility] [place] xiang: Y Practi ce ID: 0001 Antonio lable Time: 11:15:00 AM Vy ramos [facility] 15:33:29 Lump of axillary tail of left breast [id number] Completed 201901/03/2021 Mass in axillary tail of the left breast;R ecorded Elsewher e: No Locat ion: Xuan lara [facility] S ource: EHR Bar Turner xiang: N Practi ce ID: 0001 Antonio lable Time: 02:45:00 PM Vy ramos [facility] 15:33:21 Deliveri es by [id number] Completed 201301/03/2021 delivery , without mention of indicati on, unspecif ied as to episode of care;Rec orded Elsewher e: No [facility] ource: EHR Bar Turner xiang: N Practi ce ID: 0001 Antonio lable Time: 09:30:00 AM Vy [facility] 15:33:01 Postpart um care Completed 201301/03/2021 Post Followup ;Recorde d Elsewher e: No Locat ion: [facility] ource: EHR Bar Turner xiang: N Practi ce ID: 0001 Antonio lable Time: 11:00:00 AM Vy ramos [facility] 15:33:32 Routine antenata l care Completed 201301/03/2021 Supervis ion of other normal pregnanc y;Record ed Elsewher e: No Locat ion: [facility] ource: EHR Bar Turner xiang: N Practi ce ID: 0001 Antonio lable Time: 06:00:00 PM Vy ramos [facility] 15:33:41 Speciali zed medical examinat ion Completed 201101/03/2021 Gynecolo gical Examinat ion;Deejay rded Elsewher e: No Locat ion: [facility] ource: EHR Bar [place] xiang: N Practi ce ID: 0001 Antonio lable Time: 11:00:00 AM Vy ramos [facility] 15:33:48 Dermatop hytosis [id number] Completed 201401/03/2021 Ringworm ;Recorde d Elsewher e: No Locat ion: [facility] ource: EHR [facility] xiang: N Practi ce ID: 0001 Antonio lable Time: 01:00:00 PM Vy ramos [facility] 15:33:03 Leukocyt osis [id number] Completed 201401/03/2021 LEUKOCYT OSIS NOS;Deejay rded Elsewher e: No Locat ion: [facility] ource: EHR [facility] [place] xiang: N Practi ce ID: 0001 Antonio lable Time: 04:15:00 PM Vy ramos [facility] 15:33:18 Lump of axillary tail of right breast [id number] 4106 Completed 201901/03/2021 Mass in axillary tail of the right breast;R ecorded Elsewher e: No Locat ion: [facility] Practi ce ID: 0001 Antonio lable Time: 02:45:00 PM Vy ramos [facility] 15:33:22 Infectio n screenin g Completed 201601/03/2021 Encounte r for screenin g for oth infec/pa rastc diseases ;Recorde d Elsewher e: No Locat ion: [facility] N Practi ce ID: 0001 Antonio lable Time: 01:30:00 PM Vy ramos [facility] 15:33:17 Amenorrh ea [id number] Completed 201201/03/2021 Absence of menstrua tion;Rec orded Elsewher e: No [facility] N Devikati ce ID: 0001 Antonio lable Time: 10:30:00 AM Vy Jared ramos [facility] 15:32:51 Malaise and fatigue [id number] Completed 201101/03/2021 Fatigue / Malaise; Recorded Elsewher e: No Locat ion: [facility] N Devikati ce ID: 0001 Antonio lable Time: 09:45:00 AM Vy ramos [facility] 15:33:24 Epidermo id cyst of skin [id number] Completed 201801/03/2021 Sebaceou s cyst;Rec orded Elsewher e: No Locat ion: [facility] N Devikati ce ID: [id number] Antonio lable Time: 03:45:00 PM Vy Jared ramos [facility] 15:33:07 Swelling / lump finding Completed 201801/03/2021 Localize d swelling , mass and lump, unspecif ied;Deejay rded Elsewher e: No Locat ion: [facility] S ource: EHR Bar Turner xiang: N Devikati ce ID: 0001 Antonio lable Time: 11:00:00 AM Vy Jared ramos [facility] 15:33:52 Postoper ative follow-u p visit Completed 201301/03/2021 Follow-u p examinat ion, followin g unspecif ied surgery; Recorded Elsewher e: No Locat ion: [facility] S ource: EHR Bar Turner xiang: N Devikati ce ID: 0001 Antonio lable Time: 10:00:00 AM Vy ramos [facility] 15:33:31 Ultrason ography Completed 201301/03/2021 Antenata l screenin g for malforma tion using ultrason ics;Deejay rded Elsewher e: No Locat ion: [facility] S ource: EHR Bar Turner xiang: N Devikati ce ID: 0001 Antonio lable Time: 11:30:00 AM yV ramos [facility] 15:33:57 Antenata l screenin g Completed 201301/03/2021 Antenata l screenin g for malforma tion using ultrason ics;Deejay rded Elsewher e: No Locat ion: [facility] Dev[facility] ID: 0001 Antonio lable Time: 11:30:00 AM Vy rmaos, [facility] 15:32:52 Congenit al malforma tion [id number] Completed 201301/03/2021 Antenata l screenin g for malforma tion using ultrason ics;Deejay rded Elsewher e: No Locat ion: [facility] S ource: EHR Bar Turner xiang: N Devikati ce ID: 0001 Antonio lable Time: 11:30:00 AM Vy ramos [facility] 15:33:00 Atypical squamous cells of undeterm ined signific ance on cervical Papanico laou smear [id number] Completed 201101/03/2021 Papanico laou smear of cervix with atypical squamous cells of undeterm ined signific ance (ASC-US) ;Recorde d Elsewher e: No Locat ion: [facility] S ource: EHR Bar Turner xiang: N Devikati ce ID: 0001 Antonio lable Time: 09:45:00 AM Vy ramos [facility] 15:32:55 Pregnanc y test positive [id number] Completed 201201/03/2021 Pregnanc y examinat ion or test, positive result;R ecorded Elsewher e: No Locat ion: [facility] jane [facility] S ource: EHR Bar Turner xiang: N Concepción ce ID: 0001 Antonio lable Time: 01:00:00 PM Vy ramos [facility] 15:33:34 Blood leukocyt e number above referenc e range [id number] Completed 201501/03/2021 Elevated white blood cell count, unspecif ied;Deejay rded Elsewher e: No Locat ion: [facility] S ource: EHR Bar Turner xiang: N Devikati ce ID: 0001 Antonio lable Time: 02:15:00 [facility]14 Leukorrh ea [id number] Completed 201401/03/2021 Leukorrh ea, not specifie d as infectiv e;Record ed Elsewher e: No Locat ion: [facility] S ource: EHR Bar Turner xiang: N Devikati ce ID: 0001 Antonio lable Time: 01:00:00 PM Vy ramos [facility] 15:33:19 Female genital organ symptoms [id number] Completed 201401/03/2021 Pelvic pain;Rec orded Elsewher e: No Locat ion: [facility] S ource: EHR Bar Turner xiang: N Devikati ce ID: 0001 Antonio lable Time: 11:00:00 AM Vy ramos [facility] 15:33:11 Venereal disease screenin g Completed 201401/03/2021 Screenin g examinat ion for venereal disease; Recorded Elsewher e: No Locat ion: [facility] S ource: EHR Bar Turner xiang: N Devikati ce ID: 0001 Antonio lable Time: 01:00:00 PM Vy Jaredadonay ramos [facility] 15:34:05 Increase d frequenc y of urinatio n [id number] Completed 201801/03/2021 Frequenc y of micturit ion;Deejay rded Elsewher e: No Locat ion: [facility] S ource: EHR Bar Turner xiang: N Concepción ce ID: 0001 Antonio lable Time: 03:45:00 PM Vy ramos [facility] 15:33:15 Candidia sis of skin and nails Completed 201101/03/2021 Candidia sis of skin and nails;Re corded Elsewher e: No Locat ion: [facility] S ource: EHR Bar Turner xiang: N Concepción ce ID: 0001 Antonio lable Time: 09:15:00 AM Vy Coleman richard [facility] 15:32:57 Dysuria [id number] Completed 201001/03/2021 Dysuria; Practice ID: 0001 Vy Coleman richard [facility] 15:33:04 At increase d risk of sexually transmit trung infectio n [id number] Completed 201001/03/2021 Contact with or exposure to venereal diseases ;Practic e ID: 0001 Vy Coleman richard [facility] 15:32:53 Acute gonococc al cervicit is 80838834 Completed 201001/03/2021 Gonococc al cervicit is (acute); Practice ID: 0001 Vy ramos [facility] 15:32:49 Mild hypereme sis-not delivere d 976690219 Completed 201201/03/2021 Hypereme sis gravidar um, antepart um Mild;Pra ctice ID: 0001 Vy ramos [facility] 15:33:26 Complica tion related to pregnanc y Completed 201301/03/2021 Weight Insuffic ient Antepart um;Pract ice ID: 0001 Vy ramos, [facility] 15:32:59 Uterine scar from previous surgery in pregnanc y, childbir th and the [place] um - delivere d [id number] Completed 201301/03/2021 Previous delivery , antepart um conditio n or complica tion;Pra ctice ID: 0001 Vy ramos, [facility] 15:34:00 Procedur e on genitour inary system Completed 201301/03/2021 Steriliz ation;Pr actice ID: 0001 Vy ramos, [facility] 15:33:37 Single live [id number] Completed 201301/03/2021 Mother with single liveborn ;Practic e ID: 0001 Vy ramos, [facility] 15:33:43 Educatio n Completed 201301/03/2021 Counseli ng contrace ptive manageme nt;Pract ice ID: 0001 Vy ramos, [facility] 15:33:05 Microsco pic hematuri a [id number] Completed 201401/03/2021 HEMATURI A MICROSCO PIC;Prac adrienne ID: 0001 Vy ramos, [facility] 15:33:25 Transien t hyperten burt of pregnanc y - not delivere d [id number] Completed 201301/03/2021 Antepart um transien t hyperten burt;Pra ctice ID: 0001 Vy Jared [facility] 1 15:33:55 Diabetes mellitus 50930824 Active 2023 Joelle Russo [facility] 4 14:55:50 Problem Notes None recorded. Procedures Surgical History Date Name Laterality Status Provider Name and Address Organization Details Recorded Time 02/11/20 24 Date of Last Pap Smear completed Joellemadeline Russo [facility] 10/06/2024 14:56:20 10/29/19 24 [facility] 10/06/2024 14:58:04 11/27/19 22 procedure on lower leg [facility] 10/06/2024 14:57:55 06/05/20 14 section [facility] 10/04/2020 11:13:52 10/29/19 14 Tubal Ligation completed Sana Suárez [facility] 07/03/2020 12:16:24 04/13/20 10 [facility] 10/04/2020 11:13:47 11/27/19 08 section completed [facility] 10/04/2020 11:13:43 10/29/19 06 [facility]/04/2020 11:12:39 07/12/20 05 section completed [facility] 10/04/2020 11:13:37 10/29/19 05 cholelithotomy completed [facility] 10/04/2020 11:13:16 Imaging Results None recorded. Procedure Notes None recorded. Medical Equipment None Reported. Allergies Allergen ID Allergen Name Allergen Category Reaction Reaction Severity Criticality Documentation Date Start Date Code Code System Note Provider Name and Address Organization Details Recorded Time 1957 morphine medicatio n Not available Not available Not available 07/03/2020 7052 RxNorm Sana Suárez [place], [place] - [facility] 0 12:11:24 Medications Name Sig [...] Prescrib ed Elsewher e: No Locat ion: [facility] odify By: [email or web address] trick En counter DateTime [...] Prescrib ed Elsewher e: No Locat ion: [facility] odify By: gael dang DateTime : 03/03/20 [...] completed Not Available Not Available Not Available fluconazo le 150 mg tablet TAKE 1 TABLET BY MOUTH EVERY 72 HOURS active Not Available Not Available No t Available benzonata te 200 mg capsule TAKE 1 CAPSULE BY MOUTH THREE TIMES DAILY 01/19 completed Not Available Not Available Not Available diclofena c ER 100 mg tablet,ex tended release 24 hr take 1 tablet by oral route every day 07/20 completed Prescrib ed Elsew e: No [facility] By: gwen castro DateTime : [...] Elsewher e: No Locat ion: [facility] odify By: maria luisa dang DateTime : 08/06/20 13 09:45:00 AM Not Available Not Available Not Available terconazo le 0.8 % vaginal cream INSERT ONE APPLICAT ORFUL VAGINALL Y AT BEDTIME FOR 3 DAYS 01/31 completed Not Available Not Available Not Available Miconazol e-3 200 mg vaginal supposito ry insert 1 supposit ory (200MG) by vaginal route every day for 3 days at bedtime 12/07 completed Prescrib ed Elsew e: No Locat ion: [facility] odify By: maria ecal Encount er DateTime : 12/05/19 14 10:39:37 [...] completed Not Available Not Available Not Available ciproflox acin 500 mg tablet TAKE 1 TABLET BY MOUTH EVERY 12 HOURS active Not Available Not Available No t Available sulfameth oxazole 800 mg-trimet hoprim 160 [...] Elsewher e: Yes Loca tion: [facility] odify By: marybeth dang DateTime : 02/28/20 19 11:00:00 AM Not Available Not Available Not Available glimepiri de 1 mg tablet TAKE 1 TABLET BY MOUTH EVERY DAY WITH A MEAL FOR DIABETES FOR 90 DAYS active Not Available Not Available No t Available nystatin- triamcino lone 100,000 unit/gram -0.1 % topical ointment APPLY TO THE AFFECTED AREA(S) BY TOPICAL ROUTE 2 TIMES PER DAY x 5-7 days 05/28 completed Not Available Not Available Not Available Estrostep Fe-28 1-20 (5)/1-30( 7)/1mg-35 mcg(9) tablet take 1 tablet by oral route every day for 28 days 09/10 completed Prescrib ed Elsewher e: No [facility] By: marybeth dang DateTime : 08/14/20 11 02:30:00 PM Not Available Not Available Not Available Loprox 0.77 % topical gel apply by topical route 2 times every day to the affected and surround ing areas of skin in the morning and evening 07/23 completed Prescrib ed Elsewher e: No [facility] By: amkchan eugeneuntnelly DateTime : 01/28/20 13 11:30:00 AM Not [...] Prescrib ed Elsewher e: No [facility] By: amcari dang DateTime : 06/27/20 12 09:15:00 AM Not Available Not Available Not Available triamcino lone acetonide 0.1 % topical ointment [...] Prescrib aviva Wolfe e: No Locat ion: [facility] odify By: maria luisa dang DateTime : 06/27/20 12 09:15:00 AM Not [...] Elsewher e: No Locat ion: [facility] odify By: cmekat Suttont er DateTime : 11/12/19 11:12:49 AM Not Available Not Available Not Available Terazol 7 0.4 % vaginal cream insert 1 applicat orful by vaginal route every day for 7 days at bedtime 11/24 completed Prescrib ed Elsewher e: No Locat ion: [facility] odify By: anoop fuentes DateTime : 11/18/19 16 08:22:02 AM Not [...] of skin in the morning and evening active Not Available Not Available No t Available doxycycli ne hyclate 100 mg tablet [...] in morning and evening. 01/08 completed Prescrib ed Aiden e: No [facility] odify By: jose alejandro dang DateTime : 11/13/19 02:40:11 PM Not Available Not Available Not [...] Updated DateTime 02/11/2024 154.94 cm 58.4 kg/m2 170976.0 4 g 125 mm[Hg] 83 mm[Hg] Ольга Dozier [facility] 4 11:26:45 Date Recorded Body height Body mass index (BMI) Body weight Systolic blood pressure Diastolic blood pressure Provider Name and Address Organization Details Last Updated DateTime 06/24/2024 154.94 cm 60 kg/m2 952439.9 4 g 123 mm[Hg] 86 mm[Hg] Diana Santiago [facility] 4 17:11:07 Date Recorded Body height Body mass index (BMI) Body weight Systolic blood pressure Diastolic blood pressure Provider Name and Address Organization Details Last Updated DateTime 10/06/2024 154.94 cm 60.3 kg/m2 184700.9 7 g 122 mm[Hg] 79 mm[Hg] Joelle Karan [facility] 4 14:54:45 Date Recorded Body height Body mass index (BMI) Body weight Systolic blood pressure Diastolic blood pressure Provider Name and Address Organization Details Last Updated DateTime 11/27/2024 154.94 cm 60.3 kg/m2 945180.9 7 g 131 mm[Hg] 84 mm[Hg] GILBERT Donahue [facility] 5 12:44:29 Date Recorded Body height Body mass index (BMI) Body weight Systolic blood pressure Diastolic blood pressure Provider Name and Address Organization Details Last Updated DateTime 01/19/2025 154.94 cm 59.5 kg/m2 697054.6 g 143 mm[Hg] 92 mm[Hg] Zuleyka Karimi [facility] 5 11:00:55 Social History Question Answer Notes LastModified by Organizat ion Details LastModified Time Tobacco Smoking Status Never Smoker Ekaterina ramos, [facility] 08/02/2023 12:04:48 Do You Have An [...] E-cigarettes Or Vape? Never Used Electronic Cigarettes [email or web address] Information not available 08/02/2023 What Is The Highest Grade Or Level Of School You Have Completed Or The Highest Degree You Have Received? [id number] Information not available 01/31/2023 What Is Your Occupation? [employer] [email or web address] Information not available 08/02/2023 Are There Any Guns Present In Your Home? No Information not available 06/20/2021 What Was The Date Of Your Most Recent Tobacco Screening? 10/06/2024 [email or web address] Information not available 10/06/2024 Do You Use Protection During Sex? No Information not available 01/31/2023 Do You Use Your Seat Belt Or Car Seat Routinely? Yes Information not available 11/01/2021 Do You Have Smoke And Carbon Monoxide Detectors In Your Home? Yes Information not available 06/20/2021 Do You Or Have You Ever Used Smokeless Tobacco? Never Used Smokeless Tobacco [email or web address] Information not available 08/02/2023 How Much Tobacco Do You Smoke? No [email or web address] Information not available 10/04/2020 Do You Feel Stressed (tense, Restless, Nervous, Or Anxious, Or Unable To Sleep At Night)? [id number] Information not available 01/31/2023 Do You Use Any Illicit Or Recreational Drugs? No Information not available 03/29/2021 Do You Use Sunscreen Routinely? No Information not available 06/20/2021 Have You Used IV Drugs? No Information not available 06/20/2021 Sex: Unknown Functional Status Question Answer Note LastModified by Organizat ion Details LastModified Time Do you have difficulty walking or climbing stairs? No [email or web address] Information not available 08/02/2023 Are you able to walk? YESWOREST Information not available 02/16/2022 Are you able to care for yourself? Yes Information not available 08/02/2023 Do you have difficulty dressing or bathing? No [email or web address] Information not available 08/02/2023 What is your exercise level? Occasional [email or web address] Information not available 10/04/2020 Mental Status None [...] SNOMED-CT Code Diagnosis ICD10 Code Diagnosis Note [id number] Scott Espinoza MD [facility] [address],[place] [address] 07/03/2020 11:55:21 07/03/2020 12:55:16 Vaginitis 00148644 N76.0 To treat for vaginitis [id number] [facility] [address],[place] [address] 09/22/2020 12:34:41 09/22/2020 15:53:23 Venereal disease screening 108279534 Z11.3 Genital he rpes simplex 36592570 Z11.3 [id number] [facility] [address],[place] [address] 10/15/2020 11:43:16 10/15/2020 12:14:03 Vaginitis 47833465 N76.0 Vag exam suspect for yeast. Treated today. Vag ccx's sent. Will contact if any further treatment needed. RTO x prn Time spent in visit is a total of 15 mins with at least 50% of visit consisting of counseling and review of plan of care. [id number] Jeanna Shoemaker [facility] [address],[place] [address] 01/03/2021 15:19:21 01/03/2021 17:39:51 Vaginitis 76305792 N76.0 Discussed use of mild soap like dove or ivory, cotton underwear w/out dye, hypoallerg enic detergent, wipe from front to back, avoid tub baths, keep perineum clean and dry, d/c use of baby wipes. Encouraged daily intake of yogurt or womens health probiotic. Internal and external affirm collected. Urine normal. Will be sent for culture and std screen. [id number] Scott Espinoza MD [facility] [address],[place] [address] 02/26/2021 11:29:32 02/26/2021 12:37:58 Vaginitis 03479095 N76.0 To treat for vaginitis this patient [...] those results. Sexually t ransmitted infectious disease 5451516 A64 [id number] Amy Ochoa [facility] [address],[place] [address] 03/29/2021 14:44:48 03/30/2021 14:57:04 Vaginitis 22956691 N76.0 Right very small labial boil. Topical [...] this patient s visit, including available hand marketing graphics specialist upon arrive, temperatur e check and being [...] satisfacti on. Sexually t ransmitted infectious disease 2591470 A64 [id number] Scott Espinoza MD [facility] [address],[place] [address] 06/20/2021 12:28:23 06/20/2021 14:39:47 Burning sensation 78323469 R20.8 Bacterial vaginosis 4197 79581 N76.0 This patient is a 30-year-ol d female who presents for foul-smell ing vaginal discharge. She states that it is yellow in color. She also has some burning the area of the vulva with sex. She also has had some discomfort since that sexual episode. She is concerned about exposure to 6 transmitte d disease through . Sexually t ransmitted infectious disease 1845769 A64 [id number] Suzanna Lopez MD [facility] [address],[place] [address] 08/29/2021 17:34:14 08/29/2021 18:18:43 Body mass index 40+ - severely obese 871934663 Z68.44 Gynecologi c examination 30994403 Z01.419 Z11.51 Family ronnie nning surveillance 413151779 Z30.09 Vaccination not done 370 3377879 9108 Z28.9 Cyst of vulva 14029694 N 90.7 Female sterilization 608 98023 Z30.2 Venereal d isease screening 389597759 Z11.3 [id number] [facility] [address],[place] [address] 11/01/2021 13:07:40 11/01/2021 14:01:35 Vaginitis 59910470 N76.0 Z11.3 Z11.8 Treated for BV/Yeast for [...] this patient s visit, including available hand marketing graphics specialist upon arrive, temperatur e check and being [...] questions answered to patient satisfacti on. Hyperhidrosis 241251548 R61 Feels she is having excessive sweating even night sweats; will sometimes wake up drenched in sweat.Has regular monthly cyclesThis has been occurring over the last 6mos.If labs are wnl consider updated visit with PCP. [id number] Vy Coleman [facility] [address],[place] [address] 12/30/2021 14:55:29 01/03/2022 03:50:10 [id number] Amy Ochoa [facility] [address],[place] [address] 12/30/2021 15:11:43 12/30/2021 16:21:40 Vaginitis 82016624 N76.0 Z11.3 Z11.8 Treated for Yeast for [...] this patient s visit, including available hand marketing graphics specialist upon arrive, temperatur e check and being [...] [place] questions [place]. [id number] CONCHIS Velazquez [facility] [address],[place] [address] 02/16/2022 14:02:18 02/16/2022 15:05:01 Venereal disease screening 994663028 Z11.3 Sexually t ransmitted infectious disease 2169005 A64 Vaginitis 11868757 N76.0 Vaginal discharge present suspicious for BV. Vulvar irritation suspicious for yeast.We discussed vulvar care guidelines , discontinu e use of vaginal wash.Will treat for BV and yeastSTI testing and vaginitis panel sentBlood STI testing ordered.RT C if symptoms persist past treatment. Time spent with the patient was 20 minutes. [id number] CONCHIS Velazquez [facility] [address],[place] [address] 05/24/2022 16:40:13 05/24/2022 17:36:32 Mass of left breast 8940310055 0491264 N63.20 Lump in left breast palpated, at [...] referral pending results. Venereal d isease screening 817534578 Z11.3 Sexually t ransmitted infectious disease 2168943 A64 Vaginal discharge 159823 006 N89.8 [id number] CONCHIS Velazquez [facility] [address],[place] [address] 08/21/2022 15:16:41 08/21/2022 16:14:03 Mass of left breast 3395249396 6528002 N63.20 Lump still present on exam todayLump in left breast palpated, at about 5 o'clock, lump is 1cm in size and movable. Lump is slightly tender to touch. No skin changes or redness. No warmth.We agreed to breast specialist referral for consult / second opinion - patient agrees to this planIris Kahn jose DIAZ Time spent in visit is a total of 15 mins with at least 50% of visit consisting of counseling and review of plan of care. [id number] CONCHIS Velazquez [facility] [address] [address] 01/31/2023 16:27:17 01/31/2023 18:18:50 Venereal disease screening 735099215 Z11.3 Sexually t ransmitted infectious disease 8642836 A64 Gynecologi c examination 09456821 Z01.419 Take Calcium with Vitamin D 1200mg [...] care guidelines discussed. Rx sent Vulval irritation 785072 003 N90.89 [id number] Scott Espinoza MD [facility] [address],[place] [address] 05/28/2023 10:45:31 05/28/2023 18:22:36 Sexually transmitted infectious disease 9181346 A64 this patient is a 32-year-ol d [...] and she will return for those tests. [id number] CONCHIS Velazquez [facility] [address],[place] [address] 08/02/2023 12:04:37 08/02/2023 12:39:37 Urinary symptoms 316264377 R39.9 urine cx sentencour aged to complete [...] plan of care. Venereal d isease screening 469865635 Z11.3 Sexually t ransmitted infectious disease 4365590 A64 [id number] CONCHIS Velazquez [facility] [address],[place] [address] 02/11/2024 11:23:10 02/11/2024 13:14:57 Gynecologic examination 57801127 Z01.419 Z11.51 [facility] - BTLpap updatedgc/ ct/trich testing added to [...] plan if desired. Venereal d isease screening 379100027 Z11.3 Sexually t ransmitted infectious disease 0952710 A64 Cloudy urine 5165805 R82 .90 UA normal, cx sentencour aged adequate hydrationp recautions reviewed [id number] NELL MUNGUIA MD [facility] [address],[place] [address] 06/24/2024 16:54:51 06/24/2024 18:21:45 Venereal disease screening 979410493 Z11.3 - GC/CT/tric h sent- will also check blood work [id number] CONCHIS Velazquez [facility] [address],[place] [address] 10/06/2024 14:34:41 10/06/2024 15:12:14 Breast lump 03835280 N63.0 rx sent for doxycyclin emammogram with [...] counseling and review of plan of care. [id number] CONCHIS Velazquez [facility] [address],[place] [address] 11/27/2024 12:37:41 11/27/2024 14:41:27 Vaginitis 80826013 N76.0 Urinary symptoms 8548746 08 R39.9 vaginitis/ STI panel sentsafe sexual practices discussedv ulvar care guidelines discussedr x sent for UTI and yeast - r/b/a reviewed Female str ess incontinence 50363006 N39.3 recommende d pelvic floor physical therapyref erral placed Time spent in visit is a total of 25 mins with at least 50% of visit consisting of counseling and review of plan of care. Venereal d isease screening [id number] Z11.3 Sexually t ransmitted infectious disease [id number] Scott Espinoza MD [facility] [address] [address] 01/19/2025 10:52:16 01/20/2025 11:58:18 Vulvovaginitis [id number] N76.0 Patient is a 34-year-ol d female [...] risks, benefits, and alternativ es. Urinary symptoms [id number] R39.9 Health Concerns Section Related Observation LastModified by Organization Delores bearden LastModified Time None Recorded Concern Status LastModified by Organization Details LastModified Time None Recorded Advance Directives Directive N: Payers Encounter Date Sequence Insurance Name Policy Number Policy Brand Covered Member ID Brand Member ID Guarantor Name 02/11/2024 1 [facility] ON OR AFTER 04/28/21 (MEDICAID REPLACEMENT - HMO) Heavenly M McCline [id number] Heavenly M McCline 06/24/2024 1 [facility] ON OR AFTER 04/28/21 (MEDICAID REPLACEMENT - HMO) Heavenly M McCline [id number] Heavenly M McCline 10/06/2024 1 [facility] ON OR AFTER 04/28/21 (MEDICAID REPLACEMENT - HMO) Heavenly M McCline [id number] Heavenly M McCline 11/27/2024 1 [facility] ON OR AFTER 04/28/21 (MEDICAID REPLACEMENT - HMO) Heavenly M McCline [id number] Heavenly M McCline 01/19/2025 1 [facility] ON OR AFTER 04/28/21 (MEDICAID REPLACEMENT - HMO) Heavenly M McCline [id number] Heavenly M McCline Notes Date Note Type [...] had caffeine CONCHIS Velazquez [address], [place], [address], [facility] 02/11/2024 12:41:49 06/24/2024 text/html Patient desires STD testing due to finding out about partner's infidelity. Denies symptoms aside from slight odor. No known exposure. NELL MUNGUIA MD [address], [place], [address], [facility] 06/24/2024 17:55:41 10/06/2024 text/html 34yopresents for evaluation of left breast lumpnoticed about 2 weeks agohard lump under skin, mild redness, did drain purulent discharge a few days agono pain neg n/v/fneg flu-like symptoms CONCHIS Velazquez [address], [place], [address], [facility] 10/06/2024 15:07:50 11/27/2024 text/html 34yoHere for vaginal irritation/burningd ysuriasymptoms present 1-2 daysleaking urine with coughing/exercisewo uld like STI testing today neg pelvic painneg n/v/fneg flu-like symptoms CONCHIS Velazquez [address], [place], [address], [facility] 11/27/2024 14:40:35 01/19/2025 text/html Patient is [...] alternatives. Scott Espinoza MD [address], [place], [address], [facility] 01/19/2025 18:27:27 OBGyn Episode Ob Episode Information Episode Created Date Number of Fetuses Patient Bloodtype Patient rh Status Prepregnancy Weight lbs Domestic Partner Domestic Partner Phone Father Name Jointer Submarine Cable Status 07/03/20 20 1 CLOSED Fetus Data First Name Last [...] Domestic Partner Domestic Partner Phone Father Name Jointer Submarine Cable Status 07/03/20 20 1 CLOSED Fetus Data First Name Last [...] Date Ultra Sound Latest Weeks Gestation Final Dainel Confirmed By Final Daniel Confirmed Date Final [...] Domestic Partner Domestic Partner Phone Father Name Jointer Submarine Cable Status 07/03/20 20 1 CLOSED Fetus Data First Name Last [...] Domestic Partner Domestic Partner Phone Father Name Jointer Submarine Cable Status 07/03/20 20 1 CLOSED Fetus Data First Name Last [...] Domestic Partner Domestic Partner Phone Father Name Jointer Submarine Cable Status 10/04/20 20 1 DELETED Daniel Calculation [...]
[2025-02-02 22:49] VITALS: BP 130/72; PULSE 83; RESP 16; TEMP 37.1; O2SAT 100
[2025-02-02 22:53] LABS: Glucose Point of Care 356 mg/dl (65-105)
[2025-02-03 00:07] VITALS: BP 130/72; PULSE 83; RESP 16; TEMP 37.1; O2SAT 100
--- OUTSIDE RECORDS SUMMARY | 2025-02-03 02:02 | XMS_ITS | Referral Summary ---
Author Organization [facility] Address [address] [place] [address] Care Team Providers Care National Accounts Sales Name Role Phone Vivienne Almanza MD Primary [...] on file Legal Sex Female 8:34 PM OTR OWNER OPERATOR Gender Identity Not on file Sexual Orientation Not on file Last Filed Vital Signs Vital Sign Reading Time Taken Comments Blood Pressure 115/81 12/23/2020 10:58 AM OTR OWNER OPERATOR Pulse 82 12/23/2020 10:58 AM OTR OWNER OPERATOR Temperature 36.3 C (97.3 F) 12/23/2020 10:58 AM OTR OWNER OPERATOR Respiratory Rate 18 12/23/2020 10:5 8 AM OTR OWNER OPERATOR Oxygen Saturation 100% 06/03/2017 11: 53 AM CDT Inhaled Oxygen Concentration - - Weight 148.5 kg (327 lb 6.4 oz) 021 10:58 AM OTR OWNER OPERATOR Height 152.4 cm (5') 10/31/2023 3:02 PM OTR OWNER OPERATOR Body Mass Index 59.88 12/23/2020 10:58 AM OTR OWNER OPERATOR Plan of Treatment Not on file Insurance Care Teams National Accounts Sales Relationship Specialty Start Date End Date Vivienne Almanza MD [address] [place] [address] PCP - General Internal Medicine 11/05/20
--- OUTSIDE RECORDS SUMMARY | 2025-02-03 02:02 | XMS_ITS | CONTINUITY OF CARE DOCUMENT ---
Author Name monet healy Address Unknown Organization [facility] Address [address] [place] [address] Phone [phone] Care Team Providers Care Catering Coordinator Name Role Phone Narciso Askew MD Unavailable CHRISTEL WOODS MD Unavailable CHRISTEL WOODS MD Unavailable PROBLEMS Condition Status Date Provider Notes Hyperlipidemia;with high crp and lpa active Narciso Askew MD Cardiology examination completed 9 - Narciso Askew MD Diabetes mellitus, type 2 active Narciso stinson MD neg egfr Palpitations active Nanette Ventimiglia MANAGER OF CARE IRON DEFICIENCY active Narciso Askew MD neg b12 Fatigue active Nanette Ventimiglia MANAGER OF CARE Obesity active Nanette Ventimiglia MANAGER OF CARE Chest pain active Nanette Ventimiglia MANAGER OF CARE ENCOUNTERS Date Type Provider Location Encounter Diag nosis - In-person encounter Office Visit Narciso Askew MD [facility] Cardiology examination - In-person encounter Office Visit Narciso Askew MD [facility] Chest pain - In-person encounter Office Visit Narciso Askew MD [facility] Diabetes mellitus, type 2PalpitationsIRON DEFICIENCYFatigueObesity VITAL SIGNS Date Observation Value Provider Body Mass Index (Ratio) 63.27 kg/m2 Rishi Askew MD oxygen saturation, oximetry 89 % [facility] 87 /min [facility] blood pressure, diastolic 85 mm[Hg] [facility] blood pressure, systolic 120 mm[Hg] [facility] respiratory rate E&M 12 /min [facility] weight E&M 324 [lb_av] [facility] height E&M 60 [in_i] [facility] blood pressure, cuff size large [facility] Body Mass Index (Ratio) 61.55 kg/m2 Rishi Askew MD blood pressure, diastolic 81 mm[Hg] Lan angelina Cole blood pressure, systolic 138 mm[Hg] Diandra caden [facility] pulse rate 82 /min [facility] weight E&M 315.2 [lb_av] [facility] blood pressure, cuff size regular Lan angelina Cole height E&M 60 [in_i] [facility] Body Mass Index (Ratio) 62.68 [...] 5 mg tablet completed - Nanette Ventimiglia MANAGER OF CARE metformin (Glucophage XR) 500 mg tablet extended release 24 hr completed - Nanettekeesha Felipemiglia MANAGER OF CARE ibuprofen 600 mg tablet active Kasandra Lopez albuterol sulfate 90 mcg/actuation HFA aerosol inhaler active Kasandra Lopez SOCIAL HISTORY Date Observation Value Provider personal history of marijuana use no Nanette Ventimiglia MANAGER OF CARE drug use no Nanette Ventimig neno MANAGER OF CARE alcohol use no Nanette Ventimig neno MANAGER OF CARE smoking status Never smoker Nanette Felpiem iglia MANAGER OF CARE personal history of marijuana use no Nanette Ventimiglia MANAGER OF CARE drug use no Nanette Ventimig neno MANAGER OF CARE alcohol use no Nanette lazcano [facility] smoking status Never smoker Nanette moreira [facility] personal history of marijuana use no Nanette Perla [facility] drug use no Nanette lazcano [facility] alcohol use no Nanette lazcano [facility] smoking status Never smoker Nanettekeesha moreira [facility] INSURANCE PROVIDERS Payer name Policy type / Coverage type Alfredo red democrat ID [employer] MEDICAID (2) Medicaid [id number] ADVANCE DIRECTIVES Name Date DISCUSSED - NO DECISION MADE TREATMENT PLAN Date Name Performer :9 Narciso Aksew MD Cardiology:weight loss encourage d Nanettekeesha Perla [facility] Cardiology:she compl eted tele with no significant arrhythmia Nanettekeesha Perla [facility] Cardiology:she is no t taking meds r einforced compliance H er updated medication list for this problem includes: Trulicity 0.75 Mg/0.5 Ml Pen Injector (Dulaglutide) ..... 1 pen injector subcutaneously once a week Jardiance 10 Mg Tablet (Empagliflozin) ..... Take 1 tablet by mouth once daily [place] Minda [facility] Cardiology:atypical in nature, but persistent s he had echo that showed normal EF w ill do CXR and routine stress test g et labs [place] Minda [facility] Cardiology:will check iron studi es Nanettekeesha Perla [facility] Cardiology:last hgb A1C was 7.6 %. she [...] injector subcutaneously once a week Nanette Perla [facility] Cardiology:will comp lete tele monitor W ill do labs to r/o underlying source Nanette Perla [facility] Cardiology:Patient h as reports of fatigue and [...] given palpitations and memory fog Nanette Perla [facility] Date Name CXR- PA/Lat X-Ray, Chest 2 [...]
--- OUTSIDE RECORDS SUMMARY | 2025-02-03 02:02 | XMS_ITS | Clinical Summary ---
Author Organization [facility] Building [facility] Address [address] [place] [address] Care Team Providers Care Cloth Neutralizer Name Role Phone Vivienne Almanza MD Primary [...] on file Legal Sex Female 8:34 PM SEWER CONTRACTOR Gender Identity Not on file Sexual Orientation Not on file Obstetrics History Last Filed Vital Signs Vital Sign Reading Time Taken Comments Blood Pressure 115/81 12/23/2020 10:58 AM SEWER CONTRACTOR Pulse 82 12/23/2020 10:58 AM SEWER CONTRACTOR Temperature 36.3 C (97.3 F) 12/23/2020 10:58 AM SEWER CONTRACTOR Respiratory Rate 18 12/23/2020 10:5 8 AM SEWER CONTRACTOR Oxygen Saturation 100% 06/03/2017 11: 53 AM CDT Inhaled Oxygen Concentration - - Weight 148.5 kg (327 lb 6.4 oz) 021 10:58 AM SEWER CONTRACTOR Height 152.4 cm (5') 10/31/2023 3:02 PM SEWER CONTRACTOR Body Mass Index 59.88 12/23/2020 10:58 AM SEWER CONTRACTOR Plan of Treatment Health Maintenance Due Date Last Done Comments Cervical Cancer Screening 1988 Depression Screening 1988 Hepatitis C Screening 1988 Varicella Vaccines (1 of 2 - 13+ 2-dose series) 2001 Regular Well Visit/Exam 18-64 2006 Influenza Vaccine (Season Ended) 2025 DTaP/Tdap/Td Vaccine (2 - Td or Tdap) 11/27/2031 11/27/2021, 06/10/2003 Hepatitis B Screening Completed 12/17/1997 , 09/14/1997, 02/26/1997 HPV Vaccines Aged Out No longer eligi ble based on patient's age to complete this topic Pneumococcal vaccine <65 Aged Out No longer eligible based on patient's age to complete this topic Insurance [facility] Care Teams Cloth Neutralizer Relationship Specialty Start Date End Date Vivienne Almanza MD [address] [place] [id number] PCP - General Internal Medicine 11/05/20
--- OUTSIDE RECORDS SUMMARY | 2025-02-03 02:02 | XMS_ITS | Clinical Summary ---
Author Organization [facility] Address [address] [place] [address] Care Team Providers Care Territory Account Manager Name Role Phone Vivienne Almanza MD Primary Care Provider Monie Segura APRN-BRIQUETTE MAKER Unavailable Source Comments [facility],non-owned Affiliates and Associated Physician Practices is amultiple site organization consisting of ambulatory clinics and hospital sitesin [place], [place], [place] and [place]. This disclosure is being madepursuant to the Care Everywhere program and may not contain all information available regarding this patient. Last updated 18.[facility] Allergies Active Allergy Reactions Criticality Noted Date [...] Comments Blood Pressure 124/80 09/19/2022 8:30 AM CEMENT KILN OPERATOR Pulse 88 09/19/2022 8:30 AM CEMENT KILN OPERATOR Temperature 36.6 C (97.8 F) 09/19/2022 8:30 AM CEMENT KILN OPERATOR Respiratory Rate - - Oxygen Saturation 100% 09/19/2022 8:30 AM CEMENT KILN OPERATOR Inhaled Oxygen Concentration - - Weight 144.3 kg (318 lb 3.2 oz) 09/19/2022 8:30 AM CEMENT KILN OPERATOR Height 152.4 cm (5') 09/19/2022 8:30 AM CEMENT KILN OPERATOR Body Mass Index 62.14 09/19/2022 8:30 AM CEMENT KILN OPERATOR Plan of Treatment Health Maintenance Due [...] age to complete this topic Care Teams Territory Account Manager Relationship Specialty Start Date End Date Vivienne Almanza MD [address] [place], [place] [id number] PCP - General 03/20/18 Monie Segura, SQL PROGRAMMER-BRIQUETTE MAKER [address] [place] [id number] Nurse Practitioner [facility] 09/19/22
[2025-02-03] MEDS: SODIUM CHLORIDE 0.9% IV 2,000 ML 999 ML IV CONT (02:44)
[2025-02-03 02:53] LABS: Basophils Percent Auto 0.3 % (0.2-1.2); Eosinophils Absolute Auto 0.2 K/mm3 (0-0.3); Eosinophils Percent Auto 1.6 % (0-4.4); Hematocrit 36.6 % (37.0-47.0); Hemoglobin 11.2 g/dL (12.0-15.0); Immature Granulocyte Absolute 0.01 K/mm3 (0.00-0.031); Immature Granulocyte Percent A 0.1 % (0-0.5); Lymphocytes Absolute Auto 4.37 K/mm3 (0.9-3.2); Lymphocytes Percent Auto 46.3 % (18.3-44.2); Mean Corpuscular HGB Conc 30.6 g/dl (32-36); Mean Corpuscular Hemoglobin 25.6 pg (26-34); Mean Corpuscular Volume 83.6 fl (80-100); Mean Platelet Volume 9.6 fl (7.4-10.4); Monocytes Absolute Auto 0.5 K/mm3 (0.1-0.6); Monocytes Percent Auto 5.4 % (2.6-8.5); Neutrophils Absolute Auto 4.4 K/mm3 (1.3-6.7); Neutrophils Percent Auto 46.3 % (45.5-73.1); Platelet Count Result 302 k/mm3 (150-375); Red Blood Count 4.38 M/mm3 (4.2-5.4); Red Cell Distribution Width 17.2 % (11.5-14.5); White Blood Count 9.4 K/mm3 (4.5-10.0)
[2025-02-03 03:08] LABS: Alanine Aminotransferase 17 U/L (6-35); Alkaline Phosphatase 81 U/L (38-126); Anion Gap 10 mmol/L (4-12); Aspartate Amino Transferase 18 U/L (14-36); Bilirubin,Total 0.3 mg/dL (0.2-1.3); Blood Urea Nitrogen 12 mg/dL (7-17); Calcium 9.4 mg/dL (8.4-10.2); Carbon Dioxide 26 mmol/L (22-30); Chloride 99 mmol/L (98-107); Estimated CRCL calculation 210 ml/min; Estimated Glomerular Filt Rate > 60; Glucose 289 mg/dL (65-110); Sodium 135 mmol/L (137-145)
[2025-02-03 03:54] LABS: Glucose Point of Care 276 mg/dl (65-105)
--- NOTE | 2025-02-03 04:32 | ED_ITS ---
HPI - Recheck/Abnormal Lab/Rx General Chief Complaint: Recheck/Abnormal Lab/Rx Stated Complaint: Blood sugar 379 Time Seen by Provider: 02/03/25 01:45 Source: patient Mode of arrival: ambulatory Limitations: no limitations History of Present Illness HPI narrative: This is a 34-year-old female, with history of diabetes, who presents to the emergency department stating that her blood glucose has been high. The patient states she had previously been controlling her glucose through meals, but has recently been treated for recurrent UTIs. She states she was started on glimepiride. She was recently prescribed Trulicity but has not yet started it. She states she has increased thirst and urinary frequency though no pain. She has no other complaints this time. Related Data Home Medications ?Medication ?Instructions ?Recorded ?Confirmed ?Last Taken ?Type dulaglutide 0.75 mg/0.5 mL mg subcut 10/04/24 Unknown History subcutaneous pen injector (Trulicity) empagliflozin 10 mg tablet 10 mg PO DAILY 10/04/24 10/04/24 Unknown History (Jardiance) rosuvastatin 5 mg tablet mg 10/04/24 Unknown History tirzepatide 2.5 mg/0.5 mL 2.5 mg subcut WEEKLY 10/04/24 10/04/24 Unknown History subcutaneous pen injector (Mounjaro) glimepiride 1 mg tablet 1 mg PO DAILY 02/03/25 02/03/25 02/03/25 History Allergies Allergy/AdvReac Type Severity Reaction Status Date / Time morphine Allergy Severe ITCHING, Verified 01/29/25 13:05 hives, throat swelling Review of Systems 2 Review of Systems: All systems reviewed & are unremarkable except as noted in HPI and below PMFSH Past Medical History Medical History (Updated 02/03/25 @ 04:36 by Pan Regan MD) Type 2 diabetes mellitus Hypothyroid Obesity Surgical History Surgical History History of ankle surgery History of cholecystectomy History of section 4 Family History Family History Unknown No significant family history Social History Social History Social History: 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 She lives with her tracy who is her durable power county attorney for healthcare. The patient is a lifelong nonsmoker. She does not use any alcohol marijuana or illicit drugs. Code status full code Smoking status: Never smoker Alcohol intake: never Substance use: never Substance use type: does not use Gender identity (if verbalized by the patient): Female Spiritual care concerns: No Exam 2 Narrative: GENERAL: Well-developed, well-nourished, and in no acute distress. HEAD: Normocephalic, atraumatic. EYES: PERRLA and EOMI. CHEST: Clear to auscultation. No respiratory distress. No wheezes rales or rhonchi HEART: Regular rate and rhythm. No murmur heard. Normal peripheral pulses. ABDOMEN: Soft, nontender, nondistended, normal active bowel sounds. EXTREMITIES: Normal range of motion. No edema. SKIN: Warm, dry, no rash. NEURO: Alert and oriented x3. No focal deficit. Moving all 4 limbs spontaneously PSYCH: Normal mood and affect. Course Course Emergency Course: 04:30 - CBC unremarkable. Chemistries within normal limits. The patient's blood glucose improved to 276 with fluids only. I do not suspect the need for insulin at this time. Will discharge with recommendation for continuance of her home diabetes medications. I advised the patient to contact her primary care doctor to discuss her medications and follow-up. I discussed the findings and recommendations with the patient. Discussed return and emergency precautions including signs/symptoms of DKA and hypoglycemia. The patient voiced understanding and agreement with the plan. All questions answered to her satisfaction. Vital Signs Vital signs: Vital Signs Temperature 98.7 F 02/02/25 22:49 Pulse Rate 83 02/02/25 22:49 Respiratory Rate 16 02/02/25 22:49 Blood Pressure 130/72 02/02/25 22:49 Pulse Oximetry 100 02/02/25 22:49 Oxygen Delivery Room Air 02/02/25 22:49 Temperature 98.7 F 02/03/25 00:07 Pulse Rate 83 02/03/25 00:07 Respiratory Rate 16 02/03/25 00:07 Blood Pressure 130/72 02/03/25 00:07 Pulse Oximetry 100 02/03/25 00:07 Oxygen Delivery Room Air 02/03/25 00:07 MDM - Recheck/Abnormal Lab/Rx MDM Narrative Medical decision making narrative: Plan: Labs, IV fluids, repeat blood sugar, reassess Differential Diagnosis Differential diagnosis: Likely other (DKA, medication interaction, medication noncompliance, metabolic abnormality, other) Lab Data 02/03/25 02:46 02/03/25 02:46 Labs: Lab Results 02/02/25 02/03/25 02/03/25 Range/Units 22:48 02:46 03:52 WBC 9.4 (4.5-10.0) K/mm3 RBC 4.38 (4.2-5.4) M/mm3 Hgb 11.2 L (12.0-15.0) g/dL Hct 36.6 L (37.0-47.0) % MCV 83.6 (80-100) fl MCH 25.6 L (26-34) pg MCHC 30.6 L (32-36) g/dl RDW 17.2 H (11.5-14.5) % Plt Count 302 (150-375) k/mm3 MPV 9.6 (7.4-10.4) fl Immature Gran % (Auto) 0.1 (0-0.5) % Neut % (Auto) 46.3 (45.5-73.1) % Lymph % (Auto) 46.3 H (18.3-44.2) % [place] % (Auto) 5.4 (2.6-8.5) % Eos % (Auto) 1.6 (0-4.4) % Baso % (Auto) 0.3 (0.2-1.2) % Lymph # (Auto) 4.37 H (0.9-3.2) K/mm3 [place] # (Auto) 0.5 (0.1-0.6) K/mm3 Eos # (Auto) 0.2 (0-0.3) K/mm3 Baso # (Auto) 0.0 (0.0-0.1) K/mm3 Abs Immat Gran (auto) 0.01 (0.00-0.031) K/mm3 Absolute Neuts (auto) 4.4 (1.3-6.7) K/mm3 Absolute Nucleated RBC 0.000 (0.0-0.012) K/mm3 Nucleated RBC % 0.0 (0.0-0.2) % Sodium 135 L (137-145) mmol/L Potassium 4.0 (3.4-5.0) mmol/L Chloride 99 (98-107) mmol/L Carbon Dioxide 26 (22-30) mmol/L Anion Gap 10 (4-12) mmol/L BUN 12 D (7-17) mg/dL Creatinine 0.42 L (0.7-1.0) mg/dL Estim Creat Clear Calc 210 ml/min Estimated GFR > 60 (59 - ) Glucose 289 H (65-110) mg/dL POC Capillary Glucose 356 H 276 H (65-105) mg/dl Calcium 9.4 (8.4-10.2) mg/dL Total Bilirubin 0.3 (0.2-1.3) mg/dL AST 18 (14-36) U/L ALT 17 (6-35) U/L Alkaline Phosphatase 81 (38-126) U/L Total Protein 8.0 (6.3-8.2) g/dL Albumin 4.0 (3.5-5.1) g/dL Discharge Plan Discharge Clinical Impression: Hyperglycemia due to diabetes mellitus Patient Disposition: Home Condition: Stable Instructions: Antibiotic Form, Diabetic Hyperglycemia (ED) Additional Instructions: You were seen in the emergency department. Your labs are not concerning for DKA. Your red blood cell count is slightly decreased at 11.2 but appears stable. Your given 2 L of IV fluid with improvement of your blood sugars. I recommend continuing your medications for diabetes and contacting your primary care doctor about your Trulicity. If you develop difficulty breathing, rapid abnormal breathing, chest pain, loss of consciousness, or if you have other emergent concerns for life, limb, or eyesight, return to the emergency department. Patient Language: Citizen Of [place] Prescriptions: No Action rosuvastatin 5 mg tablet Jardiance 10 mg tablet 10 mg PO DAILY Trulicity 0.75 mg/0.5 mL pen injector SUBCUT Mounjaro 2.5 mg/0.5 mL pen injector 2.5 mg SUBCUT WEEKLY polyethylene glycol 3350 [Miralax] 17 gram Powder In Packet 17 g PO QAM Qty: 30 0RF sennosides-docusate sodium [Senokot-S] 8.6-50 mg Tablet 2 tab PO BID Qty: 30 0RF ergocalciferol (vitamin D2) [Vitamin D2] 1,250 mcg (50,000 unit) Capsule 50,000 unit PO SuWe@0900 Qty: 8 0RF metformin 500 mg tablet 500 mg PO BID Qty: 60 0RF (DME) blood-glucose meter [OneTouch Verio Flex meter] [facility] Qty: 1 0RF Rx Instructions: May substitute to in-stock meter and/or covered by insurance. Use As Directed (DME) OneTouch Verio test strips Strip Qty: 1 0RF Rx Instructions: May substitute to in-stock and/or covered by insurance strips. Use As Directed (DME) lancets [OneTouch Delica Plus Lancet] 30 gauge [facility] Qty: 1 0RF Rx Instructions: May substitute to in-stock and/or covered by insurance lancets. Use As Directed glimepiride 1 mg tablet 1 mg PO DAILY Follow-up/Referrals: UNKNOWN,DOCTOR [Primary Care Provider] - 1 Week Time of Disposition: 04:33
[2025-02-03 04:42] VITALS: BP 124/82; PULSE 75; RESP 15; O2SAT 99
== END 2025-02-03 04:44 | disposition home or self-care (01) ==
PROVIDERS: Emergency Provider Preventive Medicine Aerospace Medicine
DX: E11.65 Type 2 diabetes mellitus with hyperglycemia (principal); E03.9 Hypothyroidism, unspecified; E66.9 Obesity, unspecified; Z68.43 Body mass index [BMI] 50.0-59.9, adult; Z90.49 Acquired absence of other specified parts of digestive tract; Z79.84 Long term (current) use of oral hypoglycemic drugs; Z79.85 Long-term (current) use of injectable non-insulin antidiabetic drugs
CPT/HCPCS: 36415; 80053; 82948; 85025; 96360; 96361; 99283; J7030

== ENCOUNTER 2025-10-02 22:25 | Emergency (ER) | payer OTHER, SELFPAY ==
--- NOTE | ~2025-10-02 | XR_ITS ---
Examination: XR chest 2V Clinical History: L ribcage pain Comparison: 04/28/2023 Technique: PA and Lateral Findings: Cardiomediastinal silhouette normal size and configuration. Lungs clear. No acute bony abnormality. IMPRESSION: 1. No acute cardiopulmonary findings. Reviewed, dictated and finalized at location R. IO MODEL
--- OUTSIDE RECORDS SUMMARY | 2025-10-02 22:28 | XMS_ITS | Clinical Summary ---
Author Organization [facility] Medical Office Building [address] Address [address] [place] [address] Care Team Providers Care Special Needs Tutor Name Role Phone Vivienne Almanza MD Primary [...] on file Legal Sex Female 8:34 PM MIRROR INSTALLER Gender Identity Not on file Sexual Orientation Not on file Last Filed Vital Signs Vital Sign Reading Time Taken Comments Blood Pressure 115/81 12/23/2020 10:58 AM MIRROR INSTALLER Pulse 82 12/23/2020 10:58 AM MIRROR INSTALLER Temperature 36.3 C (97.3 F) 12/23/2020 10:58 AM MIRROR INSTALLER Respiratory Rate 18 12/23/2020 10:5 8 AM MIRROR INSTALLER Oxygen Saturation 100% 06/03/2017 11: 53 AM CDT Inhaled Oxygen Concentration - - Weight 148.5 kg (327 lb 6.4 oz) 021 10:58 AM MIRROR INSTALLER Height 152.4 cm (5') 10/31/2023 3:02 PM MIRROR INSTALLER Body Mass Index 59.88 12/23/2020 10:58 AM MIRROR INSTALLER Plan of Treatment Health Maintenance Due Date Last Done Comments Cervical Cancer Screening 1988 Depression Screening 1988 Hepatitis C Screening 1988 Varicella Vaccines (1 of 2 - 13+ 2-dose series) 2001 Regular Well Visit/Exam 18-64 2006 HPV Vaccines (1 - 3-dose SCD M series) 2015 Influenza Vaccine (#1) 2025 DTaP/Tdap/Td Vaccine (2 - Td or Tdap) 11/27/2031 11/27/2021, 06/10/2003 Hepatitis B Screening Completed 12/17/1997 , 09/14/1997, 02/26/1997 Pneumococcal vaccine <65 Aged Out No longer eligible based on patient's age to complete this topic Insurance [facility] Care Teams Special Needs Tutor Relationship Specialty Start Date End Date Vivienne Almanza MD [address] [place] [id number] PCP - General Internal Medicine 11/05/20
[2025-10-02 22:29] VITALS: BP 124/65; PULSE 88; RESP 20; TEMP 36.7; O2SAT 100
[2025-10-03 01:10] VITALS: BP 121/71; PULSE 80; RESP 19; O2SAT 98
--- OUTSIDE RECORDS SUMMARY | 2025-10-03 01:46 | XMS_ITS | Clinical Summary ---
Author Organization [facility] Address [address] [place] [address] Care Team Providers Care Waterside Worker Name Role Phone Vivienne Almanza MD Primary Care Provider Monie Segura APRN-LIQUOR GRINDER MILL OPERATOR Unavailable Source Comments [facility],non-owned Affiliates and Associated Physician Practices is amultiple site organization consisting of ambulatory clinics and hospital sitesin [place], [place], [place] and [place]. This disclosure is being madepursuant to the Care Everywhere program and may not contain all information available regarding this patient. Last updated 18.[facility] Allergies Active Allergy Reactions Criticality Noted Date Comments Morphine Anaphylaxis,Itching High 01/18/2016 Medications * Be aware that medications may not be up to date on this document. Alwaysverify current medications with the patient. clobetasol - coal tar (CLOBETAPLUS OINTMENT) 0.05 & 2.3 % ointment 1 applicator by Apply externally route DAILY. 7 Active betamethasone dipropionate (DIPROSONE) 0.05 % ointment Apply to areas of psoriasis on buttocks and legs twice daily as needed 50 g 2 8 Active Additional Information Patient not taking.Reported on 01/04/2021 cetirizine (ZYRTEC) 10 MG tablet Take 1 tablet by mouth once daily 11 8 Active Additional Information Patient not taking.Reported on 01/04/2021 fluocinonide (LIDEX) 0.05 % ointmentIndicati ons:Other psoriasis Apply to areas of psoriasis on buttocks and legs twice daily only when flared 30 days supply. 60 g 1 Active hydrocortisone (HYTONE) 2.5 % ointmentIndicati ons:Vulvar itching Apply to itchy area on vulva twice daily as needed for 3 days . 30 days supply. 30 g 1 Active albuterol HFA (PROVENTIL;ANGELA RICH;PROAIR) 108 (90 Base) MCG/ACT inhaler Inhale 2 puffs by mouth every 4 hours as needed 1 Active fluconazole (DIFLUCAN) 150 MG tablet TAKE 1 TABLET BY MOUTH EVERY 2 WEEKS 1 Active fluticasone propionate (FLONASE) 50 MCG/ACT nasal spray SHAKE LQ AND U 1 SPR IEN BID 0 Active ibuprofen (MOTRIN) 800 MG tablet TAKE 1 TABLET BY MOUTH EVERY 6 HOURS WITH FOOD NEEDED FOR PAIN 1 Active Active Problems Problem Noted Date Diagnosed [...] drink = 0.6 oz pur e alcohol) Comments Unknown Sex and Gender Information Value Date Recorded Sex Assigned at Not on file Legal Sex Female 5:45 PM FOOD PRODUCTS SALES REPRESENTATIVE Gender Identity Not on file Sexual Orientation Not on file Last Filed Vital Signs Vital Sign Reading Time Taken Comments Blood Pressure 124/80 09/19/2022 8:30 AM FOOD PRODUCTS SALES REPRESENTATIVE Pulse 88 09/19/2022 8:30 AM FOOD PRODUCTS SALES REPRESENTATIVE Temperature 36.6 C (97.8 F) 09/19/2022 8:30 AM FOOD PRODUCTS SALES REPRESENTATIVE Respiratory Rate - - Oxygen Saturation 100% 09/19/2022 8:30 AM FOOD PRODUCTS SALES REPRESENTATIVE Inhaled Oxygen Concentration - - Weight 144.3 kg (318 lb 3.2 oz) 09/19/2022 8:30 AM FOOD PRODUCTS SALES REPRESENTATIVE Height 152.4 cm (5') 09/19/2022 8:30 AM FOOD PRODUCTS SALES REPRESENTATIVE Body Mass Index 62.14 09/19/2022 8:30 AM FOOD PRODUCTS SALES REPRESENTATIVE Plan of Treatment Health Maintenance Due Date Last Done Comments HIV SCREENING 2003 HEPATITIS C SCREENING 06/26/2006 DTAP/TDAP/TD VACCINES (1 - Tdap) 2007 HEPATITIS B VACCINE (1 of 3 - 19+ 3-dose series) 2007 HPV VACCINE (1 - 3-dose SCDM series) 2015 DEPRESSION SCREENING 10/29/2024 COVID-19 VACCINE (1 - 2024-2 6 season) 2025 INFLUENZA VACCINE (#1) 2025 ZOSTER VACCINE (1 of 2) 2038 [...] patient's age to complete this topic Insurance [facility] Care Teams Waterside Worker Relationship Specialty [place] [address] [place] [id number] PCP - General 03/20/18 Monie Segura, REVERSE UNIT OPERATOR-LIQUOR GRINDER MILL OPERATOR [address] [place] [id number] Nurse Practitioner [facility] 09/19/22
--- OUTSIDE RECORDS SUMMARY | 2025-10-03 01:46 | XMS_ITS | Clinical Summary ---
Author Organization [facility] Address [address] [place] [address] Care Team Providers Care Gear Finisher Name Role Phone Vivienne Almanza MD Primary [...] on file Legal Sex Female 8:34 PM ELEVATOR OPERATOR SERVICE Gender Identity Not on file Sexual Orientation Not on file Last Filed Vital Signs Vital Sign Reading Time Taken Comments Blood Pressure 115/81 12/23/2020 10:58 AM ELEVATOR OPERATOR SERVICE Pulse 82 12/23/2020 10:58 AM ELEVATOR OPERATOR SERVICE Temperature 36.3 C (97.3 F) 12/23/2020 10:58 AM ELEVATOR OPERATOR SERVICE Respiratory Rate 18 12/23/2020 10:5 8 AM ELEVATOR OPERATOR SERVICE Oxygen Saturation 100% 06/03/2017 11: 53 AM CDT Inhaled Oxygen Concentration - - Weight 148.5 kg (327 lb 6.4 oz) 021 10:58 AM ELEVATOR OPERATOR SERVICE Height 152.4 cm (5') 10/31/2023 3:02 PM ELEVATOR OPERATOR SERVICE Body Mass Index 59.88 12/23/2020 10:58 AM ELEVATOR OPERATOR SERVICE Plan of Treatment Health Maintenance Due Date [...] patient's age to complete this topic Insurance [facility] Care Teams Gear Finisher Relationship Specialty Start Date End Date Vivienne Almanza MD [address] [place] [id number] PCP - General Internal Medicine 11/05/20
--- OUTSIDE RECORDS SUMMARY | 2025-10-03 01:46 | XMS_ITS | Data Portability ---
Author Organization [facility]NA[facility]a Smith Address [address] [facility] [facility] [place] [address] Care Team Providers Care Incendiary Powder Mixer Name Role Phone JACLYN BOSCH Neurologist Assessment [...] Last Modified Time Details Appointments ANY 15 2025 11:45A M Vivienne Almanza MD Not available Not available Not available Lab HbA1c (hemoglob in A1c), blood 2023 024 [facility], [address], [address], [place], [address], 12/09/2024 09:06:53 lipid panel, serum 2023 024 [facility], [address], [address], [place], [address], 12/09/2024 09:07:02 TSH, ultra-sen sitive, serum 2023 024 [facility], [address] [place], [place] [address]j[address], [address], [place], [address], 05/14/2024 13:13:28 basic metabolic 1998 panel, serum or plasma 2023 024 [facility], [address] [place] [address], [address], [place], [address], 05/14/2024 13:13:27 iron + total iron-bind ing capacity (TIBC), serum 2023 024 [facility], [address] [place] [address], [address], [place], [address], 05/14/2024 13:13:29 ferritin, serum or plasma 2023 024 [facility], [address] [place] [address], [address], [place], [address], 05/14/2024 13:13:31 vitamin B12, serum 2023 024 [facility], [address] [place] [address], [address], [place], [address], 05/14/2024 13:13:30 hemoglobi n S (hbs), presence, blood 2023 024 [facility], [address] [place] [address] Juan, [address], [place], [address], 05/14/2024 13:13:32 hemoglobi n + hematocri t, blood 2023 024 [facility], [address] [place] [address] Juan, [address], [place], [address], 05/14/2024 13:13:33 albumin/c reatinine , mass ratio, urine 2023 024 [facility], [address] [facility], [address], [place], [address], 05/14/2024 13:13:[address] referral 2023 024 [place], [address], [place], [address], 02/20/2025 18:51:13 cardiolog ist referral 2023 024 [facility], [address], [place], [address], 11/13/2024 14:03:22 diabetic ophthalmo logy referral - HBA1C 7.6% 2023 024 [facility], [address] , [place], [address], 02/20/2025 18:51:13 endocrino logy, diabetes & metabolis m specialis t referral 2023 024 [facility] , [address], [place], [address], 02/20/2025 18:51:13 Procedures None recorded. Surgeries None recorded. Imaging MRI, brain, w/o contrast - Facial numbness [address] ([facility]), [address] [place], [address], 09/21/2025 09:51:13 XR, ankle - Pain/swel ling left lateral malleolus 2023 024 [facility] ([facility]), [address] [place], [address], 03/02/2025 14:53:21 US, duplex, venous, lower extremity - LLE swelling 2023 [facility] (Imaging), [address], [place], [address], 01/15/2025 14:19:58 Medication Orders glimepiri de 1 mg tablet 2024 025 [id number], [address], [place], [place], [id number], 01/28/2025 16:05:33 rosuvasta tin 40 mg tablet 2024 025 [facility] #[id number], [address], [place], [place], [id number], 01/28/2025 16:07:07 Trulicity 0.75 mg/0.5 mL subcutane ous pen injector 2024 025 [facility] #[id number], [address], [place], [place], [id number], 01/28/2025 16:08:09 rosuvasta tin 5 mg tablet 2023 024 [facility] #[id number], [address], [place], [place], [id number], 07/01/2024 13:14:33 metformin ER 500 mg tablet,ex tended release 24 hr 2023 024 [facility] #[id number], [address], [place], [place], [id number], 07/01/2024 13:13:54 Rybelsus 3 mg tablet 2023 024 [facility][id number], [address], [place], [place], [id number], 07/01/2024 13:14:16 Patient TargetsNo targets recorded. Patient Instructions Encounter Date Encounter Id Patient Instructions Last Modified By Organization Details Last Modified Time 01/17/2024 [id number] anemia: care instructions oajao Not available 01/17/2024 11:21:08 body mass index: care instructions oajao Not available 01/17/2024 10:58:42 learning about healthy weight oajao Not available 01/17/2024 10:58:42 snoring: care instructions oajao Not available 01/17/2024 11:27:40 Labs in 3 weeks Letter to her employer Continue Metformin Start Rybelsus Restart Rosuvastatin Sleep medicine Follow up in 4 weeks Sleep medicine Ophthalmology as previously referred oao Not available 01/17/2024 11:31:53 Compliance was reinforced to prevent the complications of DM. Detailed visit [facility] Not available 01/17/2024 13:30:55 05/13/2024 [id number] Xray US Take you r medications as prescribed Labs as previously ordered Follow up in 4 weeks oao Not available 05/13/2024 12:44:15 07/01/2024 [id number] type 2 diabetes: care instructions oajao Not available 07/01/2024 13:03:06 US as previously ordered Neurologist [employer] Labs Follow up in 6 weeks oao Not available 07/01/2024 14:09:44 Complications of poorly managed DM were discussed oajao Not available 07/01/2024 14:10:38 01/28/2025 [id number] body mass index: care instructions oajao Not available 01/28/2025 15:39:00 learning about healthy weight oajao Not available 01/28/2025 15:39:00 MRI brain ER wit h worsening of the neurological symptoms Start Trulicity Start Glimepiride Start Rosuvastatin Most recent consultation note from Dr Askew to determine why he started her on Losartan (Microalbuminuria?) Follow [facility] in [address] [facility] Not available 01/28/2025 19:36:18 Detailed discuss ion [...] on the lab results. Very detailed visit oafrankie Not available 01/28/2025 19:36:52 03/02/2025 [id number] MRI as previousl y ordered (Scheduled) Start Trulicity Continue Glimepiride Follow up in 4 weeks hdoverma Not available 03/02/2025 15:14:52 Reason for Referral Diabetic Ophthalmology Refer ral for Uncontrolled type 2 diabetes mellitus HBA1C 10.6% HBA1C 7.6% Referring Physician: Vivienne Almanza, Internal Medicine, Encounter Date: 07/01/2024 Neurologist Referral for Tra nsient neurological symptoms Transient slurred speech Referring Physician: Vivienne Almanza, Internal Medicine, Encounter Date: 07/01/2024 [employer] Referral for Tr ansient neurological symptoms Transient slurred speech, empty sella Referring Physician: Vivienne Almanza, Internal Medicine, Encounter Date: 07/01/2024 Endocrinology, Diabetes & Me tabolism Specialist Referral for Uncontrolled type 2 diabetes mellitus Uncontrolled DM with poor compliance Referring Physician: Vivienne Almanza, Internal Medicine, Encounter Date: 07/01/2024 Results Created Date Observation Date Name Description Value Unit Range Abnormal Flag Note LastModifiedBy Organization Detail LastModifiedTime 02/11/20 24 02/11/2024 Bacte talib ident ified [...] urine 127.5 mg/dL notest ab. Not Available [facility] ([facility]) [address] [place], [address], 05/14/2024 13:13:26 05/13/20 24 05/14/2024 ALBUM IN/CR EATIN INE RATIO ,URIN E albumin, urine 40.0 ug/mL notest ab. Not Available [facility] ([facility]) [address] [facility], [place], [address], 05/14/2024 13:13:26 05/13/20 24 05/14/2024 ALBUM IN/CR EATIN INE RATIO ,URIN E alb/creat ratio 31 mg/g_ creat 0-29 above high normal Jeanette l: 0 - 29 Moder ately incre ased: 30 - 300 Sever young incre ased: >300 Not Available [facility] ([facility]) [address] [place], [address], 05/14/2024 13:13:26 05/13/20 24 05/14/2024 BASIC METAB OLIC PANEL (7) glucose 144 mg/dL 70-99 above high normal Not Available [facility] ([facility]) [address] [place], [address], 05/14/2024 13:13:27 05/13/20 24 05/14/2024 BASIC METAB OLIC PANEL (7) BUN 9 mg/dL 6-20 Not Available [facility] ([facility]) [address] [place], [address], 05/14/2024 13:13:27 05/13/20 24 05/14/2024 BASIC METAB OLIC PANEL (7) creatinine 0.50 mg/dL 0.57-1 .00 below low normal Not Available [facility] ([facility]) [address] [place], [address], 05/14/2024 13:13:27 05/13/20 24 05/14/2024 BASIC METAB OLIC PANEL (7) eGFR 125 mL/mi n/1.7 3 >59 Not Available [facility] ([facility]) [address] [place], [address], 05/14/2024 13:13:27 05/13/20 24 05/14/2024 BASIC METAB OLIC PANEL (7) BUN/creatini ne ratio 18 9-23 Not Available [facility] ([facility]) [address] [place], [address], 05/14/2024 13:13:27 05/13/20 24 05/14/2024 BASIC METAB OLIC PANEL (7) sodium 139 mmol/ L 134-14 4 Not Available [facility] ([facility]) [address] [place], [address], 05/14/2024 13:13:27 05/13/20 24 05/14/2024 BASIC METAB OLIC PANEL (7) potassium 4.9 mmol/ L 3.5-5. 2 Not Available [facility] ([facility]) [address] [place], [address], 05/14/2024 13:13:27 05/13/20 24 05/14/2024 BASIC METAB OLIC PANEL (7) chloride 100 mmol/ L 96-106 Not Available [facility] ([facility]) [address] [place], [address], 05/14/2024 13:13:27 05/13/20 24 05/14/2024 BASIC METAB OLIC PANEL (7) carbon dioxide, total 27 mmol/ L 20-29 Not Available [facility] ([facility]) [address] [place], [address], 05/14/2024 13:13:27 05/13/20 24 05/14/2024 TSH RFX ON ABNOR MAL TO FREE T4 TSH 0.260 uIU/m L 0.450- 4.500 below low normal Not Available [facility] ([facility]) [address] [place], [address], 05/14/2024 13:13:28 05/13/20 24 05/14/2024 IRON AND TIBC iron bind.cap.(TI BC) 347 ug/dL 250-45 0 Not Available [facility] ([facility]) [address] [place], [address], 05/14/2024 13:13:29 05/13/20 24 05/14/2024 IRON AND TIBC UIBC 292 ug/dL 131-42 5 Not Available [facility] ([facility]) [address] [place], [address], 05/14/2024 13:13:29 05/13/20 24 05/14/2024 IRON AND TIBC iron 55 ug/dL 27-159 Not Available [facility] ([facility]) [address] [place], [address], 05/14/2024 13:13:29 05/13/20 24 05/14/2024 IRON AND TIBC iron saturation 16 % 15-55 Not Available [facility] ([facility]) [address] [place], [address], 05/14/2024 13:13:29 05/13/20 24 05/14/2024 VITAM IN B12 vitamin B12 570 pg/mL 232-12 45 Not Available [facility] ([facility]) [address] [place], [address], 05/14/2024 13:13:30 05/13/20 24 05/14/2024 T4F T4,free (direct) 1.65 NG/dL 0.82-1 .77 Not Available [facility] ([facility]) [address] [place], [address], 05/14/2024 13:13:31 05/13/20 24 05/14/2024 YOCASTA TIN ferritin 18 NG/mL 15-150 Not Available [facility] ([facility]) [address] [place], [address], 05/14/2024 13:13:31 05/13/20 24 05/14/2024 HB SOLU + RFLX FRAC hemoglobin (HGB) solubility NEGATI VE negati ve Not Available [facility] ([facility]) [address] [place], [address], 05/14/2024 13:13:32 05/13/20 24 05/14/2024 HGB+H CT hemoglobin 10.6 g/dL 11.1-1 5.9 below low normal Not Available [facility] ([facility]) [address] [facility], [place], [address], 05/14/2024 13:13:33 05/13/20 24 05/14/2024 HGB+H CT hematocrit 34.0 % 34.0-4 6.6 Not Available [facility] ([facility]) [address] [facility], [place], [address], 05/14/2024 13:13:33 06/24/20 24 06/24/2024 Bacte rial [...] n Not Available Not Available 12/08/2024 16:47:30 11/27/19 25 11/27/2024 Reagi n Ab [Pres ence] in Serum by RPR RPR screen Nonrea ctive text: nonrea ctive Not Available Not Available 05/28/2025 04:18:15 11/27/19 25 11/27/2024 Hepat itis B virus core IgM Ab [Pres ence] in Serum hepatitis B core IgM antibody Non-re active text: non-re active hepat itis B core IgM antib orquidea Not Available Not Available 02/27/2025 16:17:59 11/27/19 25 11/27/2024 Hepat itis C virus Ab [Unit s/vol ume] in Serum hepatitis C antibody Non-re active text: non-re active hepat itis C antib orquidea Not Available Not Available 02/27/2025 16:17:59 11/27/19 25 11/27/2024 Hepat itis B virus surfa ce Ag [Pres ence] in Serum hepatitis B surface antigen Non-re active text: non-re active hepat itis B surfa ce antig en Not Available Not Available 02/27/2025 16:17:59 11/27/19 25 11/27/2024 HIV 1+2 Ab+HI V1 p24 Ag [Pres ence] in Serum or Plasm a by Immun oassa y HIV antigen/anti body Nonrea ctive text: nonrea ctive HIV antig en/an tibod y Not Available Not Available 02/27/2025 16:17:58 11/27/19 25 11/27/2024 Bacte talib ident ified in Urine by Cultu re result report SEE RESULT S BELOW Test: Cultu re: Urine Speci men Sourc e: Urine - Clean Catch Speci men Type: Urine Speci men Date: 2024 1205 Resul t Date: 2024 Resul t Statu s: Final resul t Abnor mal: No Resul ting Lab: [facility] [address] [facility] [address] Tel: [phone] CULTU RE ----- ----- ----- --- No growt h in 1 day (dete ction level of 10,00 0 colon ies / ml.) Not Available Not Available 05/28/2025 04:18:15 02/26/2002/26/2025 Hepat itis C virus Ab [Pres ence] in Serum or Plasm a by Immun oassa y hepatitis C virus Ab [presence] in serum or plasma by immunoassay Non-re active text: non-re active Antib odies to HCV Not Detec trung, does not exclu de the possi bilit y of expos ure to HCV. Not Available Not Available 05/28/2025 04:18:05 02/26/2002/26/2025 Hepat itis C virus Ab [Pres ence] in Serum or Plasm a by Immun oassa y interpretati on and review of laboratory results Normal Not Available Not Available 04/30 04:18:05 02/26/2002/26/2025 HIV 1+2 Ab+HI V1 p24 Ag [Pres ence] in Serum or Plasm a by Immun oassa y HIV 1+2 Ab+HIV1 P24 Ag [presence] in serum or plasma by immunoassay Nonrea ctive text: nonrea ctive Not Available Not Available 05/28/2025 04:18:05 02/26/2002/26/2025 HIV 1+2 Ab+HI V1 p24 Ag [Pres ence] in Serum or Plasm a by Immun oassa y Unknown Analyte HIV-1 antige n and HIV-1/ HIV-2 antibo dies were not detect ed. No labora tory eviden ce of HIV infect ion. Not Available Not Available 04:18:05 02/26/20 25 02/26/2025 HIV 1+2 Ab+HI V1 p24 Ag [Pres ence] in Serum or Plasm a by Immun oassa y interpretati on and review of laboratory results Normal Not Available Not Available 04/30 04:18:05 02/26/20 25 02/26/2025 Hepat itis B virus core IgM Ab [Pres ence] in Serum or Plasm a by Immun oassa y hepatitis B virus core IgM Ab [presence] in serum or plasma by immunoassay Non-re active text: non-re active Antib odies to Hepat itis B Core IgM not detec trung. Does not exclu de the possi bilit y of expos ure to or infec tion with HBV. Corre late with other Hepat itis B serol ogies . Not Available Not Available 05/28/2025 04:18:05 02/26/20 25 02/26/2025 Hepat itis B virus core IgM Ab [Pres ence] in Serum or Plasm a by Immun oassa y interpretati on and review of laboratory results Normal Not Available Not Available 04/30 04:18:05 02/26/20 25 02/26/2025 Hepat itis B virus surfa ce Ag [Pres ence] in Serum or Plasm a by Neutr kiana tion test hepatitis B virus surface Ag [presence] in serum or plasma by neutralizati on test Non-re active text: non-re active This assay was perfo rmed using [place] [employer] ratio n reage nts and test kits. Value s obtai kae with other assay metho ds or kits canno t be used inter bay eably . Not Available Not Available 05/28/2025 04:18:05 02/26/20 25 02/26/2025 Hepat itis B virus surfa ce Ag [Pres ence] in Serum or Plasm a by Neutr kiana tion test interpretati on and review of laboratory results Normal Not Available Not Available 04/30 04:18:05 02/26/20 25 02/26/2025 Reagi n Ab [Pres ence] in Serum by RPR reagin Ab [presence] in serum by RPR Nonrea ctive text: nonrea ctive Not Available Not Available 05/28/2025 04:18:05 02/26/20 25 02/26/2025 Reagi n Ab [Pres ence] in Serum by RPR interpretati on and review of laboratory results Normal Not Available Not Available 04/30 04:18:05 02/26/20 25 02/25/2025 Chlam ydia trach omati s and Neiss eria gonor rhoea e rRNA panel - Speci men by AILEEN with probe detec tion chlamydia trachomatis, PCR Negati ve text: negati ve Not Available Not Available 05/28/2025 04:18:15 02/26/20 25 02/25/2025 Chlam ydia trach omati s and Neiss eria gonor rhoea e rRNA panel - Speci men by AILEEN with probe detec tion neisseria gonorrhoeae, PCR Negati ve text: negati ve Not Available Not Available 05/28/2025 04:18:15 02/26/20 25 02/25/2025 Trich omona s vagin eric rRNA [Pres ence] in Speci men by AILEEN with probe detec tion trichomonas vaginalis ribosomal RNA (rrna) Negati ve text: negati ve Not Available Not Available 05/28/2025 04:18:15 02/26/20 25 02/25/2025 Hepat itis B virus core IgM Ab [Pres ence] in Serum hepatitis B core IgM antibody Non-re active text: non-re active hepat itis B core IgM antib orquidea Not Available Not Available 02/27/2025 16:17:59 02/26/20 25 02/25/2025 Reagi n Ab [Pres ence] in Serum by RPR RPR qualitative Nonrea ctive text: nonrea ctive RPR quali tativ e Not Available Not Available 02/27/2025 16:17:59 02/26/20 25 02/25/2025 Hepat itis C virus Ab [Unit s/vol ume] in Serum hepatitis C antibody Non-re active text: non-re active hepat itis C antib orquidea Not Available Not Available 02/27/2025 16:17:59 02/26/20 25 02/25/2025 Hepat itis B virus surfa ce Ag [Pres ence] in Serum hepatitis B surface antigen Non-re active text: non-re active hepat itis B surfa ce antig en Not Available Not Available 02/27/2025 16:17:59 02/26/20 25 02/25/2025 HIV 1+2 Ab+HI V1 p24 Ag [Pres ence] in Serum or Plasm a by Immun oassa y HIV antigen/anti body Nonrea ctive text: nonrea ctive HIV antig en/an tibod y Not Available Not Available 02/27/2025 16:17:59 06/19/2006/20/2025 Hepat itis C virus Ab [Pres ence] in Serum or Plasm a by Immun oassa y hepatitis C virus Ab [presence] in serum or plasma by immunoassay Non-re active text: non-re active Antib odies to HCV Not Detec trung, does not exclu de the possi bilit y of expos ure to HCV. Not Available Not Available 06/23/2025 15:57:26 06/19/2006/20/2025 Hepat itis C virus Ab [Pres ence] in Serum or Plasm a by Immun oassa y interpretati on and review of laboratory results Normal Not Available Not Available 05/30 15:57:26 06/19/2006/20/2025 HIV 1+2 Ab+HI V1 p24 Ag [Pres ence] in Serum or Plasm a by Immun oassa y HIV 1+2 Ab+HIV1 P24 Ag [presence] in serum or plasma by immunoassay Nonrea ctive text: nonrea ctive Not Available Not Available 06/23/2025 15:57:26 06/19/2006/20/2025 HIV 1+2 Ab+HI V1 p24 Ag [Pres ence] in Serum or Plasm a by Immun oassa y HIV-1 antigen and HIV-1/HIV-2 antibodies were not detected. no laboratory evidence of HIV infection. HIV-1 antige n and HIV-1/ HIV-2 antibo dies were not detect ed. No labora tory eviden ce of HIV infect ion. Not Available Not Available 15:57:26 06/19/2006/20/2025 HIV 1+2 Ab+HI V1 p24 Ag [Pres ence] in Serum or Plasm a by Immun oassa y interpretati on and review of laboratory results Normal Not Available Not Available 05/30 15:57:26 06/19/20 25 06/22/2025 Hepat itis B virus core IgM Ab [Pres ence] in Serum or Plasm a by Immun oassa y hepatitis B virus core IgM Ab [presence] in serum or plasma by immunoassay Non-re active text: non-re active Antib odies to Hepat itis B Core IgM not detec trung. Does not exclu de the possi bilit y of expos ure to or infec tion with HBV. Corre late with other Hepat itis B serol ogies . Not Available Not Available 06/23/2025 15:57:26 06/19/20 25 06/22/2025 Hepat itis B virus core IgM Ab [Pres ence] in Serum or Plasm a by Immun oassa y interpretati on and review of laboratory results Normal Not Available Not Available 05/30 15:57:26 06/19/2006/20/2025 Hepat itis B virus surfa ce Ag [Pres ence] in Serum or Plasm a by Neutr kiana tion test hepatitis B virus surface Ag [presence] in serum or plasma by neutralizati on test Non-re active text: non-re active This assay was perfo rmed using [place] [employer] ratio n reage nts and test kits. Value s obtai kae with other assay metho ds or kits canno t be used inter bay eably . Not Available Not Available 06/23/2025 15:57:26 06/19/2006/20/2025 Hepat itis B virus surfa ce Ag [Pres ence] in Serum or Plasm a by Neutr kiana tion test interpretati on and review of laboratory results Normal Not Available Not Available 05/30 15:57:26 06/19/2006/20/2025 Reagi n Ab [Pres ence] in Serum by RPR reagin Ab [presence] in serum by RPR Nonrea ctive text: nonrea ctive Not Available Not Available 06/23/2025 15:57:26 06/19/20 25 06/20/2025 Reagi n Ab [Pres ence] in Serum by RPR interpretati on and review of laboratory results Normal Not Available Not Available 05/30 15:57:26 06/19/20 25 06/21/2025 Bacte talib ident ified in Urine by Cultu re bacteria identified in urine by culture No growth in 1 day (detec tion level of 10,000 coloni es / ml.) Not Available Not Available 15:57:26 06/19/2006/21/2025 Bacte talib ident ified in Urine by Cultu re interpretati on and review of laboratory results Normal Not Available Not Available 05/30 15:57:26 06/19/20 25 06/19/2025 hbcab (hepa titis B core Ab) igm, serum hepatitis B core IgM antibody Non-re active text: non-re active Antib odies to Hepat itis B Core IgM not detec trung. Does not exclu de the possi bilit y of expos ure to or infec tion with HBV. Corre late with other Hepat itis B serol ogies . Not Available Not Available 09/22/2025 09:42:12 06/19/2006/19/2025 cultu re, urine result report SEE RESULT S BELOW Test: Cultu re: Urine Speci men Sourc e: Urine Voide d Speci men Type: Urine Speci men Date: 2024 1036 Resul t Date: 2024 0513 Resul t Statu s: Final resul t Abnor mal: No Resul ting Lab: [facility] [address] [facility] [address] Tel: CULTU RE ----- ----- ----- --- No growt h in 1 day (dete ction level of 10,00 0 colon ies / ml.) Not Available Not Available 09/22/2025 09:42:11 06/19/2006/19/2025 RPR (rapi d plasm a reagi n), serum RPR qualitative Nonrea ctive text: nonrea ctive Not Available Not Available 09/22/2025 09:42:11 06/19/2006/19/2025 hepat itis C virus Ab, serum hepatitis C antibody Non-re active text: non-re active Antib odies to HCV Not Detec trung, does not exclu de the possi bilit y of expos ure to HCV. Not Available Not Available 09/22/2025 09:42:11 06/19/202025 HBsAg (hepa titis B surfa ce Ag), serum hepatitis B surface antigen Non-re active text: non-re active This assay was perfo rmed using [place] [employer] ratio n reage nts and test kits. Value s obtai kae with other assay metho ds or kits canno t be used inter bay eably . Not Available Not Available 09/22/2025 09:42:11 06/19/2006/19/2025 HIV 1+2 AB + HIV 1 p24 Ag, quali tativ e immun oassa y, serum HIV antigen/anti body Nonrea ctive text: nonrea ctive HIV-1 antig en and HIV-1 /HIV- 2 antib odies were not detec trung. No labor atory evide nce of HIV infec tion. Not Available Not Available 09/22/2025 09:42:11 05/26/20 24 05/23/2024 CT, head, w/o contr ast No observ ation record ed. [facility] [address] [place], [address], 07/01/2024 13:05:33 05/26/20 24 05/23/2024 XR, chest No observ ation record ed. [facility] (Radiology) [address] [place], [address], 07/01/2024 13:03:50 05/26/20 24 05/23/2024 XR, shoul norbert No observ ation record ed. [facility] [address] [place], [address], 07/01/2024 13:05:28 11/13/19 25 11/13/2024 trans -thor acic echoc ardio gram (TTE) (PROC ) No observ ation record ed. [facility] [address] [facility] [address], [place], [address], 01/28/2025 19:40:15 Result Notes None recorded. Problems Name Problem SNOMED Code Status Onset Date Resolution Date Notes Provider Name and Address Organization Details Recorded Time Acute upper respirator y infection 08246788 Active Not Available [facility] 3 13:59:51 Upper respirator y tract infection caused by influenza virus 3523008945939 9102 Active Vivienne Almanza MD Attn: Accounting ,[address], [place], [address] , [place] - [facility] 4 10:54:51 Streptococ lit sore throat [id number] Active Vivienne Almanza MD Attn: Accounting ,[address], [place], [address] , [place] [facility] 4 10:54:51 History of asthma 411963603 Active 2019 Not Available [facility] 3 13:59:51 Chiari malformati on type I 559816242 Active 2019 Not Available [facility] 3 13:59:51 Malaise and fatigue 200723111 Active 2019 Not Available [facility] 3 13:59:51 Body mass index 40+ - severely obese 158692272 Active 2020 Not Available [facility] 3 13:59:51 SARS-CoV-2 mRNA vaccine declined 6570142928 Active 2021 Not Available [facility] 3 13:59:51 History of SARS-CoV-2 8327717032397 09819 Active 2021 Not Available [facility] 3 13:59:51 Influenza vaccinatio n declined 436257371 Active 2021 Not Available [facility] 3 13:59:51 Uncontroll ed type 2 diabetes mellitus 647738240 Active 2021 Not Available [facility] 3 13:59:51 History of influenza 021319031 Active 2023 Vivienne Almanza MD Attn: Accounting ,[address], [place], [address] , [place] [facility] 4 11:32:59 History of fracture 454771263 Active 2023 Vivienne Almanza MD Attn: Accounting ,[address], [place], [address] , [place] [facility] 4 13:25:44 Pain of left ankle joint 7528693544830 9103 Active 2023 Vivienne Almanza MD Attn: Accounting ,[address], [place], [address] , [place] [facility] 4 13:25:46 Subclinica l hyperthyro idism 046534624 Active 2023 Vivienne Almanza MD Attn: Accounting ,[address] [place], [address] , [facility] 13:11:45 Empty sella syndrome 098172090 Active 2023 Vivienne Almanza MD Attn: Accounting ,[address] [place], [address] , [place] [facility] 14:07:12 Chronic anemia 046094559 Active 2023 Vivienne Almanza MD Attn: Accounting ,[address] [place], [address] , [facility] 5 16:05:46 Disorder of lipid metabolism 961440286 Active 2024 Vivienne Almanza MD Attn: Accounting ,[address] [place], [address] , [place] [facility] 5 19:28:52 Problem Notes None recorded. Procedures Surgical History Date Name Laterality Status Provider Name and Address Organization Details Recorded Time 01/29/20 25 Diabetic Foot Exam completed Vivienne Almanza MD Attn: Accounting, [address] [place], [address], [facility] 01/28/2025 19:23:35 05/13/20 24 Diabetic Foot Exam completed Vivienne Almanza MD Attn: Accounting, [address] [place], [address], [place] [facility] 05/13/2024 12:40:04 01/17/20 24 Diabetic Foot Exam completed Vivienne Almanza MD Attn: [place] [address] [facility], [place], [address], [facility] 01/17/2024 13:23:13 06/05/20 14 Caesarean Section completed Laura Harris [facility] 09/13/2016 14:44:27 04/13/20 10 Caesarean Section completed Laura Harris [facility] 09/13/2016 14:44:15 11/27/19 08 Caesarean Section completed Laura Harris [facility] 09/13/2016 14:44:06 07/12/20 05 Caesarean Section completed Laura Harris [facility] 09/13/2016 14:43:00 Cholecystectomy completed Shira Vides [facility] 02/22/2021 14:46:04 procedure on ankle completed Kareem Vides [facility] 12/23/2021 16:28:46 Imaging Results None recorded. Procedure Notes None recorded. Medical Equipment None Reported. Allergies Allergen ID Allergen Name Allergen Category Reaction Reaction Severity Criticality Documentation Date Start Date Code Code System Note Provider Name and Address Organization Details Recorded Time 57312 morphine medicatio n Not available Not available Not available 09/13/2016 7052 RxNorm Other react ions and sever ities : 'Adve rse react ion to subst ance' . Vivienne Almanza MD Attn: Kerrie palomino,[address] [facility], [place], [address], [facility] 3 11:39:33 Medications Name Sig Start Date Stop Date [...] TWICE DAILY FOR 5 TO 7 DAYS active Not Available Not Available No t Available fluconazole 150 mg tablet TAKE 1 [...] MOUTH EVERY 12 HOURS FOR 7 DAYS 07/26 completed Not Available Not Available Not Available [...] Available Not Available glimepiride 1 mg tablet TAKE 1 TABLET BY MOUTH EVERY DAY WITH A MEAL FOR DIABETES active Not Available Not Available No t Available meloxicam 7.5 mg tablet 04/06 completed Not [...] TWICE DAILY FOR 5 TO 7 DAYS active Not Available Not Available No t Available nystatin 100,000 unit/gram topical cream APPLY [...] Not Available Alcohol Prep Pads APPLY 1 PATCH EVERY DAY active Not Available Not Available [...] Not Available Not Available Not Avai lable Mucus-Chest Congestion 100 mg/5 mL oral liquid 10/13 completed Not Available Not Available Not Available OneTouch Delica Plus Lancet 33 gauge USE TO TEST ONCE DAILY active Not Available Not Available No t Available OneTouch Delica Plus Lancet 30 gauge TEST DAILY 12/09 completed Not Available Not Available Not Available Rybelsus 3 mg tablet active Not Available Not Available No t Available Contour Plus Test Strip USE 1 STRIP THREE TIMES DAILY FOR 30 DAYS NEEDED FOR DIABETES active Not Available Not Available No t Available Contour Plus Blue Meter USE TO TEST BLOOD SUGAR THREE TIMES DAILY active Not Available Not Available No t Available Vitals Date Recorded Body height Body mass index (BMI) Body weight Oxygen saturation Heart rate Respiratory rate Body temperature Systolic And Diastolic Provider Name and Address Organization Details Last Updated DateTime 4 152.4 cm 60.7 kg/m2 909356. 23 g 97 % 88 /min 20 /min 97.8 [degF] 110/70 mm[Hg] Shira Vides MA [facility] 4 10:49:33 Date Recorded Body height Body mass index (BMI) Body weight Body temperature Heart rate Oxygen saturation Systolic And Diastolic Provider Name and Address Organization Details Last Updated DateTime 5 152.4 cm 62.9 kg/m2 041130. 74 g 97.2 [degF] 67 /min 96 % 126/82 mm[Hg] Mary Pate [facility] 5 15:31:49 Date Recorded Body height Body mass index (BMI) Body weight Body temperature Heart rate Respiratory rate Systolic And Diastolic Provider Name and Address Organization Details Last Updated DateTime 5 152.4 cm 61.9 kg/m2 196852. 14 g 97.6 [degF] 72 /min 14 /min 114/76 mm[Hg] Shira Vides MA [facility] 5 14:56:16 Date Recorded Body height Body mass index (BMI) Body weight Heart rate Oxygen saturation Respiratory rate Systolic And Diastolic Provider Name and Address Organization Details Last Updated DateTime 4 152.4 cm 60.9 kg/m2 579444. 46 g 66 /min 97 % 18 /min 114/80 mm[Hg] Shira Vides MA [facility] 4 12:29:10 Date Recorded Body height Body mass index (BMI) Body weight Heart rate Respiratory rate Systolic And Diastolic Provider Name and Address Organization Details Last Updated DateTime 4 152.4 cm 61.5 kg/m2 780266. 6 g 72 /min 16 /min 116/76 mm[Hg] Shira Vides MA [facility] 4 12:20:22 Social History Question Answer Notes LastModified by Organizat ion Details LastModified Time Tobacco Smoking Status Never Smoker Laura Harris [place] null, [place] [facility] 09/13/2016 14:42:40 What Is Your Level Of Caffeine Consumption? Occasional Information not available 02/22/2021 How Much Tobacco Do You Chew? None Information not available 02/17/2020 In The 14 Days Before Symptom Onset, Have You Had Close Contact With A Laboratory-confirm ed COVID-19 While That Case Was Ill? No Information n ot available 02/17/2020 In The 14 Days Before Symptom Onset, Have You Had Close Contact With A Person Who Is Under Investigation For COVID-19 While That Person Was Ill? No Information not available 02/17/2020 Have You Been To An Area Known To Be High Risk For COVID-19? No Information not available 02/17/2020 What Type Of Diet Are You Following? REGULAR Information n ot available 02/17/2020 Are There Any Guns Present In Your Home? No Information not available 02/17/2020 Hard Of Hearing Or Deaf In One Or Both Ears? No Information not available 02/17/2020 Legally Blind In One Or Both Eyes? No Information no t available 02/17/2020 What Was The Date Of Your Most Recent Tobacco Screening? 03/02/2025 Information not available 03/02/2025 Performs Monthly Self-breast Exam? Yes Information no t available 02/17/2020 Seat Belts Used Routinely Yes Information not available 02/17/2020 Smoke Alarm In Home Yes Information not available 02/17/2020 Do You Have Smoke And Carbon Monoxide Detectors In Your Home? Yes Information not available 02/22/2021 How Much Tobacco Do You Smoke? No Information not available 04/19/2017 Has Tobacco Cessation Counseling Been Provided? No Information not available 02/22/2021 On What Date Was Tobacco Cessation Counseling Provided? 01/28/2025 [email or web address] Information not available 01/28/2025 How Many Years Have You Smoked Tobacco? 0 Information not available 04/19/2017 Sex: Female Functional Status Question Answer Note LastModified by Organizat ion Details LastModified Time Do you use any illicit or recreational drugs? No Information not available 02/22/2021 What is your level of alcohol consumption? None Information not available 02/17/2020 Do you or have you ever used smokeless tobacco? Never used smokeless tobacco Information not available 02/17/2020 What is your occupation? unemployed Information not available 02/17/2020 Do you or have you ever used e-cigarettes or vape? Never used electronic cigarettes Information not available 02/17/2020 Mental Status None recorded. Family History Relationship [...] N Anemia N Heart Attack (AR) N Diabetes Y Anxiety Disorder N Muscle, [...] Recorded Time Tdap 2 completed Not Available [facility] 10/23/2023 01:00:52 Td (adult), 2 Lf tetanus toxoid, preservative free, adsorbed 3 completed Not Available [facility] 10/23/2023 01:00:52 Hep B, adolescent or pediatric 8 completed Not Available [facility] 10/23/2023 01:00:52 Hep B, adolescent or pediatric 7 completed Not Available [facility] 10/23/2023 01:00:52 Hep B, adolescent or pediatric 7 completed Not Available [facility] 10/23/2023 01:00:52 Past Encounters Encounter ID Performer Location Encounter Start Date Encounter Closed Date Diagnosis/Indication Diagnosis SNOMED-CT Code Diagnosis ICD10 Code Diagnosis IMO Codes Diagnosis Note [id number] MD Travis Prescott (Adult Med) [address] [place] [address] [id number] 09/13/2016 14:27:56 09/13/2016 15:21:16 General examination of patient 376695074 Z00.01 Fatigue 65131782 R53.83 High risk for GARRISON as she snores and she is overweight although there are no reported apneic episodes. Dizziness 122619613 R42 Pain in toe 845246031 M7 9.675 Immunization refused 275 891956 Z28.20 Obesity 946740175 E66.9 [id number] MD Travis Prescott (Adult Med) [address] [place] [address] [id number] 10/18/2016 16:18:17 10/18/2016 17:21:02 Impaired fasting glycemia 354144705 R73.01 Obesity 687104721 E66.9 Acute bact erial paronychia 524770864 L03.90 Middle finger R. hand Thyroid fu nction tests abnormal 642370056 R94.6 Immunization refused 275 903259 Z28.20 Disorder o f lipid metabolism 683983423 E78.9 [id number] MD Travis Prescott (Adult Med) [address] [place] [address] [id number] 01/03/2017 09:29:59 01/03/2017 10:15:20 Overweight 268177243 E66.3 Eruption 483776910 R21 [id number] MD Travis Prescott (Adult Med) [address] [place] [address] [id number] 04/19/2017 15:02:36 04/20/2017 09:43:41 Intermittent palpitations 318270975 R00.2 Neuropathy 052873196 G62 .9 Meralgia parestheti ca? Thyroid fu nction tests abnormal 615931846 R94.6 Malaise and fatigue 2717 12895 R53.81 R53.83 She reports that she is fatigued, she snores and she is overweight and has palpitatio ns Intentiona l weight loss 508201568 R63.8 She continues to have success with [facility] [id number] MD Travis Prescott (Adult Med) [address] [place] [address] [id number] 0 02/17/2020 11:13:07 02/19/2020 10:58:18 Cough 62706488 R05 Adult heal th examination 171391812 Z00.00 Candidiasis of vagina 72 610090 B37.3 History of asthma 603872 007 Z87.09 Imaging re sult abnormal 311027718 R93.89 Discussed, the MRI of her ankle was apparently ordered by her orthopedic surgeon Chiari mal formation type I 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 Apnea 3718403 R06.81 Stress 24835749 Z73.3 [id number] MD Travis Prescott (Adult Med) [address] [place] [address] [id number] 0 02/22/2021 14:36:56 02/23/2021 10:32:11 Anemia 436477033 D64.9 Unintentio nal weight gain 5513191470 92969 R63.5 She is getting back on [facility] Not keen on bariatric surgery but she will meet with the team Thyroid fu nction tests abnormal 743626223 R94.6 Vaccine de clined by patient 6370991962 02 Z28.21 Body mass index 40+ - severely obese 228446242 Z68.44 Joint swelling 186600013 M25.40 Disorder o f lipid metabolism 274570384 E78.9 Discussed Dysuria 87527815 R30.9 [id number] MD Travis Prescott (Adult Med) [address] [place] [address] [id number] 0 07/28/2021 08:06:08 07/29/2021 05:14:25 Cloudy urine 5363044 R82.90 Cough 77237436 R05 Night sweats 14506331 R6 1 Snoring 18472245 R06.83 Influenza vaccination declined 017216301 Z28.21 [id number] MD Travis Prescott (Adult Med) [address] [place] [address] [id number] 12/23/2021 16:14:33 12/26/2021 09:27:51 Uncontrolled type 2 diabetes mellitus 494584492 E11.65 Discussed the benefits of Metformin and her diagnosis of DM with a HBA1C of 7.2DietWei ght lossMonito r blood sugars History of SARS-CoV-2 29 74259865 04904979 Z86.16 SARS-CoV-2 mRNA vaccine declined 3844069063 Z28.21 History of asthma 665330 007 Z87.09 Influenza vaccination declined 951628459 Z28.21 History of pneumonia 161 506601 Z87.01 COVID 19 PNA 11/27/2021 [facility] [id number] MD Travis Prescott (Adult Med) [address] [place] [address] [id number] 03/01/2023 11:18:22 03/05/2023 09:14:22 Uncontrolled type 2 diabetes mellitus 596340453 E11.65 HBA1C 7.4%Start Metformin ER, side effects were discussed. She had previously refused on her last visit.Pt education on DMNutritio nistLabsOp hthalmolog ist OV 12/23/2021 iscussed the benefits of Metformin and her diagnosis of DM with a HBA1C of 7.2DietWei ght lossMonito r blood sugars Disorder o f lipid metabolism 612852343 E78.9 Discussed, start Rosuvastat in, side effects were discussed [id number] MD Travis Prescott (Adult Med) [address] [place] [address] [id number] 0 05/03/2023 10:20:35 05/07/2023 15:20:02 Uncontrolled type 2 diabetes mellitus 797026791 E11.65 HBA1C 7.4%Start Metformin ER, side effects were discussed. She had previously refused this on her last visit.Pt education on DMNutritio nistLabsOp hthalmolog ist OV 12/23/2021 iscussed the benefits of Metformin and her diagnosis of DM with a HBA1C of 7.2DietWei ght lossMonito r blood sugars Follow-up visit 50078221 9 Z09 Recurrent candidiasis of vagina 885098210 B37.32 History of syncope 68621 71570 78686 Z86.79 [id number] MD Travis Prescott (Adult Med) [address] [place] [address] [id number] 0 01/17/2024 10:34:59 01/17/2024 11:43:30 Uncontrolled type 2 diabetes mellitus 147817025 E11.65 Labs 10/22/2023 , HBA1C 7.6%She has [...] Body mass index 40+ - severely obese 032217278 Z68.44 Anemia 991509943 D64.9 History of fracture 3910 97444 Z87.81 Pain of le ft ankle joint 5401144460 0581267 M25.572 Pain in left foot 438150 0515 94439 M79.672 Disorder o f lipid metabolism 149672022 E78.9 Discussed, restart Rosuvastat in. Snoring 99739105 R06.83 Serum thyr oid stimulating hormone level outside reference range 686204233 R89.1 Medication monitoring 39 7202317 Z51.81 History of influenza 789 634629 Z87.09 [id number] Vivienne Almanza MD [facility] (Adult [facility] [address] [place] [address] [id number] 0 05/13/2024 12:19:54 05/16/2024 15:14:19 Pain of left ankle joint 4260931988 7833149 M25.572 Swelling of lower leg 44 3540808 R22.40 [id number] Vivienne Almanza MD [facility] (Adult Med) [address] [place] [address] [id number] 07/01/2024 10:53:32 07/02/2024 11:44:07 Uncontrolled type 2 diabetes mellitus 017649389 E11.65 HBA1C 7.6% on 10/22/2023 Not compliant [...] lossMonito r blood sugars Transient neurological symptoms 884713733 R29.90 Empty sella syndrome 237 900342 E23.6 Chronic anemia 571522306 D64.9 Subclinica l hyperthyroidism 149699902 E05.90 Non-compli ant behavior 246116126 R46.89 [id number] MD Travis Prescott (Adult Med) [address] [place] [address] [id number] 0 01/28/2025 15:09:44 01/29/2025 11:30:49 Body mass index 40+ - severely obese 643866795 Z68.44 Uncontroll ed type 2 diabetes mellitus 307061961 E11.65 Uncontroll ed DM with a HBA1c 9.0% on 11/13/2024S tart Trulicity, GI side effects were discussedS tart Glimepirid [...] lossMonito r blood sugars Transient neurological symptoms 445212051 R29.90 Neurologis t as referred Numbness of face 9336300 09 R20.0 Disorder o f lipid metabolism 480247451 E78.9 Discussed, restart Rosuvastat in. [id number] MD Travis Prescott (Adult Med) [address] [place] [address] [id number] 03/02/2025 14:44:34 03/03/2025 12:08:25 Uncontrolled type 2 diabetes mellitus 157772497 E11.65 Start Trulicity as prescribed Continue Glimepirid e OV 01/28/2025Un controlled DM with a HBA1c 9.0% on 11/13/2024S fabián Steinberg, GI side effects were discussedS tart Glimepirid [...] of 7.2DietWei ght lossMonito r blood sugars Health Concerns Section Related Observation LastModified by Organization Detai ls LastModified Time None Recorded Concern Status LastModified by Organization Details LastModified Time None Recorded Advance Directives Directive None Recorded Payers Insurance Date Sequence Insurance Name Policy Number Policy Brand Covered Member ID Brand Member ID Guarantor Name 06/23/2025 1 [facility] ON OR AFTER 10/29/2020 - DUAL ELIGIBLE (MEDICARE REPLACEMENT/AD VANTAGE - HMO) Melly Tinoco [id number] Melly Carter 06/23/2025 1 [facility] PRIOR TO 04/28/2021 (MEDICAID REPLACEMENT - HMO) Melly Carter [id number] Melly Carter 10/02/2025 1 [facility] ON OR AFTER 04/28/21 (MEDICAID REPLACEMENT - HMO) Melly Tinoco [id number] Melly Carter Notes Date Note Type Note Provider Name and Address Organization Details Recorded Time 4 text/html Diabetes F/UReported by PatientHPIFor associated symptoms, patient reportsweight loss (1 lbs)but reportsno weight gain,no dizziness,no sweats,no headaches,no confusion,no increased thirst,no increased appetite,no increased urination,no blurred vision,no numbness of feet, andno calluses on feet. For labs, patient reportslast a1c result: 7.6. For context, patient reportsnormal range of home blood sugars (in the low 100s),seeing eye doctor regularly, andchecking feet regularly.ROS as noted in the HPI Is that why I am chewing ice?I need a doctor's note to wear Tennis [...] not followed up. Vivienne Almanza MD Attn: Accounting,[address], [place], [address], [facility] 01/17/2024 13:30:59 4 text/html Diabetes F/UReported by PatientHPIFor review finger sticks, patient reportsfastin,pre lunch: 181, andpost lunch: ___. For labs, patient reportslast a1c result: 7.6%. For context, patient reportstaking aspirin daily,not missing doses of medications, andno side effects from medications. For associated symptoms, patient reportsno weight gain,no weight loss,no dizziness,no sweats,no headaches,no confusion,no increased thirst,no increased appetite,no increased urination,no blurred vision,no numbness of feet, andno calluses on feet. AnkleReported by PatientHPIFor associated symptoms, patient reportsswelling. For location, patient reportsleft. For quality, patient reportsaching,throbbing, andworsening. For severity, patient reportssevere. For duration, patient reports___ months. For timing, patient reportschronic. For context, patient reportssports injury. For alleviating factors, patient reportssitting. For aggravating factors, patient reportsstanding. For previous surgery, patient reportssurgical procedure:. For prior imaging, patient reportsx rayandmri. For previous injections, patient reportsnone. For previous pt, patient reportsnone. For work related, patient reportsyes. For working, patient reportsregular duty.ROS as noted in the HPI I have been having swelling in my ankle when I stand at work, from that metal that is inside of meIf I stand for more than 15 minutes, it starts to swell Ms Lisa presents on a follow up visit, she has not been fully compliant with her medications because she is busy at work. She complains of pain and swelling of her LLE and ankle. Vivienne Almanza MD Attn: Accounting, [place], [address], [facility] - [facility] 05/13/2024 13:52:15 4 text/html Diabetes F/UReported by PatientHPIFor associated symptoms, patient reportsweight gain (4 lbs)but reportsno weight loss,no dizziness,no sweats,no headaches,no confusion,no increased thirst,no increased appetite,no increased urination,no blurred vision,no numbness of feet, andno calluses on feet. For labs, patient reportslast a1c result: 7.6%. For context, patient reportstaking aspirin daily,not missing doses of medications, andno side effects from medications.ROS as noted in the HPI Here with her They did some blood workI felt confused, I had pain going [facility] with, Transient slurred speech?, confusion?. The CT revealed an empty Sella but the patient left AMA. She cannot recall the details of the event but she denies leaving AMA. She has not been compliant with her Rybelsus, Metformin or Rosuvastatin and cannot give me an explanation. She plans to go back to [facility]. 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 Vivienne Almanza MD Attn: Accounting, [place], [address], [facility] 07/01/2024 14:10:44 5 text/html Diabetes F/UReported by PatientHPIFor context, patient reportshome blood sugar range highbut reportstaking aspirin daily,not missing doses of medications, andno side effects from medications. For associated symptoms, patient reportsweight gain (7 lbs)but reportsno weight loss,no dizziness,no sweats,no headaches,no confusion,no increased thirst,no increased appetite,no increased urination,no blurred vision,no numbness of feet, andno calluses on feet. For labs, patient reportslast a1c result: 9%.ROS as noted in the HPI Here with her and young son A follow up, on my lab workI was feeling numb on the side of my face and under my feet Ms Gonzalez has been having right sided facial numbness as well as tingling and numbness in her feet. She did not complain of a headache, dizziness or limb weakness. She was in the ER on 08/14/2024 with elevated blood sugars, she was also seen by the rehab aide Dr Askew. 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 Even [...] suppress her appetite. Vivienne Almanza MD Attn: Accounting,[address], [place], [address], [facility] 01/28/2025 19:37:50 5 text/html Diabetes F/UReported by PatientHPIFor context, patient reportshome blood sugar range highandmissing doses of medicationbut reportsseeing eye doctor regularlyandchecking feet regularly. For associated symptoms, patient reportsweight loss (5 lbs)but reportsno weight gain,no dizziness,no sweats,no headaches,no confusion,no increased thirst,no increased appetite,no increased urination,no blurred vision,no numbness of feet, andno calluses on feet. For review finger sticks, patient reportsfastin. For labs, patient reportslast a1c result: 9.0%.ROS as noted in the HPI Is there any way they can show me.. Ms Tinoco has been compliant with her Glimepiride, but she does not know how to use her Trulicity. Vivienne Almanza MD Attn: Accounting,[address], [place], [address], [facility] - [facility] 03/02/2025 15:22:18 OBGyn Episode No OBEpisode recorded.
--- OUTSIDE RECORDS SUMMARY | 2025-10-03 01:46 | XMS_ITS | Data Portability ---
Author Organization [facility] [place] Address [address] [place] [address] Care Team Providers Care [employer] Fighter [employer] Name Role Phone ELSA WOODSBERKLEYRaquel Primary Care Provider [phone] Assessment Encounter Date Assessment Date Assessment LastModified by Organization Details LastModified Time 02/25/2025 02/25/2025 Annual gynecological exam performed. Patient will come back in a year unless there are new symptoms. Not available 02/25/2025 12:44:11 Plan of Treatment Reminders Order Date Submit Date Provider Last Modified By Organization Details Last Modified Time Details Appointments None recorded. Lab unlisted lab - women's health swab plus, AILEEN [address] [facility] (Lab), [address] [place], [address], 5 09:47:39 hbcab (hepatitis B core Ab) igm, serum [address] [facility] (Lab), [address] [place], [address], 5 09:47:40 HBsAg (hepatitis B surface Ag), serum [address] [facility] (Lab), [address] [place], [address], 5 09:47:38 hepatitis C virus Ab, serum [address] [facility] (Lab), [address] [place], [address], 5 09:47:38 HIV 1+2 AB + HIV 1 p24 Ag, qualitative immunoassay , serum 2024 [facility] (Lab), [address], [place], [address], 5 09:47:37 RPR (rapid plasma reagin), serum [address] [facility] (Lab), [address], [place], [address], 5 09:47:39 culture, urine 2024 [facility] (Lab), [address] [facility], [place], [address], 5 09:47:40 urinalysis, dipstick [address], [facility] [address], [place], [address], 11:28:44 hbcab (hepatitis B core Ab) igm, serum [address] [facility] (Lab), [address] [facility], [place], [address], 5 14:58:13 HBsAg (hepatitis B surface Ag), serum [address] [facility] (Lab), [address] [facility], [place], [address], 5 14:58:12 hepatitis C virus Ab, serum [address] [facility] (Lab), [address], [place], [address], 5 14:58:12 HIV 1+2 AB + HIV 1 p24 Ag, qualitative immunoassay , serum [address] [facility] (Lab), [address], [place], [address], 5 14:58:11 RPR (rapid plasma reagin), serum [address] [facility] (Lab), [address] [facility], [place], [address], 5 14:58:13 pap, IG + HR HPV - HPV regardless but if HPV is positive need subtyping 16,18/45 add STI to pap GC/CT/Trich [address] [facility] (Lab), [address] [facility], [place], [address], 5 16:26:55 urinalysis, dipstick 2024 025 [email or web address] [place], [facility] [address], [place], [address], 5 11:42:17 hbcab (hepatitis B core Ab) igm, serum [address] [facility] (Lab), [address] [facility], [place], [address], 5 12:35:56 HBsAg (hepatitis B surface Ag), serum [address] [facility] (Lab), [address], [place], [address], 5 12:35:55 hepatitis C virus Ab, serum [address] [facility] (Lab), [address], [place], [address], 5 12:35:55 HIV 1+2 AB + HIV 1 p24 Ag, qualitative immunoassay , serum [address] [facility] (Lab), [address], [place], [address], 5 12:35:55 RPR (rapid plasma reagin), serum [address] [facility] (Lab), [address], [place], [address], 5 12:35:56 urinalysis, dipstick 2024 025 [facility], [address], [place], [address], 13:07:46 Referral pelvic floor therapy referral 2024 025 [facility] (Outpatient Physical Therapy), [address], [place], [address], 05:00:55 Procedures None recorded. Surgeries None recorded. Imaging MAMMO, diagnostic, digital, bilateral [address] [facility], [address], [place], [address], 17:04:21 US, breast, unilateral - left breast lump [address] [facility], [address], [place], [address], 17:04:21 Medication Orders fluconazole 150 mg tablet 2024 025 [facility][id number], [address], [place], [place], [id number], 11:10:07 nystatin 100,000 unit/gram topical ointment 2024 025 [facility] #02389, [address], [place], [place], [id number], 5 11:10:55 triamcinolo ne acetonide 0.1 % topical ointment 2024 025 [facility] #38718, [address], [place], [place], [id number], 5 11:10:55 clotrimazol e-betametha sone 1 %-0.05 % topical cream 2024 025 [facility] #15083, [address], [place], [place], [id number], 5 11:26:52 Diflucan 150 mg tablet [address] [facility]80415, [address], [id number], 5 10:51:39 Macrobid 100 mg capsule 2024 025 [facility] #64448, [address], [place], [place], [id number], 5 11:02:23 fluconazole 150 mg tablet [address] [facility] #78290, [address], [place], [place], [id number], 5 10:51:39 doxycycline hyclate 100 mg capsule 2023 025 [facility] #46247, [address], [place], [place], [id number], 5 11:01:31 Patient TargetsNo targets recorded. Patient InstructionsNo instructions recorded. Reason for Referral Pelvic Floor Therapy Referra l for Female urinary stress incontinence Referring Physician: Monie Segura, ORDER WORKER, Encounter Date: 11/27/2024 Results Created Date Observation Date Name Description Value Unit Range Abnormal Flag Note LastModifiedBy Organization Detail LastModifiedTime 11/27/1911/27/2024 HIV 1/2 ANTIG EN/AN TIBOD Y, REFLE X CONFI RMATI ON HIV antigen/anti body Nonrea ctive nonrea ctive HIV-1 antig en and HIV-1 /HIV- 2 antib odies were not detec trung. No labor atory evide nce of HIV infec tion. Not Available [facility] (Lab) [address], [place], [address], 11/28/2024 12:35:55 11/27/1911/27/2024 HEPAT ITIS B SURFA CE ANTIG EN hepatitis B surface antigen Non-re active non-re active This assay was perfo rmed using [employer] ratio n reage nts and test kits. Value s obtai kae with other assay metho ds or kits canno t be used inter bay eably . Not Available [facility] (Lab) [address], [place], [address], 11/28/2024 12:35:55 11/27/19 25 11/27/2024 HEPAT ITIS C ANTIB LEFTY SCREE N, REFLE X TO CONFI RMATI ON hepatitis C antibody Non-re active non-re active Antib odies to HCV Not Detec trung, does not exclu de the possi bilit y of expos ure to HCV. Not Available [facility] (Lab) [address], [place], [address], 11/28/2024 12:35:55 11/27/19 25 11/27/2024 HEPAT ITIS B CORE, IGM hepatitis B core IgM antibody Non-re active non-re active IgM anti- HBc not detec trung. Does not exclu de the possi bilit y of expos ure to or infec tion with HBV. Not Available [facility] (Lab) [address], [place], [address], 11/28/2024 12:35:56 11/27/19 25 11/27/2024 RPR SCREE N, REFLE X TITER /CONF IRMAT ION RPR screen Nonrea ctive nonrea ctive Not Available [facility] (Lab) [address], [place], [address], 11/28/2024 12:35:56 11/27/19 25 11/27/2024 WOMEN 'S HEALT H SWAB PLUS, AIELEN bacterial vaginosis (bv), tma Negati ve negati ve Not Available [facility] (Lab) [address], [place], [address], 11/28/2024 15:05:57 11/27/19 25 11/27/2024 [facility], AILEEN eulalio species, tma Negati ve negati ve Not Available [facility] (Lab) [address] [place], [address], 11/28/2024 15:05:57 11/27/19 25 11/27/2024 [facility] SWAB PL[facility], AILEEN eulalio glabrata, tma Negati ve negati ve Not Available [facility] (Lab) [address] [place], [address], 11/28/2024 15:05:57 11/27/19 25 11/27/2024 WOMEN 'S HEALT H SWAB PLUS, AILEEN trichomonas vaginalis, tma Negati ve negati ve Not Available [facility] (Lab) [address] [place], [address], 11/28/2024 15:05:57 11/27/19 25 11/27/2024 WOMEN 'S HEALT H SWAB PLUS, AILEEN chlamydia trachomatis, PCR Negati ve negati ve Not Available [facility] (Lab) [address] [place], [address], 11/28/2024 15:05:57 11/27/19 25 11/27/2024 WOMEN 'S HEALT H SWAB PLUS, ALIEEN neisseria gonorrhoeae, PCR Negati ve negati ve [...] ded in this panel . Not Available [facility] (Lab) [address], [place], [address], 11/28/2024 15:05:57 11/27/1911/27/2024 CULTU RE: URINE result report SEE RESULT S BELOW Test: Cultu re: Urine Speci men Sourc e: Urine - Clean Catch Speci men Type: Urine Speci men Date: 2024 1205 Resul t Date: 2024 2138 Resul t Statu s: Final resul t Abnor mal: No Resul ting Lab: [facility] [address] [facility] [address] Tel: CULTU RE ----- ----- ----- --- No growt h in 1 day (dete ction level of 10,00 0 colon ies / ml.) Not Available [facility] (Lab) [address], [place], [address], 11/28/2024 22:41:22 11/27/19 25 11/27/2024 urina lysis , dipst ick Leukocytes TRACE Not Available Adriana munoz [address], [place], [address], 11/27/2024 13:02:21 11/27/19 25 11/27/2024 urina lysis , dipst ick Nitrite NEG Not Available [place] [address], [place], [address], 11/27/2024 13:02:21 11/27/19 25 11/27/2024 urina lysis , dipst ick Urobilinogen NEG Not Available Ahsan long [address], [place], [address], 11/27/2024 13:02:21 11/27/19 25 11/27/2024 urina lysis , dipst ick Protein POS Not Available [place] [address], [place], [address], 11/27/2024 13:02:21 11/27/19 25 11/27/2024 urina lysis , dipst ick pH 5 Not Available [place] [address], [place], [address], 11/27/2024 13:02:21 11/27/19 25 11/27/2024 urina lysis , dipst ick Specific Lowell 1.015 Not Available Anuj faria [address], [place], [address], 11/27/2024 13:02:21 11/27/19 25 11/27/2024 urina lysis , dipst ick Ketone NEG Not Available [place] [address], [place], [address], 11/27/2024 13:02:21 11/27/19 25 11/27/2024 urina lysis , dipst ick Bilirubin 1 Not Available Xuan lara [address], [place], [address], 11/27/2024 13:02:21 11/27/19 25 11/27/2024 urina lysis , dipst ick Glucose NEG Not Available [place] [address], [place], [address], 11/27/2024 13:02:21 11/27/19 25 11/27/2024 urina lysis , dipst ick Appearance DARK Not Available [facility] [address], [place], [address], 11/27/2024 13:02:21 11/27/19 25 11/27/2024 urina lysis , dipst ick Color YELLOW Not Available [place] [address], [place], [address], 11/27/2024 13:02:21 01/20/20 25 01/19/2025 WOMEN 'S HEALT H SWAB PLUS, AILEEN bacterial vaginosis (bv), tma Negati ve negati ve Not Available [facility] (Lab) [address] [place], [address], 01/20/2025 15:30:58 01/20/20 25 01/19/2025 WOMEN 'S HEALT H SWAB PLUS, AILEEN eulalio species, tma Negati ve negati ve Not Available [facility] (Lab) [address], [place], [address], 01/20/2025 15:30:58 01/20/20 25 01/19/2025 WOMEN 'S HEALT H SWAB PLUS, AILEEN eulalio glabrata, tma Negati ve negati ve Not Available [facility] (Lab) [address] [place], [address], 01/20/2025 15:30:58 01/20/20 25 01/19/2025 WOMEN 'S HEALT H SWAB PLUS, AILEEN trichomonas vaginalis, tma Negati ve negati ve Not Available [facility] (Lab) [address], [place], [address], 01/20/2025 15:30:58 01/20/20 25 01/19/2025 [facility] SWAB PL[facility], AILEEN chlamydia trachomatis, PCR Negati ve negati ve Not Available [facility] (Lab) [address], [place], [address], 01/20/2025 15:30:58 01/20/20 25 01/19/2025 [facility] SWAB PL[facility], AILEEN neisseria gonorrhoeae, PCR [...] ded in this panel . Not Available [facility] (Lab) [address], [place], [address], 01/20/2025 15:30:58 01/20/2001/19/2025 urina lysis , dipst ick Leukocytes TRACE Not Available Adriana munoz [address], [place], [address], 01/19/2025 11:40:36 01/20/2001/19/2025 urina lysis , dipst ick Nitrite POS Not Available [place] [address], [place], [address], 01/19/2025 11:40:36 01/20/20 25 01/19/2025 urina lysis , dipst ick Urobilinogen 4 Not Available [facility] ethan [address], [place], [address], 01/19/2025 11:40:36 01/20/20 25 01/19/2025 urina lysis , dipst ick Protein POS Not Available [place] [address], [place], [address], 01/19/2025 11:40:36 01/20/20 25 01/19/2025 urina lysis , dipst ick pH 6 Not Available [place] [address], [place], [address], 01/19/2025 11:40:36 01/20/20 25 01/19/2025 urina lysis , dipst ick Blood + Not Available [place] [address], [place], [address], 01/19/2025 11:40:36 01/20/20 25 01/19/2025 urina lysis , dipst ick Specific Lowell 1.015 Not Available [facility] bienvenido [address], [place], [address], 01/19/2025 11:40:36 01/20/20 25 01/19/2025 urina lysis , dipst ick Ketone LARGE Not Available [place] [address], [place], [address], 01/19/2025 11:40:36 01/20/20 25 01/19/2025 urina lysis , dipst ick Bilirubin 4 Not Available Kristinaolvin lara [address], [place], [address], 01/19/2025 11:40:36 01/20/20 25 01/19/2025 urina lysis , dipst ick Glucose 250 Not Available [place] [address], [place], [address], 01/19/2025 11:40:36 01/20/20 25 01/19/2025 urina lysis , dipst ick Appearance DARK Not Available [facility] alexander [address], [place], [address], 01/19/2025 11:40:36 01/20/20 25 01/19/2025 urina lysis , dipst ick Color YELLOW Not Available [place] [address], [place], [address], 01/19/2025 11:40:36 02/26/20 25 02/25/2025 HIV 1/2 ANTIG EN/AN TIBOD Y, REFLE X CONFI RMATI ON HIV antigen/anti body Nonrea ctive nonrea ctive HIV-1 antig en and HIV-1 /HIV- 2 antib odies were not detec trung. No labor atory evide nce of HIV infec tion. Not Available [facility] (Lab) [address], [place], [address], 02/26/2025 14:58:11 02/26/20 25 02/25/2025 HEPAT ITIS B SURFA CE ANTIG EN hepatitis B surface antigen Non-re active non-re active This assay was perfo rmed using [employer] ratio n reage nts and test kits. Value s obtai kae with other assay metho ds or kits canno t be used inter bay eably . Not Available [facility] (Lab) [address], [place], [address], 02/26/2025 14:58:12 02/26/20 25 02/25/2025 HEPAT ITIS C ANTIB LEFTY SCREE N, REFLE X TO CONFI RMATI ON hepatitis C antibody Non-re active non-re active Antib odies to HCV Not Detec trung, does not exclu de the possi bilit y of expos ure to HCV. Not Available [facility] (Lab) [address], [place], [address], 02/26/2025 14:58:12 02/26/20 25 02/25/2025 RPR SCREE N, REFLE X TITER /CONF IRMAT ION RPR qualitative Nonrea ctive nonrea ctive Not Available [facility] (Lab) [address] [place], [address], 02/26/2025 14:58:13 02/26/20 25 02/25/2025 HEPAT ITIS B CORE, IGM hepatitis B core IgM antibody Non-re active non-re active Antib odies to Hepat itis B Core IgM not detec trung. Does not exclu de the possi bilit y of expos ure to or infec tion with HBV. Corre late with other Hepat itis B serol ogies . Not Available [facility] (Lab) [address] [place], [address], 02/26/2025 14:58:13 02/26/20 25 02/25/2025 IMAGE GUIDE D PAP AND HPV REGAR DLESS image guided Pap, HPV regardless of Pap result SEE RESULT S BELOW CASE REPOR T: Cytol ogy Gynec ologi scott Repor t Case: [id number] Autho james g Provi norbert: Monie Segura, ESTRELLA Colle cted: 02/25 1541 Order ing Locat ion: [place] [facility] Recei loretta: 02/26 1106 First Scree n: Rafael Hess, CT Rescr een: Susan Madden ret, CT Speci men: Scree israel Pap - Image d, Cervi x STATE MENT OF ADEQU ACY: Satis facto ry for evalu ation Trans forma tion zone compo nent absen t The absen ce of an endoc ervic al compo nent was confi rmed by an addit ional scree ner. ----- ----- ----- ----- ----- ----- ----- ----- ----- ----- ----- ----- ----- ----- ----- ----- ----- ---- FINAL DIAGN OSIS: Negat niel for Intra epith elial Lesio geetha or Brandy salinas (NIL) . Elect samantha ambrosio d by Susan Madden ret, CT on 025 at 1522 CDT ----- ----- ----- ----- ----- ----- ----- [...] Statu s: LMP (if appli cable ): Clini scott Histo ry/Pr eviou s Pap: Type of Neopl olga (if appli cable ): Signi brandon t Clini scott Findi ngs: Other Histo [...] ds on the locat ion of the lesio n and sampl ing techn ique. Odilia nued regul ar scree israel is the best metho d of cance r preve ntion . If repor trung cytol ogic findi ng do not corre late with physi scott and/o r histo rical findi ngs, furth er inves tigat ion is recom hardik d, as clini michelle mooney nted. Not Available [facility] (Lab) [address], [place], [address], 03/02/2025 16:26:54 02/26/20 25 02/25/2025 TRICH OMONA S VAGIN ERIC (RRNA ) trichomonas vaginalis ribosomal RNA (rrna) Negati ve negati ve Not Available [facility] (Lab) [address], [place], [address], 03/02/2025 16:26:55 02/26/20 25 02/25/2025 CT/GC (KELLEY) , THINP REP VIAL chlamydia trachomatis, PCR Negati ve negati ve Not Available [facility] (Lab) [address] [place], [address], 03/02/2025 16:26:55 02/26/20 25 02/25/2025 CT/GC (KELLEY) , THINP REP VIAL neisseria gonorrhoeae, PCR Negati ve negati ve Not Available [facility] (Lab) [address] [place], [address], 03/02/2025 16:26:55 06/19/20 25 06/19/2025 HIV 1/2 ANTIG EN/AN TIBOD Y, REFLE X CONFI RMATI ON HIV antigen/anti body Nonrea ctive nonrea ctive HIV-1 antig en and HIV-1 /HIV- 2 antib odies were not detec trung. No labor atory evide nce of HIV infec tion. Not Available [facility] (Lab) [address], [place], [address], 06/22/2025 09:47:37 06/19/20 25 06/19/2025 HEPAT ITIS B SURFA CE ANTIG EN hepatitis B surface antigen Non-re active non-re active This assay was perfo rmed using [employer] ratio n reage nts and test kits. Value s obtai kae with other assay metho ds or kits canno t be used inter bay eably . Not Available [facility] (Lab) [address], [place], [address], 06/22/2025 09:47:38 06/19/20 25 06/19/2025 HEPAT ITIS C ANTIB LEFTY SCREE N, REFLE X TO CONFI RMATI ON hepatitis C antibody Non-re active non-re active Antib odies to HCV Not Detec trung, does not exclu de the possi bilit y of expos ure to HCV. Not Available [facility] (Lab) [address], [place], [address], 06/22/2025 09:47:38 06/19/20 25 06/19/2025 RPR SCREE N, REFLE X TITER /CONF IRMAT ION RPR qualitative Nonrea ctive nonrea ctive Not Available [facility] (Lab) [address] [place], [address], 06/22/2025 09:47:39 06/19/20 25 06/19/2025 WOMEN 'S HEALT H SWAB PLUS, AILEEN bacterial vaginosis (bv), tma Positi ve negati ve abnormal Not Available [facility] (Lab) [address] [place], [address], 06/22/2025 09:47:39 06/19/20 25 06/19/2025 WOMEN 'S HEALT H SWAB PLUS, AILEEN eulalio species, tma Negati ve negati ve Not Available [facility] (Lab) [address], [place], [address], 06/22/2025 09:47:39 06/19/2006/19/2025 WOMEN 'S HEALT H SWAB PLUS, AILEEN eulalio glabrata, tma Negati ve negati ve Not Available [facility] (Lab) [address] [place], [address], 06/22/2025 09:47:39 06/19/2006/19/2025 WOMEN 'S HEALT H SWAB PLUS, AILEEN trichomonas vaginalis, tma Negati ve negati ve Not Available [facility] (Lab) [address], [place], [address], 06/22/2025 09:47:39 06/19/2006/19/2025 WOMEN 'S HEALT H SWAB PLUS, AILEEN chlamydia trachomatis, PCR Negati ve negati ve Not Available [facility] (Lab) [address], [place], [address], 06/22/2025 09:47:39 06/19/2006/19/2025 WOMEN 'S HEALT H SWAB PLUS, AILEEN [...] trach omati s, and Neiss eria gonor chan e are also inclu ded in this panel . Not Available [facility] (Lab) [address], [place], [address], 06/22/2025 09:47:39 06/19/20 25 06/19/2025 CULTU RE: URINE result report SEE RESULT S BELOW Test: Cultu re: Urine Speci men Sourc e: Urine Voide d Speci men Type: Urine Speci men Date: 2024 1036 Resul t Date: 2024 0513 Resul t Statu s: Final resul t Abnor mal: No Resul ting Lab: [facility] [address] [facility] [address] Tel: CULTU RE ----- ----- ----- --- No growt h in 1 day (dete ction level of 10,00 0 colon ies / ml.) Not Available [facility] (Lab) [address], [place], [address], 06/22/2025 09:47:40 06/19/20 25 06/19/2025 HEPAT ITIS B CORE, IGM hepatitis B core IgM antibody Non-re active non-re active Antib odies to Hepat itis B Core IgM not detec trung. Does not exclu de the possi bilit y of expos ure to or infec tion with HBV. Corre late with other Hepat itis B serol ogies . Not Available [facility] (Lab) [address] , [place], [address], 06/22/2025 09:47:40 06/19/2006/19/2025 urina lysis , dipst ick Leukocytes Trace Not Available [address], [place], [address], 06/19/2025 11:27:21 06/19/20 25 06/19/2025 urina lysis , dipst ick Nitrite - Not Available [facility] [address], [place], [address], 06/19/2025 11:27:21 06/19/20 25 06/19/2025 urina lysis , dipst ick Urobilinogen Normal Not Available [facility] ethan [address], [place], [address], 06/19/2025 11:27:21 06/19/20 25 06/19/2025 urina lysis , dipst ick Protein Trace Not Available [place] [address], [place], [address], 06/19/2025 11:27:21 06/19/20 25 06/19/2025 urina lysis , dipst ick pH 5 Not Available [place] [address], [place], [address], 06/19/2025 11:27:21 06/19/20 25 06/19/2025 urina lysis , dipst ick Blood trace Not Available [place] [address], [place], [address], 06/19/2025 11:27:21 06/19/20 25 06/19/2025 urina lysis , dipst ick Specific [place] 1.020 [facility] Available [facility] [address], [place], [address], 06/19/2025 11:27:21 06/19/20 25 06/19/2025 urina lysis , dipst ick Ketone + Not Available [place] [address], [place], [address], 06/19/2025 11:27:21 06/19/20 25 06/19/2025 urina lysis , dipst ick Bilirubin - Not Available [facility] [address], [place], [address], 06/19/2025 11:27:21 06/19/20 25 06/19/2025 urina lysis , dipst ick Glucose Normal Not Available [place] [address], [place], [address], 06/19/2025 11:27:21 06/19/20 25 06/19/2025 urina lysis , dipst ick Appearance clear Not Available [facility] [address], [place], [address], 06/19/2025 11:27:21 06/19/20 25 06/19/2025 urina lysis , dipst ick Color yellow Not Available [place] [address], [place], [address], 06/19/2025 11:27:21 Result Notes None recorded. Problems Name Problem SNOMED Code Status Onset Date Resolution Date Notes Provider Name and Address Organization Details Recorded Time Dysuria 48637802 Completed 201001/03/2021 Dysuria; Practice ID: [id number] Vy ramos [facility] 15:33:04 At increase d risk of sexually transmit trung infectio n [id number] Completed 201001/03/2021 Contact with or exposure to venereal diseases ;Practic e ID: 0001 Vy ramos [facility] 15:32:53 Acute gonococc al cervicit is [id number] Completed 201001/03/2021 Gonococc al cervicit is (acute); Practice ID: 0001 Vy ramos [facility] 15:32:49 Pregnanc y test negative [id number] Completed 201001/03/2021 Pregnanc y examinat ion or test, negative result;R ecorded Elsewher e: No Locat ion: [facility] S ource: [employer] xiang: N Practi ce ID: 0001 Antonio lable Time: 02:30:00 PM Vy ramos [facility] 15:33:33 Eruption [id number] Completed 201101/03/2021 Rash and other nonspeci fic skin eruption ;Recorde d Elsewher e: No Locat ion: [facility] S ource: [employer] xiang: N Practi ce ID: 0001 Antonio lable Time: 11:15:00 AM Vy ramos [facility] 15:33:08 Pain of breast [id number] Completed 201101/03/2021 Mastodyn ia;Recor ded Elsewher e: No Locat ion: [facility] S ource: [facility]: Y Practi ce ID: 0001 Antonio lable Time: 11:15:00 AM Vy ramos [facility] 15:33:29 Screenin g for malignan t neoplasm of cervix Completed 201101/03/2021 Screenin g for malignan t neoplasm s of the cervix;R ecorded Elsewher e: No Locat ion: [facility] S ource: [facility]: N Practi ce ID: 0001 Antonio lable Time: 11:00:00 AM Vy ramos [facility] 15:33:42 Speciali zed medical examinat ion Completed 201101/03/2021 Gynecolo gical Examinat ion;Deejay rded Elsewher e: No Locat ion: [facility] S ource: [facility]: N Practi ce ID: 0001 Antonio lable Time: 11:00:00 AM Vy ramos [facility] 15:33:48 Candidia sis of skin and nails Completed 201101/03/2021 Candidia sis of skin and nails;Re corded Elsewher e: No [facility]at ion: [facility] ource: [employer] xiang: N Practi ce ID: 0001 Antonio lable Time: 09:15:00 AM Vy ramos, [facility] 15:32:57 Malaise and fatigue [id number] Completed 201101/03/2021 Fatigue / Malaise; Recorded Elsewher e: No Locat ion: [facility] S ource: [employer] xiang: N Practi ce ID: 0001 Antonio lable Time: 09:45:00 AM Vy Jared richard, [facility] 15:33:24 Atypical squamous cells of undeterm ined signific ance on cervical Papanico laou smear [id number] Completed 201101/03/2021 Papanico laou smear of cervix with atypical squamous cells of undeterm ined signific ance (ASC-US) ;Recorde d Elsewher e: No Locat ion: [facility] S ource: [employer] xiang: N Practi ce ID: 0001 Antonio lable Time: 09:45:00 AM Vy Halburadonay ramos, [facility] 15:32:55 Urinary tract infectio us disease [id number] Completed 201201/03/2021 Urinary Tract Infectio n;Record ed Elsewher e: No Locat ion: [facility] S ource: [employer] xiang: N Practi ce ID: 0001 Antonio lable Time: 09:45:00 AM Vy Halburadonay ramos [facility] 15:33:58 Pregnanc y test positive [id number] Completed 201201/03/2021 Pregnanc y examinat ion or test, positive result;R ecorded Elsewher e: No Locat ion: [facility] S ource: [employer] xiang: N Practi ce ID: 0001 Antonio lable Time: 01:00:00 PM Vy ramos [facility] 15:33:34 Amenorrh ea [id number] Completed 201201/03/2021 Absence of menstrua tion;Rec orded Elsewher e: No Locat ion: [facility] S ource: [employer] xiang: N Devikati ce ID: 0001 Antonio lable Time: 10:30:00 AM Vy ramos [facility] 15:32:51 Mild hypereme sis-not delivere d [id number] Completed 201201/03/2021 Hypereme sis gravidar um, antepart um Mild;Pra ctice ID: 0001 [facility] 15:33:26 Ultrason ography Completed 201301/03/2021 Antenata l screenin g for malforma tion using ultrason ics;Deejay rded Elsewher e: No Locat ion: [facility] S ource: [employer] xiang: Geetha Fortuneti ce ID: 0001 Antonio lable Time: 11:30:00 AM Vy ramos [facility] 15:33:57 Antenata l screenin g Completed 201301/03/2021 Antenata l screenin g for malforma tion using ultrason ics;Deejay rded Elsewher e: No Locat ion: [facility] S ource: [employer] xiang: N Devikati ce ID: 0001 Antonio lable Time: 11:30:00 AM Vy ramos [facility] 15:32:52 Congenit al malforma tion [id number] Completed 201301/03/2021 Antenata l screenin g for malforma tion using ultrason ics;Deeajy rded Elsewher e: No Locat ion: [facility] S ource: [employer] xiang: N Devikati ce ID: 0001 Antonio lable Time: 11:30:00 AM Vy ramos, [facility] 15:33:00 Complica tion related to pregnanc y Completed 201301/03/2021 Weight Insuffic ient Antepart um;Pract ice ID: 0001 Vy ramos, [facility] 15:32:59 Routine antenata l care Completed 201301/03/2021 Supervis ion of other normal pregnanc y;Record ed Elsewher e: No Locat ion: [facility] S ource: [employer] xiang: N Practi ce ID: 0001 Antonio lable Time: 06:00:00 PM Vy ramos, [facility] 15:33:41 Transien t hyperten burt of pregnanc y - not delivere d [id number] Completed 201301/03/2021 Antepart um transien t hyperten burt;Pra ctice ID: 0001 Vy ramos, [facility] 15:33:55 Uterine scar from previous surgery in pregnanc y, childbir th and the puerperi um - delivere d [id number] Completed 201301/03/2021 Previous delivery , antepart um conditio n or complica tion;Pra ctice ID: 0001 Vy ramos, [facility] 15:34:00 Procedur e on genitour inary system Completed 201301/03/2021 Steriliz ation;Pr actice ID: 0001 Vy ramos, [facility] 15:33:37 Single live from singleto n pregnanc y [id number] Completed 201301/03/2021 Mother with single liveborn ;Practic e ID: 0001 yV ramos, [facility] 15:33:43 Postoper ative follow-u p visit Completed 201301/03/2021 Follow-u p examinat ion, followin g unspecif ied surgery; Recorded Elsewher e: No Locat ion: [facility] S ource: [employer] xiang: N Practi ce ID: 0001 Antonio lable Time: 10:00:00 AM Vy Coleman [facility] 15:33:31 Deliveri es by [id number] Completed 201301/03/2021 delivery , without mention of indicati on, unspecif ied as to episode of care;Rec orded Elsewher e: No Locat ion: [facility] S ource: [employer] xiang: N Practi ce ID: 0001 Antonio lable Time: 09:30:00 AM Vy Coleman [facility] 15:33:01 Postpart um care Completed 201301/03/2021 Post Followup ;Recorde d Elsewher e: No Locat ion: [facility] S ource: [employer] xiang: N Practi ce ID: 0001 Antonio lable Time: 11:00:00 AM Vy Coleman [facility], [facility] 15:33:32 Educatio n Completed 201301/03/2021 Counseli ng contrace ptive manageme nt;Pract ice ID: 0001 Vy Coleman [facility], [facility] 15:33:05 Morbid obesity [id number] Completed 201401/03/2021 Obesity, Morbid;R ecorded Elsewher e: No Locat ion: [facility] S ource: [employer] xiang: N Practi ce ID: 0001 Antonio lable Time: 11:00:00 AM Vy Coleman [facility], [facility] 15:33:28 Female genital organ symptoms [id number] Completed 201401/03/2021 Pelvic pain;Rec orded Elsewher e: No Locat ion: [facility] S ource: [employer] xiang: N Practi ce ID: 0001 Antonio lable Time: 11:00:00 AM Vy ramos, [facility] 15:33:11 Vaginiti s and vulvovag initis Completed 201401/03/2021 Vaginiti s;Record ed Elsewher e: No Locat ion: [facility] S ource: [employer] xiang: N Practi ce ID: 0001 Antonio lable Time: 10:00:00 AM Vy ramos, [facility] 15:34:01 Leukocyt osis [id number] Completed 201401/03/2021 LEUKOCYT OSIS NOS;Deejay rded Elsewher e: No Locat ion: [facility] S ource: [employer] xiang: N Practi ce ID: 0001 Antonio lable Time: 04:15:00 PM Vy ramos, [facility] 15:33:18 Microsco pic hematuri a [id number] Completed 201401/03/2021 HEMATURI A MICROSCO PIC;Prac adrienne ID: 0001 Vy ramos, [facility] 15:33:25 Speciali zed medical examinat ion Completed 201401/03/2021 Other specifie d chlamydi al diseases ;Recorde d Elsewher e: No Locat ion: [facility] S ource: [employer] xiang: N Practi ce ID: 0001 Antonio lable Time: 01:00:00 PM Vy ramos [facility] 15:33:49 Dermatop hytosis [id number] Completed 201401/03/2021 Ringworm ;Recorde d Elsewher e: No Locat ion: [facility] S ource: [employer] xiang: N Practi ce ID: 0001 Antonio lable Time: 01:00:00 PM Vy ramos, [facility] 15:33:03 Leukorrh ea [id number] Completed 201401/03/2021 Leukorrh ea, not specifie d as infectiv e;Record ed Elsewher e: No Locat ion: [facility] ource: [employer] xiang: N Practi ce ID: 0001 Antonio lable Time: 01:00:00 PM Vy ramos, [facility] 15:33:19 Venereal disease screenin g Completed 201401/03/2021 Screenin g examinat ion for venereal disease; Recorded Elsewher e: No Locat ion: Kristinaelsa ra[facility] S ource: E[employer] xiang: N Practi ce ID: 0001 Antonio lable Time: 01:00:00 PM Vy ramos, [facility] 15:34:05 Acute vaginiti s [id number] Completed 201401/03/2021 Acute vaginiti s;Record ed Elsewher e: No Locat ion: Anuj raquel [facility] S ource: [employer] xiang: N Practi ce ID: 0001 Antonio lable Time: 10:15:00 AM Vy ramos, [facility] 15:32:50 Tietze's disease [id number] Completed 201401/03/2021 Costocho ndritis; Recorded Elsewher e: No [facility]: [employer] xiang: N Practi ce ID: 0001 Antonio lable Time: 10:15:00 AM Vy ramos, [facility] 03/08/202 1 15:33:54 Finding of sensatio n of breast Completed 201501/03/2021 Mastodyn ia;Recor ded Elsewher e: No Locat ion: [facility] S ource: [employer] xiang: N Practi ce ID: 0001 Antonio lable Time: 11:45:00 AM Vy ramos [facility] 15:33:12 Blood leukocyt e number above referenc e range [id number] Completed 201501/03/2021 Elevated white blood cell count, unspecif ied;Deejay rded Elsewher e: No Locat ion: [facility] S ource: [employer] xiang: N Practi ce ID: 0001 Antonio lable Time: 02:15:00 [facility]:33:[address] Concept Completed 201601/03/2021 Encntr for general adult medical exam w/o abnormal findings ;Recorde d Elsewher e: No Locat ion: [facility] S ource: [employer] xiang: N Practi ce ID: 0001 Antonio lable Time: 02:30:00 PM Vy ramos [facility] 15:33:[address] Concept Completed 201601/03/2021 Encntr for obstetrician/gynecologist exam (general ) (routine ) w/o abn findings ;Recorde d Elsewher e: No Locat ion: [facility] S ource: [employer] xiang: N Practi ce ID: 0001 Antonio lable Time: 02:30:00 PM Vy ramos [facility] 15:33:47 Evaluati on finding Completed 201601/03/2021 Hematuri a, unspecif ied;Deejay rded Elsewher e: No Locat ion: [facility] S ource: [employer] xiang: N Practi ce ID: 0001 Antonio lable Time: 02:30:00 PM Vy ramos [facility] 15:33:10 Infectio n screenin g Completed 201601/03/2021 Encounte r for screenin g for oth infec/pa rastc diseases ;Recorde d Elsewher e: No Locat ion: [facility] S ource: [employer] xiang: N Practi ce ID: 0001 Antonio lable Time: 01:30:00 PM Vy ramos, [facility] 15:33:17 Vaginola bial hernia Completed 201701/03/2021 Other specifie d noninfla mmatory disorder s of vagina;R ecorded Elsewher e: No Locat ion: [facility] S ource: [employer] xiang: N Practi ce ID: 0001 Antonio lable Time: 08:30:00 AM Vy Coleman [facility] 15:34:03 Syphilis test finding [id number] Completed 201801/03/2021 Encntr screen for infectio ns w sexl mode of transmis s;Record ed Elsewher e: No Locat ion: [facility] S ource: [employer] xiang: N Practi ce ID: 0001 Antonio lable Time: 03:45:00 PM Vy ramos [facility] 15:33:53 Increase d frequenc y of urinatio n [id number] Completed 201801/03/2021 Frequenc y of micturit ion;Deejay rded Elsewher e: No Locat ion: [facility] S ource: [employer] xiang: N Practi ce ID: 0001 Antonio lable Time: 03:45:00 PM Vy ramos [facility] 15:33:15 Epidermo id cyst of skin [id number] Completed 201801/03/2021 Sebaceou s cyst;Rec orded Elsewher e: No Locat ion: [facility] S ource: [employer] xiang: N Devikati ce ID: 0001 Antonio lable Time: 03:45:00 PM Vy ramos [facility] 1 15:33:07 Swelling / lump finding Completed 201801/03/2021 Localize d swelling , mass and lump, unspecif ied;Deejay rded Elsewher e: No [facility]: [employer] xiang: N Practi ce ID: 0001 Antonio lable Time: 11:00:00 AM Vy ramos [facility] 1 15:33:52 Lump of axillary tail of left breast [id number] 4108 Completed 201901/03/2021 Mass in axillary tail of the left breast;R ecorded Elsewher e: No Locat ion: [facility] S ource: [facility]: N Practi ce ID: 0001 Antonio lable Time: 02:45:00 PM Vy ramos [facility] 1 15:33:21 Lump of axillary tail of right breast [id number] 4106 Completed 201901/03/2021 Mass in axillary tail of the right breast;R ecorded Elsewher e: No Locat ion: [facility] S ource: [facility]: N Practi ce ID: 0001 Antonio lable Time: 02:45:00 PM Vy ramos [facility] 15:33:22 Diabetes mellitus 52971293 Active 2023 Joelle ramos [facility] 4 14:55:50 Problem Notes None recorded. Procedures Surgical History Date Name Laterality Status Provider Name and Address Organization Details Recorded Time 02/11/20 24 Date of Last Pap Smear completed [facility] 10/06/2024 14:56:20 10/29/19 24 extraction of wisdom tooth completed [facility] 10/06/2024 14:58:04 11/27/19 22 procedure on lower leg completed [facility] 10/06/2024 14:57:55 06/05/20 14 section completed [facility] 10/04/2020 11:13:52 10/29/19 14 Tubal Ligation completed [facility] 07/03/2020 12:16:24 04/13/20 10 section completed [facility] 10/04/2020 11:13:47 11/27/19 08 section completed [facility] 10/04/2020 11:13:43 10/29/19 06 cholecystectomy completed [facility] 10/04/2020 11:12:39 07/12/20 05 section completed [facility] 10/04/2020 11:13:37 10/29/19 05 cholelithotomy completed [facility] 10/04/2020 11:13:16 Imaging Results None recorded. Procedure Notes None recorded. Medical Equipment None Reported. Allergies Allergen ID Allergen Name Allergen Category Reaction Reaction Severity Criticality Documentation Date Start Date Code Code System Note Provider Name and Address Organization Details Recorded Time 1957 morphine medicatio n anaphylax is hives rash severe severe severe high 07/03/2020 7052 RxNorm [facility] 10:52:23 Medications Name Sig Start Date Stop Date [...] Prescrib ed Elsewher e: No Locat ion: [facility] odify By: [email or web address] trick En counter [...] Prescrib ed Elsewher e: No Locat ion: [facility] odify By: [email or web address] E ncounter DateTime : 03/03/20 14 10:45:00 AM Not [...] Available nystatin 100,000 unit/gram topical ointment APPLY TO THE AFFECTED AREA(S) BY TOPICAL ROUTE 2 TIMES PER DAY x 5-7 days 2024 active Not Available Not Available Not Avai lable fluconazo le 150 mg tablet TAKE 1 [...] Prescrib ed Elsewher e: No [facility] By: gwen castro DateTime : [...] Prescrib ed Elsewher e: No [facility] By: maria luisa dang DateTime [...] Prescrib ed Elsewher e: No Locat ion: [facility] odify By: cmedical Encount er DateTime : 12/05/19 14 10:39:37 AM Not Available Not Available Not Available metronida zole 500 mg tablet TAKE 1 TABLET BY MOUTH EVERY 12 HOURS FOR 7 DAYS active Not Available Not Available No t Available fluocinon aldo 0.05 % topical ointment [...] 1 TABLET BY MOUTH EVERY 12 HOURS 02/25 completed Not Available Not Available Not Available [...] Yes Loca tion: [facility] odify By: marybeth adng DateTime : 02/28/20 19 11:00:00 AM Not [...] No Locat ion: [facility] odify By: marybeth dang DateTime : 08/14/20 11 02:30:00 PM Not Available Not Available Not Available Loprox 0.77 % topical gel apply by topical route 2 times every day to the affected and surround ing areas of skin in the morning and evening 07/23 completed Prescrib ed Elsewher e: No Locat ion: [facility] odify By: amcari Lara ncounter DateTime : 01/28/20 13 11:30:00 AM Not [...] completed Not Available Not Available Not Available Metrogel Vaginal 0.75 % (37.5 mg/5 gram) insert 1 applicat orful by vaginal route every day at bedtime 2020 active Not Available Not Available Not Avai lable famotidin e 20 mg tablet 07/03 completed [...] No Locat ion: [facility] odify By: amcari Lara ncounter DateTime : 06/27/20 12 09:15:00 [...] to the affected area(s) 08/06 completed Prescrib ed Elsewher e: No [facility] By: maria luisa dang DateTime [...] ed Elsewher e: No Locat ion: [facility] odify By: cmedical Encount er DateTime : 11/12/19 15 11:12:49 AM Not Available Not Available Not Available Terazol 7 0.4 % vaginal cream insert 1 applicat orful by vaginal route every day for 7 days at bedtime 11/24 completed Prescrib aviva Wolfe e: No Locat ion: [facility] odify By: anoop fuentes DateTime : [...] morning and evening. 01/08 completed Prescrib aviva Wolfe e: No Locat ion: [facility] odify By: jose alejandro dang DateTime : [...] Prep Pads APPLY 1 PATCH EVERY DAY 06/19 completed Not Available Not Available Not Available nitrofura ntoin monohydra te/macroc rystals 100 mg capsule TAKE 1 CAPSULE BY MOUTH TWICE DAILY 01/19 completed Not Available Not Available Not Available OneTouch Verio test strips USE 1 STRIP EVERY DAY NEEDED FOR DIABETES MELLITUS 06/19 completed Not Available Not Available Not Available [...] Body mass index (BMI) Body weight Systolic And Diastolic Provider Name and Address Organization Details Last Updated DateTime 11/27/2024 154.94 cm 60.3 kg/m2 910204.97 g 131/84 mm[Hg] GILBERT Donahue [facility] 11/27/2024 12:44:29 Date Recorded Body height Body mass index (BMI) Body weight Systolic And Diastolic Provider Name and Address Organization Details Last Updated DateTime 01/19/2025 154.94 cm 59.5 kg/m2 956443.6 g 143/92 mm[Hg] Zuleyka Karimi [facility] 01/19/2025 11:00:55 Date Recorded Body height Body mass index (BMI) Body weight Systolic And Diastolic Provider Name and Address Organization Details Last Updated DateTime 02/25/2025 154.94 cm 59.7 kg/m2 747779.47 g 122/85 mm[Hg] Ekaterina Tiwari [facility] 02/25/2025 12:45:51 Date Recorded Body height Body mass index (BMI) Body weight Systolic And Diastolic Provider Name and Address Organization Details Last Updated DateTime 06/19/2025 154.94 cm 60.1 kg/m2 672820.37 g 122/83 mm[Hg] Ekaterina Tiwari [facility] 06/19/2025 10:51:25 Date Recorded Body height Body mass index (BMI) Body weight Systolic And Diastolic Provider Name and Address Organization Details Last Updated DateTime 10/06/2024 154.94 cm 60.3 kg/m2 580087.97 g 122/79 mm[Hg] Joelle Russo [facility] 10/06/2024 14:54:45 Social History Question Answer Notes LastModified by Organizat ion Details LastModified Time Tobacco Smoking Status Never Smoker Ekaterina Tiwari richard [facility] 08/02/2023 12:04:48 Do You Have An Advance Directive? No Information n ot available 06/20/2021 Are You Blind Or Do You Have Difficulty Seeing? No Information n ot available 06/20/2021 What Is Your Level Of Caffeine Consumption? Occasional Information not available 01/31/2023 In The 14 Days Before Symptom Onset, Have You Had Close Contact With A Laboratory-confirm ed COVID-19 While That Case Was Ill? No Information n ot available 06/20/2021 In The 14 Days Before [...] You Following? REGULAR Information n ot available 02/16/2022 What Is The Highest Grade Or Level Of School You Have Completed Or The Highest Degree You Have Received? [id number] Information not available 01/31/2023 Are There Any Guns Present In Your Home? No Information not available 06/20/2021 What Was The Date Of Your Most Recent Tobacco Screening? 10/06/2024 [email or web address] Information not available 10/06/2024 Do You Use Protection During Sex? No Information not available 01/31/2023 Do You Use Your Seat Belt Or Car Seat Routinely? Yes Information not available 11/01/2021 Do You Have Smoke And Carbon Monoxide Detectors In Your Home? Yes Information not available 06/20/2021 How Much Tobacco Do You Smoke? No [email or web address] Information not available 10/04/2020 Do You Use Sunscreen Routinely? No Information not available 06/20/2021 Have You Used IV Drugs? No Information not available 06/20/2021 Do You Have Difficulty Walking Or Climbing Stairs? No [email or web address] Information not available 08/02/2023 Sex: Unknown Functional Status Question Answer Note LastModified by Organizat ion Details LastModified Time Do you use any illicit or recreational drugs? No Information not available 03/29/2021 What is your level of alcohol consumption? None Information not available 01/31/2023 Do you or have you ever used smokeless tobacco? Never used smokeless tobacco [email or web address] Information not available 08/02/2023 Are you able to walk independently without assistance or assistive devices? [email or web address] Information not available 02/16/2022 Are you able to care for yourself independently? 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 No [email or web address] Information not available 08/02/2023 Do you or have you ever used e-cigarettes or vape? Never used electronic cigarettes Information not available 08/02/2023 What is your exercise level? Occasional [email or web address] Information not available 10/04/2020 Mental Status Question Answer Note LastModified by Organization D etails LastModified Time Do you feel stressed (tense, restless, nervous, or anxious, or unable to sleep at night)? [id number] Information not available 01/31/2023 Family History Relationship Description Onset Age of this Age Resolved Age Notes LastModified by Organization Details LastModified Time Mother Diabetes mellitus [email or web address] Not available 2019 12:14:36 Mother Hypertensive disorder Not available 2019 12:14:45 Medical History Condition Response Allergies (Food, seasonal, environmental ) Y Other Y Drug/Latex Allergies/Reactions Y Blood Transfusion N Breast Cancer N Dermatologic Disorders N Lung Disease N Defects or Inherited Disease N Breast Problem N Gestational Diabetes Y Hematologic disorders N Anesthesia Complications N History of STI N Deep Vein Thrombosis N Polycystic ovary syndrome N Anxiety Disorder N Autoimmune disease N Arthritis N Polyps N Infertility N Acid Reflux (GERD) N History of abnormal pap N Cancer N Varicosities N Stroke N Neurologic/Epilepsy N Endometriosis N High Cholesterol Y Fibromyalgia N Headaches N Kidney Disease N Heart Problems N Thyroid Problems N Kidney or Bladder Problems Y GI Problems N Eating Disorder N Anemia [...] Statement/Question Response Flow Moderate Date of LMP 01/30/2025 On BCP's at Conception? N N Was [...] ICD10 Code Diagnosis IMO Codes Diagnosis Note [id number] Scott Espinoza MD [place] [address],[place] [address] 07/03/2020 11:55:21 07/03/2020 12:55:16 Vaginitis 36988533 N76.0 To treat for vaginitis [id number] Ankita Fowler, [facility] [address],[place] [address] 09/22/2020 12:34:41 09/22/2020 15:53:23 Venereal disease screening 806987751 Z11.3 Genital he rpes simplex 49113066 Z11.3 [id number] Amy Ochoa [facility] [address],[place] [address] 10/15/2020 11:43:16 10/15/2020 12:14:03 Vaginitis 48479494 N76.0 Vag exam suspect for yeast. Treated today. Vag ccx's sent. Will contact if any further treatment needed. RTO x prn Time spent in visit is a total of 15 mins with at least 50% of visit consisting of counseling and review of plan of care. [id number] Jeanna Shoemaker [place] [address],[place] [address] 01/03/2021 15:19:21 01/03/2021 17:39:51 Vaginitis 27813885 N76.0 Discussed use of mild soap like dove or ivory, cotton underwear w/out dye, hypoallerg enic detergent, wipe from front to back, avoid tub baths, keep perineum clean and dry, d/c use of baby wipes. Encouraged daily intake of yogurt or womens health probiotic. Internal and external affirm collected. Urine normal. Will be sent for culture and std screen. [id number] Scott Espinoza MD [place] [address],[place] [address] 02/26/2021 11:29:32 02/26/2021 12:37:58 Vaginitis 70793363 N76.0 To treat for vaginitis this patient [...] those results. Sexually t ransmitted infectious disease 9129076 A64 [id number] Amy Ochoa , [facility] [address],[place] [address] 03/29/2021 14:44:48 03/30/2021 14:57:04 Vaginitis 35765059 N76.0 Right very small labial boil. Topical [...] this patient s visit, including available hand banking consultant upon arrive, temperatur e check and being [...] satisfacti on. Sexually t ransmitted infectious disease 9485341 A64 [id number] Scott Espinoza MD [place] [address],[place] [address] 06/20/2021 12:28:23 06/20/2021 14:39:47 Burning sensation 18959424 R20.8 Bacterial vaginosis 4197 13489 N76.0 This patient is a 30-year-ol d female who presents for foul-smell ing vaginal discharge. She states that it is yellow in color. She also has some burning the area of the vulva with sex. She also has had some discomfort since that sexual episode. She is concerned about exposure to 6 transmitte d disease through . Sexually t ransmitted infectious disease 0793140 A64 [id number] Suzanna Lopez MD [facility] [address],[place] [address] 08/29/2021 17:34:14 08/29/2021 18:18:43 Body mass index 40+ - severely obese 602493565 Z68.44 Gynecologi c examination 52959712 Z01.419 Z11.51 Family ronnie nning surveillance 808135251 Z30.09 Vaccination not done 012 8462729 9108 Z28.9 Cyst of vulva 61630844 N 90.7 Female sterilization 608 85569 Z30.2 Venereal d isease screening 133036671 Z11.3 [id number] [facility] [address],[place] [address] 11/01/2021 13:07:40 11/01/2021 14:01:35 Vaginitis 96530345 N76.0 Z11.3 Z11.8 Treated for BV/Yeast for [...] this patient s visit, including available hand banking consultant upon arrive, temperatur e check and being [...] questions answered to patient satisfacti on. Hyperhidrosis 378430738 R61 Feels she is having excessive sweating even night sweats; will sometimes wake up drenched in sweat.Has regular monthly cyclesThis has been occurring over the last 6mos.If labs are wnl consider updated visit with PCP. [id number] Scott Espinoza MD [place] [address],[place] [address] 12/30/2021 14:55:29 01/03/2022 03:50:10 [id number] [facility] [address],[place] [address] 12/30/2021 15:11:43 12/30/2021 16:21:40 Vaginitis 60336520 N76.0 Z11.3 Z11.8 Treated for Yeast for [...] this patient s visit, including available hand banking consultant upon arrive, temperatur e check and being [...] All questions [place]. [id number] CONCHIS Velazquez [place] [address],[place] [address] 02/16/2022 14:02:18 02/16/2022 15:05:01 Venereal disease screening 045483840 Z11.3 Sexually t ransmitted infectious disease 0951656 A64 Vaginitis 03289106 N76.0 Vaginal discharge present suspicious for BV. Vulvar irritation suspicious for yeast.We discussed vulvar care guidelines , discontinu e use of vaginal wash.Will treat for BV and yeastSTI testing and vaginitis panel sentBlood STI testing ordered.RT C if symptoms persist past treatment. Time spent with the patient was 20 minutes. [id number] CONCHIS Velazquez [place] [address],[place] [address] 05/24/2022 16:40:13 05/24/2022 17:36:32 Mass of left breast 1163755437 2185725 N63.20 Lump in left breast palpated, at [...] referral pending results. Venereal d isease screening 700543265 Z11.3 Sexually t ransmitted infectious disease 1326066 A64 Vaginal discharge 281872 006 N89.8 [id number] CONCHIS Velazquez [place] [address],[facility] [place] [address] 08/21/2022 15:16:41 08/21/2022 16:14:03 Mass of left breast 1008094684 7117312 N63.20 Lump still present on exam todayLump in left breast palpated, at about 5 o'clock, lump is 1cm in size and movable. Lump is slightly tender to touch. No skin changes or redness. No warmth.We agreed to breast specialist referral for consult / second opinion - patient agrees to this planI[facility] Time spent in visit is a total of 15 mins with at least 50% of visit consisting of counseling and review of plan of care. [id number] CONCHIS Velazquez [place] [address],[place] [address] 01/31/2023 16:27:17 01/31/2023 18:18:50 Venereal disease screening 253889283 Z11.3 Sexually t ransmitted infectious disease 0831758 A64 Gynecologi c examination 13456455 Z01.419 Take Calcium with Vitamin D 1200mg [...] care guidelines discussed. Rx sent Vulval irritation 462481 003 N90.89 [id number] Scott Espinoza MD [place] [address],[place] [address] 05/28/2023 10:45:31 05/28/2023 18:22:36 Sexually transmitted infectious disease 5985302 A64 this patient is a 32-year-ol d [...] and she will return for those tests. [id number] CONCHIS Velazquez [place] [address],[place] [address]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
--- NOTE | 2025-10-03 02:00 | ED_ITS ---
HPI - Recheck/Abnormal Lab/Rx General Chief Complaint: Recheck/Abnormal Lab/Rx <Yana King APRN - Last Filed: 10/03/25 04:18> Stated Complaint: meter said 255 elevated glucose, ULQ pain <Yana King APRN - Last Filed: 10/03/25 04:18> Time Seen by Provider: 10/03/25 01:16 <Yana King APRN - Last Filed: 10/03/25 04:18> History of Present Illness HPI narrative: Patient is a 35-year-old female who presents to the ER with concerns for high blood sugar. She reports she is on daily glimepiride. Patient reports yesterday she checked her blood sugar and it was 331. Today she reports she checked her blood sugar and it was in the 250s. Patient reports she attempted to make an appointment with her primary care provider earlier today, but was too late to be seen. She denies any history of DKA. Patient endorses frequent thirst. She also endorses intermittent left lower ribcage pain, but denies any chest pain, shortness a breath, or wheezing. Patient reports the ribcage pain gets worse with movement. She denies any other medical history relevant to this ER visit. <Yana King APRN - Last Filed: 10/03/25 04:18> Related Data Home Medications: Home Medications ?Medication ?Instructions ?Recorded ?Confirmed ?Last Taken ?Type dulaglutide 0.75 mg/0.5 mL mg subcut 10/04/24 Unknown History subcutaneous pen injector (Trulicity) empagliflozin 10 mg tablet 10 mg PO DAILY 10/04/2405/21 Unknown History (Jardiance) rosuvastatin 5 mg tablet mg 10/04/24 Unknown History tirzepatide 2.5 mg/0.5 mL 2.5 mg subcut WEEKLY 4 10/04/24 Unknown History subcutaneous pen injector (Mounjaro) glimepiride 1 mg tablet 1 mg PO DAILY 02/03/2502/0302/03/25 History <Yana King APRN - Last Filed: 10/03/25 04:18> Allergies/Adverse Reactions: Allergies Allergy/AdvReac Type Severity Reaction Status Date / Time crab Allergy Severe Swelling Verified 10/02/25 22:33 of Lip/Tongue/Throat morphine Allergy Severe ITCHING, Verified 10/02/25 22:33 hives, throat swelling <Yana King APRN - Last Filed: 10/03/25 04:18> Review of Systems 2 Review of Systems: All systems reviewed & are unremarkable except as noted in HPI and below <aYna King APRN - Last Filed: 10/03/25 04:18> [facility] Past Medical History Medical History: Medical History Type 2 diabetes mellitus Hypothyroid Obesity <Yana King APRN - Last Filed: 10/03/25 04:18> Surgical History Surgical History: Surgical History History of ankle surgery History of cholecystectomy History of section 4 <Yana King APRN - Last Filed: 10/03/25 04:18> Family History Family History: Family History Unknown No significant family history <Yana King APRN - Last Filed: 10/03/25 04:18> Social History Social History: Social History Social History: 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 She lives with her tracy who is her durable power fundraiser for healthcare. The patient is a lifelong nonsmoker. She does not use any alcohol marijuana or illicit drugs. Code status full code Smoking status: Never smoker Alcohol intake: never Substance use: never Substance use type: does not use Gender identity (if verbalized by the patient): Female Spiritual care concerns: No <Yana King APRN - Last Filed: 10/03/25 04:18> Exam 2 Narrative: GENERAL: Well appearing, Obese, non-toxic, in no acute distress. HEAD: Normocephalic, atraumatic. NECK: Supple. No adenopathy, no masses. RESPIRATORY: Airway patent, respirations nonlabored. Clear to auscultation bilaterally, no rales, rhonchi, wheezing. CARDIOVASCULAR: Regular rate and rhythm without murmurs, rubs, or gallops. Peripheral pulses 2+ and equal bilaterally. ABDOMINAL: Soft, nontender, nondistended, no hepatosplenomegaly. Normoactive BS. MUSCULOSKELETAL: Moves all extremities. Strength/ROM intact without gross deformities. SKIN: Warm, dry, normal color. No rashes. NEURO: A&O X3. Speech clear. Cranial nerves II-XII intact. No ataxic movements. PSYCHIATRIC: Appropriate mood and affect. Normal interaction. <Yana King, FIELD MARKETING REPRESENTATIVE - Last Filed: 10/03/25 04:18> Course TRAY DELIVERY AIDE/PA Physician Supervision This visit was performed by both a physician and an APC. I performed all aspects of the MDM as documented. <Jerry Schneider, DO - Last Filed: 10/03/25 04:39> Vital Signs Vital signs: Vital Signs Temperature 98.0 F 10/02/25 22:29 Pulse Rate 88 10/02/25 22:29 Respiratory Rate 20 10/02/25 22:29 Blood Pressure 124/65 10/02/25 22:29 Pulse Oximetry 100 10/02/25 22:29 Oxygen Delivery Room Air 10/02/25 22:29 Temperature 98.0 F 10/02/25 22:29 Pulse Rate 80 10/03/25 01:10 Respiratory Rate 19 10/03/25 01:10 Blood Pressure 121/71 10/03/25 01:10 Pulse Oximetry 98 10/03/25 01:10 Oxygen Delivery Room Air 10/02/25 22:29 <Yana King, FIELD MARKETING REPRESENTATIVE - Last Filed: 10/03/25 04:18> Vital Signs Temperature 98.0 F 10/02/25 22:29 Pulse Rate 88 10/02/25 22:29 Respiratory Rate 20 10/02/25 22:29 Blood Pressure 124/65 10/02/25 22:29 Pulse Oximetry 100 10/02/25 22:29 Oxygen Delivery Room Air 10/02/25 22:29 Temperature 98.0 F 10/02/25 22:29 Pulse Rate 80 10/03/25 01:10 Respiratory Rate 19 10/03/25 01:10 Blood Pressure 121/71 10/03/25 01:10 Pulse Oximetry 98 10/03/25 01:10 Oxygen Delivery Room Air 10/02/25 22:29 <Jerry Schneider DO - Last Filed: 10/03/25 04:39> [facility] Narrative Medical decision making narrative: Patient is a 35-year-old female who presents to the ER with concerns for high blood sugar. She reports she is on daily glimepiride. Patient reports yesterday she checked her blood sugar and it was 331. Today she reports she checked her blood sugar and it was in the 250s. Patient reports she attempted to make an appointment with her primary care provider earlier today, but was too late to be seen. She denies any history of DKA. Patient endorses frequent thirst. She also endorses intermittent left lower ribcage pain, but denies any chest pain, shortness a breath, or wheezing. Patient reports the ribcage pain gets worse with movement. She denies any other medical history relevant to this ER visit. Labs Ordered: CBC, CMP, VBG, magnesium, phosphorus, beta hydroxybutyrate, glucose point of care 0415- Care signed out to Dr. Schneider. <Yana King APRN - Last Filed: 10/03/25 04:18> Patient is a 35-year-old female who presents to the ER with concerns for high blood sugar. She reports she is on daily glimepiride. Patient reports yesterday she checked her blood sugar and it was 331. Today she reports she checked her blood sugar and it was in the 250s. Patient reports she attempted to make an appointment with her primary care provider earlier today, but was too late to be seen. She denies any history of DKA. Patient endorses frequent thirst. She also endorses intermittent left lower ribcage pain, but denies any chest pain, shortness a breath, or wheezing. Patient reports the ribcage pain gets worse with movement. She denies any other medical history relevant to this ER visit. Labs Ordered: CBC, CMP, VBG, magnesium, phosphorus, beta hydroxybutyrate, glucose point of care 1935- Care signed out to Dr. Schneiedr. Patient was reassessed at the bedside. No changes in physical exam. Patient is in no acute distress. Patient is drinking water and tolerating oral intake without difficulty. Patient and significant other consult extensively and diabetes management, signs and symptoms of the blood sugar emergency, the ramifications of the chronically uncontrolled blood sugar, the importance of discussing her blood sugar with her primary care physician. The patient has remained stable throughout the entire ED visit. Counseled patient regarding diagnostic results and potential diagnosis. Anticipatory guidance provided. Patient instructed to follow up with PCP within the next 2-3 days. Patient counseled on: false reassurance from an emergency department evaluation; no current evidence of a medical emergency; return immediately for any new, recurrent, worsening, concerning, or refractory symptoms. Additional verbal and printed discharge instructions were given and discussed with the patient. Patient verbally acknowledges understanding of condition and discharge instructions. All questions were answered to the patient's satisfaction. Patient is in agreement with the plan of care. The patient is stable for discharge and was discharged without incident. <Jerry Schneider, - Last Filed: 10/03/25 04:39> Differential Diagnosis Differential Diagnosis: DKA, hyperglycemia, dehydration <Yana King APRN - Last Filed: 10/03/25 04:18> Lab Data MDM Lab Attestation statement: I personally reviewed the patient's lab results. <Yana King APRN - Last Filed: 10/03/25 04:18> Result diagrams: 10/03/25 02:22 10/03/25 02:22 <Yana King APRN - Last Filed: 10/03/25 04:18> Labs: Lab Results 10/02/25 10/03/25 10/03/25 Range/Units 22:32 01:04 02:22 WBC 9.8 (4.5-10.0) K/mm3 RBC 4.04 L (4.2-5.4) M/mm3 Hgb 10.1 L (12.0-15.0) g/dL Hct 32.3 L (37.0-47.0) % MCV 80.0 (80-100) fl MCH 25.0 L (26-34) pg MCHC 31.3 L (32-36) g/dl RDW 17.0 H (11.5-14.5) % Plt Count 328 (150-375) k/mm3 MPV 9.4 (7.4-10.4) fl Immature Gran % (Auto) 0.3 (0-0.5) % Neut % (Auto) 48.9 (45.5-73.1) % Lymph % (Auto) 43.6 (18.3-44.2) % [place] % (Auto) 5.3 (2.6-8.5) % Eos % (Auto) 1.7 (0-4.4) % Baso % (Auto) 0.2 (0.2-1.2) % Lymph # (Auto) 4.29 H (0.9-3.2) K/mm3 [place] # (Auto) 0.5 (0.1-0.6) K/mm3 Eos # (Auto) 0.2 (0-0.3) K/mm3 Baso # (Auto) 0.0 (0.0-0.1) K/mm3 Abs Immat Gran (auto) 0.03 (0.00-0.031) K/mm3 Absolute Neuts (auto) 4.8 (1.3-6.7) K/mm3 Absolute Nucleated RBC 0.000 (0.0-0.012) K/mm3 Nucleated RBC % 0.0 (0.0-0.2) % Sodium 135 L (137-145) mmol/L Potassium 3.9 (3.4-5.0) mmol/L Chloride 101 (98-107) mmol/L Carbon Dioxide 30 (22-30) mmol/L Anion Gap 4 (4-12) mmol/L BUN 10 (7-17) mg/dL Creatinine 0.64 L (0.7-1.0) mg/dL Estim Creat Clear Calc 135 ml/min Estimated GFR > 60 (59 - ) Glucose 282 H (65-110) mg/dL POC Capillary Glucose 250 H 275 H (65-105) mg/dl Calcium 9.5 (8.4-10.2) mg/dL Phosphorus 4.3 (2.5-4.5) mg/dL Magnesium (1.6-2.3) mg/dL Total Bilirubin (0.2-1.3) mg/dL AST (14-36) U/L ALT (6-35) U/L Alkaline Phosphatase (38-126) U/L Total Protein (6.3-8.2) g/dL Albumin (3.5-5.1) g/dL Beta-Hydroxybutyrate/Acetoacetate (0.02-0.27) mmol/L Urine Color (Yellow) Urine Appearance (Clear) Urine pH (5.0-9.0) Ur Specific [place] (1.001-1.035) Urine Protein (Negative) mg/dL Urine Glucose (UA) (Negative) mg/dL Urine Ketones (Negative) mg/dL Ur Blood (Man) (Negative) Urine Nitrate (Negative) Urine Bilirubin (Negative) Urine Urobilinogen (<2.0) mg/dL Leukocyte Esterase Rfl (Negative) SHANNAN/UL Urine RBC (0-2) /hpf Urine WBC (0-3) /hpf Ur Squamous Epith Cells (Few) /hpf Urine Bacteria /hpf Urine Casts 10/03/25 10/03/25 10/03/25 Range/Units 02:22 02:22 02:29 WBC (4.5-10.0) K/mm3 RBC (4.2-5.4) M/mm3 Hgb (12.0-15.0) g/dL Hct (37.0-47.0) % MCV (80-100) fl MCH (26-34) pg MCHC (32-36) g/dl RDW (11.5-14.5) % Plt Count (150-375) k/mm3 MPV (7.4-10.4) fl Immature Gran % (Auto) (0-0.5) % Neut % (Auto) (45.5-73.1) % Lymph % (Auto) (18.3-44.2) % [place] % (Auto) (2.6-8.5) % Eos % (Auto) (0-4.4) % Baso % (Auto) (0.2-1.2) % Lymph # (Auto) (0.9-3.2) K/mm3 [place] # (Auto) (0.1-0.6) K/mm3 Eos # (Auto) (0-0.3) K/mm3 Baso # (Auto) (0.0-0.1) K/mm3 Abs Immat Gran (auto) (0.00-0.031) K/mm3 Absolute Neuts (auto) (1.3-6.7) K/mm3 Absolute Nucleated RBC (0.0-0.012) K/mm3 Nucleated RBC % (0.0-0.2) % Sodium (137-145) mmol/L Potassium (3.4-5.0) mmol/L Chloride (98-107) mmol/L Carbon Dioxide (22-30) mmol/L Anion Gap (4-12) mmol/L BUN (7-17) mg/dL Creatinine (0.7-1.0) mg/dL Estim Creat Clear Calc ml/min Estimated GFR (59 - ) Glucose (65-110) mg/dL POC Capillary Glucose (65-105) mg/dl Calcium (8.4-10.2) mg/dL Phosphorus Cancelled (2.5-4.5) mg/dL Magnesium 1.6 Cancelled (1.6-2.3) mg/dL Total Bilirubin 0.3 (0.2-1.3) mg/dL AST 15 (14-36) U/L ALT 17 (6-35) U/L Alkaline Phosphatase 92 (38-126) U/L Total Protein 7.5 (6.3-8.2) g/dL Albumin 3.7 (3.5-5.1) g/dL Beta-Hydroxybutyrate/Acetoacetate 0.06 (0.02-0.27) mmol/L Urine Color Yellow (Yellow) Urine Appearance Clear (Clear) Urine pH 6.0 (5.0-9.0) Ur Specific [place] 1.015 (1.001-1.035) Urine Protein Negative (Negative) mg/dL Urine Glucose (UA) Negative (Negative) mg/dL Urine Ketones Negative (Negative) mg/dL Ur Blood (Man) 3+ H (Negative) Urine Nitrate Negative (Negative) Urine Bilirubin Negative (Negative) Urine Urobilinogen 0.2 (<2.0) mg/dL Leukocyte Esterase Rfl Negative (Negative) SHANNAN/UL Urine RBC 11-20 H (0-2) /hpf Urine WBC 0-5 (0-3) /hpf Ur Squamous Epith Cells None seen (Few) /hpf Urine Bacteria Rare /hpf Urine Casts 0-2 <Yana King, FIELD MARKETING REPRESENTATIVE - Last Filed: 10/03/25 04:18> Lab Results 10/02/25 10/03/2510/03/25 Range/Units 22:32 01:04 02:22 WBC 9.8 (4.5-10.0) K/mm3 RBC 4.04 L (4.2-5.4) M/mm3 Hgb 10.1 L (12.0-15.0) g/dL Hct 32.3 L (37.0-47.0) % MCV 80.0 (80-100) fl MCH 25.0 L (26-34) pg MCHC 31.3 L (32-36) g/dl RDW 17.0 H (11.5-14.5) % Plt Count 328 (150-375) k/mm3 MPV 9.4 (7.4-10.4) fl Immature Gran % (Auto) 0.3 (0-0.5) % Neut % (Auto) 48.9 (45.5-73.1) % Lymph % (Auto) 43.6 (18.3-44.2) % [place] % (Auto) 5.3 (2.6-8.5) % Eos % (Auto) 1.7 (0-4.4) % Baso % (Auto) 0.2 (0.2-1.2) % Lymph # (Auto) 4.29 H (0.9-3.2) K/mm3 [place] # (Auto) 0.5 (0.1-0.6) K/mm3 Eos # (Auto) 0.2 (0-0.3) K/mm3 Baso # (Auto) 0.0 (0.0-0.1) K/mm3 Abs Immat Gran (auto) 0.03 (0.00-0.031) K/mm3 Absolute Neuts (auto) 4.8 (1.3-6.7) K/mm3 Absolute Nucleated RBC 0.000 (0.0-0.012) K/mm3 Nucleated RBC % 0.0 (0.0-0.2) % Sodium 135 L (137-145) mmol/L Potassium 3.9 (3.4-5.0) mmol/L Chloride 101 (98-107) mmol/L Carbon Dioxide 30 (22-30) mmol/L Anion Gap 4 (4-12) mmol/L BUN 10 (7-17) mg/dL Creatinine 0.64 L (0.7-1.0) mg/dL Estim Creat Clear Calc 135 ml/min Estimated GFR > 60 (59 - ) Glucose 282 H (65-110) mg/dL POC Capillary Glucose 250 H 275 H (65-105) mg/dl Calcium 9.5 (8.4-10.2) mg/dL Phosphorus 4.3 (2.5-4.5) mg/dL Magnesium (1.6-2.3) mg/dL Total Bilirubin (0.2-1.3) mg/dL AST (14-36) U/L ALT (6-35) U/L Alkaline Phosphatase (38-126) U/L Total Protein (6.3-8.2) g/dL Albumin (3.5-5.1) g/dL Beta-Hydroxybutyrate/Acetoacetate (0.02-0.27) mmol/L Urine Color (Yellow) Urine Appearance (Clear) Urine pH (5.0-9.0) Ur Specific [place] (1.001-1.035) Urine Protein (Negative) mg/dL Urine Glucose (UA) (Negative) mg/dL Urine Ketones (Negative) mg/dL Ur Blood (Man) (Negative) Urine Nitrate (Negative) Urine Bilirubin (Negative) Urine Urobilinogen (<2.0) mg/dL Leukocyte Esterase Rfl (Negative) SHANNAN/UL Urine RBC (0-2) /hpf Urine WBC (0-3) /hpf Ur Squamous Epith Cells (Few) /hpf Urine Bacteria /hpf Urine Casts 10/03/25 10/03/25 10/03/25 Range/Units 02:22 02:22 02:29 WBC (4.5-10.0) K/mm3 RBC (4.2-5.4) M/mm3 Hgb (12.0-15.0) g/dL Hct (37.0-47.0) % MCV (80-100) fl MCH (26-34) pg MCHC (32-36) g/dl RDW (11.5-14.5) % Plt Count (150-375) k/mm3 MPV (7.4-10.4) fl Immature Gran % (Auto) (0-0.5) % Neut % (Auto) (45.5-73.1) % Lymph % (Auto) (18.3-44.2) % [place] % (Auto) (2.6-8.5) % Eos % (Auto) (0-4.4) % Baso % (Auto) (0.2-1.2) % Lymph # (Auto) (0.9-3.2) K/mm3 [place] # (Auto) (0.1-0.6) K/mm3 Eos # (Auto) (0-0.3) K/mm3 Baso # (Auto) (0.0-0.1) K/mm3 Abs Immat Gran (auto) (0.00-0.031) K/mm3 Absolute Neuts (auto) (1.3-6.7) K/mm3 Absolute Nucleated RBC (0.0-0.012) K/mm3 Nucleated RBC % (0.0-0.2) % Sodium (137-145) mmol/L Potassium (3.4-5.0) mmol/L Chloride (98-107) mmol/L Carbon Dioxide (22-30) mmol/L Anion Gap (4-12) mmol/L BUN (7-17) mg/dL Creatinine (0.7-1.0) mg/dL Estim Creat Clear Calc ml/min Estimated GFR (59 - ) Glucose (65-110) mg/dL POC Capillary Glucose (65-105) mg/dl Calcium (8.4-10.2) mg/dL Phosphorus Cancelled (2.5-4.5) mg/dL Magnesium 1.6 Cancelled (1.6-2.3) mg/dL Total Bilirubin 0.3 (0.2-1.3) mg/dL AST 15 (14-36) U/L ALT 17 (6-35) U/L Alkaline Phosphatase 92 (38-126) U/L Total Protein 7.5 (6.3-8.2) g/dL Albumin 3.7 (3.5-5.1) g/dL Beta-Hydroxybutyrate/Acetoacetate 0.06 (0.02-0.27) mmol/L Urine Color Yellow (Yellow) Urine Appearance Clear (Clear) Urine pH 6.0 (5.0-9.0) Ur Specific [place] 1.015 (1.001-1.035) Urine Protein Negative (Negative) mg/dL Urine Glucose (UA) Negative (Negative) mg/dL Urine Ketones Negative (Negative) mg/dL Ur Blood (Man) 3+ H (Negative) Urine Nitrate Negative (Negative) Urine Bilirubin Negative (Negative) Urine Urobilinogen 0.2 (<2.0) mg/dL Leukocyte Esterase Rfl Negative (Negative) SHANNAN/UL Urine RBC 11-20 H (0-2) /hpf Urine WBC 0-5 (0-3) /hpf Ur Squamous Epith Cells None seen (Few) /hpf Urine Bacteria Rare /hpf Urine Casts 0-2 <Jerry Schneider DO - Last Filed: 10/03/25 04:39> ABG Data ABG results: 10/03/25 02:17 VBG pH 7.387 VBG pCO2 48.4 H VBG pO2 31.8 L VBG HCO3 28.4 O2 Delivery Device Room air O2 Liters/Min 0.0 FiO2 21 <Yana King APRN - Last Filed: 10/03/25 04:18> 10/03/25 02:17 VBG pH 7.387 VBG pCO2 48.4 H VBG pO2 31.8 L VBG HCO3 28.4 O2 Delivery Device Room air O2 Liters/Min 0.0 FiO2 21 <Jerry Schneider DO - Last Filed: 10/03/25 04:39> Discharge Plan Discharge Clinical Impression: Hyperglycemia <Yana King APRN - Last Filed: 10/03/25 04:18> Patient Disposition: Home <Yana King APRN - Last Filed: 10/03/25 04:18> Condition: Stable <Yana King APRN - Last Filed: 10/03/25 04:18> Instructions: Antibiotic Form, Diabetic Hyperglycemia (ED) <Yana King APRN - Last Filed: 10/03/25 04:18> Additional Instructions: Continue taking your home medications as prescribed, rest and stay well hydrated, follow-up with your primary care physician in the next 2-3 days for reassessment, return immediately to the emergency department for any new or concerning symptoms especially any emergent concerns for life, limb, eyesight. <Yana King APRN - Last Filed: 10/03/25 04:18> Patient Language: Estonian <Yana King APRN - Last Filed: 10/03/25 04:18> Prescriptions: No Action rosuvastatin 5 mg tablet Jardiance 10 mg tablet 10 mg PO DAILY Trulicity 0.75 mg/0.5 mL pen injector SUBCUT Mounjaro 2.5 mg/0.5 mL pen injector 2.5 mg SUBCUT WEEKLY polyethylene glycol 3350 [Miralax] 17 gram Powder In Packet 17 g PO QAM Qty: 30 0RF sennosides-docusate sodium [Senokot-S] 8.6-50 mg Tablet 2 tab PO BID Qty: 30 0RF ergocalciferol (vitamin D2) [Vitamin D2] 1,250 mcg (50,000 unit) Capsule 50,000 unit PO SuWe@0900 Qty: 8 0RF metformin 500 mg tablet 500 mg PO BID Qty: 60 0RF (DME) blood-glucose meter [OneTouch Verio Flex meter] [facility] [place] Qty: 1 0RF Rx Instructions: May substitute to in-stock meter and/or covered by insurance. Use As Directed (DME) OneTouch Verio test strips Strip Qty: 1 0RF Rx Instructions: May substitute to in-stock and/or covered by insurance strips. Use As Directed (DME) lancets [OneTouch Delica Plus Lancet] 30 gauge [facility] [place] Qty: 1 0RF Rx Instructions: May substitute to in-stock and/or covered by insurance lancets. Use As Directed glimepiride 1 mg tablet 1 mg PO DAILY <Yana King APRN - Last Filed: 10/03/25 04:18> Follow-up/Referrals: PHYSICIAN,SCIENTIFIC AFFAIRS MANAGER [Primary Care Provider, Internal Medicine] - 3 Days <Yana King APRN - Last Filed: 10/03/25 04:18> Time of Disposition: 04:38 <Yana King APRN - Last Filed: 10/03/25 04:18> 04:38 <Jerry Schneider DO - Last Filed: 10/03/25 04:39>
[2025-10-03 02:23] LABS: Fractional Inspired Oxygen 21 %; HCO3 VBG 28.4 mEq/l (24.0-30.0); PCO2 VBG 48.4 mmHg (42.0-48.0); PO2 VBG 31.8 mmHg (35.0-45.0); pH VBG 7.387 (7.300-7.400)
[2025-10-03 02:24] LABS: Liters per Minute 0.0 LPM
--- NOTE | 2025-10-03 02:25 | PCRCNOTE ---
VBG delayed due to RN's unable to obtain iv access.
[2025-10-03 02:39] LABS: Hematocrit 32.3 % (37.0-47.0); Hemoglobin 10.1 g/dL (12.0-15.0); Immature Granulocyte Percent A 0.3 % (0-0.5); Lymphocytes Absolute Auto 4.29 K/mm3 (0.9-3.2); Mean Corpuscular HGB Conc 31.3 g/dl (32-36); Mean Corpuscular Hemoglobin 25.0 pg (26-34); Mean Corpuscular Volume 80.0 fl (80-100); Nucleated Red Blood Cells Absolute Auto 0.000 K/mm3 (0.0-0.012); Nucleated Red Blood Cells Perc 0.0 % (0.0-0.2); Platelet Count Result 328 k/mm3 (150-375); Red Blood Count 4.04 M/mm3 (4.2-5.4); White Blood Count 9.8 K/mm3 (4.5-10.0)
[2025-10-03] MEDS: SODIUM CHLORIDE 0.9% IV 1,000 ML 999 ML IV CONT (02:47)
[2025-10-03 02:49] LABS: Alanine Aminotransferase 17 U/L (6-35); Albumin Level 3.7 g/dL (3.5-5.1); Alkaline Phosphatase 92 U/L (38-126); Anion Gap 4 mmol/L (4-12); Aspartate Amino Transferase 15 U/L (14-36); Bilirubin,Total 0.3 mg/dL (0.2-1.3); Blood Urea Nitrogen 10 mg/dL (7-17); Calcium 9.5 mg/dL (8.4-10.2); Carbon Dioxide 30 mmol/L (22-30); Chloride 101 mmol/L (98-107); Estimated CRCL calculation 135 ml/min; Estimated Glomerular Filt Rate > 60; Glucose 282 mg/dL (65-110); Magnesium 1.6 mg/dL (1.6-2.3); Potassium 3.9 mmol/L (3.4-5.0); Sodium 135 mmol/L (137-145); Total Protein 7.5 g/dL (6.3-8.2)
[2025-10-03 02:54] LABS: Beta-Hydroxybutyrate/Acetoace. 0.06 mmol/L (0.02-0.27)
[2025-10-03 02:57] LABS: Add Urine Microscopic? YES; Appearance Urine Clear (Clear); Glucose Urine UA Negative (Negative); Leukocyte Esterase Ur Negative LEU/UL (Negative); Nitrate Urine Negative (Negative); Non Pathogenic Casts 0-2; Specific Grav Ur 1.015 (1.001-1.035)
[2025-10-03 04:50] VITALS: BP 125/74; PULSE 74; RESP 17; TEMP 36.6; O2SAT 100
[2025-10-03 05:12] VITALS: BP 125/74; PULSE 74; RESP 17; TEMP 36.6; O2SAT 100
== END 2025-10-03 05:15 | disposition home or self-care (01) ==
PROVIDERS: Registered Nurse; Emergency Provider Student in an Organized Health Care Education/Training Program
DX: E11.65 Type 2 diabetes mellitus with hyperglycemia (principal); E03.9 Hypothyroidism, unspecified; E66.9 Obesity, unspecified; Z68.43 Body mass index [BMI] 50.0-59.9, adult; Z90.49 Acquired absence of other specified parts of digestive tract; Z79.84 Long term (current) use of oral hypoglycemic drugs; Z79.85 Long-term (current) use of injectable non-insulin antidiabetic drugs
CPT/HCPCS: 36415; 71046; 80053; 81001; 82010; 82803; 82948; 83735; 84100; 85025; 96360; 99283; J7030

== ENCOUNTER 2025-10-25 17:00 | Emergency (ER) | payer OTHER, SELFPAY ==
--- NOTE | ~2025-10-25 | XR_ITS ---
EXAMINATION: KUB: DATE: 10/25/2025. INDICATION: Left upper abdominal pain. Possible stone. TECHNIQUE: Supine AP view of the abdomen were obtained. COMPARISON: None. FINDINGS: Normal bowel gas pattern. No definite calcific densities in the projection of the kidneys. No calcific density in the projection of the bladder. IMPRESSION: 1. Limited supine radiograph shows no evidence of calcific density in the projection of kidneys and bladder. Reviewed, dictated and finalized at location T. ER SEAL IMPRESSION: 1. Limited supine radiograph shows no evidence of calcific density in the proje ction of kidneys and bladder.
--- NOTE | 2025-10-25 17:35 | ED_ITS ---
HPI - Abdominal Pain General Chief Complaint: Abdominal Pain Stated Complaint: sides hurting Time Seen by Provider: 10/25/25 17:15 Source: patient Mode of arrival: ambulatory Limitations: no limitations History of Present Illness HPI narrative: Melly is a 35 year old female patient presenting to the clinic today with c/o intermittent left upper quadrant abdominal discomfort/side pain that has been going on and off for a couple months. Has not followed up with her primary care doctor in regards to this left upper quadrant abdominal pain. States the pain comes and goes and it is a dull ache. Rates it currently an 8.5/10. States she has been taking [id number] pain medication and is been relieving the pain. Last bowel movement was yesterday and normal. Denies any urinary symptoms. She is type 2 diabetic and states her blood sugar was over 300 this morning and is requesting as to recheck her blood sugar in the clinic today. History of cholecystectomy and section x4. No associated nausea or vomiting. No history of kidney stones. Related Data Home Medications ?Medication ?Instructions ?Recorded ?Confirmed ?Last Taken ?Type dulaglutide 0.75 mg/0.5 mL mg subcut 10/04/24 Unknown History subcutaneous pen injector (Trulicity) empagliflozin 10 mg tablet 10 mg PO DAILY 10/04/2405/21 Unknown History (Jardiance) rosuvastatin 5 mg tablet mg 10/04/24 Unknown History tirzepatide 2.5 mg/0.5 mL 2.5 mg subcut WEEKLY 4 10/25/25 Unknown History subcutaneous pen injector (Mounjaro) glimepiride 1 mg tablet 1 mg PO DAILY 02/03/2510/2502/03/25 History Allergies Allergy/AdvReac Type Severity Reaction Status Date / Time crab Allergy Severe Swelling Verified 10/25/25 17:13 of Lip/Tongue/Throat morphine Allergy Severe ITCHING, Verified 10/25/25 17:13 hives, throat swelling Review of Systems Review of Systems: Pertinent positives per HPI. Patient denies any fever, chills, rash, headache, visual changes, dizziness, cough, runny nose, sore throat, shortness of breath, chest pain, palpitations, nausea, vomiting, diarrhea, constipation,or any urinary issues. 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 She lives with her tracy who is her durable power deputy commonwealth's attorney for healthcare. The patient is a lifelong nonsmoker. She does not use any alcohol marijuana or illicit drugs. Code status full code Smoking status: Never smoker Alcohol intake: never Substance use: never Substance use type: does not use Gender identity (if verbalized by the patient): Female Spiritual care concerns: No Comments At the time of my signature, I reviewed and agree with the nursing past medical, surgical, social, and family history. There is no relevant family history pertinent to the patient complaint. Exam Narrative: General: Well-developed, morbidly obese, in no apparent distress. Head: Normocephalic, atraumatic. Cardio: Regular rate and rhythm, s1 and s2 normal, no murmur appreciated. Resp: Clear to auscultation bilaterally, no rhonchi, rales, wheezing or rubs. Abdomen: Soft, pliable, bowel sounds present in all quadrants, left upper qu adrant tender to palpation, no organomegly, no CVAT tenderness. Course Course Level of Care: Express Care Visit MDM MDM Narrative Medical decision making narrative: At the time of visit patient is resting comfortably on the exam table. Patient appears to be nontoxic. c/o intermittent left upper quadrant abdominal discomfort/side pain that has been going on and off for a couple months. Has not followed up with her primary care doctor in regards to this left upper quadrant abdominal pain. States the pain comes and goes and it is a dull ache. Rates it currently an 8.5/10. States she has been taking [id number] pain medication and is been relieving the pain. Last bowel movement was yesterday and normal. Denies any urinary symptoms. She is type 2 diabetic and states her blood sugar was over 300 this morning and is requesting as to recheck her blood sugar in the clinic today. History of cholecystectomy and section x4. No associated nausea or vomiting. No history of kidney stones. On exam patient has tenderness to palpation over the left upper quadrant, abdomen soft, pliable, nondistended, no organomegaly, no CVAT tenderness. Urinalysis, bedside glucose, and KUB x-ray was ordered Labs: Blood sugar was 209 in the clinic today. Urinalysis shows trace of blood. Diagnostics: Abdomen KUB x-ray was performed and is negative for any acute abdomen pathology, no sign of stone Plan: I suspect patient has intermittent left upper quadrant abdominal pain and hyperglycemia due to diabetes. Recommend follow-up with her PCP later on this week or go to the emergency room if her symptoms worsen. Supportive measures were discussed with the patient and they voiced understanding discharge instructions and agrees to treatment plan. Return precautions reviewed Differential Diagnosis Differential Diagnosis: Differential diagnostic considerations for acute abdominal pain include surgical abdominal etiology, ischemic bowel, inflammatory bowel disease, gastritis, PUD, gastroenteritis, cardiac etiology, appendicitis, diverticulitis, bowel obstruction, kidney stone, pyelonephritis, abdominal aortic aneurysm, pancreatitis, constipation, endometriosis. Lab Data Labs: Lab Results 10/25/25 10/25/25 Range/Units 17:21 17:34 POC Capillary Glucose 207 H (65-105) mg/dl POC Urine Color Yellow POC Urine Clarity Clear POC Urine pH 7.5 POC Ur Specif [place] 1.020 POC Urine Protein Negative (Negative) POC Ur Glucose (UA) Negative (Negative) POC Urine Ketones Negative (Negative) POC Urine Blood Trace (Negative) POC Urine Nitrite Negative (Negative) POC Urine Bilirubin Negative (Negative) POC Urine Urobilinogen 0.2 POC U Leukocyte Esteras Negative (Negative) Imaging Data Radiologist's impression: ITS Impressions Abdomen X-Ray 10/25/25 17:53 IMPRESSION: 1. Limited supine radiograph shows no evidence of calcific density in the projection of kidneys and bladder. Discharge Plan Discharge Clinical Impression: Intermittent left upper quadrant abdominal pain, Hyperglycemia due to diabetes mellitus Patient Disposition: Home Condition: Stable Instructions: Antibiotic Form, Abdominal Pain (ED), Diabetic Hyperglycemia (ED) Additional Instructions: Blood sugar was 209 in the clinic today Abdomen x-rays negative for any acute abdomen pathology Urine shows a trace of blood but no sign of infection Increase fluids and stay well hydrated May take Tylenol/Motrin as needed for pain Keep a tight control on your blood sugar Follow-up with your PCP this week in regards to your abdomen pain Go to the emergency room if your symptoms worsen Patient Language: Algerian Prescriptions: No Action rosuvastatin 5 mg tablet Jardiance 10 mg tablet 10 mg PO DAILY Trulicity 0.75 mg/0.5 mL pen injector SUBCUT Mounjaro 2.5 mg/0.5 mL pen injector 2.5 mg SUBCUT WEEKLY polyethylene glycol 3350 [Miralax] 17 gram Powder In Packet 17 g PO QAM Qty: 30 0RF sennosides-docusate sodium [Senokot-S] 8.6-50 mg Tablet 2 tab PO BID Qty: 30 0RF ergocalciferol (vitamin D2) [Vitamin D2] 1,250 mcg (50,000 unit) Capsule 50,000 unit PO SuWe@0900 Qty: 8 0RF metformin 500 mg tablet 500 mg PO BID Qty: 60 0RF (DME) blood-glucose meter [OneTouch Verio Flex meter] [facility] Qty: 1 0RF Rx Instructions: May substitute to in-stock meter and/or covered by insurance. Use As Directed (DME) OneTouch Verio test strips Strip Qty: 1 0RF Rx Instructions: May substitute to in-stock and/or covered by insurance strips. Use As Directed (DME) lancets [OneTouch Delica Plus Lancet] [address] [facility] Qty: 1 0RF Rx Instructions: May substitute to in-stock and/or covered by insurance lancets. Use As Directed glimepiride 1 mg tablet 1 mg PO DAILY Follow-up/Referrals: Archie,Burak Palafox [Primary Care Provider] Time of Disposition: 17:58 Quality NIHSS Nursing Documentation ED NIHSS nursing documentation: reviewed/agree
[2025-10-25 17:36] LABS: EDUAAPPEAR Clear; EDUABILI Negative (Negative); EDUABLOOD Trace (Negative); EDUACOLOR1 Yellow; EDUAGLUCOSE Negative (Negative); EDUAKETONE Negative (Negative); EDUALEUKO Negative (Negative); EDUANITRATE Negative (Negative); EDUAPH 7.5; EDUAPROTEIN Negative (Negative); EDUASPGRAVITY 1.020; EDUAUROBILI 0.2
[2025-10-25 18:40] VITALS: BP 120/79; PULSE 90; RESP 16; TEMP 36.1; O2SAT 100
== END 2025-10-25 18:05 | disposition home or self-care (01) ==
PROVIDERS: Emergency Provider Nurse Practitioner Family; PCP Internal Medicine Infectious Disease
DX: R10.12 Left upper quadrant pain (principal); E11.65 Type 2 diabetes mellitus with hyperglycemia; Z79.84 Long term (current) use of oral hypoglycemic drugs; Z79.85 Long-term (current) use of injectable non-insulin antidiabetic drugs; E03.9 Hypothyroidism, unspecified; E66.9 Obesity, unspecified
CPT/HCPCS: 74018; 81003; 82948; 99213; G0463